=== PATIENT | male | born 1990 | race Caucasian/White ===

== ENCOUNTER 2020-09-05 02:09 | Emergency (ER) | payer MEDICAID, SELFPAY ==
[2020-09-05 02:15] VITALS: BP 138/67; BP 160/83; PULSE 83; PULSE 90; RESP 12; TEMP 37.3; O2SAT 97; O2SAT 99; BMI 25.9
--- NOTE | 2020-09-05 02:54 | ECG_ITS ---
Test Reason : CHEST PAIN Blood Pressure : / mmHG Vent. Rate : 054 BPM Atrial Rate : 054 BPM P-R Int : 128 ms QRS Dur : 090 ms QT Int : 438 ms P-R-T Axes : 034 070 048 degrees QTc Int : 415 ms Sinus bradycardia Nonspecific T wave abnormality Abnormal ECG When compared with ECG of 31-JUL-2020 13:34, Vent. rate has decreased BY 30 BPM Nonspecific T wave abnormality now evident in Lateral leads Referred By: Sonia Ozuna Electronically Signed By:SEBLE RENNER MD
[2020-09-05 03:18] LABS: Basophils Percent Auto 0.3 % (0-2); Eosinophils Absolute Auto 0.2 X10*3/uL (0.0-0.4); Eosinophils Percent Auto 2.4 % (0-4); Hematocrit 35.8 % (42-52); Imm Gran Abs Auto 0.01 X10*3/uL (0.00-0.03); Imm Gran Pct Auto 0.2 % (0.0-0.4); Lymphocytes Absolute Auto 2.7 X10*3/uL (1.2-4.9); Mean Corpuscular HGB Conc 33.5 g/dl (31.0-36.0); Mean Corpuscular Hemoglobin 30.2 pg (27.0-33.0); Mean Corpuscular Volume 90.2 fL (80-98); Mean Platelet Volume 9.4 fL (9.4-12.4); Monocytes Absolute Auto 0.7 X10*3/uL (0.1-1.2); Monocytes Percent Auto 11.2 % (2-11); Neutrophils Absolute Auto 2.8 X10*3/uL (2.0-8.3); Neutrophils Percent Auto 43.9 % (45-73); Platelet Count 251 X10*3/uL (160-400); Red Blood Count 3.97 X10*6/uL (4.60-5.80); Red Cell Distribution Width 12.4 % (11.0-16.0); White Blood Count 6.3 X10*3/uL (4.8-10.8)
[2020-09-05 03:19] LABS: MANUAL DIFF FLAG NO
[2020-09-05 03:20] LABS: Amphetamine Screen Urine Not Detected (Not Detect); Barbiturates, Urine Not Detected (Not Detect); Benzodiazepines Screen Urine Not Detected (Not Detect); Cannabinoid Screen Urine POSITIVE (Not Detect); Cocaine Screen Urine POSITIVE (Not Detect); Opiate Screen Urine POSITIVE (Not Detect); Phencyclidine Screen Urine Not Detected (Not Detect)
[2020-09-05 03:26] VITALS: BP 150/63; PULSE 66; RESP 12; TEMP 37.1; O2SAT 97
[2020-09-05 03:52] LABS: Alanine Aminotransferase 44 U/L (0-40); Alkaline Phosphatase 79 U/L (39-117); Anion Gap 11 (12-20); Aspartate Amino Transferase 43 U/L (5-37); Bilirubin Total 0.4 mg/dL (0.0-1.0); Blood Urea Nitrogen 15 mg/dL (9-16); Calcium 8.7 mg/dL (8.4-10.2); Carbon Dioxide 30 mmol/L (22-29); Chloride 102 mmol/L (96-108); Creatinine Clr Calc Pharmacy 98.1; Estimated Glomerular Filt Rate > 60; Glucose Random 118 mg/dL (60-115); Potassium 3.9 mmol/l (3.3-5.1); Sodium 139 mmol/L (135-145); Total Protein 7.4 g/dL (6.5-8.0)
--- NOTE | 2020-09-05 04:00 | ED_ITS ---
HPI - Overdose General Chief Complaint: Overdose Stated Complaint: Drug Use Time Seen by Provider: 09/05/20 02:53 Source: patient Mode of arrival: EMS Limitations: no limitations History of Present Illness HPI Narrative: This is a 29-year-old male who presents via EMS after he called them when he began experiencing chest pain after using heroin and cocaine. He describes the pain as being in the middle the chest and states that is sharp and nonradiating does not worsened with deep inspiration or movement. He denies any fevers, chills, nausea, vomiting, diarrhea or abdominal pain, and denies any urinary pain/ burning /frequency. EMS does not report requiring any Narcan. Related Data Home Medications Medication Instructions Recorded Confirmed No Known Home Meds 09/05/20 09/05/20 Allergies Allergy/AdvReac Type Severity Reaction Status Date / Time quetiapine [From SEROQUEL] Allergy Unknown UNK Verified 09/05/20 02:13 trazodone [TRAZODONE] Allergy Unknown UNK Verified 09/05/20 02:13 Review of Systems Review of Systems: Pertinent positives and negatives as stated in HPI 10 point review of systems is otherwise negative. PMFSH Past Medical History Source: nursing notes reviewed Medical History Anxiety Depression IV drug user Substance abuse Social History Social History Alcohol intake: current Alcohol intake frequency: a few times a month Alcohol type: beer Smoking Status: Current every day smoker Use of substances other than those prescribed or required for medical reasons: Yes Substance Use Type: Crack/Cocaine, Heroin and IV Drugs Substance Use Frequency: Daily Last Used Substance: Just Prior to Admission Advance Directives: No Advance Directives Information Provided: No Physical Exam Vital Signs: Vital Signs: Vital Signs Temp Pulse Resp BP Pulse Ox 09/05/20 05:30 98.9 F 58 10 L 140/53 H 97 09/05/20 03:26 98.7 F 66 12 150/63 H 97 09/05/20 02:15 99.2 F 83 12 138/67 99 Body Mass Index 25.9 VITAL SIGNS: Reviewed. GENERAL: Well developed, well nourished, in no acute distress. HEAD: Normocephalic/atraumatic, EYES: PERRLA, EOMI intact without pain, no nystagmus/pallor/icterus noted EARS: Ext canals without abnormality, TMs non-bulging and non-erythematous NOSE: Nares patent bilateral OROPHARYNX: no oral lesions noted, posterior pharynx clear and non-erythematous without noted tonsillar enlargement/erythema/exudates NECK: Supple, no adenopathy LUNGS: Normal breath sounds. No adventitious sounds or accessory muscle use. SpO2<99> CARDIOVASCULAR: Regular rate and rhythm without noted murmurs, no JVD or lower extremity edema. ABDOMEN: Soft, non-tender, non-distended with bowel sounds. No rigidity. No guarding. No palpable masses or hernias noted MUSCULOSKELETAL: No tenderness, deformities, or effusions noted on gross inspection. EXTREMITIES: No cyanosis, clubbing or edema. SKIN: Inspection of the skin reveals no rashes, ulcerations, jaundice, pallor, or petechiae , multiple sites of healing injection sites along neck bilateral arms. NEUROLOGIC: drowsy and oriented x 4. Strength and sensation to light touch were grossly intact x 4. Course Course Course Narrative: This is a 29-year-old male with history and clinical presentation consistent with chest pain likely associated with use of cocaine and heroin. Review of EKG is not significant for acute ischemic changes and on review of lab work there is no evidence of infection. On review of EKG there are no acute findings and review of all investigations otherwise are negative for acute infection, electrolyte abnormality. chest x-ray is negative for any acute findings and high sensitivity troponin is negative as well. Patient is discharged in stable condition. MDM - Overdose Lab Data Result diagrams: 09/05/20 03:14 09/05/20 03:14 Labs: Lab Results 09/05/20 09/05/20 09/05/20 Range/Units 02:37 03:14 03:14 WBC 6.3 (4.8-10.8) X10*3/uL RBC 3.97 L (4.60-5.80) X10*6/uL Hgb 12.0 L (14.0-18.0) g/dl Hct 35.8 L (42-52) % MCV 90.2 (80-98) fL MCH 30.2 (27.0-33.0) pg MCHC 33.5 (31.0-36.0) g/dl RDW 12.4 (11.0-16.0) % Plt Count 251 (160-400) X10*3/uL MPV 9.4 (9.4-12.4) fL Immature Gran % (Auto) 0.2 (0.0-0.4) % Neut % (Auto) 43.9 L (45-73) % Lymph % (Auto) 42.0 H (20-40) % Armstrong % (Auto) 11.2 H (2-11) % Eos % (Auto) 2.4 (0-4) % Baso % (Auto) 0.3 (0-2) % Lymph # (Auto) 2.7 (1.2-4.9) X10*3/uL Armstrong # (Auto) 0.7 (0.1-1.2) X10*3/uL Eos # (Auto) 0.2 (0.0-0.4) X10*3/uL Baso # (Auto) 0.0 (0.0-0.2) X10*3/uL Abs Immat Gran (auto) 0.01 (0.00-0.03) X10*3/uL Absolute Neuts (auto) 2.8 (2.0-8.3) X10*3/uL Absolute Nucleated RBC 0.000 (0.0-0.012) X10*3/uL Nucleated RBC % (auto) 0.0 (0.0-0.2) /100WBC Sodium 139 (135-145) mmol/L Potassium 3.9 (3.3-5.1) mmol/l Chloride 102 (96-108) mmol/L Carbon Dioxide 30 H (22-29) mmol/L Anion Gap 11 L (12-20) BUN 15 (9-16) mg/dL Creatinine 1.11 (0.5-1.4) mg/dL Estim Creat Clear Calc 98.1 Estimated GFR > 60 Random Glucose 118 H (60-115) mg/dL Calcium 8.7 (8.4-10.2) mg/dL Total Bilirubin 0.4 (0.0-1.0) mg/dL AST 43 H (5-37) U/L ALT 44 H (0-40) U/L Alkaline Phosphatase 79 (39-117) U/L Troponin I High Sens (<3.5-35.0) ng/L Total Protein 7.4 (6.5-8.0) g/dL Albumin 4.0 (3.5-5.0) g/dL Urine Opiates Screen POSITIVE H (Not Detect) Ur Barbiturates Screen Not Detected (Not Detect) Ur Phencyclidine Scrn Not Detected (Not Detect) Ur Amphetamines Screen Not Detected (Not Detect) U Benzodiazepines Scrn Not Detected (Not Detect) Urine Cocaine Screen POSITIVE H (Not Detect) U Marijuana (THC) Screen POSITIVE H (Not Detect) 09/05/20 Range/Units 03:14 WBC (4.8-10.8) X10*3/uL RBC (4.60-5.80) X10*6/uL Hgb (14.0-18.0) g/dl Hct (42-52) % MCV (80-98) fL MCH (27.0-33.0) pg MCHC (31.0-36.0) g/dl RDW (11.0-16.0) % Plt Count (160-400) X10*3/uL MPV (9.4-12.4) fL Immature Gran % (Auto) (0.0-0.4) % Neut % (Auto) (45-73) % Lymph % (Auto) (20-40) % Armstrong % (Auto) (2-11) % Eos % (Auto) (0-4) % Baso % (Auto) (0-2) % Lymph # (Auto) (1.2-4.9) X10*3/uL Armstrong # (Auto) (0.1-1.2) X10*3/uL Eos # (Auto) (0.0-0.4) X10*3/uL Baso # (Auto) (0.0-0.2) X10*3/uL Abs Immat Gran (auto) (0.00-0.03) X10*3/uL Absolute Neuts (auto) (2.0-8.3) X10*3/uL Absolute Nucleated RBC (0.0-0.012) X10*3/uL Nucleated RBC % (auto) (0.0-0.2) /100WBC Sodium (135-145) mmol/L Potassium (3.3-5.1) mmol/l Chloride (96-108) mmol/L Carbon Dioxide (22-29) mmol/L Anion Gap (12-20) BUN (9-16) mg/dL Creatinine (0.5-1.4) mg/dL Estim Creat Clear Calc Estimated GFR Random Glucose (60-115) mg/dL Calcium (8.4-10.2) mg/dL Total Bilirubin (0.0-1.0) mg/dL AST (5-37) U/L ALT (0-40) U/L Alkaline Phosphatase (39-117) U/L Troponin I High Sens < 3.5 (<3.5-35.0) ng/L Total Protein (6.5-8.0) g/dL Albumin (3.5-5.0) g/dL Urine Opiates Screen (Not Detect) Ur Barbiturates Screen (Not Detect) Ur Phencyclidine Scrn (Not Detect) Ur Amphetamines Screen (Not Detect) U Benzodiazepines Scrn (Not Detect) Urine Cocaine Screen (Not Detect) U Marijuana (THC) Screen (Not Detect) ECG Data Attestation: I personally reviewed and interpreted this ECG as follows: Prior ECG tracings: available for review ( 07/31/2020 no acute changes on comparison) Interpretation: normal sinus rhythm, HR -54, no acute evidence of ischemia, SC/QRS/ QTC are within normal limits. Discharge Plan Discharge Clinical Impression: Substance abuse, Atypical chest pain Patient Disposition: Home, Self-Care Instructions: Chest Pain (ED), Polysubstance Abuse (ED) Additional Instructions: The patient and/or family acknowledge understanding of results (as applicable), diagnosis, treatment plan, need for follow up, and symptoms that should prompt a return to the emergency room. Prescriptions: No Action No Known Home Meds RF: 0 Referrals: Physician,Unknown [Primary Care Provider] - 2 days ( polysubstance abuse)
--- NOTE | 2020-09-05 04:53 | XR_ITS ---
EXAMINATION: CHEST 1 VIEW CLINICAL INFORMATION: Chest discomfort. COMPARISON: 07/31/2020. TECHNIQUE: An AP view of the chest is provided. FINDINGS: The cardiac silhouette is not enlarged. The mediastinal and hilar contours are unremarkable. There are neither pleural effusions nor pneumothoraces. There are no consolidations. The osseous structures are unremarkable. XR/XR chest 1V IMPRESSION: No evidence for acute disease.
[2020-09-05 05:29] LABS: Troponin-I High Sensitivity < 3.5 ng/L (<3.5-35.0)
[2020-09-05 05:30] VITALS: BP 140/53; PULSE 58; RESP 10; TEMP 37.2; O2SAT 97
== END 2020-09-05 07:08 | disposition home or self-care (01) ==
PROVIDERS: Emergency Provider Student in an Organized Health Care Education/Training Program
DX: T40.1X1A Poisoning by heroin, accidental (unintentional), initial encounter (principal); Y92.9 Unspecified place or not applicable; R07.89 Other chest pain; F14.10 Cocaine abuse, uncomplicated; F17.200 Nicotine dependence, unspecified, uncomplicated; Z71.6 Tobacco abuse counseling
CPT/HCPCS: 36415; 71045; 80053; 80305; 80307; 84484; 85025; 93005; 99212; 99283; 99285

== ENCOUNTER 2020-10-06 15:01 | Outpatient (REF) | payer MEDICAID, SELFPAY ==
[2020-10-10 10:28] LABS: Buprenorphine Negative; Norbuprenorphine Negative
== END 2020-10-06 15:02 | disposition home or self-care (01) ==
LOC: HO.LNP 15:01
PROVIDERS: Visit Provider Internal Medicine
DX: F11.10 Opioid abuse, uncomplicated (principal)
CPT/HCPCS: 80305; 80348; 99211

== ENCOUNTER 2020-10-07 03:35 | Emergency (ER) | payer MEDICAID, SELFPAY ==
[2020-10-07 03:38] VITALS: BP 162/80; PULSE 74; RESP 24; TEMP 36.7; O2SAT 97; BMI 25.1
--- NOTE | 2020-10-07 03:51 | PC.NURSE ---
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 2 BAGS OF HEROIN AND UNK AMT OF COCAINE. PT SLOW TO REACTION WITH EYES CLOSE AND UNABLE TO UNDERSTAND. IN ROOM FOR EVAL.
--- NOTE | 2020-10-07 04:01 | ED.AMS ---
HPI - Altered Mental Status General Chief Complaint: ETOH/Substance Use Stated Complaint: DRUG USE/DIZZY Time Seen by Provider: 10/07/20 04:00 Source: patient and EMS Mode of arrival: EMS Limitations: no limitations History of Present Illness HPI narrative: patient with history of substance abuse used 2 bags of heroin and cocaine at 03:00 o'clock just prior to arrival now she feeling dizzy and sleepy states this time it feels different patient is awake falling sleep after arrival saturating 97% at room air complaint: intoxication Onset (ago): year(s) Related Data Previous Rx's Medication Instructions Recorded buprenorphine 8 mg-naloxone 2 mg 2 film SUBLINGUAL DAILY 1 Days #2 10/06/20 sublingual film ea Allergies Allergy/AdvReac Type Severity Reaction Status Date / Time quetiapine [From SEROQUEL] Allergy Unknown UNK Verified 09/05/20 02:13 trazodone [TRAZODONE] Allergy Unknown UNK Verified 09/05/20 02:13 Review of Systems Review of Systems: REVIEW OF SYSTEMS: Pertinent positives and negatives are stated above in the history. GEN: no fevers, chills, fatigue HEENT: no nasal congestion, sore throat, ear pain NEURO: no headache, , focal weakness PULM: no cough, shortness of breath CV: no chest pain, palpitations, LE edema ABD: no abdominal pain, nausea, vomiting, diarrhea : no dysuria, urgency, frequency SKIN: no rash ROS otherwise negative x 10 PMFSH Past Medical History Medical History Anxiety Cocaine use disorder Depression IV drug user Nausea Opioid abuse Opioid use disorder Substance abuse Social History Social History Alcohol intake: current Alcohol intake frequency: a few times a month Alcohol type: beer Smoking Status: Current every day smoker Substance Use Type: Crack/Cocaine, Heroin and IV Drugs Advance Directives: No Advance Directives Information Provided: No Physical Exam Vital Signs: Vital Signs: Last Vital Signs Temp 98.1 F 10/07/20 03:38 Pulse 76 10/07/20 05:43 Resp 16 10/07/20 05:43 BP 124/55 L 10/07/20 05:43 Pulse Ox 96 10/07/20 05:43 Body Mass Index 25.1 Appearance: Alert. Oriented X3. sleepy and lethargic but easily arousable saturating 98% at room air No acute distress. IV track jhaveri Eyes: Pupils equal, round and reactive to light. ENT: Pharynx normal. Neck: Normal inspection. Neck supple. CVS: Normal heart rate and rhythm. Pulses normal. Respiratory: No respiratory distress. Breath sounds normal. Abdomen: Soft and nontender. Skin: Skin warm and dry. Normal skin color. Normal skin turgor. Extremities: No lower extremity edema. Good range of movement Neuro: Oriented X 3. No motor deficit. No sensory deficit. MDM - Altered Mental Status MDM Narrative Medical decision making narrative: page patient with opiate and cocaine abuse alert oriented x3 saturating 98% room air refused to go to detox will discharge him home Discharge Plan Discharge Clinical Impression: Opioid use disorder, Cocaine use disorder Patient Disposition: Home, Self-Care Instructions: Opioid Use Disorder (ED) Additional Instructions: abusing cocaine and opiates Follow-up with detox Prescriptions: No Action ondansetron 4 mg tablet,disintegrating 4 mg PO TID PRN (Reason: nausea) Qty: 1 RF: 0 buprenorphine-naloxone [Suboxone] 8-2 mg film 2 film sublingual DAILY 1 Days Qty: 2 RF: 0 Interventions: ED Discharge Assessment Last Done: 10/07/20 06:37 Discharge Date/Time: 10/07/20 06:38
[2020-10-07 04:02] VITALS: BP 116/76; PULSE 88; RESP 16; O2SAT 97
[2020-10-07 04:05] VITALS: BP 122/76; PULSE 60; RESP 16; O2SAT 97
--- NOTE | 2020-10-07 04:08 | PC.NURSE ---
PT CHG INTO GOWN.
[2020-10-07 05:43] VITALS: BP 124/55; PULSE 76; RESP 16; O2SAT 96
== END 2020-10-07 06:38 | disposition home or self-care (01) ==
PROVIDERS: Emergency Provider Internal Medicine
DX: F11.10 Opioid abuse, uncomplicated (principal); F14.10 Cocaine abuse, uncomplicated; F17.200 Nicotine dependence, unspecified, uncomplicated
CPT/HCPCS: 99284

== ENCOUNTER → 2020-10-09 15:09 | Outpatient (BNVA) | payer MEDICAID, SELFPAY | PROVIDERS: Visit Provider Internal Medicine | DX: F11.99 Opioid use, unspecified with unspecified opioid-induced disorder (principal); Z51.81 Encounter for therapeutic drug level monitoring; Z79.01 Long term (current) use of anticoagulants | CPT/HCPCS: 80305; 99211 ==

== ENCOUNTER → 2020-10-13 15:20 | Outpatient (BNVA) | payer MEDICAID, SELFPAY | PROVIDERS: Visit Provider Internal Medicine | DX: F11.99 Opioid use, unspecified with unspecified opioid-induced disorder (principal) | CPT/HCPCS: 80305; 99211 ==

== ENCOUNTER 2020-10-19 19:50 | Emergency (ER) | payer MEDICAID, SELFPAY ==
--- NOTE | 2020-10-19 08:42 | ECG_ITS ---
Test Reason : CHEST PAIN Blood Pressure : / mmHG Vent. Rate : 053 BPM Atrial Rate : 053 BPM P-R Int : 140 ms QRS Dur : 090 ms QT Int : 412 ms P-R-T Axes : 077 068 049 degrees QTc Int : 386 ms Sinus bradycardia Otherwise normal ECG When compared with ECG of 05-SEP-2020 03:21, Nonspecific T wave abnormality no longer evident in Lateral leads Referred By: Lorna Johnson Electronically Signed By:Hector Shukla
[2020-10-19 20:16] VITALS: BP 128/55; PULSE 51; RESP 20; TEMP 37.4; O2SAT 99
--- NOTE | 2020-10-19 20:27 | ED_ITS ---
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 Mode of arrival: ambulatory Limitations: no limitations History of Present Illness MD elicited complaint: abdominal pain and other (n/v/d) Pertinent past history: none Onset (ago): hour(s) (12) Pain Consistency: constant Location: diffuse Severity: moderate Quality: cramping Radiation: none Migration to: no migration Exacerbating factors: nothing Relieving factors: nothing Associated symptoms: nausea, vomiting and diarrhea Related Data Previous Rx's Medication Instructions Recorded clonidine HCl 0.1 mg tablet 0.1 mg PO Q4-6H PRN 3 Days #18 tab 10/09/20 MDD 6 tablets buprenorphine 8 mg-naloxone 2 mg 2 film SUBLINGUAL DAILY 7 Days #14 10/13/20 sublingual film ea ondansetron 4 mg PO Q8H PRN #20 tab 10/19/20 polyethylene glycol 3350 [Miralax] 17 g PO DAILY PRN #119 g 10/19/20 sennosides [senna] 8.6 mg PO BEDTIME PRN #30 tab 10/19/20 Allergies Allergy/AdvReac Type Severity Reaction Status Date / Time quetiapine [From SEROQUEL] Allergy Unknown UNK Verified 09/05/20 02:13 trazodone [TRAZODONE] Allergy Unknown UNK Verified 09/05/20 02:13 Review of Systems Review of Systems Constitutional : No Weight loss, No Fever, No Chills ENT/Mouth : No sore throat, No Rhinorrhea Eyes: No Swelling, No Redness Cardiovascular : No Chest Pain, No SOB, NoEdema Respiratory : No Cough, No Sputum, No Wheezing Gastrointestinal : Positive Nausea, Positive Vomiting, positive Diarrhea, positive abdominal Pain, No Hematochezia, No Melena Genitourinary : No Dysuria, No Urinary Frequency, No Hematuria, No Urgency Musculoskeletal : No joint pain, No Myalgias, No Joint Swelling Skin : No Skin Lesions, No rash Neuro : No Weakness, No Numbness, No Dizziness, No Headache Psych : No Anxiety/Panic, No Depression Heme/Lymph: No Bruising, No Lymphadenopathy Endocrine : No Polyuria, No Polydipsia All other systems reviewed and are negative. Physical Exam Vital Signs: Vital Signs: Last Vital Signs Temp 97.8 F 10/19/20 22:00 Pulse 55 10/19/20 22:00 Resp 12 10/19/20 22:00 BP 106/51 L 10/19/20 22:00 Pulse Ox 100 10/19/20 22:00 Body Mass Index 24.3 Appearance: Alert. Oriented X3. No acute distress. Eyes: Pupils equal, round and reactive to light. ENT: Pharynx normal. Neck: Normal inspection. Neck supple. CVS: Normal heart rate and rhythm. Pulses normal. Respiratory: No respiratory distress. Breath sounds normal. Abdomen: Soft and moderate lower abdominal tenderness. Skin: Skin warm and dry. Normal skin color. Normal skin turgor. Extremities: No lower extremity edema. No calf ttp Neuro: Oriented X 3. No motor deficit. No sensory deficit. Course Course Course Narrative: negative workup, tolerating PO stable for DC at this time MDM - Abdominal Pain MDM Narrative Medical decision making narrative: 30 yo male with opiate use disorder who comes in with c/o vomiting/diarrhea/abdominal pain and wants a COVID test - he is somewhat unreliable he is tender in lower abdomen will obtain labs, CT scan for appendicitis, COVID swab and CXR, dispo per results and improvement Lab Data Result diagrams: 10/19/20 20:42 10/19/20 20:41 Labs: Lab Results 10/19/20 10/19/20 10/19/20 Range/Units 20:41 20:41 20:41 WBC (4.8-10.8) X10*3/uL RBC (4.60-5.80) X10*6/uL Hgb (14.0-18.0) g/dl Hct (42-52) % MCV (80-98) fL MCH (27.0-33.0) pg MCHC (31.0-36.0) g/dl RDW (11.0-16.0) % Plt Count (160-400) X10*3/uL MPV (9.4-12.4) fL Immature Gran % (Auto) (0.0-0.4) % Neut % (Auto) (45-73) % Lymph % (Auto) (20-40) % [place] % (Auto) (2-11) % Eos % (Auto) (0-4) % Baso % (Auto) (0-2) % Lymph # (Auto) (1.2-4.9) X10*3/uL [place] # (Auto) (0.1-1.2) X10*3/uL Eos # (Auto) (0.0-0.4) X10*3/uL Baso # (Auto) (0.0-0.2) X10*3/uL Abs Immat Gran (auto) (0.00-0.03) X10*3/uL Absolute Neuts (auto) (2.0-8.3) X10*3/uL Absolute Nucleated RBC (0.0-0.012) X10*3/uL Nucleated RBC % (auto) (0.0-0.2) /100WBC Hold Blue Top SEE NOTE Sodium 136 (135-145) mmol/L Potassium 4.1 (3.3-5.1) mmol/l Chloride 100 (96-108) mmol/L Carbon Dioxide 30 H (22-29) mmol/L Anion Gap 10 L (12-20) BUN 18 H (9-16) mg/dL Creatinine 1.09 (0.5-1.4) mg/dL Estim Creat Clear Calc 99.0 Estimated GFR > 60 Random Glucose 100 (60-115) mg/dL Lactic Acid (0.5-2.0) mmol/L Calcium 9.5 D (8.4-10.2) mg/dL Magnesium 1.9 (1.6-2.6) mg/dL Total Bilirubin 0.4 (0.0-1.0) mg/dL Direct Bilirubin 0.2 (0.0-0.5) mg/dL AST 76 H (5-37) U/L ALT 86 H (0-40) U/L Alkaline Phosphatase 81 (39-117) U/L Total Protein 7.5 (6.5-8.0) g/dL Albumin 4.0 (3.5-5.0) g/dL Lipase 6 L (8-78) U/L Urine Color Urine Appearance Urine pH (5.0-8.0) Ur Specific [place] (1.005-1.025) Urine Protein (NEG-TRACE) MG/DL Urine Glucose (UA) (NEG) MG/DL Urine Ketones (NEG) MG/DL Urine Blood (NEG) Urine Nitrite (NEG) Ur Leukocyte Esterase (NEG) Urine Opiates Screen (Not Detect) Ur Barbiturates Screen (Not Detect) Ur Phencyclidine Scrn (Not Detect) Ur Amphetamines Screen (Not Detect) U Benzodiazepines Scrn (Not Detect) Urine Cocaine Screen (Not Detect) U Marijuana (THC) Screen (Not Detect) Coronavirus (PCR) (Negative) Influenza Type A (PCR) (Negative) Influenza Type B (PCR) (Negative) RSV RNA Qual (PCR) (Negative) 10/19/20 10/19/20 10/19/20 Range/Units 20:41 20:42 20:43 WBC 10.1 (4.8-10.8) X10*3/uL RBC 3.86 L (4.60-5.80) X10*6/uL Hgb 11.5 L (14.0-18.0) g/dl Hct 34.4 L (42-52) % MCV 89.1 (80-98) fL MCH 29.8 (27.0-33.0) pg MCHC 33.4 (31.0-36.0) g/dl RDW 12.7 (11.0-16.0) % Plt Count 213 (160-400) X10*3/uL MPV 9.7 (9.4-12.4) fL Immature Gran % (Auto) 0.3 (0.0-0.4) % Neut % (Auto) 66.7 (45-73) % Lymph % (Auto) 26.9 (20-40) % [place] % (Auto) 5.6 (2-11) % Eos % (Auto) 0.4 (0-4) % Baso % (Auto) 0.1 (0-2) % Lymph # (Auto) 2.7 (1.2-4.9) X10*3/uL [place] # (Auto) 0.6 (0.1-1.2) X10*3/uL Eos # (Auto) 0.0 (0.0-0.4) X10*3/uL Baso # (Auto) 0.0 (0.0-0.2) X10*3/uL Abs Immat Gran (auto) 0.03 (0.00-0.03) X10*3/uL Absolute Neuts (auto) 6.8 (2.0-8.3) X10*3/uL Absolute Nucleated RBC 0.000 (0.0-0.012) X10*3/uL Nucleated RBC % (auto) 0.0 (0.0-0.2) /100WBC Hold Blue Top Sodium (135-145) mmol/L Potassium (3.3-5.1) mmol/l Chloride (96-108) mmol/L Carbon Dioxide (22-29) mmol/L Anion Gap (12-20) BUN (9-16) mg/dL Creatinine (0.5-1.4) mg/dL Estim Creat Clear Calc Estimated GFR Random Glucose (60-115) mg/dL Lactic Acid 0.5 (0.5-2.0) mmol/L Calcium (8.4-10.2) mg/dL Magnesium (1.6-2.6) mg/dL Total Bilirubin (0.0-1.0) mg/dL Direct Bilirubin (0.0-0.5) mg/dL AST (5-37) U/L ALT (0-40) U/L Alkaline Phosphatase (39-117) U/L Total Protein (6.5-8.0) g/dL Albumin (3.5-5.0) g/dL Lipase (8-78) U/L Urine Color Urine Appearance Urine pH (5.0-8.0) Ur Specific [place] (1.005-1.025) Urine Protein (NEG-TRACE) MG/DL Urine Glucose (UA) (NEG) MG/DL Urine Ketones (NEG) MG/DL Urine Blood (NEG) Urine Nitrite (NEG) Ur Leukocyte Esterase (NEG) Urine Opiates Screen (Not Detect) Ur Barbiturates Screen (Not Detect) Ur Phencyclidine Scrn (Not Detect) Ur Amphetamines Screen (Not Detect) U Benzodiazepines Scrn (Not Detect) Urine Cocaine Screen (Not Detect) U Marijuana (THC) Screen (Not Detect) Coronavirus (PCR) NEGATIVE (Negative) Influenza Type A (PCR) NEGATIVE (Negative) Influenza Type B (PCR) NEGATIVE (Negative) RSV RNA Qual (PCR) NEGATIVE (Negative) 10/19/20 10/19/20 Range/Units 21:44 21:44 WBC (4.8-10.8) X10*3/uL RBC (4.60-5.80) X10*6/uL Hgb (14.0-18.0) g/dl Hct (42-52) % MCV (80-98) fL MCH (27.0-33.0) pg MCHC (31.0-36.0) g/dl RDW (11.0-16.0) % Plt Count (160-400) X10*3/uL MPV (9.4-12.4) fL Immature Gran % (Auto) (0.0-0.4) % Neut % (Auto) (45-73) % Lymph % (Auto) (20-40) % [place] % (Auto) (2-11) % Eos % (Auto) (0-4) % Baso % (Auto) (0-2) % Lymph # (Auto) (1.2-4.9) X10*3/uL [place] # (Auto) (0.1-1.2) X10*3/uL Eos # (Auto) (0.0-0.4) X10*3/uL Baso # (Auto) (0.0-0.2) X10*3/uL Abs Immat Gran (auto) (0.00-0.03) X10*3/uL Absolute Neuts (auto) (2.0-8.3) X10*3/uL Absolute Nucleated RBC (0.0-0.012) X10*3/uL Nucleated RBC % (auto) (0.0-0.2) /100WBC Hold Blue Top Sodium (135-145) mmol/L Potassium (3.3-5.1) mmol/l Chloride (96-108) mmol/L Carbon Dioxide (22-29) mmol/L Anion Gap (12-20) BUN (9-16) mg/dL Creatinine (0.5-1.4) mg/dL Estim Creat Clear Calc Estimated GFR Random Glucose (60-115) mg/dL Lactic Acid (0.5-2.0) mmol/L Calcium (8.4-10.2) mg/dL Magnesium (1.6-2.6) mg/dL Total Bilirubin (0.0-1.0) mg/dL Direct Bilirubin (0.0-0.5) mg/dL AST (5-37) U/L ALT (0-40) U/L Alkaline Phosphatase (39-117) U/L Total Protein (6.5-8.0) g/dL Albumin (3.5-5.0) g/dL Lipase (8-78) U/L Urine Color YELLOW Urine Appearance CLEAR Urine pH 6.0 (5.0-8.0) Ur Specific [place] 1.025 (1.005-1.025) Urine Protein NEG (NEG-TRACE) MG/DL Urine Glucose (UA) NEG (NEG) MG/DL Urine Ketones NEG (NEG) MG/DL Urine Blood NEG (NEG) Urine Nitrite NEG (NEG) Ur Leukocyte Esterase NEG (NEG) Urine Opiates Screen POSITIVE H (Not Detect) Ur Barbiturates Screen Not Detected (Not Detect) Ur Phencyclidine Scrn Not Detected (Not Detect) Ur Amphetamines Screen Not Detected (Not Detect) U Benzodiazepines Scrn Not Detected (Not Detect) Urine Cocaine Screen POSITIVE H (Not Detect) U Marijuana (THC) Screen POSITIVE H (Not Detect) Coronavirus (PCR) (Negative) Influenza Type A (PCR) (Negative) Influenza Type B (PCR) (Negative) RSV RNA Qual (PCR) (Negative) ECG Data Attestation: I personally reviewed and interpreted this ECG as follows: ECG interpretation date: 10/19/20 ECG interpretation time: 20:29 Interpretation: Rate: 53 Rhythm: sinus bradycardia Jerome: normal Normal P waves. Normal KRIS. Normal QRS complex. ST T wave : normal no LIZ qTC: normal prior studies: no acute ischemia The study has been interpreted contemporaneously by me. . Discharge Plan Discharge Clinical Impression: Vomiting Qualifiers: Vomiting type: unspecified Vomiting Intractability: non-intractable Nausea presence: with nausea Qualified Code(s): R11.2 - Nausea with vomiting, unspecified Constipation Qualifiers: Constipation type: unspecified constipation type Qualified Code(s): K59.00 - Constipation, unspecified Patient Disposition: Home, Self-Care Instructions: Constipation (ED), Acute Nausea and Vomiting (ED) Additional Instructions: return to ED for any worsening symptoms or concerns Prescriptions: New ondansetron 4 mg tablet,disintegrating 4 mg PO Q8H PRN (Reason: nausea and vomiting) Qty: 20 RF: 0 sennosides [senna] 8.6 mg tablet 8.6 mg PO BEDTIME PRN (Reason: constipation) Qty: 30 RF: 0 polyethylene glycol 3350 [Miralax] 17 gram/dose powder 17 g PO DAILY PRN (Reason: constipation) Qty: 119 RF: 0 No Action ondansetron 4 mg tablet,disintegrating 4 mg PO TID PRN (Reason: nausea) Qty: 1 RF: 0 clonidine HCl 0.1 mg tablet 0.1 mg PO Q4-6H MDD 6 tablets PRN (Reason: opiate withdrawal) 3 Days Qty: 18 RF: 0 buprenorphine-naloxone [Suboxone] 8-2 mg film 2 film sublingual DAILY 7 Days Qty: 14 RF: 0 Referrals: Physician,Unknown [Primary Care Provider] - 2 days (if not better) Interventions: ED Discharge Assessment Last Done: 10/19/20 22:17 Discharge Date/Time: 10/19/20 22:17 [facility] Past Medical History Medical History Anxiety Cocaine use disorder Depression IV drug user Nausea Opioid abuse Opioid use disorder Substance abuse Social History Social History Alcohol intake: former Smoking Status: Current every day smoker Use of substances other than those prescribed or required for medical reasons: No Substance Use Type: Crack/Cocaine and Heroin Substance Use Frequency: Daily Last Used Substance: Hours (ago) Any prior treatment program specific to substance use: Yes Advance Directives: No
--- NOTE | 2020-10-19 20:27 | CT_ITS ---
EXAMINATION: CT ABDOMEN AND PELVIS WITH CONTRAST CLINICAL INFORMATION: Lower abdominal pain and vomiting COMPARISON: CT abdomen 11/06/2016 TECHNIQUE: Multidetector volumetric images were obtained from the superior aspect of the liver through the pubic symphysis following administration 85 mL of Omnipaque 350 intravenous contrast. Sagittal and coronal reformatted images were obtained on the technologist's workstation. Oral contrast: No This CT examination was performed using dose optimization techniques as appropriate, variously including the following: *Automated exposure control *Adjustment of mA and/or kV according to patient size (this includes techniques or standardized protocols for targeted exams where dose is matched to indication/reason for exam; i.e. extremities or head) *Use of iterative reconstruction technique DLP: 417 mGy-cm FINDINGS: LUNG BASES: The visualized lung bases are unremarkable. LIVER, GALLBLADDER, AND BILIARY TREE: The liver is normal in size, shape, and attenuation. No focal hepatic lesion or biliary ductal dilatation is present. The gallbladder is unremarkable with no evidence of radiopaque gallstones, gallbladder wall thickening, or obvious pericholecystic inflammatory changes. PANCREAS: Unremarkable. SPLEEN: Unremarkable. ADRENAL GLANDS: Unremarkable. KIDNEYS AND URETERS: The kidneys are normal in size, shape, and attenuation. No hydronephrosis, hydroureter, or calculi seen. No perinephric stranding. BLADDER: Unremarkable. GASTROINTESTINAL TRACT: Is large amount of stool seen throughout the colon without distention. The small bowel loops are normal caliber. ABDOMINAL WALL: No significant hernia is appreciated. LYMPH NODES: Normal. VASCULAR: Unremarkable. PELVIC VISCERA: There is no free air or free fluid. OSSEOUS STRUCTURES: No lytic or sclerotic process seen. There is some endplate Schmorl's node L5, L3 and L2 vertebra. CT/CT abdomen pelvis w con IMPRESSION: Significant constipation without obstruction. Otherwise no acute process seen
[2020-10-19 20:28] VITALS: BP 102/59; PULSE 54; RESP 18; TEMP 37.4; O2SAT 96; BMI 24.3
--- NOTE | 2020-10-19 20:28 | XR_ITS ---
EXAMINATION: XR CHEST CLINICAL INFORMATION: fevers, cough COMPARISON: 09/05/2020 TECHNIQUE: Frontal view of the chest was obtained. FINDINGS: EKG leads over the chest. Lungs are clear. Cardiac and mediastinal contours are normal. No consolidation, pneumothorax, or pleural effusion. No acute osseous findings. XR/XR chest 1V IMPRESSION: No acute pulmonary findings.
[2020-10-19 20:54] LABS: MANUAL DIFF FLAG NO
[2020-10-19 20:55] LABS: Basophils Percent Auto 0.1 % (0-2); Eosinophils Percent Auto 0.4 % (0-4); Hematocrit 34.4 % (42-52); Hemoglobin 11.5 g/dl (14.0-18.0); Imm Gran Abs Auto 0.03 X10*3/uL (0.00-0.03); Imm Gran Pct Auto 0.3 % (0.0-0.4); Lymphocytes Absolute Auto 2.7 X10*3/uL (1.2-4.9); Lymphocytes Percent Auto 26.9 % (20-40); Mean Corpuscular HGB Conc 33.4 g/dl (31.0-36.0); Mean Corpuscular Hemoglobin 29.8 pg (27.0-33.0); Mean Corpuscular Volume 89.1 fL (80-98); Mean Platelet Volume 9.7 fL (9.4-12.4); Monocytes Absolute Auto 0.6 X10*3/uL (0.1-1.2); Monocytes Percent Auto 5.6 % (2-11); Neutrophils Absolute Auto 6.8 X10*3/uL (2.0-8.3); Neutrophils Percent Auto 66.7 % (45-73); Platelet Count 213 X10*3/uL (160-400); Red Blood Count 3.86 X10*6/uL (4.60-5.80); Red Cell Distribution Width 12.7 % (11.0-16.0); White Blood Count 10.1 X10*3/uL (4.8-10.8)
[2020-10-19 21:11] LABS: Lactic Acid 0.5 mmol/L (0.5-2.0)
[2020-10-19 21:14] LABS: Anion Gap 10 (12-20); Blood Urea Nitrogen 18 mg/dL (9-16); Calcium 9.5 mg/dL (8.4-10.2); Carbon Dioxide 30 mmol/L (22-29); Chloride 100 mmol/L (96-108); Estimated Glomerular Filt Rate > 60; Glucose Random 100 mg/dL (60-115); Potassium 4.1 mmol/l (3.3-5.1); Sodium 136 mmol/L (135-145)
[2020-10-19 21:16] LABS: Alanine Aminotransferase 86 U/L (0-40); Alkaline Phosphatase 81 U/L (39-117); Aspartate Amino Transferase 76 U/L (5-37); Bilirubin Direct 0.2 mg/dL (0.0-0.5); Bilirubin Total 0.4 mg/dL (0.0-1.0); Lipase 6 U/L (8-78); Magnesium 1.9 mg/dL (1.6-2.6); Total Protein 7.5 g/dL (6.5-8.0)
[2020-10-19] MEDS: 0.9 % Sodium Chloride 1,000 ML 999 ML IVCONT (21:18)
[2020-10-19] MEDS: Ketorolac Tromethamine 30 MG/ML VIAL IVPUSH (21:19)
[2020-10-19] MEDS: ondansetron HCL 4 MG/2 ML VIAL IVPUSH (21:19)
[2020-10-19 21:30] LABS: Influenza A PCR NEGATIVE (Negative); Influenza B PCR NEGATIVE (Negative); Resp Syncy Virus RNA Qual PCR NEGATIVE (Negative); SARS COV2 PCR INHOUSE NEGATIVE (Negative)
[2020-10-19] MEDS: iohexoL 350 MG/ML 100 ML INFUS..BTL IV (21:39)
--- NOTE | 2020-10-19 21:48 | PC.NURSE ---
Pt returned from rad. pt is sitting up in bed drawning, talking in full sentences hr sb 47 no ectopy noted. sat 98% on room air with mask on.
[2020-10-19 21:53] LABS: Glucose Urine UA NEG (NEG); Leukocyte Esterase Urine NEG (NEG); Nitrite Urine NEG (NEG); Specific Gravity - Urine 1.025 (1.005-1.025); Urine Blood NEG (NEG); Urine Ketones NEG (NEG); Urine Protein NEG (NEG-TRACE)
[2020-10-19 21:55] LABS: Appearance Urine CLEAR; Color Urine YELLOW
[2020-10-19 22:00] VITALS: BP 106/51; PULSE 55; RESP 12; TEMP 36.6; O2SAT 100
[2020-10-19 22:20] LABS: Amphetamine Screen Urine Not Detected (Not Detect); Barbiturates, Urine Not Detected (Not Detect); Benzodiazepines Screen Urine Not Detected (Not Detect); Cannabinoid Screen Urine POSITIVE (Not Detect); Cocaine Screen Urine POSITIVE (Not Detect); Opiate Screen Urine POSITIVE (Not Detect); Phencyclidine Screen Urine Not Detected (Not Detect)
== END 2020-10-19 22:17 | disposition home or self-care (01) ==
PROVIDERS: Emergency Provider Emergency Medicine
DX: K59.00 Constipation, unspecified (principal); R10.9 Unspecified abdominal pain; R11.2 Nausea with vomiting, unspecified; R19.7 Diarrhea, unspecified; F14.90 Cocaine use, unspecified, uncomplicated; F11.90 Opioid use, unspecified, uncomplicated; Z20.828 Contact with and (suspected) exposure to other viral communicable diseases; Z79.899 Other long term (current) drug therapy; F17.200 Nicotine dependence, unspecified, uncomplicated; Z71.6 Tobacco abuse counseling
CPT/HCPCS: 0241U; 36415; 71045; 74177; 80048; 80076; 80307; 81003; 83605; 83690; 83735; 85025; 87040; 93005; 96361; 96374; 96375; 99284; J1885; J2405; Q9967

== ENCOUNTER 2020-11-03 03:56 | Emergency (ER) | payer MEDICAID, SELFPAY ==
[2020-11-03 04:00] VITALS: BP 139/59; PULSE 75; RESP 12; TEMP 36.9; O2SAT 96; BMI 22.0
--- NOTE | 2020-11-03 04:25 | ED.GENADULT ---
HPI - General Adult General Chief complaint: General Medical Stated complaint: Drug use Time Seen by Provider: 11/03/20 04:25 Source: patient Mode of arrival: ambulatory Limitations: no limitations History of Present Illness HPI narrative: Patient feeling dizzy with blurred vision after using cocaine and heroin IV saturating 95% at room air intoxicated on arrival. Patient been here with similar complaints in the past no head injury no loss of conscious no fall Related Data Previous Rx's Medication Instructions Recorded clonidine HCl 0.1 mg tablet 0.1 mg PO Q4-6H PRN 3 Days #18 tab 10/09/20 MDD 6 tablets buprenorphine 8 mg-naloxone 2 mg 2 film SUBLINGUAL DAILY 7 Days #14 10/13/20 sublingual film ea ondansetron 4 mg PO Q8H PRN #20 tab 10/19/20 polyethylene glycol 3350 [Miralax] 17 g PO DAILY PRN #119 g 10/19/20 sennosides [senna] 8.6 mg PO BEDTIME PRN #30 tab 10/19/20 Allergies Allergy/AdvReac Type Severity Reaction Status Date / Time quetiapine [From SEROQUEL] Allergy Unknown UNK Verified 11/03/20 04:24 trazodone [TRAZODONE] Allergy Unknown UNK Verified 11/03/20 04:24 Review of Systems Review of Systems: Yes Unobtainable due to mental status (Intoxicated) [facility] Past Medical History Medical History Anxiety Cocaine use disorder Depression IV drug user Nausea Opioid abuse Opioid use disorder Substance abuse Social History Social History Alcohol intake: current Alcohol intake frequency: 3 or more drinks per day Alcohol type: beer Smoking Status: Unknown if ever smoked Use of substances other than those prescribed or required for medical reasons: Yes Substance Use Type: Crack/Cocaine and Heroin Substance Use Frequency: Chronic Longstanding Last Used Substance: Just Prior to Admission Any prior treatment program specific to substance use: No Advance Directives: No Physical Exam Vital Signs: Vital Signs: Last Vital Signs Temp 98.5 F 11/03/20 04:00 Pulse 75 11/03/20 04:00 Resp 12 11/03/20 04:00 BP 139/59 L 11/03/20 04:00 Pulse Ox 96 11/03/20 04:00 Body Mass Index 22.0 Appearance: Alert. Oriented X2. No acute distress. Intoxicated Eyes: Pupils equal, round and reactive to light. ENT: Pharynx normal. Neck: Normal inspection. Neck supple. CVS: Normal heart rate and rhythm. Pulses normal. Respiratory: No respiratory distress. Breath sounds normal. Abdomen: Soft and nontender. Bowel sounds are present, no mass palpable, Skin: Skin warm and dry. Normal skin color. Normal skin turgor. Extremities: No lower extremity edema. IVDA jhaveri+ Neuro: Oriented X 2. No motor deficit. No sensory deficit. Discharge Plan Discharge Prescriptions: No Action ondansetron 4 mg tablet,disintegrating 4 mg PO Q8H PRN (Reason: nausea and vomiting) Qty: 20 RF: 0 sennosides [senna] 8.6 mg tablet 8.6 mg PO BEDTIME PRN (Reason: constipation) Qty: 30 RF: 0 polyethylene glycol 3350 [Miralax] 17 gram/dose powder 17 g PO DAILY PRN (Reason: constipation) Qty: 119 RF: 0 ondansetron 4 mg tablet,disintegrating 4 mg PO TID PRN (Reason: nausea) Qty: 1 RF: 0 clonidine HCl 0.1 mg tablet 0.1 mg PO Q4-6H MDD 6 tablets PRN (Reason: opiate withdrawal) 3 Days Qty: 18 RF: 0 buprenorphine-naloxone [Suboxone] 8-2 mg film 2 film sublingual DAILY 7 Days Qty: 14 RF: 0
== END 2020-11-03 05:49 | disposition home or self-care (01) ==
PROVIDERS: Emergency Provider Internal Medicine
DX: F11.120 Opioid abuse with intoxication, uncomplicated (principal); F14.120 Cocaine abuse with intoxication, uncomplicated; R42 Dizziness and giddiness
CPT/HCPCS: 99284

== ENCOUNTER 2020-11-07 23:33 | Emergency (ER) | payer MEDICAID, SELFPAY ==
--- NOTE | 2020-11-07 | ECG_ITS ---
Test Reason : CP Blood Pressure : / mmHG Vent. Rate : 067 BPM Atrial Rate : 067 BPM P-R Int : 126 ms QRS Dur : 088 ms QT Int : 392 ms P-R-T Axes : 044 078 060 degrees QTc Int : 414 ms Normal sinus rhythm Nonspecific T wave abnormality Abnormal ECG When compared with ECG of 19-OCT-2020 19:59, Nonspecific T wave abnormality now evident in Lateral leads Referred By: Peg Mc Electronically Signed By:Hector Shukla
[2020-11-07 23:36] VITALS: BP 144/80; PULSE 86; RESP 18; TEMP 37.3; O2SAT 98; BMI 25.8
--- NOTE | 2020-11-07 23:51 | ED.GENADULT ---
HPI - General Adult General Chief complaint: General Medical Stated complaint: CHEST PAIN/COVID Time Seen by Provider: 11/07/20 23:36 Source: patient Mode of arrival: ambulatory Limitations: no limitations History of Present Illness HPI narrative: Patient comes to the emergency room complaining of feeling nauseous, vomiting, cough, fever and chills. His symptoms have been present for a week. Patient states he also has chest pain which started after using cocaine. MD complaint: Flu-like symptoms Onset (ago): day(s) Related Data Previous Rx's Medication Instructions Recorded clonidine HCl 0.1 mg tablet 0.1 mg PO Q4-6H PRN 3 Days #18 tab 10/09/20 MDD 6 tablets buprenorphine 8 mg-naloxone 2 mg 2 film SUBLINGUAL DAILY 7 Days #14 10/13/20 sublingual film ea ondansetron 4 mg PO Q8H PRN #20 tab 10/19/20 polyethylene glycol 3350 [Miralax] 17 g PO DAILY PRN #119 g 10/19/20 sennosides [senna] 8.6 mg PO BEDTIME PRN #30 tab 10/19/20 Allergies Allergy/AdvReac Type Severity Reaction Status Date / Time quetiapine [From SEROQUEL] Allergy Unknown UNK Verified 11/03/20 04:24 trazodone [TRAZODONE] Allergy Unknown UNK Verified 11/03/20 04:24 Review of Systems Review of Systems: Constitutional : Complaining of fever and chills, generalized malaise ENT/Mouth : No Hearing loss, No Ear Pain, No Nasal Congestion, No Sinus Pain, No Hoarseness, No sore throat, No Rhinorrhea, No Swallowing Difficulty Eyes: No Eye Pain, No Swelling, No Redness, No Foreign Body, No Discharge, No Vision Changes Cardiovascular : Complaining of chest pain after using cocaine, No SOB, No Dyspnea on Exertion, No Orthopnea, No Edema, No Palpitations Respiratory : Complaining of dry Cough, No Sputum, No Wheezing, No Smoke Exposure, No Dyspnea Gastrointestinal : Complaining of nausea and vomiting, No Diarrhea, No Constipation, No abdominal Pain, No Hematochezia, No Melena Genitourinary : no irregular bleeding, No Dysuria, No Urinary Frequency, No Hematuria, No Urinary Incontinence, No Urgency, No Flank Pain, No Urinary Flow Changes, No Hesitancy Musculoskeletal : No joint pain, No Myalgias, No Joint Swelling Skin : No Skin Lesions, No rash Neuro : No Weakness, No Numbness, No Paresthesias, No Loss of Consciousness, No Dizziness, No Headache Psych : No Anxiety/Panic, No Depression, No SI/HI/AH/VH, No Social Issues, Heme/Lymph: No Bruising, No Bleeding,No Lymphadenopathy Endocrine : No Polyuria, No Polydipsia, No Temperature Intolerance [facility] Past Medical History Medical History Anxiety Cocaine use disorder Depression IV drug user Nausea Opioid abuse Opioid use disorder Substance abuse Social History Social History Alcohol intake: current Alcohol intake frequency: 3 or more drinks per day Alcohol type: beer Smoking Status: Unknown if ever smoked Substance Use Type: Crack/Cocaine and Heroin Advance Directives: No Physical Exam Vital Signs: Vital Signs: Last Vital Signs Temp 99.1 F 11/07/20 23:36 Pulse 56 11/08/20 02:00 Resp 14 11/08/20 02:00 BP 118/58 L 11/08/20 02:00 Pulse Ox 99 11/08/20 02:00 Body Mass Index 25.8 Appearance: Alert. Oriented X3. No acute distress. Seems anxious Eyes: Pupils equal, round and reactive to light. ENT: Pharynx normal. Neck: Normal inspection. Neck supple. No lymph nodes noted. No crepitus CVS: Normal heart rate and rhythm. Pulses normal. Normal S1 and S2 Respiratory: No respiratory distress. Breath sounds normal. No Wheezing. No rales Abdomen: Soft and nontender. No rigidity. No distention. good BS x4 Skin: Skin warm and dry. Multiple abrasions in both arms, multiple needle track jhaveri in both arms as well Extremities: Multiple small self-inflicted superficial lacerations in both hands Neuro: Oriented X 3. No motor deficit. No sensory deficit. Moving all extermities. No slurred speech. Course Course Course Narrative: Patient states that he has no chest pain any more. However, it was noted in his labs that his sodium is bit low at 130, is the 1st time that the patient's sodium levels reach this number. Patient is being given IV fluids, after IV hydration, the chemistry will be repeated, likely to be discharged afterwards. Patient's initial chest pain likely secondary to cocaine use, no EKG changes, troponin normal, as mentioned above, at this time patient has no chest pain. Sign-out given to Dr. Ozuna Medical Decision Making Lab Data Result diagrams: 11/08/20 00:18 11/08/20 00:18 Labs: Lab Results 11/08/20 11/08/20 11/08/20 Range/Units 00:18 00:18 00:18 WBC 8.0 (4.8-10.8) X10*3/uL RBC 4.20 L (4.60-5.80) X10*6/uL Hgb 12.4 L (14.0-18.0) g/dl Hct 37.0 L (42-52) % MCV 88.1 (80-98) fL MCH 29.5 (27.0-33.0) pg MCHC 33.5 (31.0-36.0) g/dl RDW 12.6 (11.0-16.0) % Plt Count 222 (160-400) X10*3/uL MPV 9.7 (9.4-12.4) fL Immature Gran % (Auto) 0.3 (0.0-0.4) % Neut % (Auto) 55.5 (45-73) % Lymph % (Auto) 33.1 (20-40) % Cedar % (Auto) 9.6 (2-11) % Eos % (Auto) 1.4 (0-4) % Baso % (Auto) 0.1 (0-2) % Lymph # (Auto) 2.6 (1.2-4.9) X10*3/uL Cedar # (Auto) 0.8 (0.1-1.2) X10*3/uL Eos # (Auto) 0.1 (0.0-0.4) X10*3/uL Baso # (Auto) 0.0 (0.0-0.2) X10*3/uL Abs Immat Gran (auto) 0.02 (0.00-0.03) X10*3/uL Absolute Neuts (auto) 4.4 (2.0-8.3) X10*3/uL Absolute Nucleated RBC 0.000 (0.0-0.012) X10*3/uL Nucleated RBC % (auto) 0.0 (0.0-0.2) /100WBC Sodium 130 L (135-145) mmol/L Potassium 3.9 (3.3-5.1) mmol/l Chloride 95 L (96-108) mmol/L Carbon Dioxide 28 (22-29) mmol/L Anion Gap 11 L (12-20) BUN 15 (9-16) mg/dL Creatinine 1.09 (0.5-1.4) mg/dL Estim Creat Clear Calc 95.8 Estimated GFR > 60 Random Glucose 114 (60-115) mg/dL Calcium 9.6 (8.4-10.2) mg/dL Troponin I High Sens < 3.5 (<3.5-35.0) ng/L Coronavirus (PCR) (Negative) Influenza Type A (PCR) (Negative) Influenza Type B (PCR) (Negative) RSV RNA Qual (PCR) (Negative) 11/08/20 Range/Units 00:18 WBC (4.8-10.8) X10*3/uL RBC (4.60-5.80) X10*6/uL Hgb (14.0-18.0) g/dl Hct (42-52) % MCV (80-98) fL MCH (27.0-33.0) pg MCHC (31.0-36.0) g/dl RDW (11.0-16.0) % Plt Count (160-400) X10*3/uL MPV (9.4-12.4) fL Immature Gran % (Auto) (0.0-0.4) % Neut % (Auto) (45-73) % Lymph % (Auto) (20-40) % Cedar % (Auto) (2-11) % Eos % (Auto) (0-4) % Baso % (Auto) (0-2) % Lymph # (Auto) (1.2-4.9) X10*3/uL Cedar # (Auto) (0.1-1.2) X10*3/uL Eos # (Auto) (0.0-0.4) X10*3/uL Baso # (Auto) (0.0-0.2) X10*3/uL Abs Immat Gran (auto) (0.00-0.03) X10*3/uL Absolute Neuts (auto) (2.0-8.3) X10*3/uL Absolute Nucleated RBC (0.0-0.012) X10*3/uL Nucleated RBC % (auto) (0.0-0.2) /100WBC Sodium (135-145) mmol/L Potassium (3.3-5.1) mmol/l Chloride (96-108) mmol/L Carbon Dioxide (22-29) mmol/L Anion Gap (12-20) BUN (9-16) mg/dL Creatinine (0.5-1.4) mg/dL Estim Creat Clear Calc Estimated GFR Random Glucose (60-115) mg/dL Calcium (8.4-10.2) mg/dL Troponin I High Sens (<3.5-35.0) ng/L Coronavirus (PCR) NEGATIVE (Negative) Influenza Type A (PCR) NEGATIVE (Negative) Influenza Type B (PCR) NEGATIVE (Negative) RSV RNA Qual (PCR) NEGATIVE (Negative) Imaging Data Chest x-ray: Attestation: I personally reviewed and interpreted this imaging study as follows: (Sinus rhythm, heart rate 67, QTC 414, nonspecific to wave abnormality in lead V3, no T-wave inversions) Radiologist's impression: No significant abnormality is noted involving the heart, lungs, mediastinum, bony thorax or soft tissues. XR/XR chest 1V IMPRESSION: Unremarkable examination. Scores Heart Score History: -0- slightly suspicious ECG: -0- normal Age: -0- < or = 45 Risk factory: -0- no risk factors known Troponin: -0- < or = normal limit Score: 0 Risk: 1.7% Discharge Plan Discharge Clinical Impression: Chest pain, Cocaine abuse, Acute hyponatremia Patient Disposition: Home, Self-Care Instructions: Cocaine Abuse (ED), Chest Pain (ED) Additional Instructions: Please follow-up with your primary care physician tomorrow. If you have any worsening or new symptoms, please return to the emergency room or call 911 Prescriptions: No Action ondansetron 4 mg tablet,disintegrating 4 mg PO Q8H PRN (Reason: nausea and vomiting) Qty: 20 RF: 0 sennosides [senna] 8.6 mg tablet 8.6 mg PO BEDTIME PRN (Reason: constipation) Qty: 30 RF: 0 polyethylene glycol 3350 [Miralax] 17 gram/dose powder 17 g PO DAILY PRN (Reason: constipation) Qty: 119 RF: 0 ondansetron 4 mg tablet,disintegrating 4 mg PO TID PRN (Reason: nausea) Qty: 1 RF: 0 clonidine HCl 0.1 mg tablet 0.1 mg PO Q4-6H MDD 6 tablets PRN (Reason: opiate withdrawal) 3 Days Qty: 18 RF: 0 buprenorphine-naloxone [Suboxone] 8-2 mg film 2 film sublingual DAILY 7 Days Qty: 14 RF: 0
[2020-11-08] VITALS: RESP 16
--- NOTE | 2020-11-08 | XR_ITS ---
EXAMINATION: XR CHEST CLINICAL INFORMATION: Cough COMPARISON: 10/19/2020 TECHNIQUE: Frontal view of the chest was obtained. FINDINGS: No significant abnormality is noted involving the heart, lungs, mediastinum, bony thorax or soft tissues. XR/XR chest 1V IMPRESSION: Unremarkable examination.
[2020-11-08 00:26] LABS: Basophils Percent Auto 0.1 % (0-2); Eosinophils Absolute Auto 0.1 X10*3/uL (0.0-0.4); Eosinophils Percent Auto 1.4 % (0-4); Hemoglobin 12.4 g/dl (14.0-18.0); Imm Gran Abs Auto 0.02 X10*3/uL (0.00-0.03); Imm Gran Pct Auto 0.3 % (0.0-0.4); Lymphocytes Absolute Auto 2.6 X10*3/uL (1.2-4.9); Lymphocytes Percent Auto 33.1 % (20-40); MANUAL DIFF FLAG NO; Mean Corpuscular HGB Conc 33.5 g/dl (31.0-36.0); Mean Corpuscular Hemoglobin 29.5 pg (27.0-33.0); Mean Corpuscular Volume 88.1 fL (80-98); Mean Platelet Volume 9.7 fL (9.4-12.4); Monocytes Absolute Auto 0.8 X10*3/uL (0.1-1.2); Monocytes Percent Auto 9.6 % (2-11); Neutrophils Absolute Auto 4.4 X10*3/uL (2.0-8.3); Neutrophils Percent Auto 55.5 % (45-73); Platelet Count 222 X10*3/uL (160-400); Red Cell Distribution Width 12.6 % (11.0-16.0)
[2020-11-08 00:52] LABS: Anion Gap 11 (12-20); Blood Urea Nitrogen 15 mg/dL (9-16); Calcium 9.6 mg/dL (8.4-10.2); Carbon Dioxide 28 mmol/L (22-29); Chloride 95 mmol/L (96-108); Creatinine Clr Calc Pharmacy 95.8; Estimated Glomerular Filt Rate > 60; Glucose Random 114 mg/dL (60-115); Potassium 3.9 mmol/l (3.3-5.1); Sodium 130 mmol/L (135-145)
[2020-11-08 00:57] LABS: Troponin-I High Sensitivity < 3.5 ng/L (<3.5-35.0)
[2020-11-08 01:10] LABS: Influenza A PCR NEGATIVE (Negative); Influenza B PCR NEGATIVE (Negative); Resp Syncy Virus RNA Qual PCR NEGATIVE (Negative); SARS COV2 PCR INHOUSE NEGATIVE (Negative)
--- NOTE | 2020-11-08 01:43 | PC.NURSE ---
pt up to ambulate to bathroom
[2020-11-08] MEDS: Aspirin Enteric Coated 325 MG TABLET.DR PO (01:54)
[2020-11-08] MEDS: 0.9 % Sodium Chloride 1,000 ML 999 ML IVCONT (01:56)
[2020-11-08 02:00] VITALS: BP 118/58; PULSE 56; RESP 14; O2SAT 99
[2020-11-08 02:29] LABS: Glucose Urine UA NEG (NEG); Leukocyte Esterase Urine NEG (NEG); Nitrite Urine NEG (NEG); PH 5.5 (5.0-8.0); Specific Gravity - Urine 1.025 (1.005-1.025); Urine Blood NEG (NEG); Urine Ketones NEG (NEG); Urine Protein NEG (NEG-TRACE)
[2020-11-08 02:31] LABS: Appearance Urine CLEAR; Color Urine YELLOW
--- NOTE | 2020-11-08 02:47 | PC.NURSE ---
mom called on main ed line. call transferred to portable phone. pt rousable to voice.
[2020-11-08 03:00] LABS: Amphetamine Screen Urine Not Detected (Not Detect); Barbiturates, Urine Not Detected (Not Detect); Benzodiazepines Screen Urine Not Detected (Not Detect); Cannabinoid Screen Urine POSITIVE (Not Detect); Cocaine Screen Urine POSITIVE (Not Detect); Opiate Screen Urine POSITIVE (Not Detect); Phencyclidine Screen Urine Not Detected (Not Detect)
[2020-11-08 03:51] VITALS: BP 130/70; PULSE 61; RESP 18; O2SAT 98
== END 2020-11-08 04:30 | disposition home or self-care (01) ==
PROVIDERS: Emergency Provider Emergency Medicine
DX: R07.9 Chest pain, unspecified (principal); F14.10 Cocaine abuse, uncomplicated; F11.10 Opioid abuse, uncomplicated; E87.1 Hypo-osmolality and hyponatremia; Z20.828 Contact with and (suspected) exposure to other viral communicable diseases
CPT/HCPCS: 0241U; 36415; 71045; 80048; 80307; 81003; 84484; 85025; 93005; 96360; 99284

== ENCOUNTER 2020-11-08 16:32 | Emergency (ER) | payer MEDICAID, SELFPAY ==
--- NOTE | 2020-11-08 16:47 | ECG_ITS ---
Test Reason : CHEST PAIN Blood Pressure : / mmHG Vent. Rate : 083 BPM Atrial Rate : 083 BPM P-R Int : 134 ms QRS Dur : 084 ms QT Int : 372 ms P-R-T Axes : 078 069 032 degrees QTc Int : 437 ms Normal sinus rhythm Nonspecific T wave abnormality Abnormal ECG When compared to the previous EKG of No significant changes seen Referred By: Generic ED Physician Electronically Signed By:Hector Shukla
== END 2020-11-08 23:33 | disposition left against medical advice (07) ==
PROVIDERS: Emergency Provider Emergency Medicine
DX: R07.9 Chest pain, unspecified (principal)
CPT/HCPCS: 93005; 99283

== ENCOUNTER → 2020-11-09 13:04 | Outpatient (BNVA) | payer MEDICAID, SELFPAY | PROVIDERS: Visit Provider Nurse Practitioner Psychiatric/Mental Health | DX: F11.99 Opioid use, unspecified with unspecified opioid-induced disorder (principal); F14.10 Cocaine abuse, uncomplicated | CPT/HCPCS: 80305; 99212 ==

== ENCOUNTER → 2020-11-16 13:57 | Outpatient (BNVA) | payer MEDICAID, SELFPAY | PROVIDERS: Visit Provider Nurse Practitioner Psychiatric/Mental Health | DX: F11.99 Opioid use, unspecified with unspecified opioid-induced disorder (principal) | CPT/HCPCS: 80305; 99212 ==

== ENCOUNTER 2020-11-16 14:46 | Outpatient (REF) | payer MEDICAID, SELFPAY | END 2020-11-16 14:47 | disposition home or self-care (01) | LOC: HO.LAB 14:46 | PROVIDERS: Visit Provider Internal Medicine | DX: Z20.822 Contact with and (suspected) exposure to COVID-19 (principal) | CPT/HCPCS: 36415; C9803; U0003 ==

== ENCOUNTER 2020-11-18 07:14 | Emergency (ER) | payer MEDICAID, SELFPAY ==
[2020-11-18 07:24] VITALS: BP 124/61; BP 137/68; PULSE 82; PULSE 90; RESP 16; TEMP 36.9; O2SAT 95; O2SAT 98; BMI 18.4
--- NOTE | 2020-11-18 07:35 | ED_ITS ---
HPI - Skin/Abscess/Foreign Bdy General Chief complaint: Skin/Abscess/Foreign Body Stated complaint: PIECE OF PORK STUCK IN NOSE ALL NIGHT Time Seen by Provider: 11/18/20 07:35 History of Present Illness HPI narrative: Patient is a 30-year-old male presented today with having potentially a foreign body in his right nostril. Patient claims he ate some pork subsequently feels a foreign body in his nose. Patient denies any change in voice or taste. Was able to smoke marijuana afterwards. Patient denies any difficulty breathing. Is able to blow his nose on the affected side. It feels like there is something stuck there. Patient has a history of using cocaine. Related Data Previous Rx's Medication Instructions Recorded polyethylene glycol 3350 [Miralax] 17 g PO DAILY PRN #119 g 10/19/20 sennosides [senna] 8.6 mg PO BEDTIME PRN #30 tab 10/19/20 clonidine HCl 0.1 mg tablet 0.1 mg PO Q4-6H PRN 3 Days #18 tab 11/09/20 MDD 6 tablets ondansetron 4 mg disintegrating 4 mg PO Q8H PRN #20 tab 11/09/20 tablet buprenorphine 12 mg-naloxone 3 mg 1 film BUCCAL BID #14 ea 11/16/20 sublingual film Allergies Allergy/AdvReac Type Severity Reaction Status Date / Time quetiapine [From SEROQUEL] Allergy Unknown UNK Verified 11/03/20 04:24 trazodone [TRAZODONE] Allergy Unknown UNK Verified 11/03/20 04:24 Review of Systems Review of Systems: Constitutional: No Weight loss, No Fever, No Chills, No Night Sweats, No Fatigue, No Malaise ENT/Mouth: No Hearing loss, No Ear Pain, No Nasal Congestion, No Sinus Pain, No Hoarseness, No sore throat, No Rhinorrhea, No Swallowing Difficulty. Bilateral nostrils patent. There is no foreign object that is visible. Attempted to have the patient blow his nose. Recheck his nose again. There is no foreign object noted in bilateral nostril again. Posterior pharynx is normal. There is no erythema noted. Eyes: No Eye Pain, No Swelling, No Redness, No Foreign Body, No Discharge, No Vision Changes Cardiovascular: No Chest Pain, No SOB, No Dyspnea on Exertion, No Orthopnea, No Edema, No Palpitations Respiratory: No Cough, No Sputum, No Wheezing, No Smoke Exposure, No Dyspnea Gastrointestinal: No Nausea, No Vomiting, No Diarrhea, No Constipation, No abdominal Pain, No Hematochezia, No Melena Genitourinary: no irregular bleeding, No Dysuria, No Urinary Frequency, No Hematuria, No Urinary Incontinence, No Urgency, No Flank Pain, No Urinary Flow Changes, No Hesitancy Musculoskeletal: No joint pain, No Myalgias, No Joint Swelling Skin: No Skin Lesions, No rash Neuro: No Weakness, No Numbness, No Paresthesias, No Loss of Consciousness, No Dizziness, No Headache Psych: No Anxiety/Panic, No Depression, No SI/HI/AH/VH, No Social Issues, Heme/Lymph: No Bruising, No Bleeding,No Lymphadenopathy Endocrine: No Polyuria, No Polydipsia, No Temperature Intolerance PMFSH Past Medical History Attestation statement: The following information was validated with the patient. Medical History Anxiety Cocaine use disorder Depression IV drug user Nausea Opioid abuse Opioid use disorder Substance abuse Social History Social History Alcohol intake: current Alcohol intake frequency: a few times a week Alcohol type: beer Smoking Status: Current every day smoker Substance Use Type: Crack/Cocaine, Heroin and Marijuana Advance Directives: No Advance Directives Information Provided: No Physical Exam Vital Signs: Vital Signs: Last Vital Signs Temp 98.5 F 11/18/20 07:24 Pulse 82 11/18/20 07:24 Resp 16 11/18/20 07:24 BP 124/61 11/18/20 07:24 Pulse Ox 95 11/18/20 07:24 Body Mass Index 18.4 MDM - Skin/Abscess/Foreign Bdy MDM Narrative Medical decision making narrative: Well-appearing no distress. Tolerate p.o. no change in voice. No foreign object noted. Positive history of recreational drug use. Will suggest patient follow-up with ENT for further investigation of the foreign object. Currently in stable condition. Discharge Plan Discharge Clinical Impression: Cocaine use disorder, Foreign body accidentally entering other orifice Patient Disposition: Home, Self-Care Instructions: Foreign Body in Pharynx (ED) Prescriptions: No Action sennosides [senna] 8.6 mg tablet 8.6 mg PO BEDTIME PRN (Reason: constipation) Qty: 30 RF: 0 polyethylene glycol 3350 [Miralax] 17 gram/dose powder 17 g PO DAILY PRN (Reason: constipation) Qty: 119 RF: 0 ondansetron 4 mg tablet,disintegrating 4 mg PO TID PRN (Reason: nausea) Qty: 1 RF: 0 clonidine HCl 0.1 mg tablet 0.1 mg PO Q4-6H MDD 6 tablets PRN (Reason: opiate withdrawal) 3 Days Qty: 18 RF: 0 ondansetron 4 mg tablet,disintegrating 4 mg PO Q8H PRN (Reason: nausea and vomiting) Qty: 20 RF: 0 buprenorphine-naloxone [Suboxone] 12-3 mg film 1 film buccal BID Qty: 14 RF: 0 Referrals: Raul Fitzgerald [Physician] - 2 days Print Language: Sudanese
== END 2020-11-18 09:01 | disposition home or self-care (01) ==
PROVIDERS: Emergency Provider Emergency Medicine Emergency Medical Services
DX: T17.1XXA Foreign body in nostril, initial encounter (principal); F14.90 Cocaine use, unspecified, uncomplicated; F11.90 Opioid use, unspecified, uncomplicated; F12.90 Cannabis use, unspecified, uncomplicated; X58.XXXA Exposure to other specified factors, initial encounter; Y93.9 Activity, unspecified; Y92.009 Unspecified place in unspecified non-institutional (private) residence as the place of occurrence of the external cause; Y99.9 Unspecified external cause status; Z79.899 Other long term (current) drug therapy; F17.200 Nicotine dependence, unspecified, uncomplicated; Z71.6 Tobacco abuse counseling
CPT/HCPCS: 99283

== ENCOUNTER → 2020-11-23 14:22 | Outpatient (BNVA) | payer MEDICAID, SELFPAY | PROVIDERS: Visit Provider Nurse Practitioner Psychiatric/Mental Health | DX: F11.99 Opioid use, unspecified with unspecified opioid-induced disorder (principal) | CPT/HCPCS: 80305; 99212 ==

== ENCOUNTER 2020-12-02 11:40 | Emergency (ER) | payer MEDICAID, SELFPAY ==
--- NOTE | 2020-12-02 | ECG_ITS ---
Test Reason : SOB Blood Pressure : / mmHG Vent. Rate : 060 BPM Atrial Rate : 060 BPM P-R Int : 132 ms QRS Dur : 092 ms QT Int : 410 ms P-R-T Axes : 079 073 045 degrees QTc Int : 410 ms Normal sinus rhythm Nonspecific T wave abnormality Abnormal ECG When compared with ECG of 08-NOV-2020 16:41, No significant change was found Referred By: Generic ED Physician Electronically Signed By:Hector Shukla
[2020-12-02 12:00] VITALS: BP 164/86; BP 167/72; PULSE 102; PULSE 92; RESP 12; TEMP 36.8; O2SAT 94; O2SAT 98; BMI 28.0
--- NOTE | 2020-12-02 13:20 | XR_ITS ---
EXAMINATION: XR CHEST CLINICAL INFORMATION: chest discomfort wants detox COMPARISON: 11/08/2020 TECHNIQUE: PA and lateral views of the chest were obtained. FINDINGS: Lungs are clear. No consolidation, pneumothorax, or pleural effusion. Cardiac and mediastinal contours are normal. Pulmonary vasculature is unremarkable. Trachea is midline. Osseous structures are unremarkable. XR/XR chest 2V IMPRESSION: Normal chest radiographs.
--- NOTE | 2020-12-02 13:31 | ED_ITS ---
HPI - General Adult General Chief complaint: ETOH/Substance Use Stated complaint: FEELS OFF AFTER USING COCAINE & HEROIN Time Seen by Provider: 12/02/20 13:19 Source: patient Mode of arrival: ambulatory Limitations: other (Intoxicated and poor historian) History of Present Illness HPI narrative: 30yoM c PMHx of IV drug user of cocaine and heroin, depression, anxiety, hypertension, GERD and TMJ syndrome presenting to the ED with complaints of wanting detox. Reports a few hours ago he felt dizzy and some chest discomfort with associated palpitations although it has resolved at this time. Reports that he last used heroin and cocaine early this morning. Reports that he uses 1 bundle a day of heroin and cocaine. Reports that he smokes cigarettes and marijuana daily. Denies any alcohol usage. Reports he is not homeless. Denies any SI/HI/auditory or visual hallucinations or thoughts of self injury. Patient admits to having a cough. Denies any fevers, chills, headaches, neck pain/stiffness, shortness of breath, dyspnea on exertion, orthopnea, paresthesias, any symptoms or any other symptoms complaints or concerns at this time. Related Data Previous Rx's Medication Instructions Recorded polyethylene glycol 3350 [Miralax] 17 g PO DAILY PRN #119 g 10/19/20 sennosides [senna] 8.6 mg PO BEDTIME PRN #30 tab 10/19/20 ondansetron 4 mg disintegrating 4 mg PO Q8H PRN #20 tab 11/09/20 tablet buprenorphine 12 mg-naloxone 3 mg 1 film BUCCAL BID #14 ea 11/23/20 sublingual film clonidine HCl 0.1 mg tablet 0.1 mg PO BID PRN #30 tab 11/23/20 Allergies Allergy/AdvReac Type Severity Reaction Status Date / Time quetiapine [From SEROQUEL] Allergy Unknown UNK Verified 11/23/20 14:26 trazodone [TRAZODONE] Allergy Unknown UNK Verified 11/23/20 14:26 Review of Systems Review of Systems: Constitutional : No Fever, No Chills ENT/Mouth : No Ear Pain, No Nasal Congestion, No sore throat Eyes: No Eye Pain, No Swelling, No Redness Cardiovascular : + Chest Pain resolved, + palpitations resolved, No SOB Respiratory : + Cough, No Sputum, No Dyspnea Gastrointestinal : No ingestions, No Nausea, No Vomiting, No Diarrhea, No Hematochezia, No Melena Genitourinary : No Dysuria, No Urinary Frequency, No Hematuria Musculoskeletal : No Myalgias Skin : No Skin Lesions, No rash Neuro : + Dizziness resolved, No Weakness, No Numbness, No Paresthesias, No Headache Psych : No Anxiety, No Depression, No SI/HI, No AVH, No thoughts of self injury Heme/Lymph: No Lymphadenopathy Endocrine : No Polyuria, No Polydipsia Yes all other systems are reviewed and are negative [facility] Past Medical History Attestation statement: The following information was validated with the patient. Medical History Anxiety Cocaine use disorder Depression IV drug user Opioid abuse Opioid use disorder Substance abuse Social History Social History Alcohol intake: never Smoking Status: Current every day smoker Use of substances other than those prescribed or required for medical reasons: Yes Substance Use Type: Crack/Cocaine, Heroin and Marijuana Last Used Substance: Hours (ago) Advance Directives: No Advance Directives Information Provided: Yes Physical Exam Vital Signs: Vital Signs: Last Vital Signs Temp 97.8 F 12/02/20 18:00 Pulse 72 12/02/20 18:00 Resp 18 12/02/20 18:00 BP 114/66 12/02/20 18:00 Pulse Ox 97 12/02/20 18:00 Body Mass Index 28.0 vital signs have been reviewed as normal and appeared to be correct. Blood pressure hypertensive. Heart rate tachycardic. Respiration rate normal. Temperature normal. Oxygen saturation normal. Appearance: Intoxicated and somnolent although easily arousable. Oriented X3. No acute distress. Head: Normal external exam. Normocephalic. Atraumatic. No Mcdonough signs noted. No raccoon eyes noted Eyes: PERRLA. EOMI. Conjunctiva and sclera normal. Eyelids normal. ENT: EAC normal. TM's Normal. Pharynx normal. Uvula midline. Moist mucous membranes. No trismus noted. No drooling noted. No muffled voice noted. Neck: Normal inspection. Neck supple. FROM. No adenopathy. Trachea midline. Thyroid Normal. No meningeal signs. No neck mass noted. CVS: Normal heart rate and rhythm. Heart sound normal. No murmurs noted. Pulses normal throughout. No gallops noted. Respiratory: No respiratory distress. Painless inspiration. Breath sounds normal. No wheezes/rales/rhonchi noted. Chest nontender. No accessory muscle usage noted or decreased air movement noted. Abdomen: Soft and nontender. Bowel sounds normal in all 4 quadrants. No distention noted. No organomegaly noted. No visible injury noted. Back: No CVA tenderness. Full range of motion noted. Skin: Skin warm and dry. Normal skin color. Normal skin turgor. Multiple IV drug use track jhaveri to bilateral arms although no signs of infection. No fluctuance/streaking noted. No rashes/lesions/lacerations noted. Extremities: No lower extremity edema. No calf tenderness noted. Extremities exhibit normal range of motion. Extremities nontender. Neuro: Oriented X 3. No motor deficit. No sensory deficit. Reflexes normal. Psych: Appearance grossly normal, well-kept, mental status normal, speech and movement normal, speech clear, patient appears very sad and anxious along with the press. Is cooperative. Normal thought process. Normal thought content. Normal good insight. Judgment good. Course Course Course Narrative: 30yoM c PMHx of IV drug user of cocaine and heroin, depression, anxiety, hypertension, GERD and TMJ syndrome presenting to the ED with complaints of wanting detox for heroin and cocaine. Also reports resolved dizziness, palpitations and chest pain. Admits to a dry cough. - on exam patient is somnolent and intoxicated although easily arousable and otherwise oriented x3. Not in any acute distress. - Plan: Labs, CXR, EKG, Drug urine screen, care team consult then re-evaluate. Reevaluation(s) Reevaluation #1: - Labs WNL. ETOH level negative. - CXR WNL - EKG NSR with ventricular rate of 83 with nonspecific T-wave abnormalities no acute ischemic changes noted. Compared to prior EKG on 11/08/2020. - COVID/RSV/flu negative. - awaiting for drugs of abuse screen although otherwise patient medically cleared at this time. Care Team consult placed at this time for detox. Will continue to monitor. Time: 15:05 Reevaluation #2: - care team obtain and there are no detox bed at this time although they gave him multiple resources and patient is requesting to be discharged at this time. He denies any SI/HI/auditory visual hallucinations at this time. Reports that he is not homeless. Reports that he feels safe at home. Denies any other symptoms complaints or concerns at this time. Patient is clinically sober. Will DC with instructions to return if any new or worsening symptoms and to use a detox referrals patient understands agrees the plan. Time: 19:29 Medical Decision Making Medical Records Medical records reviewed: Yes I reviewed the patient's medical records. Lab Data Lab results reviewed: Yes I reviewed the patient's lab results. Result diagrams: 12/02/20 13:48 12/02/20 13:48 Labs: Lab Results 12/02/20 12/02/20 12/02/20 Range/Units 13:48 13:48 13:48 WBC 6.8 (4.8-10.8) X10*3/uL RBC 3.95 L (4.60-5.80) X10*6/uL Hgb 11.6 L (14.0-18.0) g/dl Hct 34.9 L (42-52) % MCV 88.4 (80-98) fL MCH 29.4 (27.0-33.0) pg MCHC 33.2 (31.0-36.0) g/dl RDW 12.9 (11.0-16.0) % Plt Count 223 (160-400) X10*3/uL MPV 9.7 (9.4-12.4) fL Immature Gran % (Auto) 0.1 (0.0-0.4) % Neut % (Auto) 64.8 (45-73) % Lymph % (Auto) 22.2 (20-40) % [place] % (Auto) 11.0 (2-11) % Eos % (Auto) 1.6 (0-4) % Baso % (Auto) 0.3 (0-2) % Lymph # (Auto) 1.5 (1.2-4.9) X10*3/uL [place] # (Auto) 0.7 (0.1-1.2) X10*3/uL Eos # (Auto) 0.1 (0.0-0.4) X10*3/uL Baso # (Auto) 0.0 (0.0-0.2) X10*3/uL Abs Immat Gran (auto) 0.01 (0.00-0.03) X10*3/uL Absolute Neuts (auto) 4.4 (2.0-8.3) X10*3/uL Absolute Nucleated RBC 0.000 (0.0-0.012) X10*3/uL Nucleated RBC % (auto) 0.0 (0.0-0.2) /100WBC PT 12.2 (10.8-13.0) SEC INR 1.0 (0.9-1.1) APTT 37.7 (24.1-38.0) SEC Sodium 140 (135-145) mmol/L Potassium 4.4 (3.3-5.1) mmol/L Chloride 102 (96-108) mmol/L Carbon Dioxide 30 H (22-29) mmol/L Anion Gap 12 (12-20) BUN 13 (9-16) mg/dL Creatinine 1.05 (0.5-1.4) mg/dL Estim Creat Clear Calc 111.8 Estimated GFR > 60 Random Glucose 109 (60-115) mg/dL Calcium 9.3 (8.4-10.2) mg/dL Magnesium 1.9 (1.6-2.6) mg/dL Total Bilirubin 0.4 (0.0-1.0) mg/dL Direct Bilirubin < 0.2 (0.0-0.5) mg/dL AST 57 H (5-37) U/L ALT 62 H (0-40) U/L Alkaline Phosphatase 85 (39-117) U/L Total Creatine Kinase (38-174) U/L Troponin I High Sens (<3.5-35.0) ng/L B-Natriuretic Peptide (<100) pg/mL Total Protein 7.6 (6.5-8.0) g/dL Albumin 3.9 (3.5-5.0) g/dL Urine Color Urine Appearance Urine pH (5.0-8.0) Ur Specific Jefferson (1.005-1.025) Urine Protein (NEG-TRACE) MG/DL Urine Glucose (UA) (NEG) MG/DL Urine Ketones (NEG) MG/DL Urine Blood (NEG) Urine Nitrite (NEG) Ur Leukocyte Esterase (NEG) Urine Opiates Screen (Not Detect) Ur Barbiturates Screen (Not Detect) Ur Phencyclidine Scrn (Not Detect) Ur Amphetamines Screen (Not Detect) U Benzodiazepines Scrn (Not Detect) Urine Cocaine Screen (Not Detect) U Marijuana (THC) Screen (Not Detect) Ethyl Alcohol mg/dL Coronavirus (PCR) (Negative) Influenza Type A (PCR) (Negative) Influenza Type B (PCR) (Negative) RSV RNA Qual (PCR) (Negative) 12/02/20 12/02/20 12/02/20 Range/Units 13:48 13:48 13:48 WBC (4.8-10.8) X10*3/uL RBC (4.60-5.80) X10*6/uL Hgb (14.0-18.0) g/dl Hct (42-52) % MCV (80-98) fL MCH (27.0-33.0) pg MCHC (31.0-36.0) g/dl RDW (11.0-16.0) % Plt Count (160-400) X10*3/uL MPV (9.4-12.4) fL Immature Gran % (Auto) (0.0-0.4) % Neut % (Auto) (45-73) % Lymph % (Auto) (20-40) % [place] % (Auto) (2-11) % Eos % (Auto) (0-4) % Baso % (Auto) (0-2) % Lymph # (Auto) (1.2-4.9) X10*3/uL [place] # (Auto) (0.1-1.2) X10*3/uL Eos # (Auto) (0.0-0.4) X10*3/uL Baso # (Auto) (0.0-0.2) X10*3/uL Abs Immat Gran (auto) (0.00-0.03) X10*3/uL Absolute Neuts (auto) (2.0-8.3) X10*3/uL Absolute Nucleated RBC (0.0-0.012) X10*3/uL Nucleated RBC % (auto) (0.0-0.2) /100WBC PT (10.8-13.0) SEC INR (0.9-1.1) APTT (24.1-38.0) SEC Sodium (135-145) mmol/L Potassium (3.3-5.1) mmol/L Chloride (96-108) mmol/L Carbon Dioxide (22-29) mmol/L Anion Gap (12-20) BUN (9-16) mg/dL Creatinine (0.5-1.4) mg/dL Estim Creat Clear Calc Estimated GFR Random Glucose (60-115) mg/dL Calcium (8.4-10.2) mg/dL Magnesium (1.6-2.6) mg/dL Total Bilirubin (0.0-1.0) mg/dL Direct Bilirubin (0.0-0.5) mg/dL AST (5-37) U/L ALT (0-40) U/L Alkaline Phosphatase (39-117) U/L Total Creatine Kinase (38-174) U/L Troponin I High Sens < 3.5 (<3.5-35.0) ng/L B-Natriuretic Peptide 15 (<100) pg/mL Total Protein (6.5-8.0) g/dL Albumin (3.5-5.0) g/dL Urine Color Urine Appearance Urine pH (5.0-8.0) Ur Specific Jefferson (1.005-1.025) Urine Protein (NEG-TRACE) MG/DL Urine Glucose (UA) (NEG) MG/DL Urine Ketones (NEG) MG/DL Urine Blood (NEG) Urine Nitrite (NEG) Ur Leukocyte Esterase (NEG) Urine Opiates Screen (Not Detect) Ur Barbiturates Screen (Not Detect) Ur Phencyclidine Scrn (Not Detect) Ur Amphetamines Screen (Not Detect) U Benzodiazepines Scrn (Not Detect) Urine Cocaine Screen (Not Detect) U Marijuana (THC) Screen (Not Detect) Ethyl Alcohol < 10 mg/dL Coronavirus (PCR) NEGATIVE (Negative) Influenza Type A (PCR) NEGATIVE (Negative) Influenza Type B (PCR) NEGATIVE (Negative) RSV RNA Qual (PCR) NEGATIVE (Negative) 12/02/20 12/02/20 12/02/20 Range/Units 13:48 18:11 18:11 WBC (4.8-10.8) X10*3/uL RBC (4.60-5.80) X10*6/uL Hgb (14.0-18.0) g/dl Hct (42-52) % MCV (80-98) fL MCH (27.0-33.0) pg MCHC (31.0-36.0) g/dl RDW (11.0-16.0) % Plt Count (160-400) X10*3/uL MPV (9.4-12.4) fL Immature Gran % (Auto) (0.0-0.4) % Neut % (Auto) (45-73) % Lymph % (Auto) (20-40) % [place] % (Auto) (2-11) % Eos % (Auto) (0-4) % Baso % (Auto) (0-2) % Lymph # (Auto) (1.2-4.9) X10*3/uL [place] # (Auto) (0.1-1.2) X10*3/uL Eos # (Auto) (0.0-0.4) X10*3/uL Baso # (Auto) (0.0-0.2) X10*3/uL Abs Immat Gran (auto) (0.00-0.03) X10*3/uL Absolute Neuts (auto) (2.0-8.3) X10*3/uL Absolute Nucleated RBC (0.0-0.012) X10*3/uL Nucleated RBC % (auto) (0.0-0.2) /100WBC PT (10.8-13.0) SEC INR (0.9-1.1) APTT (24.1-38.0) SEC Sodium (135-145) mmol/L Potassium (3.3-5.1) mmol/L Chloride (96-108) mmol/L Carbon Dioxide (22-29) mmol/L Anion Gap (12-20) BUN (9-16) mg/dL Creatinine (0.5-1.4) mg/dL Estim Creat Clear Calc Estimated GFR Random Glucose (60-115) mg/dL Calcium (8.4-10.2) mg/dL Magnesium (1.6-2.6) mg/dL Total Bilirubin (0.0-1.0) mg/dL Direct Bilirubin (0.0-0.5) mg/dL AST (5-37) U/L ALT (0-40) U/L Alkaline Phosphatase (39-117) U/L Total Creatine Kinase 169 (38-174) U/L Troponin I High Sens (<3.5-35.0) ng/L B-Natriuretic Peptide (<100) pg/mL Total Protein (6.5-8.0) g/dL Albumin (3.5-5.0) g/dL Urine Color YELLOW Urine Appearance CLEAR Urine pH 6.5 (5.0-8.0) Ur Specific [place] 1.015 (1.005-1.025) Urine Protein NEG (NEG-TRACE) MG/DL Urine Glucose (UA) NEG (NEG) MG/DL Urine Ketones NEG (NEG) MG/DL Urine Blood NEG (NEG) Urine Nitrite NEG (NEG) Ur Leukocyte Esterase NEG (NEG) Urine Opiates Screen POSITIVE H (Not Detect) Ur Barbiturates Screen Not Detected (Not Detect) Ur Phencyclidine Scrn Not Detected (Not Detect) Ur Amphetamines Screen Not Detected (Not Detect) U Benzodiazepines Scrn Not Detected (Not Detect) Urine Cocaine Screen POSITIVE H (Not Detect) U Marijuana (THC) Screen POSITIVE H (Not Detect) Ethyl Alcohol mg/dL Coronavirus (PCR) (Negative) Influenza Type A (PCR) (Negative) Influenza Type B (PCR) (Negative) RSV RNA Qual (PCR) (Negative) Imaging Data Chest x-ray: Attestation: I personally reviewed and interpreted this imaging study as follows: Radiologist's impression: FINDINGS: Lungs are clear. No consolidation, pneumothorax, or pleural effusion. Cardiac and mediastinal contours are normal. Pulmonary vasculature is unremarkable. Trachea is midline. Osseous structures are unremarkable. XR/XR chest 2V IMPRESSION: Normal chest radiographs. ECG Data Attestation: I personally reviewed and interpreted this ECG as follows: Interpretation: FINDINGS: Lungs are clear. No consolidation, pneumothorax, or pleural effusion. Cardiac and mediastinal contours are normal. Pulmonary vasculature is unremarkable. Trachea is midline. Osseous structures are unremarkable. XR/XR chest 2V IMPRESSION: Normal chest radiographs. Discharge Plan Discharge Clinical Impression: Substance abuse, Atypical chest pain, Dizziness, Heart palpitations, Intoxication by drug Patient Disposition: Home, Self-Care Instructions: Medical Clearance for Substance Abuse Treatment (ED) Prescriptions: No Action sennosides [senna] 8.6 mg tablet 8.6 mg PO BEDTIME PRN (Reason: constipation) Qty: 30 RF: 0 polyethylene glycol 3350 [Miralax] 17 gram/dose powder 17 g PO DAILY PRN (Reason: constipation) Qty: 119 RF: 0 ondansetron 4 mg tablet,disintegrating 4 mg PO TID PRN (Reason: nausea) Qty: 1 RF: 0 ondansetron 4 mg tablet,disintegrating 4 mg PO Q8H PRN (Reason: nausea and vomiting) Qty: 20 RF: 0 buprenorphine-naloxone [Suboxone] 12-3 mg film 1 film buccal BID Qty: 14 RF: 0 clonidine HCl 0.1 mg tablet 0.1 mg PO BID PRN (Reason: anxiety) Qty: 30 RF: 1 Referrals: [facility] [Primary Care Provider] - 2 days
[2020-12-02 13:55] LABS: Basophils Percent Auto 0.3 % (0-2); Eosinophils Absolute Auto 0.1 X10*3/uL (0.0-0.4); Eosinophils Percent Auto 1.6 % (0-4); Hematocrit 34.9 % (42-52); Hemoglobin 11.6 g/dl (14.0-18.0); Imm Gran Abs Auto 0.01 X10*3/uL (0.00-0.03); Imm Gran Pct Auto 0.1 % (0.0-0.4); Lymphocytes Absolute Auto 1.5 X10*3/uL (1.2-4.9); Lymphocytes Percent Auto 22.2 % (20-40); MANUAL DIFF FLAG NO; Mean Corpuscular HGB Conc 33.2 g/dl (31.0-36.0); Mean Corpuscular Hemoglobin 29.4 pg (27.0-33.0); Mean Corpuscular Volume 88.4 fL (80-98); Mean Platelet Volume 9.7 fL (9.4-12.4); Monocytes Absolute Auto 0.7 X10*3/uL (0.1-1.2); Neutrophils Absolute Auto 4.4 X10*3/uL (2.0-8.3); Neutrophils Percent Auto 64.8 % (45-73); Platelet Count 223 X10*3/uL (160-400); Red Blood Count 3.95 X10*6/uL (4.60-5.80); Red Cell Distribution Width 12.9 % (11.0-16.0); White Blood Count 6.8 X10*3/uL (4.8-10.8)
[2020-12-02 14:00] VITALS: BP 105/49; PULSE 53; RESP 17; TEMP 36.9; O2SAT 95
[2020-12-02 14:10] LABS: Prothrombin Time 12.2 SEC (10.8-13.0)
[2020-12-02 14:12] LABS: Partial Thromboplastin Time 37.7 SEC (24.1-38.0)
[2020-12-02 14:16] LABS: Ethanol < 10 mg/dL
[2020-12-02 14:20] LABS: Alanine Aminotransferase 62 U/L (0-40); Albumin Level 3.9 g/dL (3.5-5.0); Alkaline Phosphatase 85 U/L (39-117); Anion Gap 12 (12-20); Aspartate Amino Transferase 57 U/L (5-37); Bilirubin Direct < 0.2 mg/dL (0.0-0.5); Bilirubin Total 0.4 mg/dL (0.0-1.0); Blood Urea Nitrogen 13 mg/dL (9-16); Calcium 9.3 mg/dL (8.4-10.2); Carbon Dioxide 30 mmol/L (22-29); Chloride 102 mmol/L (96-108); Creatinine Clr Calc Pharmacy 111.8; Estimated Glomerular Filt Rate > 60; Glucose Random 109 mg/dL (60-115); Magnesium 1.9 mg/dL (1.6-2.6); Potassium 4.4 mmol/L (3.3-5.1); Sodium 140 mmol/L (135-145); Total Protein 7.6 g/dL (6.5-8.0)
[2020-12-02 14:27] LABS: B Type Natriuretic Peptide 15 pg/mL (<100); Troponin-I High Sensitivity < 3.5 ng/L (<3.5-35.0)
[2020-12-02 14:35] LABS: Influenza A PCR NEGATIVE (Negative); Influenza B PCR NEGATIVE (Negative); Resp Syncy Virus RNA Qual PCR NEGATIVE (Negative); SARS COV2 PCR INHOUSE NEGATIVE (Negative)
--- NOTE | 2020-12-02 14:52 | PC.NURSE ---
patient sleeping, wakes to verbal stimulus, vitals obtained/stable, will continue to monitor.
[2020-12-02 18:00] VITALS: BP 114/66; PULSE 72; RESP 18; TEMP 36.6; O2SAT 97
[2020-12-02 18:24] LABS: Glucose Urine UA NEG (NEG); Leukocyte Esterase Urine NEG (NEG); Nitrite Urine NEG (NEG); PH 6.5 (5.0-8.0); Specific Gravity - Urine 1.015 (1.005-1.025); Urine Blood NEG (NEG); Urine Ketones NEG (NEG); Urine Protein NEG (NEG-TRACE)
[2020-12-02 18:27] LABS: Appearance Urine CLEAR; Color Urine YELLOW
--- NOTE | 2020-12-02 18:40 | PC.NURSE ---
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
[2020-12-02 18:45] LABS: Amphetamine Screen Urine Not Detected (Not Detect); Barbiturates, Urine Not Detected (Not Detect); Benzodiazepines Screen Urine Not Detected (Not Detect); Cannabinoid Screen Urine POSITIVE (Not Detect); Cocaine Screen Urine POSITIVE (Not Detect); Opiate Screen Urine POSITIVE (Not Detect); Phencyclidine Screen Urine Not Detected (Not Detect)
--- NOTE | 2020-12-02 19:16 | MHC.RECOVSUP ---
Detox bed search o Current location: [facility] o Identified substance use concern: - Seeking ATS (detox) - Support ? Intervention: o ATS bed search started o Community resources provided o Harm reduction discussion ? Plan: o Referral to [facility] o Follow up tomorrow o Patient to follow up with [facility] after discharge and with Bridgett for placement at [facility] program ? Additional information: I was able to engage with pt and he was interested in going to detox but after being moved from bed 13 to [facility], he decided that he no longer wants detox. he is currently a pt at [facility] and was there last week. he is interested in recieving vivitrol and going to the men's treatment program in [place] ([facility]) I was able to give him resources
== END 2020-12-02 19:40 | disposition home or self-care (01) ==
PROVIDERS: Physician Assistant Medical; Emergency Provider Emergency Medicine
DX: R07.89 Other chest pain (principal); F14.120 Cocaine abuse with intoxication, uncomplicated; F11.120 Opioid abuse with intoxication, uncomplicated; R42 Dizziness and giddiness; R00.2 Palpitations; Z20.822 Contact with and (suspected) exposure to COVID-19; I10 Essential (primary) hypertension; F17.210 Nicotine dependence, cigarettes, uncomplicated; F41.9 Anxiety disorder, unspecified; F32.9 Major depressive disorder, single episode, unspecified; Z79.899 Other long term (current) drug therapy
CPT/HCPCS: 0241U; 36415; 71046; 80048; 80076; 80307; 80320; 81003; 82550; 83735; 83880; 84484; 85025; 85610; 85730; 93005; 99284

== ENCOUNTER → 2021-01-03 11:43 | Outpatient (BNVA) | payer MEDICAID, SELFPAY | PROVIDERS: Visit Provider Physician Assistant ==

== ENCOUNTER 2021-02-04 03:34 | Emergency (ER) | payer MEDICAID, SELFPAY ==
--- NOTE | ~2021-02-04 | XR_ITS ---
EXAMINATION: CHEST 2 VIEWS CLINICAL INFORMATION: Chest wall pain. COMPARISON: 12/02/2020. TECHNIQUE: PA and lateral views of the chest were obtained. FINDINGS: The cardiac silhouette is not enlarged. The mediastinal and hilar contours are unremarkable. There are neither pleural effusions nor pneumothoraces. There are no consolidations. The osseous structures are stable. XR/XR chest 2V IMPRESSION: No evidence for acute disease.
[2021-02-04 04:12] VITALS: BP 162/67; PULSE 82; RESP 18; TEMP 36.9; O2SAT 96; BMI 26.6
--- NOTE | 2021-02-04 04:19 | ECG_ITS ---
Test Reason : SUBSTANCE USE Blood Pressure : / mmHG Vent. Rate : 000 BPM Atrial Rate : 000 BPM P-R Int : 000 ms QRS Dur : 000 ms QT Int : 000 ms P-R-T Axes : 000 000 000 degrees QTc Int : 000 ms No QRS complexes found, no ECG analysis possible When compared with ECG of 02-DEC-2020 12:10, Current undetermined rhythm precludes rhythm comparison, needs review Referred By: Generic ED Physician Electronically Signed By:
[2021-02-04 05:34] LABS: Basophils Percent Auto 0.3 % (0-2); Eosinophils Absolute Auto 0.2 X10*3/uL (0.0-0.4); Eosinophils Percent Auto 2.3 % (0-4); Hematocrit 37.7 % (42-52); Hemoglobin 12.6 g/dl (14.0-18.0); Imm Gran Abs Auto 0.01 X10*3/uL (0.00-0.03); Imm Gran Pct Auto 0.1 % (0.0-0.4); Lymphocytes Absolute Auto 3.2 X10*3/uL (1.2-4.9); Lymphocytes Percent Auto 45.3 % (20-40); MANUAL DIFF FLAG NO; Mean Corpuscular HGB Conc 33.4 g/dl (31.0-36.0); Mean Corpuscular Hemoglobin 29.4 pg (27.0-33.0); Mean Corpuscular Volume 87.9 fL (80-98); Mean Platelet Volume 9.3 fL (9.4-12.4); Monocytes Absolute Auto 0.6 X10*3/uL (0.1-1.2); Monocytes Percent Auto 8.6 % (2-11); Neutrophils Percent Auto 43.4 % (45-73); Platelet Count 217 X10*3/uL (160-400); Red Blood Count 4.29 X10*6/uL (4.60-5.80); Red Cell Distribution Width 12.8 % (11.0-16.0)
[2021-02-04 06:00] LABS: Alanine Aminotransferase 57 U/L (0-40); Albumin Level 4.2 g/dL (3.5-5.0); Alkaline Phosphatase 92 U/L (39-117); Anion Gap 12 (12-20); Aspartate Amino Transferase 61 U/L (5-37); Bilirubin Total 0.2 mg/dL (0.0-1.0); Blood Urea Nitrogen 16 mg/dL (9-16); Calcium 9.5 mg/dL (8.4-10.2); Carbon Dioxide 30 mmol/L (22-29); Chloride 100 mmol/L (96-108); Creatinine Clr Calc Pharmacy 81.2; Estimated Glomerular Filt Rate > 60; Glucose Random 123 mg/dL (60-115); Potassium 3.8 mmol/L (3.3-5.1); Sodium 138 mmol/L (135-145); Total Protein 8.1 g/dL (6.5-8.0)
[2021-02-04 06:01] LABS: Troponin-I High Sensitivity < 3.5 ng/L (<3.5-35.0)
--- NOTE | 2021-02-04 06:43 | ED.GENADULT ---
HPI - General Adult General Chief complaint: General Medical Stated complaint: Chest wall pain Time Seen by Provider: 02/04/21 06:43 Source: patient and japanese interpreter Mode of arrival: ambulatory Limitations: no limitations History of Present Illness HPI narrative: 30-year-old male history of asthma presented today with bilateral chest wall pain with deep inspiration, symptoms started 2 days ago, patient declined any trauma to his chest, no recent sickness, patient declined any coughing. No known coronary artery disease in the family. Related Data Previous Rx's Medication Instructions Recorded polyethylene glycol 3350 [Miralax] 17 g PO DAILY PRN #119 g 10/19/20 sennosides [senna] 8.6 mg PO BEDTIME PRN #30 tab 10/19/20 ondansetron 4 mg disintegrating 4 mg PO Q8H PRN #20 tab 11/09/20 tablet buprenorphine 12 mg-naloxone 3 mg 1 film BUCCAL BID #14 ea 11/23/20 sublingual film clonidine HCl 0.1 mg tablet 0.1 mg PO BID PRN #30 tab 11/23/20 ibuprofen 400 mg PO Q8H PRN #30 tab 02/04/21 Allergies Allergy/AdvReac Type Severity Reaction Status Date / Time quetiapine [From SEROQUEL] Allergy Unknown UNK Verified 02/04/21 04:12 trazodone [TRAZODONE] Allergy Unknown UNK Verified 02/04/21 04:12 Review of Systems Review of Systems: All other systems are reviewed and are negative Constitutional: Reports as per HPI and Reports no additional constitutional complaints Eyes: Reports as per HPI and Reports no additional eye complaints Reports system reviewed and no additional complaints, except as documented Cardiovascular: Reports as per HPI and Reports no additional cardiovascular complaints Respiratory: Reports as per HPI and Reports no additional respiratory complaints Gastrointestinal: Reports as per HPI and Reports no additional gastrointestinal complaints Genitourinary: Reports no additional female genitourinary complaints Musculoskeletal: Reports no additional musculoskeletal complaints Skin/Breast: Reports system reviewed and no additional complaints, except as docu Psychiatric: Reports no additional psychiatric complaints Endocrine: Reports no additional endocrine complaints Hematologic/Lymphatic: Reports no additional hematologic/lymphatic complaints Allergic/Immunologic: Reports no additional allergic/immunologic complaints Reports system reviewed and no additional complaints, except as documented and Reports Abnormal speech present PMFSH Past Medical History Medical History Anxiety Cocaine use disorder Depression IV drug user Opioid abuse Opioid use disorder Substance abuse Social History Social History Household Members: Family Alcohol intake: never Smoking Status: Current every day smoker Packs Per Day: 1 Substance Use Type: Marijuana Advance Directives: No Advance Directives Information Provided: No Current occupational status: unemployed Physical Exam Vital Signs: Vital Signs: Last Vital Signs Temp 98.4 F 02/04/21 04:12 Pulse 82 02/04/21 04:12 Resp 18 02/04/21 04:12 BP 162/67 H 02/04/21 04:12 Pulse Ox 96 02/04/21 04:12 Body Mass Index 26.6 Vital signs have been reviewed as appeared to be correct. Blood pressure is elevated. Heart rate normal. Respiration rate normal. Temperature normal. Oxygen saturation normal. Appearance: Alert. Oriented X3. No acute distress. Head: Normal external exam. Normocephalic. Atraumatic. No Mcdonough signs noted. No raccoon eyes noted Eyes: PERRLA. EOMI. Conjunctiva and sclera normal. Eyelids normal. ENT: TM's Normal. Pharynx normal. Uvula midline. Moist mucous membranes. No trismus noted. No drooling noted. No muffled voice noted. Neck: Normal inspection. Neck supple. FROM. No adenopathy. Thyroid Normal. No meningeal signs. No neck mass noted. CVS: Normal heart rate and rhythm. Heart sound normal. No murmurs noted. Pulses normal throughout. Respiratory: No respiratory distress. Painless inspiration. Breath sounds normal. No wheezes/rales/rhonchi noted. Chest nontender. No accessory muscle usage noted or decreased air movement noted. Abdomen: Soft and nontender. Bowel sounds normal in all 4 quadrants. No distention noted. No organomegaly noted. No visible injury noted. Back: No CVA tenderness. Full range of motion noted. Skin: Skin warm and dry. Normal skin color. Normal skin turgor. No rashes/lesions/lacerations noted. Extremities: No lower extremity edema. Extremities exhibit normal range of motion. Extremities nontender. Neuro: Oriented X 3. No motor deficit. No sensory deficit. Reflexes normal. Course Course Course Narrative: Assessment and plan. 30-year-old male history of asthma, cocaine abuse, presented with 2 days of bilateral chest wall pain with deep breathing, patient has unremarkable chest x-ray, unremarkable EKG, troponin is negative,, HEART score is 1. As recommended to the patient to take ibuprofen p.r.n. pain. Impression pleurisy. Medical Decision Making Lab Data Lab results reviewed: Yes I reviewed the patient's lab results. Result diagrams: 02/04/21 05:28 02/04/21 05:28 Labs: Lab Results 02/04/21 02/04/21 02/04/21 Range/Units 05:28 05:28 05:28 WBC 7.0 (4.8-10.8) X10*3/uL RBC 4.29 L (4.60-5.80) X10*6/uL Hgb 12.6 L (14.0-18.0) g/dl Hct 37.7 L (42-52) % MCV 87.9 (80-98) fL MCH 29.4 (27.0-33.0) pg MCHC 33.4 (31.0-36.0) g/dl RDW 12.8 (11.0-16.0) % Plt Count 217 (160-400) X10*3/uL MPV 9.3 L (9.4-12.4) fL Immature Gran % (Auto) 0.1 (0.0-0.4) % Neut % (Auto) 43.4 L (45-73) % Lymph % (Auto) 45.3 H (20-40) % [place] % (Auto) 8.6 (2-11) % Eos % (Auto) 2.3 (0-4) % Baso % (Auto) 0.3 (0-2) % Lymph # (Auto) 3.2 (1.2-4.9) X10*3/uL [place] # (Auto) 0.6 (0.1-1.2) X10*3/uL Eos # (Auto) 0.2 (0.0-0.4) X10*3/uL Baso # (Auto) 0.0 (0.0-0.2) X10*3/uL Abs Immat Gran (auto) 0.01 (0.00-0.03) X10*3/uL Absolute Neuts (auto) 3.0 (2.0-8.3) X10*3/uL Absolute Nucleated RBC 0.000 (0.0-0.012) X10*3/uL Nucleated RBC % (auto) 0.0 (0.0-0.2) /100WBC Sodium 138 (135-145) mmol/L Potassium 3.8 (3.3-5.1) mmol/L Chloride 100 (96-108) mmol/L Carbon Dioxide 30 H (22-29) mmol/L Anion Gap 12 (12-20) BUN 16 (9-16) mg/dL Creatinine 1.33 (0.5-1.4) mg/dL Estim Creat Clear Calc 81.2 Estimated GFR > 60 Random Glucose 123 H (60-115) mg/dL Calcium 9.5 (8.4-10.2) mg/dL Total Bilirubin 0.2 (0.0-1.0) mg/dL AST 61 H (5-37) U/L ALT 57 H (0-40) U/L Alkaline Phosphatase 92 (39-117) U/L Troponin I High Sens < 3.5 (<3.5-35.0) ng/L Total Protein 8.1 H (6.5-8.0) g/dL Albumin 4.2 (3.5-5.0) g/dL Imaging Data Chest x-ray: Radiologist's impression: No acute intrathoracic pathology. ECG Data Interpretation: Normal sinus rhythm at 70 beats per minutes, normal axis deviation, normal intervals, nonspecific T-wave inversion in V4, V5, V6. Discharge Plan Discharge Clinical Impression: Pleurisy Patient Disposition: Home, Self-Care Instructions: Pleurisy (ED) Prescriptions: New ibuprofen 400 mg tablet 400 mg PO Q8H PRN (Reason: pain) Qty: 30 RF: 0 No Action sennosides [senna] 8.6 mg tablet 8.6 mg PO BEDTIME PRN (Reason: constipation) Qty: 30 RF: 0 polyethylene glycol 3350 [Miralax] 17 gram/dose powder 17 g PO DAILY PRN (Reason: constipation) Qty: 119 RF: 0 ondansetron 4 mg tablet,disintegrating 4 mg PO TID PRN (Reason: nausea) Qty: 1 RF: 0 ondansetron 4 mg tablet,disintegrating 4 mg PO Q8H PRN (Reason: nausea and vomiting) Qty: 20 RF: 0 buprenorphine-naloxone [Suboxone] 12-3 mg film 1 film buccal BID Qty: 14 RF: 0 clonidine HCl 0.1 mg tablet 0.1 mg PO BID PRN (Reason: anxiety) Qty: 30 RF: 1 Referrals: [facility] [Primary Care Provider] - 2 days
[2021-02-04 07:35] VITALS: BP 132/55; PULSE 59; TEMP 36.3; O2SAT 100
[2021-02-04 08:12] LABS: COVID-19 Test Negative (Negative)
== END 2021-02-04 07:37 | disposition home or self-care (01) ==
PROVIDERS: Emergency Provider Emergency Medicine
DX: R09.1 Pleurisy (principal); R07.89 Other chest pain; F19.10 Other psychoactive substance abuse, uncomplicated; Z20.822 Contact with and (suspected) exposure to COVID-19
CPT/HCPCS: 36415; 71046; 80053; 84484; 85025; 87635; 93005; 99284

== ENCOUNTER 2021-02-19 08:01 | Emergency (ER) | payer MEDICAID, SELFPAY ==
--- NOTE | 2021-02-19 | ECG_ITS ---
Test Reason : CHEST PAIN Blood Pressure : / mmHG Vent. Rate : 072 BPM Atrial Rate : 072 BPM P-R Int : 138 ms QRS Dur : 092 ms QT Int : 402 ms P-R-T Axes : 077 070 047 degrees QTc Int : 440 ms Normal sinus rhythm Normal ECG When compared to the previous EKG of No significant changes seen Referred By: Generic ED Physician Electronically Signed By:Hector Shukla
--- NOTE | ~2021-02-19 | XR_ITS ---
EXAMINATION: XR CHEST CLINICAL INFORMATION: Left-sided chest pain COMPARISON: Chest radiographs 02/04/2021, 12/02/2020 TECHNIQUE: 2 views of the chest were obtained. FINDINGS: The lungs are clear. There is no airspace consolidation or groundglass opacity. No pneumothorax or pleural reaction. No pneumomediastinum. The heart is normal in size. The hilar and mediastinal contours and visualized bony structures are unremarkable. XR/XR chest 2V IMPRESSION: Unremarkable examination.
[2021-02-19 08:06] VITALS: BP 153/81; PULSE 80; RESP 16; TEMP 36.7; O2SAT 99; BMI 25.1
--- NOTE | 2021-02-19 08:44 | ED.CHESTPAIN ---
HPI - Chest Pain General Chief Complaint: ETOH/Substance Use Stated Complaint: PT FEELS LIKE HEART IS RACING, HR 96 PER EMS Time Seen by Provider: 02/19/21 08:41 Source: patient, family (Mother) and black leather buffer Mode of arrival: ambulatory Limitations: no limitations History of Present Illness HPI narrative: 30-year-old male came in for evaluation of left-sided chest pain. This is a 30-year-old male with history of IV drug abuse, who couple hours ago used IV cocaine and heroin, presented with worsening of left-sided chest pain. Patient describes the pain as pleuritic left-sided chest pain, localized to the left side of the chest with no radiation, patient described as severe 10/10, nothing relieves the pain, pain is worsening when he takes a deep breath. Patient declined any recent travel, no lower extremity swelling or tenderness, no history of PE or DVT. Related Data Previous Rx's Medication Instructions Recorded polyethylene glycol 3350 [Miralax] 17 g PO DAILY PRN #119 g 10/19/20 sennosides [senna] 8.6 mg PO BEDTIME PRN #30 tab 10/19/20 ondansetron 4 mg disintegrating 4 mg PO Q8H PRN #20 tab 11/09/20 tablet buprenorphine 12 mg-naloxone 3 mg 1 film BUCCAL BID #14 ea 11/23/20 sublingual film clonidine HCl 0.1 mg tablet 0.1 mg PO BID PRN #30 tab 11/23/20 ibuprofen 400 mg PO Q8H PRN #30 tab 02/04/21 Allergies Allergy/AdvReac Type Severity Reaction Status Date / Time quetiapine [From SEROQUEL] Allergy Unknown UNK Verified 02/04/21 04:12 trazodone [TRAZODONE] Allergy Unknown UNK Verified 02/04/21 04:12 Review of Systems Review of Systems: All other systems are reviewed and are negative Constitutional: Reports as per HPI and Reports no additional constitutional complaints Eyes: Reports as per HPI and Reports no additional eye complaints Reports system reviewed and no additional complaints, except as documented Cardiovascular: Reports as per HPI and Reports no additional cardiovascular complaints Respiratory: Reports as per HPI and Reports no additional respiratory complaints Gastrointestinal: Reports as per HPI and Reports no additional gastrointestinal complaints Genitourinary: Reports no additional female genitourinary complaints Musculoskeletal: Reports no additional musculoskeletal complaints Skin/Breast: Reports system reviewed and no additional complaints, except as docu Psychiatric: Reports no additional psychiatric complaints Endocrine: Reports no additional endocrine complaints Hematologic/Lymphatic: Reports no additional hematologic/lymphatic complaints Allergic/Immunologic: Reports no additional allergic/immunologic complaints Reports system reviewed and no additional complaints, except as documented and Reports Abnormal speech present [facility] Past Medical History Medical History Anxiety Cocaine use disorder Depression IV drug user Opioid abuse Opioid use disorder Substance abuse Social History Social History Household Members: Family Alcohol intake: never Smoking Status: Current every day smoker Packs Per Day: 1 Use of substances other than those prescribed or required for medical reasons: Yes Substance Use Type: Crack/Cocaine Substance Use Frequency: Chronic Longstanding Last Used Substance: Just Prior to Admission Advance Directives: No Advance Directives Information Provided: No Current occupational status: unemployed Physical Exam Vital Signs: Vital Signs: Last Vital Signs Temp 98.0 F 02/19/21 08:06 Pulse 80 02/19/21 08:06 Resp 16 02/19/21 08:06 BP 153/81 H 02/19/21 08:06 Pulse Ox 99 02/19/21 08:06 Body Mass Index 25.1 Vital signs have been reviewed as appeared to be correct. Blood pressure normal. Heart rate normal. Respiration rate normal. Temperature normal. Oxygen saturation normal. Appearance: Alert. Oriented X3. No acute distress. Anxious Head: Normal external exam. Normocephalic. Atraumatic. No Mcdonough signs noted. No raccoon eyes noted Eyes: PERRLA. EOMI. Conjunctiva and sclera normal. Eyelids normal. ENT: TM's Normal. Pharynx normal. Uvula midline. Moist mucous membranes. No trismus noted. No drooling noted. No muffled voice noted. Neck: Normal inspection. Neck supple. FROM. No adenopathy. Thyroid Normal. No meningeal signs. No neck mass noted. CVS: Normal heart rate and rhythm. Heart sound normal. No murmurs noted. Pulses normal throughout. Respiratory: No respiratory distress. Painless inspiration. Breath sounds normal. No wheezes/rales/rhonchi noted. Chest nontender. No accessory muscle usage noted or decreased air movement noted. Abdomen: Soft and nontender. Bowel sounds normal in all 4 quadrants. No distention noted. No organomegaly noted. No visible injury noted. Back: No CVA tenderness. Full range of motion noted. Skin: Skin warm and dry. Normal skin color. Normal skin turgor. No rashes/lesions/lacerations noted. Extremities: No lower extremity edema. Extremities exhibit normal range of motion. Extremities nontender. Neuro: Oriented X 3. No motor deficit. No sensory deficit. Reflexes normal. Course Course Course Narrative: Assessment and plan. 30-year-old male history of IV drug abuse presented with pleuritic left-sided chest pain. Patient has unremarkable EKG. HEART score is 0, no risk for PE. Patient was instructed to use NSAIDs p.r.n. pain. Will discharge the patient to follow-up with java front end web developer as an outpatient. Patient was interviewed by care team in the emergency department in attempt to help patient for detox if he desires. MDM - Chest Pain Lab Data Attestation: I reviewed the patient's lab results. Result diagrams: 02/19/21 08:50 02/19/21 08:50 Labs: Lab Results 02/19/21 02/19/21 02/19/21 Range/Units 08:50 08:50 08:50 WBC 7.2 (4.8-10.8) X10*3/uL RBC 4.43 L (4.60-5.80) X10*6/uL Hgb 12.8 L (14.0-18.0) g/dl Hct 38.5 L (42-52) % MCV 86.9 (80-98) fL MCH 28.9 (27.0-33.0) pg MCHC 33.2 (31.0-36.0) g/dl RDW 12.4 (11.0-16.0) % Plt Count 219 (160-400) X10*3/uL MPV 9.3 L (9.4-12.4) fL Immature Gran % (Auto) 0.4 (0.0-0.4) % Neut % (Auto) 52.2 (45-73) % Lymph % (Auto) 32.5 (20-40) % [place] % (Auto) 13.2 H (2-11) % Eos % (Auto) 1.4 (0-4) % Baso % (Auto) 0.3 (0-2) % Lymph # (Auto) 2.3 (1.2-4.9) X10*3/uL [place] # (Auto) 1.0 (0.1-1.2) X10*3/uL Eos # (Auto) 0.1 (0.0-0.4) X10*3/uL Baso # (Auto) 0.0 (0.0-0.2) X10*3/uL Abs Immat Gran (auto) 0.03 (0.00-0.03) X10*3/uL Absolute Neuts (auto) 3.8 (2.0-8.3) X10*3/uL Absolute Nucleated RBC 0.000 (0.0-0.012) X10*3/uL Nucleated RBC % (auto) 0.0 (0.0-0.2) /100WBC Sodium 136 (135-145) mmol/L Potassium 3.9 (3.3-5.1) mmol/L Chloride 98 (96-108) mmol/L Carbon Dioxide 30 H (22-29) mmol/L Anion Gap 12 (12-20) BUN 14 (9-16) mg/dL Creatinine 1.17 (0.5-1.4) mg/dL Estim Creat Clear Calc 92.3 Estimated GFR > 60 Random Glucose 90 (60-115) mg/dL Calcium 9.6 (8.4-10.2) mg/dL Total Bilirubin 0.5 (0.0-1.0) mg/dL Direct Bilirubin 0.2 (0.0-0.5) mg/dL AST 49 H (5-37) U/L ALT 51 H (0-40) U/L Alkaline Phosphatase 93 (39-117) U/L Troponin I High Sens < 3.5 (<3.5-35.0) ng/L B-Natriuretic Peptide < 10 (<100) pg/mL Total Protein 8.1 H (6.5-8.0) g/dL Albumin 4.2 (3.5-5.0) g/dL Lipase 10 (8-78) U/L Imaging Data Chest x-ray: Radiologist's impression: Unremarkable examination. ECG Data ECG #1: Interpretation: Normal sinus rhythm at 72 beats per minutes, normal axis deviation, normal intervals. Discharge Plan Discharge Clinical Impression: Pleurisy Patient Disposition: Home, Self-Care Instructions: Pleurisy (ED) Prescriptions: No Action ibuprofen 400 mg tablet 400 mg PO Q8H PRN (Reason: pain) Qty: 30 RF: 0 sennosides [senna] 8.6 mg tablet 8.6 mg PO BEDTIME PRN (Reason: constipation) Qty: 30 RF: 0 polyethylene glycol 3350 [Miralax] 17 gram/dose powder 17 g PO DAILY PRN (Reason: constipation) Qty: 119 RF: 0 ondansetron 4 mg tablet,disintegrating 4 mg PO TID PRN (Reason: nausea) Qty: 1 RF: 0 ondansetron 4 mg tablet,disintegrating 4 mg PO Q8H PRN (Reason: nausea and vomiting) Qty: 20 RF: 0 buprenorphine-naloxone [Suboxone] 12-3 mg film 1 film buccal BID Qty: 14 RF: 0 clonidine HCl 0.1 mg tablet 0.1 mg PO BID PRN (Reason: anxiety) Qty: 30 RF: 1 Referrals: Eder Rubio MD [Physician] - 2 days
[2021-02-19] MEDS: Ibuprofen 800 MG TABLET PO (08:50)
[2021-02-19 08:54] LABS: MANUAL DIFF FLAG NO
[2021-02-19 08:56] LABS: Basophils Percent Auto 0.3 % (0-2); Eosinophils Absolute Auto 0.1 X10*3/uL (0.0-0.4); Eosinophils Percent Auto 1.4 % (0-4); Hematocrit 38.5 % (42-52); Hemoglobin 12.8 g/dl (14.0-18.0); Imm Gran Abs Auto 0.03 X10*3/uL (0.00-0.03); Imm Gran Pct Auto 0.4 % (0.0-0.4); Lymphocytes Absolute Auto 2.3 X10*3/uL (1.2-4.9); Lymphocytes Percent Auto 32.5 % (20-40); Mean Corpuscular HGB Conc 33.2 g/dl (31.0-36.0); Mean Corpuscular Hemoglobin 28.9 pg (27.0-33.0); Mean Corpuscular Volume 86.9 fL (80-98); Mean Platelet Volume 9.3 fL (9.4-12.4); Monocytes Percent Auto 13.2 % (2-11); Neutrophils Absolute Auto 3.8 X10*3/uL (2.0-8.3); Neutrophils Percent Auto 52.2 % (45-73); Platelet Count 219 X10*3/uL (160-400); Red Blood Count 4.43 X10*6/uL (4.60-5.80); Red Cell Distribution Width 12.4 % (11.0-16.0); White Blood Count 7.2 X10*3/uL (4.8-10.8)
[2021-02-19 09:28] LABS: Alanine Aminotransferase 51 U/L (0-40); Albumin Level 4.2 g/dL (3.5-5.0); Alkaline Phosphatase 93 U/L (39-117); Anion Gap 12 (12-20); Aspartate Amino Transferase 49 U/L (5-37); Bilirubin Direct 0.2 mg/dL (0.0-0.5); Bilirubin Total 0.5 mg/dL (0.0-1.0); Blood Urea Nitrogen 14 mg/dL (9-16); Calcium 9.6 mg/dL (8.4-10.2); Carbon Dioxide 30 mmol/L (22-29); Chloride 98 mmol/L (96-108); Creatinine Clr Calc Pharmacy 92.3; Estimated Glomerular Filt Rate > 60; Glucose Random 90 mg/dL (60-115); Lipase 10 U/L (8-78); Potassium 3.9 mmol/L (3.3-5.1); Sodium 136 mmol/L (135-145); Total Protein 8.1 g/dL (6.5-8.0)
[2021-02-19 09:32] LABS: B Type Natriuretic Peptide < 10 pg/mL (<100); Troponin-I High Sensitivity < 3.5 ng/L (<3.5-35.0)
--- NOTE | 2021-02-19 09:36 | MHC.RECOVSUP ---
Recovery Support note: Patient is a 30 year old Mongolian speaking male who presented to [facility] ED with his mother after using cocaine and experiencing chest pain. This freelance copywriter met with patient with an adult neuropsychologist to discuss substance use and treatment options. Patient was sleeping initially however woke briefly for consultation. Patient reports a desire to stop using substances however reports he has been having a hard time doing so. Discussed outpatient supports, including [facility] and recovery coaching, and provided patient with information on this resource. Discussed MOUD with patient. Per EMR, patient has a history of going to our Suboxone clinic however patient reported to this freelance copywriter he has never used Suboxone. This freelance copywriter discussed Suboxone with patient and how it can be helpful in early recovery. Patient acknowledged and reported interest in receiving Suboxone. This freelance copywriter provided patient with [facility] information and encouraged him to present during walk in hours or to call for an appointment. Discussed case with patient's RN and ED provider.
== END 2021-02-19 10:39 | disposition home or self-care (01) ==
PROVIDERS: Emergency Provider Emergency Medicine
DX: R09.1 Pleurisy (principal); F11.10 Opioid abuse, uncomplicated; F14.10 Cocaine abuse, uncomplicated; F17.210 Nicotine dependence, cigarettes, uncomplicated; F41.9 Anxiety disorder, unspecified; Z79.899 Other long term (current) drug therapy
CPT/HCPCS: 36415; 71046; 80048; 80076; 83690; 83880; 84484; 85025; 93005; 99283; 99285

== ENCOUNTER 2021-03-03 04:30 | Emergency (ER) | payer MEDICAID, SELFPAY ==
--- NOTE | ~2021-03-03 | XR_ITS ---
EXAMINATION: XR CHEST CLINICAL INFORMATION: Dyspnea COMPARISON: 02/19/2021 TECHNIQUE: Frontal view of the chest was obtained. FINDINGS: The lungs are well expanded. There is no focal consolidation, edema, or effusion. No pneumothorax. The cardiomediastinal silhouette is within normal limits. No acute osseous abnormality. XR/XR chest 1V IMPRESSION: Clear lungs.
[2021-03-03 04:47] VITALS: BP 148/78; PULSE 90; RESP 18; TEMP 37.1; O2SAT 95; BMI 25.1
--- NOTE | 2021-03-03 04:50 | ECG_ITS ---
Test Reason : DYSPNEA Blood Pressure : / mmHG Vent. Rate : 066 BPM Atrial Rate : 066 BPM P-R Int : 144 ms QRS Dur : 098 ms QT Int : 408 ms P-R-T Axes : 064 079 054 degrees QTc Int : 427 ms Normal sinus rhythm Normal ECG When compared with ECG of 19-FEB-2021 08:09, No significant change was found Referred By: Generic ED Physician Electronically Signed By:DARLENE GREEN MD
[2021-03-03 05:14] LABS: Basophils Percent Auto 0.3 % (0-2); Eosinophils Absolute Auto 0.1 X10*3/uL (0.0-0.4); Eosinophils Percent Auto 1.9 % (0-4); Hematocrit 35.5 % (42-52); Hemoglobin 11.8 g/dl (14.0-18.0); Imm Gran Abs Auto 0.01 X10*3/uL (0.00-0.03); Imm Gran Pct Auto 0.1 % (0.0-0.4); Lymphocytes Absolute Auto 3.3 X10*3/uL (1.2-4.9); Lymphocytes Percent Auto 44.7 % (20-40); MANUAL DIFF FLAG NO; Mean Corpuscular HGB Conc 33.2 g/dl (31.0-36.0); Mean Corpuscular Hemoglobin 29.1 pg (27.0-33.0); Mean Corpuscular Volume 87.4 fL (80-98); Mean Platelet Volume 9.4 fL (9.4-12.4); Monocytes Absolute Auto 0.8 X10*3/uL (0.1-1.2); Neutrophils Absolute Auto 3.1 X10*3/uL (2.0-8.3); Platelet Count 217 X10*3/uL (160-400); Red Blood Count 4.06 X10*6/uL (4.60-5.80); Red Cell Distribution Width 12.4 % (11.0-16.0); White Blood Count 7.3 X10*3/uL (4.8-10.8)
[2021-03-03 05:26] LABS: IDNOW Serial# 9DD0AD1C
[2021-03-03 05:27] LABS: COVID-19 Test Negative (Negative)
[2021-03-03 05:36] LABS: Alanine Aminotransferase 47 U/L (0-40); Alkaline Phosphatase 86 U/L (39-117); Anion Gap 14 (12-20); Aspartate Amino Transferase 54 U/L (5-37); Bilirubin Total 0.3 mg/dL (0.0-1.0); Blood Urea Nitrogen 16 mg/dL (9-16); Calcium 9.2 mg/dL (8.4-10.2); Carbon Dioxide 28 mmol/L (22-29); Chloride 102 mmol/L (96-108); Creatinine Clr Calc Pharmacy 98.1; Estimated Glomerular Filt Rate > 60; Glucose Random 106 mg/dL (60-115); Potassium 3.9 mmol/L (3.3-5.1); Sodium 140 mmol/L (135-145); Total Protein 7.8 g/dL (6.5-8.0)
--- NOTE | 2021-03-03 05:59 | PC.NURSE ---
WHEN PT FIRST ARRIVED, HE WAS UNABLE TO SIT STILL, ASKING SEVERAL TIMES WHEN HE WOULD SEE THE DOCTOR. FOLLOWING TRIAGE, LABS, EKG AND COVID SWAB, PT FELL ASLEEP. SPO2 REMAINS IN MID 90'S WHILE ASLEEP.
--- NOTE | 2021-03-03 07:24 | ED.GENADULT ---
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 This is a 38-year-old male with history of IV drug abuse, brought into abscesses and skin infection, patient presented with 5 days of generalized body ache, no fever or chills, coughing with sputum described as dark color, no blood in the sputum. Patient also described facial pressure and nasal discharge, and sore throat. Decline chest pain. Patient emergency department appeared tired and sleepy patient stated that he did not sleep for the last 2 days. Related Data Previous Rx's Medication Instructions Recorded polyethylene glycol 3350 [Miralax] 17 g PO DAILY PRN #119 g 10/19/20 sennosides [senna] 8.6 mg PO BEDTIME PRN #30 tab 10/19/20 ondansetron 4 mg disintegrating 4 mg PO Q8H PRN #20 tab 11/09/20 tablet buprenorphine 12 mg-naloxone 3 mg 1 film BUCCAL BID #14 ea 11/23/20 sublingual film clonidine HCl 0.1 mg tablet 0.1 mg PO BID PRN #30 tab 11/23/20 ibuprofen 400 mg PO Q8H PRN #30 tab 02/04/21 doxycycline hyclate 100 mg PO BID #14 tab 03/03/21 Allergies Allergy/AdvReac Type Severity Reaction Status Date / Time quetiapine [From SEROQUEL] Allergy Unknown UNK Verified 02/04/21 04:12 trazodone [TRAZODONE] Allergy Unknown UNK Verified 02/04/21 04:12 Review of Systems Review of Systems: All other systems are reviewed and are negative Constitutional: Reports as per HPI and Reports no additional constitutional complaints Eyes: Reports as per HPI and Reports no additional eye complaints Reports system reviewed and no additional complaints, except as documented Cardiovascular: Reports as per HPI and Reports no additional cardiovascular complaints Respiratory: Reports as per HPI and Reports no additional respiratory complaints Gastrointestinal: Reports as per HPI and Reports no additional gastrointestinal complaints Genitourinary: Reports no additional female genitourinary complaints Musculoskeletal: Reports no additional musculoskeletal complaints Skin/Breast: Reports system reviewed and no additional complaints, except as docu Psychiatric: Reports no additional psychiatric complaints Endocrine: Reports no additional endocrine complaints Hematologic/Lymphatic: Reports no additional hematologic/lymphatic complaints Allergic/Immunologic: Reports no additional allergic/immunologic complaints Reports system reviewed and no additional complaints, except as documented and Reports Abnormal speech present [facility] Past Medical History Medical History Anxiety Cocaine use disorder Depression IV drug user Opioid abuse Opioid use disorder Substance abuse Social History Social History Household Members: Family Alcohol intake: never Smoking Status: Current every day smoker Packs Per Day: 1 Substance Use Type: Crack/Cocaine Advance Directives: No Current occupational status: unemployed Physical Exam Vital Signs: Vital Signs: Last Vital Signs Temp 98.8 F 03/03/21 04:47 Pulse 90 03/03/21 04:47 Resp 18 03/03/21 04:47 BP 148/78 H 03/03/21 04:47 Pulse Ox 95 03/03/21 04:47 Body Mass Index 25.1 Vital signs have been reviewed as appeared to be correct. Blood pressure normal. Heart rate normal. Respiration rate normal. Temperature normal. Oxygen saturation normal. Appearance: Alert. Oriented X3. No acute distress. Head: Normal external exam. Normocephalic. Atraumatic. No Mcdonough signs noted. No raccoon eyes noted Eyes: PERRLA. EOMI. Conjunctiva and sclera normal. Eyelids normal. ENT: TM's Normal. Pharynx normal. Right maxillary sinus tenderness on percussion, . Nasal discharge more on the right side Uvula midline. Moist mucous membranes. No trismus noted. No drooling noted. no muffled voice noted. Neck: Normal inspection. Neck supple. FROM. No adenopathy. Thyroid Normal. No meningeal signs. No neck mass noted. CVS: Normal heart rate and rhythm. Heart sound normal. No murmurs noted. Pulses normal throughout. Respiratory: No respiratory distress. Painless inspiration. Breath sounds normal. No wheezes/rales/rhonchi noted. Chest nontender. No accessory muscle usage noted or decreased air movement noted. Abdomen: Soft and nontender. Bowel sounds normal in all 4 quadrants. No distention noted. No organomegaly noted. No visible injury noted. Back: No CVA tenderness. Full range of motion noted. Skin: Skin warm and dry. Multiple IV track jhaveri, no discrete abscesses or infection is appreciated on exam. Multiple old healing infected spots on the skin. Extremities: No lower extremity edema. Extremities exhibit normal range of motion. Extremities nontender. Neuro: Oriented X 3. No motor deficit. No sensory deficit. Reflexes normal. Course Course Course Narrative: Assessment and plan. 30-year-old male IV drug abuser came in with multiple days of generalized body ache, fever. Chest x-ray is unremarkable, patient tested negative for COVID. Physical exam is more consistent with mild maxillary sinus infection. Will start the patient on doxycycline. Medical Decision Making Lab Data Lab results reviewed: Yes I reviewed the patient's lab results. Result diagrams: 03/03/21 05:07 03/03/21 05:07 Labs: Lab Results 03/03/21 03/03/21 03/03/21 Range/Units 05:07 05:07 05:07 WBC 7.3 (4.8-10.8) X10*3/uL RBC 4.06 L (4.60-5.80) X10*6/uL Hgb 11.8 L (14.0-18.0) g/dl Hct 35.5 L (42-52) % MCV 87.4 (80-98) fL MCH 29.1 (27.0-33.0) pg MCHC 33.2 (31.0-36.0) g/dl RDW 12.4 (11.0-16.0) % Plt Count 217 (160-400) X10*3/uL MPV 9.4 (9.4-12.4) fL Immature Gran % (Auto) 0.1 (0.0-0.4) % Neut % (Auto) 42.0 L (45-73) % Lymph % (Auto) 44.7 H (20-40) % [place] % (Auto) 11.0 (2-11) % Eos % (Auto) 1.9 (0-4) % Baso % (Auto) 0.3 (0-2) % Lymph # (Auto) 3.3 (1.2-4.9) X10*3/uL [place] # (Auto) 0.8 (0.1-1.2) X10*3/uL Eos # (Auto) 0.1 (0.0-0.4) X10*3/uL Baso # (Auto) 0.0 (0.0-0.2) X10*3/uL Abs Immat Gran (auto) 0.01 (0.00-0.03) X10*3/uL Absolute Neuts (auto) 3.1 (2.0-8.3) X10*3/uL Absolute Nucleated RBC 0.000 (0.0-0.012) X10*3/uL Nucleated RBC % (auto) 0.0 (0.0-0.2) /100WBC Sodium 140 (135-145) mmol/L Potassium 3.9 (3.3-5.1) mmol/L Chloride 102 (96-108) mmol/L Carbon Dioxide 28 (22-29) mmol/L Anion Gap 14 (12-20) BUN 16 (9-16) mg/dL Creatinine 1.10 (0.5-1.4) mg/dL Estim Creat Clear Calc 98.1 Estimated GFR > 60 Random Glucose 106 (60-115) mg/dL Calcium 9.2 (8.4-10.2) mg/dL Total Bilirubin 0.3 (0.0-1.0) mg/dL AST 54 H (5-37) U/L ALT 47 H (0-40) U/L Alkaline Phosphatase 86 (39-117) U/L Total Protein 7.8 (6.5-8.0) g/dL Albumin 4.0 (3.5-5.0) g/dL COVID-19 (ALEX) Negative (Negative) COVID-19 Clin Com See Note Imaging Data Chest x-ray: Radiologist's impression: Clear lungs. Discharge Plan Discharge Clinical Impression: IV drug user Sinusitis Qualifiers: Sinusitis location: maxillary Chronicity: acute Recurrence: not specified as recurrent Qualified Code(s): J01.00 - Acute maxillary sinusitis, unspecified Patient Disposition: Home, Self-Care Instructions: Sinusitis (ED) Prescriptions: New doxycycline hyclate 100 mg tablet 100 mg PO BID Qty: 14 RF: 0 No Action ibuprofen 400 mg tablet 400 mg PO Q8H PRN (Reason: pain) Qty: 30 RF: 0 sennosides [senna] 8.6 mg tablet 8.6 mg PO BEDTIME PRN (Reason: constipation) Qty: 30 RF: 0 polyethylene glycol 3350 [Miralax] 17 gram/dose powder 17 g PO DAILY PRN (Reason: constipation) Qty: 119 RF: 0 ondansetron 4 mg tablet,disintegrating 4 mg PO TID PRN (Reason: nausea) Qty: 1 RF: 0 ondansetron 4 mg tablet,disintegrating 4 mg PO Q8H PRN (Reason: nausea and vomiting) Qty: 20 RF: 0 buprenorphine-naloxone [Suboxone] 12-3 mg film 1 film buccal BID Qty: 14 RF: 0 clonidine HCl 0.1 mg tablet 0.1 mg PO BID PRN (Reason: anxiety) Qty: 30 RF: 1 Referrals: Physician,Unknown [Primary Care Provider] - 2 days
--- NOTE | 2021-03-03 08:07 | PC.NURSE ---
called spud grader to go over discharge
== END 2021-03-03 07:50 | disposition home or self-care (01) ==
PROVIDERS: Emergency Provider Emergency Medicine
DX: J01.00 Acute maxillary sinusitis, unspecified (principal); M79.10 Myalgia, unspecified site; R05 Cough; F11.10 Opioid abuse, uncomplicated; F14.90 Cocaine use, unspecified, uncomplicated; F17.200 Nicotine dependence, unspecified, uncomplicated; Z20.822 Contact with and (suspected) exposure to COVID-19; Z71.6 Tobacco abuse counseling; Z79.899 Other long term (current) drug therapy
CPT/HCPCS: 36415; 71045; 80053; 85025; 87635; 93005; 99283

== ENCOUNTER 2021-03-20 22:01 | Emergency (ER) | payer MEDICAID, SELFPAY ==
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
[2021-03-20 22:03] VITALS: BP 169/85; PULSE 105; RESP 16; TEMP 37; O2SAT 98; BMI 24.7
--- NOTE | 2021-03-20 22:05 | PC.NURSE ---
POLICE AT BEDSIDE INTERVIEWING PT.
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
--- NOTE | 2021-03-20 22:15 | PC.NURSE ---
X-RAY IN ROOM FOR X-RAYS.
[2021-03-20] MEDS: 0.9 % Sodium Chloride 1,000 ML 999 ML IVCONT (22:20)
[2021-03-20 22:24] LABS: MANUAL DIFF FLAG NO
[2021-03-20 22:25] LABS: Basophils Percent Auto 0.3 % (0-2); Eosinophils Absolute Auto 0.1 X10*3/uL (0.0-0.4); Eosinophils Percent Auto 1.4 % (0-4); Hematocrit 40.1 % (42-52); Hemoglobin 13.4 g/dl (14.0-18.0); Imm Gran Abs Auto 0.01 X10*3/uL (0.00-0.03); Imm Gran Pct Auto 0.1 % (0.0-0.4); Lymphocytes Absolute Auto 4.1 X10*3/uL (1.2-4.9); Mean Corpuscular HGB Conc 33.4 g/dl (31.0-36.0); Mean Corpuscular Hemoglobin 29.7 pg (27.0-33.0); Mean Corpuscular Volume 88.9 fL (80-98); Mean Platelet Volume 9.7 fL (9.4-12.4); Monocytes Absolute Auto 0.8 X10*3/uL (0.1-1.2); Monocytes Percent Auto 10.4 % (2-11); Neutrophils Absolute Auto 2.8 X10*3/uL (2.0-8.3); Neutrophils Percent Auto 35.8 % (45-73); Platelet Count 263 X10*3/uL (160-400); Red Blood Count 4.51 X10*6/uL (4.60-5.80); Red Cell Distribution Width 12.9 % (11.0-16.0); White Blood Count 7.9 X10*3/uL (4.8-10.8)
[2021-03-20 22:30] LABS: INTERNATIONAL NORM RATIO 0.9 (0.9-1.1); Prothrombin Time 11.2 SEC (10.8-13.0)
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
[2021-03-20 22:41] LABS: COVID-19 Test Negative (Negative)
[2021-03-20] MEDS: Diphth,Pertus(ACell),Tet Adult 0.5 ML SYRINGE IM (22:43)
[2021-03-20] MEDS: ondansetron HCL 4 MG/2 ML VIAL IVPUSH (22:43)
[2021-03-20] MEDS: HYDROmorphone HCl 1 MG/ML SYRINGE IVPUSH (22:44)
[2021-03-20 22:48] LABS: Ethanol < 10 mg/dL
[2021-03-20 22:52] LABS: Alanine Aminotransferase 58 U/L (0-40); Albumin Level 4.6 g/dL (3.5-5.0); Alkaline Phosphatase 109 U/L (39-117); Anion Gap 16 (12-20); Aspartate Amino Transferase 61 U/L (5-37); Bilirubin Direct < 0.2 mg/dL (0.0-0.5); Bilirubin Total 0.3 mg/dL (0.0-1.0); Blood Urea Nitrogen 15 mg/dL (9-16); Calcium 9.9 mg/dL (8.4-10.2); Carbon Dioxide 27 mmol/L (22-29); Chloride 101 mmol/L (96-108); Creatinine Clr Calc Pharmacy 89.2; Estimated Glomerular Filt Rate > 60; Glucose Random 90 mg/dL (60-115); Lipase 13 U/L (8-78); Potassium 3.5 mmol/L (3.3-5.1); Sodium 140 mmol/L (135-145); Total Protein 9.2 g/dL (6.5-8.0)
[2021-03-20] MEDS: iohexoL 350 MG/ML 100 ML INFUS..BTL 80 ML IV (23:23)
[2021-03-21] MEDS: cephALEXin 500 MG CAPSULE PO (01:52)
== END 2021-03-21 03:52 | disposition home or self-care (01) ==
PROVIDERS: Emergency Provider Emergency Medicine
DX: S71.141A Puncture wound with foreign body, right thigh, initial encounter (principal); X93.XXXA Assault by handgun discharge, initial encounter; I10 Essential (primary) hypertension; F11.10 Opioid abuse, uncomplicated; F14.10 Cocaine abuse, uncomplicated; F19.90 Other psychoactive substance use, unspecified, uncomplicated; F17.210 Nicotine dependence, cigarettes, uncomplicated; Y93.9 Activity, unspecified; Y92.9 Unspecified place or not applicable; Y99.9 Unspecified external cause status
CPT/HCPCS: 36415; 71045; 73552; 73706; 80048; 80076; 80320; 83690; 85025; 85610; 85730; 87635; 90471; 90715; 96361; 96374; 96375; 99283; 99284; J1170; J2405; Q9967

== ENCOUNTER 2021-03-28 21:10 | Emergency (ER) | payer MEDICAID, SELFPAY ==
[2021-03-28 21:25] VITALS: BP 137/71; PULSE 100; RESP 20; TEMP 36.6; O2SAT 98; BMI 25.8
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
== END 2021-03-29 00:15 | disposition home or self-care (01) ==
PROVIDERS: Emergency Provider Internal Medicine
DX: K64.9 Unspecified hemorrhoids (principal); F11.10 Opioid abuse, uncomplicated; F14.90 Cocaine use, unspecified, uncomplicated; F17.210 Nicotine dependence, cigarettes, uncomplicated; Z71.6 Tobacco abuse counseling; Z79.899 Other long term (current) drug therapy; Z71.51 Drug abuse counseling and surveillance of drug abuser
CPT/HCPCS: 99283

== ENCOUNTER 2021-04-02 12:19 | Emergency (ER) | payer MEDICAID, SELFPAY ==
[2021-04-02] VITALS (7 sets, daily range): BP systolic 108–154; BP diastolic 48–74; PULSE 45–100; RESP 8–20; TEMP 36.8–37.2; O2SAT 93–100; BMI 23.6
--- NOTE | ~2021-04-02 | CT_ITS ---
EXAMINATION: CT HEAD WITHOUT CONTRAST CT CERVICAL SPINE WITHOUT CONTRAST CLINICAL INFORMATION: Overdose. COMPARISON: CT head dated 03/16/2017. CT cervical spine dated 02/06/2013. TECHNIQUE: Contiguous axial imaging was performed from the skull base to vertex without intravenous administration of contrast. Contiguous axial CT images of the cervical spine were obtained without contrast. Sagittal and coronal reformats were provided and reviewed. This CT examination was performed using dose optimization techniques as appropriate, variously including the following: *Automated exposure control *Adjustment of mA and/or kV according to patient size (this includes techniques or standardized protocols for targeted exams where dose is matched to indication/reason for exam; i.e. extremities or head) *Use of iterative reconstruction technique DLP: 1029 mGy-cm FINDINGS: HEAD: There is no evidence of acute intracranial hemorrhage or territorial infarction. No abnormal mass effect or midline shift is seen. Mart to white matter differentiation is well preserved. No extra-axial fluid collections are identified. The ventricles are normal in size. There is no abnormal attenuation within the brain parenchyma. The osseous structures and soft tissues are normal. The mastoid air cells and visualized portions of the paranasal sinuses are well aerated. CERVICAL SPINE: Straightening of the normal cervical lordosis, which may be positional or related to muscular spasm. No acute fracture or subluxation. No loss of vertebral body height. Loss of intervertebral disc height with degenerative endplate changes and anterior endplate osteophytes at C6-C7, progressed when compared to the prior examination. Unremarkable facet joints. No lytic or blastic osseous lesion. Unremarkable prevertebral soft tissues. No abnormal soft tissue mass or fluid collection. Thyroid within normal limits. Visualized lung apices are clear. No significant central canal or neural foraminal stenosis. CT/CT cervical spine wo con IMPRESSION: HEAD: No acute intracranial hemorrhage or mass effect. CERVICAL SPINE: No acute fracture or subluxation. Straightening of the normal cervical lordosis, which may be positional or related to muscular spasm. Moderate degenerative disc disease at C6-C7, increased when compared to the prior examination.
--- NOTE | ~2021-04-02 | XR_ITS ---
EXAMINATION: XR CHEST CLINICAL INFORMATION: Chest pain. COMPARISON: None TECHNIQUE: Frontal view of the chest was obtained. FINDINGS: No significant abnormality is noted involving the heart, lungs, mediastinum, bony thorax or soft tissues. XR/XR chest 1V IMPRESSION: Unremarkable chest examination.
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
--- NOTE | 2021-04-02 13:02 | ECG_ITS ---
Test Reason : CHEST PAIN Blood Pressure : / mmHG Vent. Rate : 067 BPM Atrial Rate : 067 BPM P-R Int : 132 ms QRS Dur : 090 ms QT Int : 416 ms P-R-T Axes : 062 075 044 degrees QTc Int : 439 ms Normal sinus rhythm Nonspecific T wave abnormality Abnormal ECG When compared with ECG of 03-MAR-2021 05:15, No significant change was found Referred By: Ellis Arshad Electronically Signed By:MANUEL RILEY
--- NOTE | 2021-04-02 13:42 | PC.NURSE ---
Pt sleeping, arousable. NSR onmonitor. call mom for ride home. [phone]
--- NOTE | 2021-04-02 14:53 | PC.NURSE ---
sleeping but arousable to light touch. pupils 3-4mm
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
--- NOTE | 2021-04-02 17:17 | PC.NURSE ---
sleeping. rr around 8 when asleep but sao2 remains in high 90's, arousable to light touch. sb on monitor. slightly diaphoretic.
--- NOTE | 2021-04-02 17:50 | PC.NURSE ---
pt is sleeping but arousable to voice. follows commands. SB on monitor. skin pwd. calm when awake.
[2021-04-02] MEDS: 0.9 % Sodium Chloride 1,000 ML 999 ML IV (17:51)
[2021-04-02 18:06] LABS: MANUAL DIFF FLAG NO
[2021-04-02 18:09] LABS: Basophils Percent Auto 0.3 % (0-2); Eosinophils Absolute Auto 0.1 X10*3/uL (0.0-0.4); Eosinophils Percent Auto 1.1 % (0-4); Hematocrit 36.8 % (42-52); Hemoglobin 12.5 g/dl (14.0-18.0); Imm Gran Abs Auto 0.02 X10*3/uL (0.00-0.03); Imm Gran Pct Auto 0.3 % (0.0-0.4); Lymphocytes Absolute Auto 2.6 X10*3/uL (1.2-4.9); Mean Corpuscular Hemoglobin 29.2 pg (27.0-33.0); Mean Platelet Volume 9.5 fL (9.4-12.4); Monocytes Absolute Auto 0.7 X10*3/uL (0.1-1.2); Monocytes Percent Auto 8.5 % (2-11); Neutrophils Absolute Auto 4.6 X10*3/uL (2.0-8.3); Neutrophils Percent Auto 57.8 % (45-73); Platelet Count 277 X10*3/uL (160-400); Red Blood Count 4.28 X10*6/uL (4.60-5.80); Red Cell Distribution Width 12.7 % (11.0-16.0)
[2021-04-02 18:16] LABS: Prothrombin Time 11.9 SEC (10.8-13.0)
[2021-04-02 18:18] LABS: Partial Thromboplastin Time 37.6 SEC (24.1-38.0)
[2021-04-02 18:21] LABS: D Dimer < 200 NG/ML
[2021-04-02 18:26] LABS: COVID-19 Test Negative (Negative); IDNOW Serial# 9DD0AD1C
[2021-04-02 18:37] LABS: Ethanol < 10 mg/dL
[2021-04-02 18:40] LABS: Alanine Aminotransferase 44 U/L (0-40); Alkaline Phosphatase 99 U/L (39-117); Anion Gap 12 (12-20); Aspartate Amino Transferase 49 U/L (5-37); Bilirubin Total 0.3 mg/dL (0.0-1.0); Blood Urea Nitrogen 13 mg/dL (9-16); Calcium 9.4 mg/dL (8.4-10.2); Carbon Dioxide 28 mmol/L (22-29); Chloride 102 mmol/L (96-108); Creatinine Clr Calc Pharmacy 114.9; Estimated Glomerular Filt Rate > 60; Glucose Random 94 mg/dL (60-115); Potassium 4.3 mmol/L (3.3-5.1); Sodium 138 mmol/L (135-145)
[2021-04-02 18:47] LABS: Troponin-I High Sensitivity < 3.5 ng/L (<3.5-35.0)
--- NOTE | 2021-04-02 20:56 | MHC.CARE ---
CARE team support requested for pt who arrived to ED this afternoon secondary to an opiate overdose. Pt's mother has been encouraging pt to go to detox and pt is agreeable at this time. This sign writer letterer or painter met with pt and his mother with the use of a medical supervisor. Pt's mother will not drive out of the [facility] for treatment and is only agreeing to [place] or [place] facilities at this time. This sign writer letterer or painter has made several attempts to reach [facility] to inquire about detox bed availability without any success.To be noted: there are detox beds available in the [place] area at two different facilities.
== END 2021-04-02 21:36 | disposition home or self-care (01) ==
PROVIDERS: Physician Assistant; Emergency Provider Emergency Medicine
DX: T40.1X1A Poisoning by heroin, accidental (unintentional), initial encounter (principal); Y92.9 Unspecified place or not applicable; R51.9 Headache, unspecified; Z20.822 Contact with and (suspected) exposure to COVID-19; F17.210 Nicotine dependence, cigarettes, uncomplicated
CPT/HCPCS: 36415; 70450; 71045; 72125; 80053; 82077; 84484; 85025; 85379; 85610; 85730; 87635; 93005; 96360; 99285

== ENCOUNTER → 2021-04-25 15:49 | Outpatient (BNVA) | payer MEDICAID, SELFPAY | PROVIDERS: Referring Provider Family Medicine; Visit Provider Surgery | DX: Z09 Encounter for follow-up examination after completed treatment for conditions other than malignant neoplasm (principal); W34.00XA Accidental discharge from unspecified firearms or gun, initial encounter | CPT/HCPCS: 99202 ==

== ENCOUNTER 2021-05-16 20:14 | Emergency (ER) | payer MEDICAID, SELFPAY ==
[2021-05-16 20:17] VITALS: BP 150/89; PULSE 99; RESP 20; TEMP 36.6; O2SAT 100; BMI 26.6
[2021-05-16 21:06] VITALS: BP 131/74; PULSE 88; RESP 18; TEMP 38.3; O2SAT 98
== END 2021-05-16 21:58 | disposition left against medical advice (07) ==
PROVIDERS: Emergency Provider Student in an Organized Health Care Education/Training Program
DX: R42 Dizziness and giddiness (principal); R51.9 Headache, unspecified; F14.10 Cocaine abuse, uncomplicated
CPT/HCPCS: 99283

== ENCOUNTER 2021-06-17 15:11 | Emergency (ER) | payer MEDICAID, SELFPAY ==
--- NOTE | ~2021-06-17 | XR_ITS ---
EXAMINATION: XR CHEST CLINICAL INFORMATION: Chest pain. COMPARISON: Chest radiograph dated 04/02/2021. TECHNIQUE: 2 views of the chest were obtained. FINDINGS: The lungs are clear. The cardiomediastinal silhouette is normal in size. There is no pleural effusion or pneumothorax. No acute osseous abnormality. XR/XR chest 2V IMPRESSION: No acute cardiopulmonary findings.
[2021-06-17 15:19] VITALS: BP 139/77; PULSE 84; RESP 18; TEMP 36.7; O2SAT 100; BMI 24.2
--- NOTE | 2021-06-17 16:33 | ECG_ITS ---
Test Reason : CHEST PAIN Blood Pressure : / mmHG Vent. Rate : 076 BPM Atrial Rate : 076 BPM P-R Int : 146 ms QRS Dur : 088 ms QT Int : 390 ms P-R-T Axes : 077 073 040 degrees QTc Int : 438 ms Normal sinus rhythm Normal ECG When compared with ECG of 02-APR-2021 13:20, Nonspecific T wave abnormality no longer evident in Lateral leads Referred By: Arline Taveras Electronically Signed By:CALVIN LIPSCOMB
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
[2021-06-17 17:17] LABS: MANUAL DIFF FLAG NO
[2021-06-17 17:19] VITALS: BP 126/57; PULSE 64; RESP 17; TEMP 36.6; O2SAT 97
[2021-06-17 17:19] LABS: Basophils Percent Auto 0.2 % (0-2); Eosinophils Absolute Auto 0.2 X10*3/uL (0.0-0.4); Eosinophils Percent Auto 2.6 % (0-4); Hematocrit 32.7 % (42-52); Hemoglobin 11.3 g/dl (14.0-18.0); Imm Gran Abs Auto 0.02 X10*3/uL (0.00-0.03); Imm Gran Pct Auto 0.2 % (0.0-0.4); Lymphocytes Absolute Auto 3.5 X10*3/uL (1.2-4.9); Lymphocytes Percent Auto 40.6 % (20-40); Mean Corpuscular HGB Conc 34.6 g/dl (31.0-36.0); Mean Corpuscular Hemoglobin 30.1 pg (27.0-33.0); Mean Platelet Volume 9.5 fL (9.4-12.4); Monocytes Absolute Auto 0.9 X10*3/uL (0.1-1.2); Monocytes Percent Auto 10.1 % (2-11); Neutrophils Percent Auto 46.3 % (45-73); Platelet Count 260 X10*3/uL (160-400); Red Blood Count 3.76 X10*6/uL (4.60-5.80); Red Cell Distribution Width 12.3 % (11.0-16.0); White Blood Count 8.6 X10*3/uL (4.8-10.8)
--- NOTE | 2021-06-17 17:22 | PC.NURSE ---
iv inserted, labs drawn, ekg performed, cardiac cath technician applied- sinus quinn 60s, vss, pt admits to using cocaine/heroin this morning, will continue to monitor.
[2021-06-17 17:43] LABS: COVID-19 Test Negative (Negative); IDNOW Serial# 9DD0AD1C
[2021-06-17 17:48] LABS: Lactic Acid 1.2 mmol/L (0.5-2.0)
[2021-06-17 17:52] LABS: Alanine Aminotransferase 53 U/L (0-40); Albumin Level 3.8 g/dL (3.5-5.0); Alkaline Phosphatase 90 U/L (39-117); Anion Gap 10 (12-20); Aspartate Amino Transferase 64 U/L (5-37); Bilirubin Direct < 0.2 mg/dL (0.0-0.5); Bilirubin Total 0.3 mg/dL (0.0-1.0); Blood Urea Nitrogen 16 mg/dL (9-16); Calcium 9.7 mg/dL (8.4-10.2); Carbon Dioxide 31 mmol/L (22-29); Chloride 102 mmol/L (96-108); Creatinine Clr Calc Pharmacy 74.9; Estimated Glomerular Filt Rate > 60; Glucose Random 117 mg/dL (60-115); Potassium 3.9 mmol/L (3.3-5.1); Sodium 139 mmol/L (135-145); Total Protein 7.9 g/dL (6.5-8.0)
[2021-06-17 17:58] LABS: Troponin-I High Sensitivity < 3.5 ng/L (<3.5-35.0)
[2021-06-17 18:00] VITALS: BP 109/51; PULSE 77; RESP 18; TEMP 36.6; O2SAT 98
--- NOTE | 2021-06-17 18:06 | PC.NURSE ---
additional relative called willing to give the patient a ride home when ready- [phone]
--- NOTE | 2021-06-17 18:14 | PC.NURSE ---
patient currently sleeping, monitoring and evaluation advisor nsr 70s, vss, will continue to monitor.
[2021-06-17 20:00] VITALS: BP 107/50; PULSE 72; RESP 18; TEMP 36.8; O2SAT 98
--- NOTE | 2021-06-17 20:29 | PC.NURSE ---
patient wakes to verbal stimulus, secured entrance monitor sinus quinn, vss, pt told again we need a urine to send to lab- pt states he doesnt have to urinate at this time, will continue to monitor.
[2021-06-17 21:57] VITALS: BP 97/51; PULSE 55; RESP 16; TEMP 36.3; O2SAT 97
== END 2021-06-17 22:48 | disposition home or self-care (01) ==
PROVIDERS: Physician Assistant; Emergency Provider Emergency Medicine
DX: L73.9 Follicular disorder, unspecified (principal); F11.10 Opioid abuse, uncomplicated; I10 Essential (primary) hypertension; F33.1 Major depressive disorder, recurrent, moderate; E78.5 Hyperlipidemia, unspecified; F17.210 Nicotine dependence, cigarettes, uncomplicated; Z20.822 Contact with and (suspected) exposure to COVID-19; Z71.6 Tobacco abuse counseling; Z79.899 Other long term (current) drug therapy
CPT/HCPCS: 36415; 71046; 80048; 80076; 83605; 83735; 84484; 85025; 87040; 87635; 93005; 99283; 99285

== ENCOUNTER 2021-07-06 04:04 | Emergency (ER) | payer MEDICAID, SELFPAY ==
[2021-07-06 04:08] VITALS: BP 150/86; PULSE 86; RESP 20; TEMP 36.6; O2SAT 99; BMI 20.3
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
[2021-07-06 07:39] VITALS: BP 140/43; PULSE 69; RESP 16; O2SAT 98
--- NOTE | 2021-07-06 07:39 | PC.NURSE ---
Pt awake, vitals stable. steady on feet. Mother to come and picker tender helper pt.
--- NOTE | 2021-07-06 07:57 | ECG_ITS ---
Test Reason : CHEST PAIN Blood Pressure : / mmHG Vent. Rate : 070 BPM Atrial Rate : 070 BPM P-R Int : 130 ms QRS Dur : 088 ms QT Int : 398 ms P-R-T Axes : 075 076 051 degrees QTc Int : 429 ms Normal sinus rhythm Nonspecific T wave abnormality Abnormal ECG When compared with ECG of 17-JUN-2021 15:15, Nonspecific T wave abnormality now evident in Anterior leads Referred By: Jarad Dinh Electronically Signed By:CALVIN LIPSCOMB
== END 2021-07-06 07:40 | disposition home or self-care (01) ==
PROVIDERS: Emergency Provider Emergency Medicine
DX: F41.9 Anxiety disorder, unspecified (principal); F19.10 Other psychoactive substance abuse, uncomplicated; I10 Essential (primary) hypertension; F11.10 Opioid abuse, uncomplicated; F14.10 Cocaine abuse, uncomplicated; F17.210 Nicotine dependence, cigarettes, uncomplicated
CPT/HCPCS: 93005; 99283; 99284

== ENCOUNTER 2021-12-26 10:46 | Outpatient (REF) | payer MEDICAID, SELFPAY ==
[2021-12-26 17:26] LABS: Fentanyl, urine POSITIVE (Not Detect)
== END 2021-12-26 10:47 | disposition home or self-care (01) ==
LOC: HO.LNP 10:46
PROVIDERS: Visit Provider Internal Medicine
DX: F11.20 Opioid dependence, uncomplicated (principal); F14.10 Cocaine abuse, uncomplicated
CPT/HCPCS: 80305; 80307; 99202; 99212

== ENCOUNTER → 2022-01-02 14:20 | Outpatient (BNVA) | payer MEDICAID, SELFPAY | PROVIDERS: Visit Provider Internal Medicine | DX: Z51.81 Encounter for therapeutic drug level monitoring (principal) | CPT/HCPCS: 80305 ==

== ENCOUNTER → 2022-01-09 11:27 | Outpatient (BNVA) | payer MEDICAID, SELFPAY | PROVIDERS: Visit Provider Internal Medicine | DX: F11.20 Opioid dependence, uncomplicated (principal) | CPT/HCPCS: 80305 ==

== ENCOUNTER 2022-01-30 08:53 | Emergency (ER) | payer MEDICAID, SELFPAY ==
--- NOTE | ~2022-01-30 | XR_ITS ---
EXAMINATION: XR CHEST CLINICAL INFORMATION: Hazy opacity in the left upper lobe, follow-up. COMPARISON: AP view of the chest from earlier today. TECHNIQUE: Lateral views of the chest were obtained. FINDINGS: No significant abnormality is noted involving the heart, lungs, mediastinum, bony thorax or soft tissues. XR/XR chest 1V IMPRESSION: No definitive infiltrate in the lateral projection. No pleural effusions. If symptoms persist or worsen, short-term repeat radiographic is recommended as clinically indicated to assess for change.
--- NOTE | ~2022-01-30 | XR_ITS ---
EXAMINATION: XR CHEST CLINICAL INFORMATION: Left-sided chest pain. COMPARISON: 02/15/2021 chest radiographs. TECHNIQUE: Frontal view of the chest was obtained. FINDINGS: Subtle hazy opacification is seen in the left upper lobe. The right lung is clear. The heart and mediastinal structures are unremarkable. XR/XR chest 1V IMPRESSION: Subtle hazy opacification left upper lobe may be projectional representing summation artifact or skin fold. An infiltrate cannot be completely excluded. PA and lateral views of the chest are recommended.
[2022-01-30 09:04] VITALS: BP 128/90; PULSE 79; RESP 18; TEMP 36.6; O2SAT 100; BMI 23.6
[2022-01-30] MEDS: diphenhydrAMINE HCL 50 MG/ML VIAL 25 MG IVPUSH (10:19)
[2022-01-30] MEDS: Metoclopramide HCl 10 MG/2 ML VIAL IVPUSH (10:21)
[2022-01-30] MEDS: LORazepam 2 MG/ML VIAL IVPUSH (10:21)
--- NOTE | 2022-01-30 10:24 | ECG_ITS ---
Test Reason : ABDOMINAL PAIN Blood Pressure : / mmHG Vent. Rate : 059 BPM Atrial Rate : 059 BPM P-R Int : 132 ms QRS Dur : 088 ms QT Int : 428 ms P-R-T Axes : 051 074 046 degrees QTc Int : 423 ms Sinus bradycardia Otherwise normal ECG When compared with ECG of 06-JUL-2021 04:18, No significant change was found Referred By: Ellis Arshad Electronically Signed By:MANUEL RILEY
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
[2022-01-30 11:09] LABS: MANUAL DIFF FLAG NO
[2022-01-30] MEDS: methADONE HCl 20 MG/2 ML ORAL.CONC PO (11:09)
[2022-01-30 11:12] LABS: Basophils Percent Auto 0.2 % (0-2); Eosinophils Percent Auto 0.6 % (0-4); Hematocrit 40.4 % (42.0-52.0); Hemoglobin 13.5 g/dl (14.0-18.0); Imm Gran Abs Auto 0.01 X10*3/uL (0.00-0.03); Imm Gran Pct Auto 0.2 % (0.0-0.4); Lymphocytes Absolute Auto 1.3 X10*3/uL (1.2-4.9); Lymphocytes Percent Auto 24.4 % (20-40); Mean Corpuscular HGB Conc 33.4 g/dl (31.0-36.0); Mean Corpuscular Hemoglobin 28.7 pg (27.0-33.0); Mean Platelet Volume 9.9 fL (9.4-12.4); Monocytes Absolute Auto 0.3 X10*3/uL (0.1-1.2); Monocytes Percent Auto 5.3 % (2-11); Neutrophils Absolute Auto 3.7 x10*3/uL (2.0-8.3); Neutrophils Percent Auto 69.3 % (45-73); Platelet Count 262 X10*3/uL (160-400); Red Cell Distribution Width 14.2 % (11.0-16.0); White Blood Count 5.3 X10*3/uL (4.8-10.8)
[2022-01-30 11:22] LABS: INTERNATIONAL NORM RATIO 1.1 (0.9-1.1); Prothrombin Time 12.3 SEC (9.9-13.0)
[2022-01-30 11:25] LABS: Alanine Aminotransferase 65 U/L (0-40); Albumin Level 4.3 g/dL (3.5-5.0); Alkaline Phosphatase 86 U/L (39-117); Anion Gap 11 (12-20); Aspartate Amino Transferase 63 U/L (5-37); Bilirubin Total 0.4 mg/dL (0.0-1.0); Blood Urea Nitrogen 10 mg/dL (9-16); Calcium 10.4 mg/dL (8.4-10.2); Carbon Dioxide 29 mmol/L (22-29); Chloride 103 mmol/L (96-108); Estimated Glomerular Filt Rate > 60; Glucose Random 108 mg/dL (60-115); Lipase 26 U/L (8-78); Partial Thromboplastin Time 37.7 SEC (24.1-38.0); Potassium 4.2 mmol/L (3.3-5.1); Sodium 139 mmol/L (135-145); Total Protein 8.9 g/dL (6.5-8.0)
[2022-01-30 11:32] LABS: Troponin-I High Sensitivity < 3.5 ng/L (<3.5-35.0)
[2022-01-30 12:33] VITALS: BP 135/76; PULSE 66; RESP 16; TEMP 36.8; O2SAT 98
[2022-01-30 15:02] LABS: Troponin-I High Sensitivity < 3.5 ng/L (<3.5-35.0)
[2022-01-30 15:52] VITALS: BP 136/85; PULSE 68; RESP 18
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
== END 2022-01-30 15:54 | disposition home or self-care (01) ==
PROVIDERS: Physician Assistant; Emergency Provider Emergency Medicine; PCP Family Medicine
DX: F11.23 Opioid dependence with withdrawal (principal); R10.12 Left upper quadrant pain; I10 Essential (primary) hypertension; F14.10 Cocaine abuse, uncomplicated; B19.20 Unspecified viral hepatitis C without hepatic coma; F41.9 Anxiety disorder, unspecified; F17.200 Nicotine dependence, unspecified, uncomplicated; Z79.899 Other long term (current) drug therapy
CPT/HCPCS: 36415; 71045; 80053; 82550; 83690; 84484; 85025; 85610; 85730; 93005; 96374; 96375; 99284; 99285; J1200; J2060; J2765

== ENCOUNTER 2022-03-22 08:06 | Inpatient (IN) | payer MEDICAID, SELFPAY ==
[2022-03-22] VITALS (8 sets, daily range): BP systolic 117–165; BP diastolic 44–100; PULSE 52–103; RESP 9–20; TEMP 36.6–37; O2SAT 95–99; BMI 23.6
--- NOTE | ~2022-03-22 | XR_ITS ---
EXAMINATION: XR HAND, LEFT CLINICAL INFORMATION: Extensive infection, rule out osteomyelitis. COMPARISON: None TECHNIQUE: PA, lateral, and oblique views of the left hand. FINDINGS: There is no acute fracture or dislocation. No cortical erosive changes are seen. The joint spaces are unremarkable. The carpal bones are normally aligned. The distal radius and ulna are intact. Corticated osseous densities are seen distal to the ulna without acute features. Tiny calcifications are seen adjacent to the volar aspect of the scaphoid bone. There is mild soft tissue swelling without radiopaque foreign body. XR/XR hand LT min 3V IMPRESSION: 1. Mild soft tissue swelling without radiopaque foreign body or acute osseous abnormality to suggest osteomyelitis. 2. Small corticated osseous densities distal to the ulna as well as small calcifications along the volar aspect of the scaphoid bone could be congenital and/or secondary to old injury. Correlate with patient history.
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
[2022-03-22] MEDS: Piperacillin Sodium/Tazobactam 4.5 GM in 0.9 % Sodium Chloride 100 ML IV (09:24)
[2022-03-22] MEDS: Morphine Sulfate 4 MG/ML CARTRIDGE IVPUSH (09:24)
[2022-03-22] MEDS: 0.9 % Sodium Chloride 2,177.25 ML 2177.25 ML IV (09:26)
[2022-03-22 09:39] LABS: MANUAL DIFF FLAG NO
[2022-03-22 09:45] LABS: Basophils Percent Auto 0.2 % (0-2); Eosinophils Absolute Auto 0.1 X10*3/uL (0.0-0.4); Eosinophils Percent Auto 0.8 % (0-4); Hematocrit 36.9 % (42.0-52.0); Hemoglobin 12.1 g/dl (14.0-18.0); Imm Gran Abs Auto 0.02 X10*3/uL (0.00-0.03); Imm Gran Pct Auto 0.2 % (0.0-0.4); Lymphocytes Absolute Auto 2.4 X10*3/uL (1.2-4.9); Lymphocytes Percent Auto 27.6 % (20-40); Mean Corpuscular HGB Conc 32.8 g/dl (31.0-36.0); Mean Corpuscular Hemoglobin 28.9 pg (27.0-33.0); Mean Corpuscular Volume 88.1 fL (80.0-98.0); Mean Platelet Volume 9.5 fL (9.4-12.4); Monocytes Absolute Auto 0.7 X10*3/uL (0.1-1.2); Monocytes Percent Auto 8.5 % (2-11); Neutrophils Absolute Auto 5.4 x10*3/uL (2.0-8.3); Neutrophils Percent Auto 62.7 % (45-73); Platelet Count 257 X10*3/uL (160-400); Red Blood Count 4.19 X10*6/uL (4.60-5.80); Red Cell Distribution Width 13.1 % (11.0-16.0); White Blood Count 8.7 X10*3/uL (4.8-10.8)
[2022-03-22 09:54] LABS: Lactic Acid 1.3 mmol/L (0.5-2.0)
[2022-03-22 09:57] LABS: COVID-19 Test Negative (Negative); IDNOW Serial# 16C4AD1C
[2022-03-22 10:00] LABS: Alanine Aminotransferase 49 U/L (0-40); Albumin Level 4.1 g/dL (3.5-5.0); Alkaline Phosphatase 93 U/L (39-117); Anion Gap 11 (12-20); Aspartate Amino Transferase 54 U/L (5-37); Bilirubin Total 0.3 mg/dL (0.0-1.0); Blood Urea Nitrogen 10 mg/dL (9-16); C Reactive Protein 0.66 mg/dL (< or = 0.50); Calcium 10.3 mg/dL (8.4-10.2); Carbon Dioxide 31 mmol/L (22-29); Chloride 100 mmol/L (96-108); Estimated Glomerular Filt Rate > 60; Glucose Random 104 mg/dL (60-115); Sodium 138 mmol/L (135-145); Total Protein 8.6 g/dL (6.5-8.0)
[2022-03-22 10:23] LABS: Erythrocyte Sedimentation Rate 45 MM/HR (0-15)
[2022-03-22] MEDS: vancomycin HCL 750 MG in 0.9 % Sodium Chloride 250 ML 265 MG IV ×2 (12:12→14:20)
--- NOTE | 2022-03-22 12:43 | PHA.MEDREC ---
patient did not give me any information except that he takes something for pain he filled suboxone films in january 2022 for a 7 days supply Pharmacy Consult ? Medication Reconciliation Pharmacy has completed the medication reconciliation.
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
--- NOTE | 2022-03-22 14:01 | PHA.PROG ---
Admission Date/Time: Indication: Skin and soft tissue Weight in k.575 kg Adjusted body weight in Kg: Lott body weight in Kg: Obesity Dosing Indication % IBW: Serum Creatinine - Last 168 Hours 03/22/22 09:26 Creatinine 1.15 Estimated CrCl and GFR - Last 168 Hours 03/22/22 09:26 Estim Creat Clear Calc 93.0 Estimated GFR > 60 Vancomycin Loading Dose: 750 mg X 2 Current Vancomycin Dosing Regimen: 1000mg Q12H Vancomycin Monitoring using AUC goal of 400 - 600 range with trough as surrogate marker: 522 mg/L Date and Time for next Vancomycin Level to be drawn: trough on 03/23 @2200 Pharmacist Comments on Vancomycin Plan: 750mg dose was given in ED, then Elma entered another 750mg dose x 1 for a total load of 1500mg. Will continue to monitor. Vancomycin dosing will take advantage of [employer] as a clinical decision support tool that uses Bayesian modeling to calculate individual patient's pharmacokinetic parameters and forecast the patient's drug concentration time course with the target goal AUC 24 range of 400 - 600 mg/L/hr.
[2022-03-22] MEDS: Enoxaparin Sodium 40 MG/0.4 ML SYRINGE SUBCUT (14:20)
[2022-03-22] MEDS: ceFAZolin Sodium/Dextrose,Iso 2 GM/50 ML PIGGYBACK IV ×2 (14:21→21:32)
[2022-03-22 14:55] LABS: Appearance Urine CLOUDY; Color Urine YELLOW; Glucose Urine UA NEG (NEG); Leukocyte Esterase Urine NEG (NEG); Nitrite Urine NEG (NEG); PH 7.5 (5.0-8.0); Specific Gravity - Urine 1.015 (1.005-1.025); Urine Blood NEG (NEG); Urine Ketones NEG (NEG); Urine Protein NEG (NEG-TRACE)
[2022-03-22 15:12] LABS: Amphetamine Screen Urine Not Detected (Not Detect); Barbiturates, Urine Not Detected (Not Detect); Benzodiazepines Screen Urine Not Detected (Not Detect); Cannabinoid Screen Urine POSITIVE (Not Detect); Cocaine Screen Urine POSITIVE (Not Detect); Fentanyl, urine POSITIVE (Not Detect); Opiate Screen Urine POSITIVE (Not Detect); Phencyclidine Screen Urine Not Detected (Not Detect)
--- NOTE | 2022-03-22 15:32 | MHC.RECOVRN ---
Met with pt in ED18 after consult placed to Addiction Medicine for substance use. Upon approach, pt asleep, easily awakes to voice. Pt semi difficult to engage in conversation due to falling asleep. Pt reports using heroin, 1/2 pack daily, IV, as well as cocaine, 3.5 grams daily, IV/INH. Last used [employer]. Pt has received both methadone and Suboxone in the past. Most recently, pt received Suboxone script from the [facility] on 01/09, a 7 day script for 16 mg daily. Pt reports going to [facility] a few months ago and receiving methadone, 30 mg daily. Pt would like to restart methadone. Pt is not currently experiencing withdrawal and was encouraged to notify staff when symptoms begin. Discussed with provider as well as Karen Baird APRN.
--- NOTE | 2022-03-22 16:45 | PC.NURSE ---
Attempted to call [facility] for report
[2022-03-22] MEDS: methADONE HCl 20 MG/2 ML ORAL.CONC PO (18:54)
[2022-03-23] MEDS: vancomycin HCL 1,000 MG in 0.9 % Sodium Chloride 250 ML 270 MG IV ×2 (00:30→13:01)
[2022-03-23] MEDS: Morphine Sulfate 4 MG/ML CARTRIDGE IVPUSH (00:37)
[2022-03-23] MEDS: ondansetron HCL 4 MG/2 ML VIAL IVPUSH ×3 (00:42→15:54)
[2022-03-23 04:00] VITALS: BP 155/77; PULSE 56; RESP 14; TEMP 36.9; O2SAT 98
[2022-03-23] MEDS: ceFAZolin Sodium/Dextrose,Iso 2 GM/50 ML PIGGYBACK IV ×3 (04:43→22:35)
[2022-03-23 06:31] LABS: Hemoglobin 12.5 g/dl (14.0-18.0); Mean Corpuscular HGB Conc 32.9 g/dl (31.0-36.0); Mean Corpuscular Hemoglobin 28.9 pg (27.0-33.0); Mean Corpuscular Volume 87.8 fL (80.0-98.0); Mean Platelet Volume 10.2 fL (9.4-12.4); Platelet Count 265 X10*3/uL (160-400); Red Blood Count 4.33 X10*6/uL (4.60-5.80); Red Cell Distribution Width 13.2 % (11.0-16.0); White Blood Count 6.8 X10*3/uL (4.8-10.8)
[2022-03-23 06:48] LABS: Anion Gap 11 (12-20); Blood Urea Nitrogen 7 mg/dL (9-16); Calcium 9.7 mg/dL (8.4-10.2); Carbon Dioxide 25 mmol/L (22-29); Chloride 104 mmol/L (96-108); Creatinine Clr Calc Pharmacy 125.9; Estimated Glomerular Filt Rate > 60; Glucose Random 102 mg/dL (60-115); Potassium 4.3 mmol/L (3.3-5.1); Sodium 136 mmol/L (135-145)
[2022-03-23 06:58] VITALS: BP 142/79; PULSE 58; RESP 18; TEMP 37.2; O2SAT 98
--- NOTE | 2022-03-23 09:42 | P.PNIM_ITS ---
Subjective Subjective Date of Service: 03/23/22 Interval History: less pain and swelling in his left hand had an episode of nausea and anxiety overnight More comfortable and sleep this morning Review of Systems No fever, chills But has not realized weakness No chest pain, palpitation No shortness of breath or coughing No abdominal pain, nausea or vomiting No urinary symptoms multiple open wounds, injection jhaveri on his scan Physical Exam Vital Signs: Vital Signs: Last Vital Signs Temp 98.9 F 03/23/22 06:58 Pulse 58 03/23/22 06:58 Resp 18 03/23/22 06:58 BP 142/79 H 03/23/22 06:58 Pulse Ox 98 03/23/22 06:58 BMI result Body Mass Index 23.6 Const: Other: Constitutional : Alert, sleepy, not in distress Neck : Normal inspection, Supple Cardiovascular : RRR, no JVP, no lower extremity edema Respiratory : fair bilateral air entry, no crackles, wheezes or rhonchi Gastrointestinal: soft, lax, Normal bowel sounds, Non tender Skin : Warm, Dry, multiple injection jhaveri and skin cuts with no bleeding, left dorsal side of the had swollen, erythema and mild tenderness. Neurological : Alert & oriented x3, No focal deficit , CN 2-12 within normal Objective Data Active Medications Acetaminophen (Acetaminophen 325 Mg Tablet) 650 mg PO Q6H PRN PRN Reason: Pain, Mild (Pain Scale 1-3) Enoxaparin Sodium (Enoxaparin Sodium 40 Mg/0.4 Ml Syringe) 40 mg SUBCUT Q24H [facility] Last Admin: 03/22/22 14:20 Dose: 40 mg Documented by: ANTHONY Cefazolin Sodium/Dextrose (Ancef) 2 gm in 50 mls @ 100 mls/hr IV Q8H [facility] Last Infusion: 03/23/22 05:21 Dose: 0 mls/hr Documented by: VALE Vancomycin HCl 1,000 mg/ (Sodium Chloride) 270 mls @ 270 mls/hr IV Q12H [facility] Last Infusion: 03/23/22 02:11 Dose: 0 mls/hr Documented by: VALE Morphine Sulfate (Morphine Sulfate 4 Mg/Ml Cartridge) 4 mg IVPUSH Q4H PRN; Protocol PRN Reason: Pain, Severe (Pain Scale 7-10) Last Admin: 03/23/22 00:37 Dose: 4 mg Documented by: VALE Ondansetron HCl (Ondansetron Hcl 4 Mg/2 Ml Vial) 4 mg IVPUSH Q8H PRN PRN Reason: Nausea and Vomiting Last Admin: 03/23/22 00:42 Dose: 4 mg Documented by: VALE Pharmacy Consult (Consult Rx Perform Med Rec) 1 each MISCELLANE ONCE PRN PRN Reason: Consult order Pharmacy Consult (Consult Rx Vancomycin Dosing) 1 each MISCELLANE DAILY PRN PRN Reason: Consult order Sodium Chloride (0.9 % Sodium Chloride Flush 3 Ml Syringe) 3 ml IVFLUSH QSHIFT JUAN Last Admin: 03/23/22 01:01 Dose: Not Given Documented by: VALE Non-Admin Reason: IV Running Labs CBC & Chem 7: 03/23/22 05:15 03/23/22 05:15 Labs: Laboratory Results - last 24 hr 03/22/22 03/22/22 03/22/22 09:26 09:26 09:26 MCV 88.1 MCH 28.9 MCHC 32.8 RDW 13.1 Plt Count 257 MPV 9.5 Immature Gran % (Auto) 0.2 Neut % (Auto) 62.7 Lymph % (Auto) 27.6 [place] % (Auto) 8.5 Eos % (Auto) 0.8 Baso % (Auto) 0.2 Lymph # (Auto) 2.4 [place] # (Auto) 0.7 Eos # (Auto) 0.1 Baso # (Auto) 0.0 Abs Immat Gran (auto) 0.02 Absolute Neuts (auto) 5.4 Absolute Nucleated RBC 0.000 Nucleated RBC % (auto) 0.0 ESR 45 H Anion Gap 11 L Estim Creat Clear Calc 93.0 Estimated GFR > 60 Random Glucose 104 Lactic Acid Calcium 10.3 H Total Bilirubin 0.3 AST 54 H ALT 49 H Alkaline Phosphatase 93 C-Reactive Protein 0.66 H Total Protein 8.6 H Albumin 4.1 Urine Color Urine Appearance Urine pH Ur Specific [place] Urine Protein Urine Glucose (UA) Urine Ketones Urine Blood Urine Nitrite Ur Leukocyte Esterase Urine Opiates Screen Urine Fentanyl Screen Ur Barbiturates Screen Ur Phencyclidine Scrn Ur Amphetamines Screen U Benzodiazepines Scrn Urine Cocaine Screen U Marijuana (THC) Screen COVID-19 (ALEX) COVID-19 Clin Com 03/22/22 03/22/22 03/22/22 09:26 09:32 14:50 MCV MCH MCHC RDW Plt Count MPV Immature Gran % (Auto) Neut % (Auto) Lymph % (Auto) [place] % (Auto) Eos % (Auto) Baso % (Auto) Lymph # (Auto) [place] # (Auto) Eos # (Auto) Baso # (Auto) Abs Immat Gran (auto) Absolute Neuts (auto) Absolute Nucleated RBC Nucleated RBC % (auto) ESR Anion Gap Estim Creat Clear Calc Estimated GFR Random Glucose Lactic Acid 1.3 Calcium Total Bilirubin AST ALT Alkaline Phosphatase C-Reactive Protein Total Protein Albumin Urine Color Urine Appearance Urine pH Ur Specific [place] Urine Protein Urine Glucose (UA) Urine Ketones Urine Blood Urine Nitrite Ur Leukocyte Esterase Urine Opiates Screen POSITIVE H Urine Fentanyl Screen POSITIVE H Ur Barbiturates Screen Not Detected Ur Phencyclidine Scrn Not Detected Ur Amphetamines Screen Not Detected U Benzodiazepines Scrn Not Detected Urine Cocaine Screen POSITIVE H U Marijuana (THC) Screen POSITIVE H COVID-19 (ALEX) Negative COVID-19 Clin Com See Note 03/22/22 03/23/22 03/23/22 14:50 05:15 05:15 MCV 87.8 MCH 28.9 MCHC 32.9 RDW 13.2 Plt Count 265 MPV 10.2 Immature Gran % (Auto) Neut % (Auto) Lymph % (Auto) [place] % (Auto) Eos % (Auto) Baso % (Auto) Lymph # (Auto) [place] # (Auto) Eos # (Auto) Baso # (Auto) Abs Immat Gran (auto) Absolute Neuts (auto) Absolute Nucleated RBC 0.000 Nucleated RBC % (auto) 0.0 ESR Anion Gap 11 L Estim Creat Clear Calc 125.9 Estimated GFR > 60 Random Glucose 102 Lactic Acid Calcium 9.7 Total Bilirubin AST ALT Alkaline Phosphatase C-Reactive Protein Total Protein Albumin Urine Color YELLOW Urine Appearance CLOUDY Urine pH 7.5 Ur Specific [place] 1.015 Urine Protein NEG Urine Glucose (UA) NEG Urine Ketones NEG Urine Blood NEG Urine Nitrite NEG Ur Leukocyte Esterase NEG Urine Opiates Screen Urine Fentanyl Screen Ur Barbiturates Screen Ur Phencyclidine Scrn Ur Amphetamines Screen U Benzodiazepines Scrn Urine Cocaine Screen U Marijuana (THC) Screen COVID-19 (ALEX) COVID-19 Clin Com Assessment and Plan (1) Cellulitis: Status: Acute (2) IV drug user: Status: Acute (3) Opioid use disorder: Status: Acute (4) Cocaine use disorder: Status: Acute Plan a 31 years old male with PMH of IVDU, depression, hepatitis-C, and anxiety among others who presents to the hospital with left upper extremity pain. LUE Cellulitis from IV drug abuse XR negative for any osteomyelitis or abscess continue vancomycin and cefazolin Morphine for pain management Pending cultures IV drug abuse continue Suboxone get addiction team evaluation Hepatitis-C Not on active treatment To follow-up as outpatient with Hepatitis Clinic DVT PPX Lovenox The patient will need overnight hospital stay pending blood cultures and improvement of the cellulitis to prevent decompensation in to sepsis. Quality Stroke Does the patient have a stroke diagnosis?: No VTE Prior VTE?: No VTE Risk Level:: Medical - moderate - high VTE Device Contraindication: Treatment Not Indicated VTE Drug Contraindication: N/A - Med Ordered
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
[2022-03-23] MEDS: methADONE HCl 20 MG/2 ML ORAL.CONC 40 MG PO (11:03)
[2022-03-23 11:06] VITALS: BP 157/88; PULSE 65; RESP 18; TEMP 37.2; O2SAT 98
[2022-03-23] MEDS: Enoxaparin Sodium 40 MG/0.4 ML SYRINGE SUBCUT (15:52)
[2022-03-23 16:00] VITALS: BP 167/72; PULSE 79; RESP 18; TEMP 37.1; O2SAT 98
--- NOTE | 2022-03-23 16:20 | MHC.CM.PN ---
CM ATTEMPTED TO MEET WITH PT WHO WAS SLEEPING AND DID NOT RESPOND TO VERBAL STIMULI CM WILL RETURN
--- NOTE | 2022-03-23 17:24 | MHC.RECOVSUP ---
Recovery Support note: This policy writer sales met with patient to discuss withdrawal symptoms. Patient was accompanied by his family and appeared well. Patient reports he is able to eat but that he is still nauseous. Patient also reports feeling week. Discussed with Karen Baird NP. This policy writer sales will follow up with patient tomorrow.
[2022-03-23] MEDS: 0.9 % Sodium Chloride Flush 3 ML SYRINGE IVFLUSH (17:44)
[2022-03-23 18:58] VITALS: BP 143/91; PULSE 52; RESP 18; TEMP 37.1; O2SAT 98
[2022-03-23 22:25] LABS: Vancomycin Trough 7.2 mcg/mL (10.0-20.0)
--- NOTE | 2022-03-23 22:39 | HE.PHANOTE ---
Changed vanco dose to 1500 mg q12h predicted trough 11.5 auc 480
[2022-03-23 23:30] VITALS: BP 141/90; PULSE 57; RESP 14; TEMP 36.8; O2SAT 99
[2022-03-24] MEDS: vancomycin HCL 1,500 MG in 0.9 % Sodium Chloride 500 ML 333.33 MG IV (00:40)
[2022-03-24 03:28] VITALS: BP 144/83; PULSE 61; RESP 16; TEMP 37.2; O2SAT 100
--- NOTE | 2022-03-24 06:41 | PM.EVENT ---
Event Note Date of Service: 03/24/22 Event Note: against medical advice discharge note: Patient mentioned that he was on the stay in the hospital and wants to leave. Explained the patient about the risks involved in interpreting the therapy which can lead to worsening current Health condition and cellulitis; may even lead to bacteremia, septic shock, . Patient verbalized that he understood the risks and is still was leave the hospital against medical advice. Signed AMA form.
--- NOTE | 2022-03-24 07:42 | PM.EVENT ---
Event Note Date of Service: 03/24/22 Event Note: discharge summary Discharge diagnosis Hand cellulitis IV drug abuser Cocaine, opioid use disorder next Lyme The patient was admitted to the hospital for treatment of cellulitis of left upper extremity and to detox from IV drug abuse. Treated with IV antibiotics with good response over the course of hospital stay as the blood cultures remain negative but still pending at the day ED decided to leave a against medical advice. I tried to contact the patient but his mother medicinal plant picker the phone. I explained to her that I Sent antibiotic orally for 1 week duration and he will need to get evaluated or come back to the hospital as soon as possible. He was evaluated by addiction team who started him on methadone with a plan to follow-up as outpatient.
== END 2022-03-24 06:50 | disposition left against medical advice (07) | DRG 383 ==
LOC: HO.ED 13:23 → HO.EDOVER 14:18 → HO.S3 15:38
PROVIDERS: Physician Assistant Medical; Admitting Provider Student in an Organized Health Care Education/Training Program; Emergency Provider Emergency Medicine Emergency Medical Services; PCP Family Medicine; Visit Provider Student in an Organized Health Care Education/Training Program
DX: L03.114 Cellulitis of left upper limb (principal); B19.20 Unspecified viral hepatitis C without hepatic coma; F17.210 Nicotine dependence, cigarettes, uncomplicated; F11.20 Opioid dependence, uncomplicated; Z71.6 Tobacco abuse counseling; Z88.8 Allergy status to other drugs, medicaments and biological substances; Z20.822 Contact with and (suspected) exposure to COVID-19
CPT/HCPCS: 36415; 73130; 80048; 80053; 80202; 80307; 81003; 83605; 85025; 85027; 85652; 86140; 87040; 87205; 87635; 96365; 96367; 96375; 99283; 99285; J0690; J1650; J2270; J2405; J2543; J3370

== ENCOUNTER 2022-03-30 22:47 | Inpatient (IN) | payer MEDICAID, SELFPAY ==
--- NOTE | ~2022-03-30 | US_ITS ---
EXAMINATION: US VENOUS ULTRASOUND WITH DOPPLER LOWER EXTREMITY, LEFT CLINICAL INFORMATION: Left lower extremity pain and swelling. Evaluate for deep vein thrombosis. COMPARISON: None TECHNIQUE: Ultrasound of the deep veins is performed from the hip to the calf with compression sonography and color and pulse Doppler assessment. Spectral analysis with color-flow imaging is performed. FINDINGS: There is normal venous compression and respiratory variation and augmented flow. The visualized common femoral vein, superficial femoral vein, profunda femoral vein, popliteal vein, and the trifurcation region shows no evidence of deep venous thrombosis. There is no significant popliteal fossa cyst. Right inguinal lymph nodes are noted with normal architecture measuring up to 2.0 x 1.6 x 0.5 cm. If the patient's symptoms persist, followup ultrasound in 5 days 7 days might be of value to exclude proximal propagation from a non-visualized calf vein. US/US venous duplex LE IMPRESSION: No DVT demonstrated in the left lower extremity.
[2022-03-30 23:39] VITALS: BP 139/72; PULSE 84; RESP 18; TEMP 37.1; O2SAT 96; BMI 25.1
[2022-03-31 00:02] LABS: MANUAL DIFF FLAG NO
[2022-03-31 00:04] LABS: Basophils Percent Auto 0.2 % (0-2); Eosinophils Absolute Auto 0.1 X10*3/uL (0.0-0.4); Eosinophils Percent Auto 1.3 % (0-4); Hematocrit 32.8 % (42.0-52.0); Hemoglobin 10.9 g/dl (14.0-18.0); Imm Gran Abs Auto 0.02 X10*3/uL (0.00-0.03); Imm Gran Pct Auto 0.2 % (0.0-0.4); Lymphocytes Absolute Auto 2.8 X10*3/uL (1.2-4.9); Lymphocytes Percent Auto 29.4 % (20-40); Mean Corpuscular HGB Conc 33.2 g/dl (31.0-36.0); Mean Corpuscular Hemoglobin 28.9 pg (27.0-33.0); Mean Platelet Volume 9.5 fL (9.4-12.4); Monocytes Absolute Auto 0.9 X10*3/uL (0.1-1.2); Monocytes Percent Auto 9.7 % (2-11); Neutrophils Absolute Auto 5.7 x10*3/uL (2.0-8.3); Neutrophils Percent Auto 59.2 % (45-73); Platelet Count 243 X10*3/uL (160-400); Red Blood Count 3.77 X10*6/uL (4.60-5.80); Red Cell Distribution Width 13.1 % (11.0-16.0); White Blood Count 9.5 X10*3/uL (4.8-10.8)
[2022-03-31 00:20] LABS: Sodium 136 mmol/L (135-145)
[2022-03-31 00:21] LABS: Alanine Aminotransferase 38 U/L (0-40); Albumin Level 3.7 g/dL (3.5-5.0); Alkaline Phosphatase 78 U/L (39-117); Anion Gap 12 (12-20); Aspartate Amino Transferase 39 U/L (5-37); Bilirubin Total 0.3 mg/dL (0.0-1.0); Blood Urea Nitrogen 15 mg/dL (9-16); Calcium 9.2 mg/dL (8.4-10.2); Carbon Dioxide 28 mmol/L (22-29); Chloride 100 mmol/L (96-108); Creatinine Clr Calc Pharmacy 108.1; Estimated Glomerular Filt Rate > 60; Glucose Random 127 mg/dL (60-115); Total Protein 7.5 g/dL (6.5-8.0)
[2022-03-31 01:43] VITALS: BP 123/66; PULSE 67; RESP 18; O2SAT 96
[2022-03-31 01:52] LABS: Ethanol < 10 mg/dL
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
[2022-03-31 02:54] LABS: C Reactive Protein 0.97 mg/dL (< or = 0.50)
[2022-03-31] MEDS: cefTRIAXone sodium 2 GM in 0.9 % Sodium Chloride 50 ML IV (02:54)
[2022-03-31] MEDS: Ketorolac Tromethamine 30 MG/ML VIAL 15 MG IVPUSH (02:54)
[2022-03-31] MEDS: 0.9 % Sodium Chloride 2,000 ML 999 ML IV (02:54)
[2022-03-31 03:10] VITALS: BP 137/90; PULSE 62; RESP 18; O2SAT 99
[2022-03-31 03:26] LABS: IDNOW Serial# 16C4AD1C; Influenza A Negative (Negative); Influenza B2 Negative (Negative)
[2022-03-31 03:27] LABS: COVID-19 Test Negative (Negative)
[2022-03-31 06:35] VITALS: BP 132/79; PULSE 66; RESP 16; O2SAT 100
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
--- NOTE | 2022-03-31 09:13 | PHA.MEDREC ---
Pharmacy Consult ? Medication Reconciliation Pharmacy has completed the medication reconciliation. Patient report no medications at home. He also stated that he is interested in starting methadone. Maine Chairez, PharmD
[2022-03-31] MEDS: ondansetron HCL 4 MG/2 ML VIAL IVPUSH (09:22)
--- NOTE | 2022-03-31 09:43 | MHC.RECOVSUP ---
Recovery Support note: Patient is a 31 year old Gambian speaking male who presented to [facility] ED due to infected wounds. Patient is known to this marketing writer from a previous admission last week. Patient reports he has been using ~50 bags of heroin daily, IV, with last use occurring yesterday evening. Patient is reporting withdrawal symptoms including nausea, vomiting and feeling hot and cold. Patient is interested in starting methadone to manage withdrawal symptoms. Discussed case with JACLYN Ashley. Plan for patient to be started on methadone.
[2022-03-31 10:19] LABS: Anion Gap 12 (12-20); Blood Urea Nitrogen 13 mg/dL (9-16); Calcium 8.9 mg/dL (8.4-10.2); Carbon Dioxide 23 mmol/L (22-29); Chloride 105 mmol/L (96-108); Creatinine Clr Calc Pharmacy 130.5; Estimated Glomerular Filt Rate > 60; Glucose Random 107 mg/dL (60-115); Potassium 4.6 mmol/L (3.3-5.1); Sodium 135 mmol/L (135-145)
[2022-03-31] MEDS: oxyCODONE HCl Immed Release 5 MG TABLET PO (10:40)
[2022-03-31] MEDS: vancomycin HCL 1,500 MG in 0.9 % Sodium Chloride 500 ML 333.33 MG IV (10:41)
--- NOTE | 2022-03-31 11:09 | PHA.PROG ---
Admission Date/Time: March 31, 2022 08:59 Indication: BACTEREMIA Weight in k.111 kg Adjusted body weight in K.3 [place] body weight in Kg: Obesity Dosing Indication % IBW: Serum Creatinine - Last 168 Hours 03/30/22 03/31/22 23:55 09:49 Creatinine 0.99 0.82 Estimated CrCl and GFR - Last 168 Hours 03/30/22 03/31/22 23:55 09:49 Estim Creat Clear Calc 108.1 130.5 Estimated GFR > 60 > 60 Vancomycin Loading Dose: 1500 MG Current Vancomycin Dosing Regimen: 1250MG Q12H Vancomycin Monitoring using AUC goal of 400 - 600 range with trough as surrogate marker: AUC 483, TROUGH 14.0 Date and Time for next Vancomycin Level to be drawn: 04/01@1999 Pharmacist Comments on Vancomycin Plan: Vancomycin dosing will take advantage of [employer] as a clinical decision support tool that uses Bayesian modeling to calculate individual patient's pharmacokinetic parameters and forecast the patient's drug concentration time course with the target goal AUC 24 range of 400 - 600 mg/L/hr.
[2022-03-31] MEDS: methADONE HCl 20 MG/2 ML ORAL.CONC 30 MG PO (12:35)
[2022-03-31 15:09] VITALS: BP 140/89; PULSE 64; RESP 18; TEMP 37.1; O2SAT 97
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
[2022-03-31] MEDS: 0.9 % Sodium Chloride Flush 3 ML SYRINGE IVFLUSH (15:13)
[2022-03-31] MEDS: methADONE HCl 20 MG/2 ML ORAL.CONC 5 MG PO (18:00)
[2022-03-31] MEDS: vancomycin HCL 1,250 MG in 0.9 % Sodium Chloride 250 ML 166.67 MG IV (21:49)
--- NOTE | 2022-03-31 23:20 | PC.NURSE ---
Patient vomited x 1 and yelled out he was in pain. However, when this science writer went in to check on him, patient was sleeping.
[2022-04-01 01:32] VITALS: BP 138/76
[2022-04-01] MEDS: oxyCODONE HCl Immed Release 5 MG TABLET PO ×2 (04:23→10:15)
[2022-04-01 05:12] LABS: Anion Gap 15 (12-20); Blood Urea Nitrogen 10 mg/dL (9-16); Calcium 9.6 mg/dL (8.4-10.2); Carbon Dioxide 24 mmol/L (22-29); Chloride 100 mmol/L (96-108); Creatinine Clr Calc Pharmacy 133.7; Estimated Glomerular Filt Rate > 60; Glucose Random 100 mg/dL (60-115); Sodium 135 mmol/L (135-145)
[2022-04-01] MEDS: Acetaminophen 325 MG TABLET 650 MG PO (08:17)
[2022-04-01] MEDS: cloNIDine HCL 0.1 MG TABLET PO (08:17)
--- NOTE | 2022-04-01 10:05 | HE.PHANOTE ---
Vancomycin Dosing ADdendum Vancomycin Trough scheduled for 04/01/22 @1999. Continue with current regimen for now.
--- NOTE | 2022-04-01 10:51 | MHC.RECOVSUP ---
Addendum entered by Armond John [facility] 04/01/22 18:04: Patient discharged prior to receiving methadone dose today. Encouraged patient to return to [facility] if he begins to feel sick and would like to be dosed. Education and information regarding [facility] [address] provided. Plan for patient to present as a walk in. Last dose letter provided and referral sent to [facility]. Discussed case with Gabi ANAYA. Original Note: Recovery Support note: This policy writer sales followed up with patient to discuss withdrawal symptoms. EMR reports patient vomited overnight. Patient reports nausea and chills and appeared to be sweating. Patient reports he is interested in continuing with methadone maintenance after discharge. Discussed case with Gabi ANAYA. Plan for patient to continue to receive methadone while in the hospital and to be referred to an [facility] prior to discharge.
--- NOTE | 2022-04-01 11:00 | PM.DS ---
DS: Providers Provider Date of Service: 04/01/22 Date of admission: 03/31/22 08:59 Primary care physician: Unknown Physician Consults: 03/31/22 09:24 Addiction Medicine Routine Consulting Provider: Karen Baird Reason for consultation: interested in Methadone Has provider been notified: No DS: Diagnosis Discharge Diagnosis (1) Cellulitis: Status: Acute (2) Polysubstance (excluding opioids) dependence, daily use: Status: Acute (3) Cellulitis: Status: Acute DS: Summary Hospital Course Hospital Course: Chief Complaint: skin lesion, pain in the left foot ?31 years old male with PMH of? IVDU, depression, hepatitis-C not treated, and anxiety? was admitted to the hospital admitted to the hosptal on 03/22 with cellulitis of the leg and ended leaving AMA on 03/24, one of 2 of blood culture from 03/22 grew bacillus species. He essentially returns to the hospital for similar thing that is pain in the left foot and has scabs all over his lower extremites. He continues to to use IV opioid. He has pain in the around the left ankle extending to the dorsum aspect of the foot that tender to touch..see pictures. He afebrile and WBC is within normal. He has a scab on his right cheek that appear infected also.? Hospital course: [facility] and also had a scab on right cheek. He was given IV Vancomcyin overnight with improvement and he wants to go home. He had a blood culture from [facility] that showed 1/2 bacilus speies, repeat blood culture is negative 24 hours later.. He is now axious to leave stating better and would sing AMA.. Given that he is improving and cultures negative after 24 hours, no stigmata of endocarditis, I did not appreciate murmur on exam.. He will be given Doxycline and will continue monitoring culture upon discharge, he is self-directing his discharge and state he would come back if anything changtes. For opioid use desroder--addiction team saw him in the hospital and initiated him and Methadone and will follow with the clinic for further medication adjustment Time Spent with Patient Time attestation: Total time spent providing and/or coordinating discharge services: Discharge coordination time: Greater than 30 minutes Quality: Safe Use of Opioids Does Pt have an Active Cancer Diagnosis on the Problem List?: No Quality: Stroke Does the patient have a stroke diagnosis?: No Physical Exam Vital Signs: Vital Signs: Last Vital Signs Temp 98.8 F 03/31/22 15:09 Pulse 64 03/31/22 15:09 Resp 18 03/31/22 15:09 BP 138/76 04/01/22 01:32 Pulse Ox 97 03/31/22 15:09 BMI result Body Mass Index 25.1 DS: Data Data Completed and Pending Labs on day of discharge: Laboratory Results - last 24 hr 04/01/22 04:15 Sodium 135 Potassium 4.0 Chloride 100 Carbon Dioxide 24 Anion Gap 15 BUN 10 Creatinine 0.80 Estim Creat Clear Calc 133.7 Estimated GFR > 60 Random Glucose 100 Calcium 9.6 D Preliminary micro results at discharge 03/30/22 23:55 Blood Culture - Preliminary Blood - Venous No growth after 24 hours. 03/30/22 23:55 Blood Culture - Preliminary Blood - Venous No growth after 24 hours. Discharge Plan Discharge Anticipated Discharge Date/Time: 04/01/22 10:54 Patient Disposition: Home, Self-Care Discharge Diagnosis: Cellulitis of the foot Referrals: Physician,Unknown J [Primary Care Provider] - 1 Week Discharge Medications: New doxycycline hyclate 100 mg tablet,delayed release (DR/EC) 100 mg PO BID 7 Days Qty: 14 0RF Discharge Orders: Discharge Order (Routine); Ordered 04/01/22 Ordered By: Linden Dallas Diet: advance to usual diet Activity on Discharge: As tolerated Stand Alone Forms: Patient Portal Discharge page Care Plan Goals: Full recovery from cellulitis and absitence from drugs Health Concerns: Opioid use desorder Plan of Treatment: Take Doxycyline as recommended an follow up with your Doctor kole week, follow up with addiction clinic for methadone Assessment: above
--- NOTE | 2022-04-01 11:19 | MHC.CM.PN ---
EMR REVIEWED, PT ADMITTED W/CELLULITIS AND BACTEREMIA (03/22 ADMIT), PT RECENTLY LEFT AMA ON 03/22, CM MET W/PT VIA PREVENTIVE MAINTENANCE ENGINEER, PT REPORTS HE HGAS HOUSING, IS INDEP W/ALL CARE, DENIES USE OF DME/HOME SERVICES, PT VERY ANXIOUS TO LEAVE AT 11AM AND REPORTED HE WAS WAITING FOR HIS DOSE AND WILL GO TO [facility] FOR [facility] IN INTAKE, PT ENCOURAGED TO WAIT AND ASK FOR LAST DOSE LETTER TO BRING TO CLINIC, PER MANAGER OF APPLICATIONS DEVELOPMENT PT LEFT BEFORE GETTING HIS METHADONE DOSE. PT VERIFIES PCP RAYMOND LOCKHART AND REPORTS HAVING [employer] AND [employer] BOOSTER, HCP ON FILE FROM PREVIOUS ADMISSION. D/C PLAN: D/C HOME SELF CARE TODAY, PT SELF ARRANGED TRANSPORT.
[2022-04-02 15:11] LABS: HCV Log PCR 6.36 Log IU/mL (NOT DETECTED); HepC Viral Load 2300000 IU/mL (NOT DETECTED)
--- NOTE | 2022-04-02 17:14 | PC.NURSE ---
Received a call from the pt's mother regarding difficulty filling his antibiotic prescription. This abstract writer called [facility] in [place] and spoke to the pharmacist. The medication is currently not in stock, but was ordered and will be in tomorrow. Updated the patient's mother and suggested she call a different [facility] location to check on availability.
== END 2022-04-01 11:20 | disposition home or self-care (01) | DRG 383 ==
LOC: HO.ED 03-31 07:50 → HO.EDOVER 03-31 09:06
PROVIDERS: Admitting Provider Internal Medicine; Emergency Provider Student in an Organized Health Care Education/Training Program; Visit Provider Internal Medicine
DX: L03.116 Cellulitis of left lower limb (principal); F11.23 Opioid dependence with withdrawal; F41.9 Anxiety disorder, unspecified; F17.210 Nicotine dependence, cigarettes, uncomplicated; F19.20 Other psychoactive substance dependence, uncomplicated; F32.A Depression, unspecified; Z71.6 Tobacco abuse counseling; Z88.8 Allergy status to other drugs, medicaments and biological substances
CPT/HCPCS: 36415; 80048; 80053; 82077; 82550; 85025; 86140; 87040; 87502; 87522; 87635; 93971; 96361; 96365; 96375; 99218; 99284; 99285; J0696; J1885; J2405; J3370

== ENCOUNTER 2022-04-21 20:03 | Emergency (ER) | payer MEDICAID, SELFPAY ==
--- NOTE | 2022-04-21 | ECG_ITS ---
Test Reason : cp Blood Pressure : / mmHG Vent. Rate : 071 BPM Atrial Rate : 071 BPM P-R Int : 128 ms QRS Dur : 090 ms QT Int : 354 ms P-R-T Axes : 071 083 014 degrees QTc Int : 384 ms Normal sinus rhythm Nonspecific T wave abnormality Abnormal ECG When compared with ECG of 30-JAN-2022 10:44, No significant change was found Referred By: Generic ED Physician Electronically Signed By:DARLENE GREEN MD
--- NOTE | ~2022-04-21 | XR_ITS ---
EXAMINATION: XR CHEST CLINICAL INFORMATION: COVID COMPARISON: 04/01/2022 TECHNIQUE: Frontal view of the chest was obtained. FINDINGS: No significant abnormality is noted involving the heart, lungs, mediastinum, bony thorax or soft tissues. XR/XR chest 1V IMPRESSION: Unremarkable examination.
[2022-04-21 20:11] VITALS: BP 123/75; PULSE 89; RESP 18; TEMP 37.2; O2SAT 93; BMI 22.8
[2022-04-21 21:12] LABS: MANUAL DIFF FLAG NO
--- NOTE | 2022-04-21 21:14 | ED_ITS ---
HPI - General Adult General Chief complaint: General Medical Stated complaint: dizzy, fever, inj? on arm Time Seen by Provider: 04/21/22 21:14 Source: patient Mode of arrival: ambulatory Limitations: no limitations History of Present Illness HPI narrative: Patient history of opiate and cocaine use comes here with multiple complaints brought by his father saying that I might have infection has multiple open wounds on the both upper extremities from using cocaine denies any cough or shortness of breath already been vaccinated against COVID. No fever on arrival Related Data Previous Rx's Medication Instructions Recorded amoxicillin 875 mg-potassium 1 tab PO BID #14 tabs 04/01/22 clavulanate 125 mg tablet doxycycline hyclate 100 mg 100 mg PO BID 7 days #14 tabs 04/01/22 tablet,delayed release Allergies Allergy/AdvReac Type Severity Reaction Status Date / Time quetiapine [From SEROQUEL] Allergy Unknown UNK Verified 03/22/22 08:26 trazodone [TRAZODONE] Allergy Unknown UNK Verified 03/22/22 08:26 Review of Systems Review of Systems: Yes all other systems are reviewed and are negative PMFSH Past Medical History Medical History Cardiac murmur Cocaine use disorder Hepatitis Hepatitis C IV drug user Opioid use disorder Polysubstance (excluding opioids) dependence, daily use Family History Family History Mother Breast cancer Maternal Grandfather Throat cancer Social History Social History Household Members: Family Housing: Apartment Do you presently have visiting nurse or other home services: No Alcohol intake: never Patient Tobacco Use Status: Current everyday Tobacco user Tobacco use type: Cigarette Cigarette Packs Per Day: 1 Second Hand Smoke Exposure: Yes Substance Use Type: Crack/Cocaine, Heroin and Marijuana Advance Directives: Yes Advance Directives on File: Yes Advance Directives Date on File: 03/22/22 service: No Current occupational status: unemployed Physical Exam ED Vital Signs: Vital Signs - 24 hr 04/21/22 20:11 04/21/22 22:08 04/21/22 23:17 Temperature 98.9 F Pulse Rate 89 79 63 Respiratory Rate 18 12 10 L Blood Pressure 123/75 108/53 L 111/56 L Pulse Oximetry 93 96 Oxygen Delivery Method Room Air Room Air BMI result Body Mass Index 22.8 Appearance: Alert. Oriented X3. No acute distress. Falling sleep very often while talking Eyes: PERRLA, No Nystagmus ENT: Pharynx normal. Oral Mucosa moist Neck: Normal inspection. Neck supple. CVS: Normal heart rate and rhythm. Pulses normal. Respiratory: No respiratory distress. Equal air entry bilateral, no wheezing/rales/rhonchi Abdomen: Soft and nontender. Bowel sounds are present, no mass palpable, no CVA tenderness Skin: Skin warm and dry. Multiple open superficial wounds both upper extremit ies and abdomen at the site of injection no signs of cellulitis or deeper infection. Extremities: No lower extremity edema. No calf tenderness Neuro: Oriented X 3. No motor deficit. No sensory deficit.No cerebellar signs , cranial nerves II-XII intact Medical Decision Making MDM Narrative Medical decision making narrative: Patient with polysubstance abuse refused to go to detox or any help. Came with multiple complaints no signs of infection WBC count normal lactic acid level normal blood culture were drawn. Incidental patient came positive with COVID although patient been vaccinated has not received a booster dose will discharge patient home advised to come back in case she gets fever or shortness of breath Lab Data Lab results reviewed: Yes I reviewed the patient's lab results. Result diagrams: 04/21/22 20:53 04/21/22 20:53 Labs: Lab Results 04/21/22 04/21/22 04/21/22 Range/Units 20:53 20:53 20:53 WBC 7.3 (4.8-10.8) X10*3/uL RBC 3.85 L (4.60-5.80) X10*6/uL Hgb 11.1 L (14.0-18.0) g/dl Hct 33.2 L (42.0-52.0) % MCV 86.2 (80.0-98.0) fL MCH 28.8 (27.0-33.0) pg MCHC 33.4 (31.0-36.0) g/dl RDW 13.0 (11.0-16.0) % Plt Count 290 (160-400) X10*3/uL MPV 9.9 (9.4-12.4) fL Immature Gran % (Auto) 0.1 (0.0-0.4) % Neut % (Auto) 51.3 (45-73) % Lymph % (Auto) 38.6 (20-40) % Crenshaw % (Auto) 8.4 (2-11) % Eos % (Auto) 1.2 (0-4) % Baso % (Auto) 0.4 (0-2) % Lymph # (Auto) 2.8 (1.2-4.9) X10*3/uL Crenshaw # (Auto) 0.6 (0.1-1.2) X10*3/uL Eos # (Auto) 0.1 (0.0-0.4) X10*3/uL Baso # (Auto) 0.0 (0.0-0.2) X10*3/uL Abs Immat Gran (auto) 0.01 (0.00-0.03) X10*3/uL Absolute Neuts (auto) 3.7 (2.0-8.3) x10*3/uL Absolute Nucleated RBC 0.000 (0.0-0.012) X10*3/uL Nucleated RBC % (auto) 0.0 (0.0-0.2) /100WBC Sodium 136 (135-145) mmol/L Potassium 4.0 (3.3-5.1) mmol/L Chloride 100 (96-108) mmol/L Carbon Dioxide 28 (22-29) mmol/L Anion Gap 12 (12-20) BUN 11 (9-16) mg/dL Creatinine 1.21 (0.5-1.4) mg/dL Estim Creat Clear Calc 87.9 Estimated GFR > 60 Random Glucose 108 (60-115) mg/dL Lactic Acid 1.0 (0.5-2.0) mmol/L Calcium 9.5 (8.4-10.2) mg/dL Total Bilirubin 0.3 (0.0-1.0) mg/dL AST 40 H (5-37) U/L ALT 30 (0-40) U/L Alkaline Phosphatase 96 D (39-117) U/L Total Protein 8.0 (6.5-8.0) g/dL Albumin 3.8 (3.5-5.0) g/dL Influenza Type A (KETAN) (Negative) Influenza Type B (KETAN) (Negative) Influenza A & B Note 04/21/22 Range/Units 20:53 WBC (4.8-10.8) X10*3/uL RBC (4.60-5.80) X10*6/uL Hgb (14.0-18.0) g/dl Hct (42.0-52.0) % MCV (80.0-98.0) fL MCH (27.0-33.0) pg MCHC (31.0-36.0) g/dl RDW (11.0-16.0) % Plt Count (160-400) X10*3/uL MPV (9.4-12.4) fL Immature Gran % (Auto) (0.0-0.4) % Neut % (Auto) (45-73) % Lymph % (Auto) (20-40) % Crenshaw % (Auto) (2-11) % Eos % (Auto) (0-4) % Baso % (Auto) (0-2) % Lymph # (Auto) (1.2-4.9) X10*3/uL Crenshaw # (Auto) (0.1-1.2) X10*3/uL Eos # (Auto) (0.0-0.4) X10*3/uL Baso # (Auto) (0.0-0.2) X10*3/uL Abs Immat Gran (auto) (0.00-0.03) X10*3/uL Absolute Neuts (auto) (2.0-8.3) x10*3/uL Absolute Nucleated RBC (0.0-0.012) X10*3/uL Nucleated RBC % (auto) (0.0-0.2) /100WBC Sodium (135-145) mmol/L Potassium (3.3-5.1) mmol/L Chloride (96-108) mmol/L Carbon Dioxide (22-29) mmol/L Anion Gap (12-20) BUN (9-16) mg/dL Creatinine (0.5-1.4) mg/dL Estim Creat Clear Calc Estimated GFR Random Glucose (60-115) mg/dL Lactic Acid (0.5-2.0) mmol/L Calcium (8.4-10.2) mg/dL Total Bilirubin (0.0-1.0) mg/dL AST (5-37) U/L ALT (0-40) U/L Alkaline Phosphatase (39-117) U/L Total Protein (6.5-8.0) g/dL Albumin (3.5-5.0) g/dL Influenza Type A (KETAN) Negative (Negative) Influenza Type B (KETAN) Positive A (Negative) Influenza A & B Note See Note Discharge Plan Discharge Clinical Impression: Substance abuse, COVID-19 Patient Disposition: Home, Self-Care Instructions: Polysubstance Abuse (ED), COVID-19 (Coronavirus Disease 2019) (ED) Additional Instructions: Social distancing as advised Stop using drugs and follow with detox Report to the ER for increased shortness of breath Prescriptions: No Action doxycycline hyclate 100 mg tablet,delayed release (DR/EC) 100 mg PO BID 7 Days Qty: 14 0RF amoxicillin-pot clavulanate 875-125 mg tablet 1 tab PO BID Qty: 14 0RF Interventions: ED Discharge Assessment Last Done: 04/22/22 00:09 Discharge Date/Time: 04/22/22 00:16
[2022-04-21 21:15] LABS: Basophils Percent Auto 0.4 % (0-2); Eosinophils Absolute Auto 0.1 X10*3/uL (0.0-0.4); Eosinophils Percent Auto 1.2 % (0-4); Hematocrit 33.2 % (42.0-52.0); Hemoglobin 11.1 g/dl (14.0-18.0); Imm Gran Abs Auto 0.01 X10*3/uL (0.00-0.03); Imm Gran Pct Auto 0.1 % (0.0-0.4); Lymphocytes Absolute Auto 2.8 X10*3/uL (1.2-4.9); Lymphocytes Percent Auto 38.6 % (20-40); Mean Corpuscular HGB Conc 33.4 g/dl (31.0-36.0); Mean Corpuscular Hemoglobin 28.8 pg (27.0-33.0); Mean Corpuscular Volume 86.2 fL (80.0-98.0); Mean Platelet Volume 9.9 fL (9.4-12.4); Monocytes Absolute Auto 0.6 X10*3/uL (0.1-1.2); Monocytes Percent Auto 8.4 % (2-11); Neutrophils Absolute Auto 3.7 x10*3/uL (2.0-8.3); Neutrophils Percent Auto 51.3 % (45-73); Platelet Count 290 X10*3/uL (160-400); Red Blood Count 3.85 X10*6/uL (4.60-5.80); White Blood Count 7.3 X10*3/uL (4.8-10.8)
[2022-04-21 21:30] LABS: Influenza A Negative (Negative); Influenza B2 Positive (Negative)
[2022-04-21 22:08] VITALS: BP 108/53; PULSE 79; RESP 12; O2SAT 96
[2022-04-21 22:19] LABS: Alanine Aminotransferase 30 U/L (0-40); Albumin Level 3.8 g/dL (3.5-5.0); Alkaline Phosphatase 96 U/L (39-117); Anion Gap 12 (12-20); Aspartate Amino Transferase 40 U/L (5-37); Bilirubin Total 0.3 mg/dL (0.0-1.0); Blood Urea Nitrogen 11 mg/dL (9-16); Calcium 9.5 mg/dL (8.4-10.2); Carbon Dioxide 28 mmol/L (22-29); Chloride 100 mmol/L (96-108); Creatinine Clr Calc Pharmacy 87.9; Estimated Glomerular Filt Rate > 60; Glucose Random 108 mg/dL (60-115); Sodium 136 mmol/L (135-145)
[2022-04-21 23:17] VITALS: BP 111/56; PULSE 63; RESP 10
== END 2022-04-22 00:16 | disposition home or self-care (01) ==
PROVIDERS: Emergency Provider Internal Medicine
DX: U07.1 COVID-19 (principal); R42 Dizziness and giddiness; R50.9 Fever, unspecified; F14.10 Cocaine abuse, uncomplicated; Z79.899 Other long term (current) drug therapy; F11.10 Opioid abuse, uncomplicated; F12.10 Cannabis abuse, uncomplicated; F17.200 Nicotine dependence, unspecified, uncomplicated; Z71.6 Tobacco abuse counseling
CPT/HCPCS: 71045; 80053; 83605; 85025; 87040; 87502; 93005; 99284

== ENCOUNTER 2022-08-22 20:52 | Emergency (ER) | payer MEDICAID, SELFPAY ==
[2022-08-22 22:00] VITALS: BP 113/58; PULSE 67; RESP 12; TEMP 36.6; O2SAT 94; BMI 28.0
[2022-08-23 00:04] VITALS: BP 113/41; PULSE 60; RESP 18; TEMP 36.9; O2SAT 98
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
[2022-08-23] MEDS: Ketorolac Tromethamine 60 MG/2 ML VIAL IM (00:31)
[2022-08-23] MEDS: Amoxicillin 500 MG CAPSULE PO (00:31)
== END 2022-08-23 00:41 | disposition home or self-care (01) ==
PROVIDERS: Emergency Provider Emergency Medicine; PCP Family Medicine
DX: H66.92 Otitis media, unspecified, left ear (principal); H92.02 Otalgia, left ear; F11.10 Opioid abuse, uncomplicated; F17.210 Nicotine dependence, cigarettes, uncomplicated; F14.10 Cocaine abuse, uncomplicated; Z79.899 Other long term (current) drug therapy; Z71.6 Tobacco abuse counseling
CPT/HCPCS: 96372; 99283; 99284; J1885

== ENCOUNTER 2023-02-07 11:39 | Emergency (ER) | payer MEDICAID, SELFPAY ==
[2023-02-07 12:11] VITALS: BP 133/80; PULSE 74; RESP 16; TEMP 36.6; O2SAT 97; BMI 25.1
--- NOTE | 2023-02-07 12:44 | MHC.EDTECH ---
Security is doing inventory on patients belongings.
--- NOTE | 2023-02-07 12:47 | MHC.EDTECH ---
Belongings are in [facility] per Security.
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
[2023-02-07 13:22] LABS: MANUAL DIFF FLAG NO
[2023-02-07 13:24] LABS: Basophils Percent Auto 0.1 % (0-2); Eosinophils Percent Auto 0.4 % (0-4); Hemoglobin 12.8 g/dl (14.0-18.0); Imm Gran Abs Auto 0.01 X10*3/uL (0.00-0.03); Imm Gran Pct Auto 0.1 % (0.0-0.4); Lymphocytes Absolute Auto 2.3 X10*3/uL (1.2-4.9); Lymphocytes Percent Auto 31.2 % (20-40); Mean Corpuscular HGB Conc 33.7 g/dl (31.0-36.0); Mean Corpuscular Hemoglobin 29.6 pg (27.0-33.0); Mean Corpuscular Volume 87.8 fL (80.0-98.0); Monocytes Absolute Auto 0.5 X10*3/uL (0.1-1.2); Monocytes Percent Auto 7.2 % (2-11); Neutrophils Absolute Auto 4.5 x10*3/uL (2.0-8.3); Platelet Count 201 X10*3/uL (160-400); Red Blood Count 4.33 X10*6/uL (4.60-5.80); Red Cell Distribution Width 12.8 % (11.0-16.0); White Blood Count 7.4 X10*3/uL (4.8-10.8)
[2023-02-07 13:37] LABS: COVID-19 Test Negative (Negative); IDNOW Serial# BCCEAD1C
[2023-02-07 13:41] LABS: Alanine Aminotransferase 81 U/L (0-40); Albumin Level 3.9 g/dL (3.5-5.0); Alkaline Phosphatase 90 U/L (39-117); Anion Gap 12 (12-20); Aspartate Amino Transferase 79 U/L (5-37); Bilirubin Direct < 0.2 mg/dL (0.0-0.5); Bilirubin Total 0.5 mg/dL (0.0-1.0); Blood Urea Nitrogen 10 mg/dL (9-16); Calcium 9.3 mg/dL (8.4-10.2); Carbon Dioxide 26 mmol/L (22-29); Chloride 103 mmol/L (96-108); Creatinine Clr Calc Pharmacy 117.7; Estimated Glomerular Filt Rate > 60; Ethanol < 10 mg/dL; Glucose Random 111 mg/dL (60-115); Magnesium 1.7 mg/dL (1.6-2.6); Potassium 4.1 mmol/L (3.3-5.1); Sodium 137 mmol/L (135-145); Total Protein 7.4 g/dL (6.5-8.0)
[2023-02-07 13:43] LABS: Amphetamine Screen Urine Not Detected (Not Detect); Barbiturates, Urine Not Detected (Not Detect); Benzodiazepines Screen Urine Not Detected (Not Detect); Cannabinoid Screen Urine POSITIVE (Not Detect); Cocaine Screen Urine POSITIVE (Not Detect); Fentanyl, urine POSITIVE (Not Detect); Opiate Screen Urine POSITIVE (Not Detect); Phencyclidine Screen Urine Not Detected (Not Detect)
[2023-02-07] MEDS: cephALEXin 500 MG CAPSULE PO (14:27)
[2023-02-07] MEDS: Doxycycline Monohydrate 100 MG CAPSULE PO (14:27)
== END 2023-02-07 14:49 | disposition home or self-care (01) ==
PROVIDERS: Physician Assistant; Emergency Provider Emergency Medicine
DX: M79.10 Myalgia, unspecified site (principal); F11.19 Opioid abuse with unspecified opioid-induced disorder; F14.19 Cocaine abuse with unspecified cocaine-induced disorder; F41.9 Anxiety disorder, unspecified; Z20.822 Contact with and (suspected) exposure to COVID-19; Z20.828 Contact with and (suspected) exposure to other viral communicable diseases; Z79.899 Other long term (current) drug therapy; Z71.51 Drug abuse counseling and surveillance of drug abuser
CPT/HCPCS: 80048; 80076; 80307; 82077; 83735; 85025; 87635; 99284

== ENCOUNTER 2023-02-13 14:38 | Emergency (ER) | payer MEDICAID, SELFPAY ==
[2023-02-13 15:00] VITALS: BP 146/80; PULSE 76; RESP 18; TEMP 36.1; O2SAT 96; BMI 25.1
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
[2023-02-13] MEDS: Ibuprofen 600 MG TABLET PO (16:09)
[2023-02-13] MEDS: Clindamycin HCL 300 MG CAPSULE PO (16:09)
== END 2023-02-13 16:13 | disposition home or self-care (01) ==
PROVIDERS: Emergency Provider Emergency Medicine
DX: K13.0 Diseases of lips (principal); F11.10 Opioid abuse, uncomplicated; F17.210 Nicotine dependence, cigarettes, uncomplicated; Z71.6 Tobacco abuse counseling; Z79.899 Other long term (current) drug therapy
CPT/HCPCS: 10060; 99283

== ENCOUNTER 2023-04-03 08:56 | Emergency (ER) | payer MEDICAID, SELFPAY ==
[2023-04-03 09:05] VITALS: BP 141/67; PULSE 88; RESP 18; TEMP 36.9; O2SAT 95; BMI 26.0
--- NOTE | 2023-04-03 09:11 | ECG_ITS ---
Test Reason : cp Blood Pressure : / mmHG Vent. Rate : 079 BPM Atrial Rate : 079 BPM P-R Int : 136 ms QRS Dur : 092 ms QT Int : 402 ms P-R-T Axes : 082 067 041 degrees QTc Int : 460 ms Normal sinus rhythm Nonspecific T wave abnormality Abnormal ECG When compared with ECG of 21-APR-2022 20:18, QT has lengthened Referred By: Generic ED Physician Electronically Signed By:DARLENE GREEN MD
--- NOTE | 2023-04-03 09:26 | MHC.EDTECH ---
this tech had to manually put in the pt's info into EKG machine, EKG was done, seen and signed by , and documented properly, however due to me manually putting in the pt's information, the EKG document is not showing on reports section, there is a physical copy in chart
[2023-04-03 10:32] LABS: MANUAL DIFF FLAG NO
[2023-04-03 10:35] LABS: Basophils Percent Auto 0.3 % (0-2); Eosinophils Absolute Auto 0.1 X10*3/uL (0.0-0.4); Eosinophils Percent Auto 0.7 % (0-4); Hematocrit 38.2 % (42.0-52.0); Hemoglobin 12.5 g/dl (14.0-18.0); Imm Gran Abs Auto 0.02 X10*3/uL (0.00-0.03); Imm Gran Pct Auto 0.2 % (0.0-0.4); Lymphocytes Absolute Auto 2.7 X10*3/uL (1.2-4.9); Lymphocytes Percent Auto 30.1 % (20-40); Mean Corpuscular HGB Conc 32.7 g/dl (31.0-36.0); Mean Corpuscular Volume 88.6 fL (80.0-98.0); Mean Platelet Volume 9.8 fL (9.4-12.4); Monocytes Absolute Auto 0.7 X10*3/uL (0.1-1.2); Monocytes Percent Auto 7.6 % (2-11); Neutrophils Absolute Auto 5.5 x10*3/uL (2.0-8.3); Neutrophils Percent Auto 61.1 % (45-73); Platelet Count 272 X10*3/uL (160-400); Red Blood Count 4.31 X10*6/uL (4.60-5.80); Red Cell Distribution Width 12.8 % (11.0-16.0)
[2023-04-03 10:55] LABS: Anion Gap 12 (12-20); Blood Urea Nitrogen 15 mg/dL (9-16); Carbon Dioxide 27 mmol/L (22-29); Chloride 101 mmol/L (96-108); Creatinine Clr Calc Pharmacy 101.9; Estimated Glomerular Filt Rate > 60; Glucose Random 122 mg/dL (60-115); Potassium 4.1 mmol/L (3.3-5.1); Sodium 136 mmol/L (135-145)
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
[2023-04-03 12:36] LABS: COVID-19 Test Negative (Negative); IDNOW Serial# BCCEAD1C
--- NOTE | 2023-04-03 13:09 | MHC.RECOVSUP ---
Met with pt in ED8 who is here fore chest pain and potential needle stuck in arm. Pt informs he is not interested in ATS at this time but would like information so he and his can reach out for ATS tomorrow. T/W provided pt with recovery resources and reviewed with pt on how to contact the facilities. Pt has no other questions or concerns at this time. provider aware.
== END 2023-04-03 12:27 | disposition home or self-care (01) ==
PROVIDERS: Physician Assistant; Emergency Provider Emergency Medicine Emergency Medical Services
DX: K08.89 Other specified disorders of teeth and supporting structures (principal); M79.10 Myalgia, unspecified site; R42 Dizziness and giddiness; R51.9 Headache, unspecified; R07.89 Other chest pain; F17.210 Nicotine dependence, cigarettes, uncomplicated; Z71.6 Tobacco abuse counseling; Z20.822 Contact with and (suspected) exposure to COVID-19; Z20.828 Contact with and (suspected) exposure to other viral communicable diseases; Z79.899 Other long term (current) drug therapy
CPT/HCPCS: 36415; 80048; 82550; 85025; 87635; 93005; 99283

== ENCOUNTER 2023-04-30 10:01 | Emergency (ER) | payer MEDICAID, SELFPAY ==
--- NOTE | ~2023-04-30 | CT_ITS ---
EXAMINATION: CT ABDOMEN AND PELVIS WITH CONTRAST CLINICAL INFORMATION: Acute lower abdominal pain. Evaluate for appendicitis. COMPARISON: 10/19/2020 TECHNIQUE: Multidetector volumetric images were obtained from the superior aspect of the liver through the pubic symphysis following administration 85 mL of Omnipaque 350 intravenous contrast. Sagittal and coronal reformatted images were obtained on the technologist's workstation. Oral contrast: No This CT examination was performed using dose optimization techniques as appropriate, variously including the following: *Automated exposure control *Adjustment of mA and/or kV according to patient size (this includes techniques or standardized protocols for targeted exams where dose is matched to indication/reason for exam; i.e. extremities or head) *Use of iterative reconstruction technique DLP: 387 mGy-cm FINDINGS: LUNG BASES: Normal. No pulmonary consolidation or pleural effusion. LIVER: Liver has normal size and contour. No evidence of hepatic steatosis, cirrhosis or mass. The observation of mild hypoattenuation around portal veins suggests presence of mild periportal edema. GALLBLADDER AND BILIARY TREE: Gallbladder is physiologically distended and without radiopaque stones, wall thickening or pericholecystic fluid. No dilated bile ducts. PANCREAS: Normal. No edema, pancreatic ductal dilatation or mass. SPLEEN: Normal. ADRENAL GLANDS: Normal. KIDNEYS: Kidneys are normal in size and enhance symmetrically. No hydronephrosis or perinephric edema. Small calyceal stone measuring up to 0.3 cm present in the lateral right interpolar region. BLADDER: Normal. No calculi or wall thickening. BOWEL AND PERITONEUM: No dilated bowel loops. No focal bowel wall thickening, mesenteric fat stranding or free fluid. No pneumoperitoneum. The appendix is grossly normal but not optimally visualized since there is a chronic paucity of mesenteric fat within the abdomen. ABDOMINAL WALL: Unremarkable. VASCULATURE: Unremarkable. LYMPH NODES: No pathologic sized lymph nodes in the abdomen or pelvis. No inguinal lymphadenopathy. PELVIC VISCERA: Prostate gland is unremarkable. MUSCULOSKELETAL: No acute osseous abnormality. There are Schmorl's nodes of superior endplates of L2, L3 and L5. Chronic L5 spondylolysis and mild grade 1 anterolisthesis of L5 on S1. CT/CT abdomen pelvis w IV con IMPRESSION: * No acute imaging abnormalities along the gastrointestinal tract. No evidence of enteritis, colitis or appendicitis. * Mild periportal edema is suspected, but the cause of the suspected abnormality is uncertain. Periportal edema can be seen in patients with hepatitis or fluid overload. Consider correlation with liver function tests. * Small nonobstructing stone is present in the mid right kidney.
[2023-04-30 10:03] VITALS: BP 149/82; BP 170/93; PULSE 102; PULSE 98; RESP 20; O2SAT 94; O2SAT 96; BMI 16.4
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
[2023-04-30 11:00] LABS: Hematocrit 37.4 % (42.0-52.0); Hemoglobin 12.6 g/dl (14.0-18.0); Mean Corpuscular HGB Conc 33.7 g/dl (31.0-36.0); Mean Corpuscular Hemoglobin 28.9 pg (27.0-33.0); Mean Corpuscular Volume 85.8 fL (80.0-98.0); Mean Platelet Volume 9.5 fL (9.4-12.4); Platelet Count 211 X10*3/uL (160-400); Red Blood Count 4.36 X10*6/uL (4.60-5.80); Red Cell Distribution Width 13.2 % (11.0-16.0); White Blood Count 6.5 X10*3/uL (4.8-10.8)
[2023-04-30] MEDS: 0.9 % Sodium Chloride 1,000 ML 999 ML IV (11:08)
[2023-04-30] MEDS: Famotidine/PF 20 MG/2 ML VIAL IVPUSH (11:10)
[2023-04-30] MEDS: ondansetron HCL 4 MG/2 ML VIAL IVPUSH (11:10)
[2023-04-30] MEDS: Ketorolac Tromethamine 15 MG/ML VIAL IVPUSH (11:10)
[2023-04-30 11:15] LABS: COVID-19 Test Negative (Negative); IDNOW Serial# BCCEAD1C
[2023-04-30 11:20] LABS: Alanine Aminotransferase 42 U/L (0-40); Albumin Level 3.7 g/dL (3.5-5.0); Alkaline Phosphatase 115 U/L (39-117); Anion Gap 12 (12-20); Aspartate Amino Transferase 52 U/L (5-37); Bilirubin Total 0.8 mg/dL (0.0-1.0); Blood Urea Nitrogen 13 mg/dL (9-16); Carbon Dioxide 25 mmol/L (22-29); Chloride 103 mmol/L (96-108); Creatinine Clr Calc Pharmacy 123.9; Estimated Glomerular Filt Rate > 60; Ethanol < 10 mg/dL; Glucose Random 104 mg/dL (60-115); Lipase 13 U/L (8-78); Potassium 4.1 mmol/L (3.3-5.1); Sodium 136 mmol/L (135-145); Total Protein 8.4 g/dL (6.5-8.0)
--- NOTE | 2023-04-30 11:29 | PC.NURSE ---
pt difficult. two unsuccessful attempts made. guided ultrasound used by PAYAM Rudd.
--- NOTE | 2023-04-30 11:39 | PC.NURSE ---
meds given via iv per ordered. pt resting quietly at this time. at bedside.
[2023-04-30 11:40] LABS: Band Neutrophils Percent 9 % (3-5); Lymphocytes Absolute Manual 0.3 X10*3/uL (1.2-4.9); Lymphocytes Percent Manual 5 % (20-40); Neutrophils Absolute Manual 6.2 X10*3/uL (2.0-8.3); Neutrophils Percent Manual 86 % (45-73)
[2023-04-30 11:41] LABS: Platelet Estimate NORMAL (NORMAL); Platelet Morphology Comment NORMAL; RBC Morphology NORMAL; Toxic Vacuolation PRESENT
[2023-04-30] MEDS: iohexoL 350 MG/ML 100 ML INFUS..BTL IV (11:47)
[2023-04-30 11:56] VITALS: BP 149/74; PULSE 83; RESP 12; O2SAT 94
[2023-04-30] MEDS: Magnesium Hydrox/Alum Hydrox 30 ML ORAL.SUSP PO (13:07)
[2023-04-30] MEDS: PHENobarb/Hyoscy/Atropine/Scop 10 ML ELIXIR PO (13:07)
[2023-04-30 14:12] VITALS: BP 116/78; PULSE 77; RESP 19; O2SAT 98
== END 2023-04-30 14:14 | disposition home or self-care (01) ==
PROVIDERS: Emergency Provider Emergency Medicine
DX: R10.30 Lower abdominal pain, unspecified (principal); F11.29 Opioid dependence with unspecified opioid-induced disorder; F17.210 Nicotine dependence, cigarettes, uncomplicated; Z20.822 Contact with and (suspected) exposure to COVID-19; Z79.899 Other long term (current) drug therapy; Z71.6 Tobacco abuse counseling; Z20.828 Contact with and (suspected) exposure to other viral communicable diseases
CPT/HCPCS: 74177; 80053; 80307; 83690; 85007; 85025; 85027; 87635; 96361; 96374; 96375; 99284; 99285; J1885; J2405; Q9967

== ENCOUNTER 2023-05-15 16:17 | Emergency (ER) | payer MEDICAID, SELFPAY ==
--- NOTE | ~2023-05-15 | XR_ITS ---
EXAMINATION: XR HAND, LEFT CLINICAL INFORMATION: Evaluate for osteomyelitis. COMPARISON: Radiograph of the left hand 03/22/2022. TECHNIQUE: PA, lateral, and oblique views of the left hand. FINDINGS: Similar degree of diffuse soft tissue thickening. No unexpected radiopaque foreign bodies. No cortical destruction or erosive changes to suspect osteomyelitis. Redemonstration of osseous fragment adjacent to the volar aspect of the scaphoid bone as well as subtle cortical irregularity along the lateral cortex of the scaphoid, suspicious for an age indeterminate fracture. Well-corticated osseous fragment adjacent to the ulnar styloid, favoring to represent a congenital variation or sequela of a chronic trauma. XR/XR hand LT min 3V IMPRESSION: 1. No radiographic evidence of osteomyelitis. However, early osteomyelitis can be radiographically occult, and if there is high clinical suspicion, consider further evaluation with MRI. 2. Osseous fragment adjacent to the volar aspect of the scaphoid bone with some cortical irregularity suspicious for a fracture, correlate with point tenderness.
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
[2023-05-15 16:50] VITALS: BP 144/78; PULSE 86; RESP 20; TEMP 36.3; BMI 23.8
[2023-05-15 17:32] LABS: Basophils Percent Auto 0.2 % (0-2); Eosinophils Absolute Auto 0.1 X10*3/uL (0.0-0.4); Eosinophils Percent Auto 0.4 % (0-4); Hematocrit 34.7 % (42.0-52.0); Hemoglobin 11.5 g/dl (14.0-18.0); Imm Gran Abs Auto 0.04 X10*3/uL (0.00-0.03); Imm Gran Pct Auto 0.3 % (0.0-0.4); Lymphocytes Absolute Auto 1.5 X10*3/uL (1.2-4.9); Lymphocytes Percent Auto 11.3 % (20-40); MANUAL DIFF FLAG NO; Mean Corpuscular HGB Conc 33.1 g/dl (31.0-36.0); Mean Corpuscular Hemoglobin 28.7 pg (27.0-33.0); Mean Corpuscular Volume 86.5 fL (80.0-98.0); Mean Platelet Volume 9.3 fL (9.4-12.4); Monocytes Percent Auto 7.6 % (2-11); Neutrophils Absolute Auto 10.8 x10*3/uL (2.0-8.3); Neutrophils Percent Auto 80.2 % (45-73); Platelet Count 315 X10*3/uL (160-400); Red Blood Count 4.01 X10*6/uL (4.60-5.80); Red Cell Distribution Width 13.6 % (11.0-16.0); White Blood Count 13.5 X10*3/uL (4.8-10.8)
[2023-05-15 17:48] LABS: Lactic Acid 1.2 mmol/L (0.5-2.0)
[2023-05-15 17:51] LABS: Anion Gap 11 (12-20); Blood Urea Nitrogen 9 mg/dL (9-16); Carbon Dioxide 26 mmol/L (22-29); Chloride 100 mmol/L (96-108); Creatinine Clr Calc Pharmacy 124.7; Estimated Glomerular Filt Rate > 60; Glucose Random 97 mg/dL (60-115); Potassium 4.4 mmol/L (3.3-5.1); Sodium 133 mmol/L (135-145)
--- NOTE | 2023-05-15 19:24 | MHC.RECOVSUP ---
? Reason for consult Recovery Support o Current location: EDw o Identified substance use concern: Heroin - Seeking ATS (detox) - Support ? Intervention: o MAT started or to be started o Community resources provided o Harm reduction discussion ? Plan o Patient awaiting crisis evaluation o Patient to follow up with [facility] after discharge ? Additional information: Patient seeking detox no beds at the moment
[2023-05-15 22:33] VITALS: BP 130/54; PULSE 68; RESP 15; TEMP 37.2; O2SAT 97
[2023-05-15] MEDS: 0.9 % Sodium Chloride 1,000 ML 999 ML IV (22:43)
[2023-05-15] MEDS: oxyCODONE HCl Immed Release 5 MG TABLET 10 MG PO (22:43)
[2023-05-15] MEDS: cefTRIAXone sodium 1 GM in 0.9 % Sodium Chloride 50 ML IV (22:43)
[2023-05-15] MEDS: Acetaminophen 325 MG TABLET 650 MG PO (22:43)
[2023-05-15 23:01] LABS: Alanine Aminotransferase 37 U/L (0-40); Albumin Level 3.8 g/dL (3.5-5.0); Alkaline Phosphatase 91 U/L (39-117); Aspartate Amino Transferase 36 U/L (5-37); Bilirubin Direct 0.2 mg/dL (0.0-0.5); Bilirubin Total 0.5 mg/dL (0.0-1.0); Total Protein 8.5 g/dL (6.5-8.0)
[2023-05-15 23:25] VITALS: BP 131/65; PULSE 68; RESP 12; TEMP 37.4; O2SAT 98
[2023-05-16] MEDS: Doxycycline Monohydrate 100 MG CAPSULE PO (00:18)
[2023-05-16] MEDS: Ketorolac Tromethamine 30 MG/ML VIAL IVPUSH (00:19)
[2023-05-16] MEDS: Nicotine 21 MG PATCH.TD24 TRANSDERMA (02:13)
[2023-05-16 04:00] VITALS: BP 111/54; PULSE 56; RESP 16; TEMP 36.7; O2SAT 97
[2023-05-16] MEDS: Naloxone HCl Nasal TAKE HOME 4 MG SPRAY 8 MG NOSTRILALT (05:22)
--- NOTE | 2023-05-16 05:28 | PC.NURSE ---
Pt came out of his room, stated he wanted to leave to smoke a cigarette. Pt still expressed interest in speaking with CARE team and family coach. Pt was given a nicotine patch and offered nicotine gum. It was explained to the pt that if he leaves, everything would start over. Pt stated he is still going to detox, but wants to be discharged. I discussed the situation with Dr Ozuna who discharged the pt. Pt was given take home narcan and discharge instructions, verbalized understanding, and his IV was removed. Signatures obtained, pt discharged A&Ox4, GCS 15, with steady gait.
== END 2023-05-16 05:33 | disposition home or self-care (01) ==
PROVIDERS: Physician Assistant; Registered Nurse Emergency; Emergency Provider Emergency Medicine
DX: L03.012 Cellulitis of left finger (principal); F11.10 Opioid abuse, uncomplicated; Z71.51 Drug abuse counseling and surveillance of drug abuser; Z79.899 Other long term (current) drug therapy
CPT/HCPCS: 36415; 73130; 80048; 80076; 83605; 85025; 87040; 87205; 96361; 96374; 96375; 99284; J0696; J1885

== ENCOUNTER 2023-07-14 23:25 | Emergency (ER) | payer MEDICAID, SELFPAY ==
[2023-07-14 23:37] VITALS: BP 136/64; PULSE 89; RESP 20; TEMP 36.7; O2SAT 98; BMI 28.8
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
[2023-07-15 00:42] LABS: Hematocrit 32.6 % (42.0-52.0); Mean Corpuscular HGB Conc 33.7 g/dl (31.0-36.0); Mean Corpuscular Hemoglobin 28.5 pg (27.0-33.0); Mean Corpuscular Volume 84.5 fL (80.0-98.0); Mean Platelet Volume 9.1 fL (9.4-12.4); Platelet Count 279 X10*3/uL (160-400); Red Blood Count 3.86 X10*6/uL (4.60-5.80); Red Cell Distribution Width 13.2 % (11.0-16.0); White Blood Count 10.5 X10*3/uL (4.8-10.8)
[2023-07-15 00:45] VITALS: BP 124/55; PULSE 73; RESP 17; TEMP 37.1; O2SAT 94
[2023-07-15 00:58] LABS: Alanine Aminotransferase 32 U/L (0-40); Albumin Level 3.5 g/dL (3.5-5.0); Alkaline Phosphatase 87 U/L (39-117); Anion Gap 15 (12-20); Aspartate Amino Transferase 33 U/L (5-37); Bilirubin Total 0.3 mg/dL (0.0-1.0); Blood Urea Nitrogen 11 mg/dL (9-16); Calcium 10.1 mg/dL (8.4-10.2); Carbon Dioxide 26 mmol/L (22-29); Chloride 102 mmol/L (96-108); Creatinine Clr Calc Pharmacy 120.3; Estimated Glomerular Filt Rate > 60; Glucose Random 112 mg/dL (60-115); Potassium 3.8 mmol/L (3.3-5.1); Sodium 139 mmol/L (135-145); Total Protein 8.2 g/dL (6.5-8.0)
[2023-07-15] MEDS: 0.9 % Sodium Chloride 1,000 ML 999 ML IV (02:03)
[2023-07-15] MEDS: Lidocaine HCl 1 % MPF 2 ML VIAL 4 ML INFILTRATI (02:03)
[2023-07-15] MEDS: Piperacillin Sodium/Tazobactam 3.375 GM in 0.9 % Sodium Chloride 50 ML IV (02:03)
[2023-07-15 02:31] LABS: Lactic Acid 2.1 mmol/L (0.5-2.0)
[2023-07-15] MEDS: vancomycin/NS 2,000 MG/500 ML PLAST..BAG 250 MG IV (02:41)
[2023-07-15] MEDS: Ketorolac Tromethamine 30 MG/ML VIAL IVPUSH (02:41)
[2023-07-15 03:30] VITALS: RESP 18
[2023-07-15 04:02] LABS: Reflex Lactate? Lactic Acid Added
== END 2023-07-15 04:31 | disposition left against medical advice (07) ==
PROVIDERS: Emergency Provider Internal Medicine
DX: L02.414 Cutaneous abscess of left upper limb (principal); I10 Essential (primary) hypertension; F17.210 Nicotine dependence, cigarettes, uncomplicated
CPT/HCPCS: 10060; 36415; 80053; 83605; 85027; 87040; 87070; 87205; 96361; 96365; 96375; 99284; J1885; J2543; J3370

== ENCOUNTER 2023-08-14 12:17 | Emergency (ER) | payer MEDICAID, SELFPAY ==
--- NOTE | ~2023-08-14 | CT_ITS ---
EXAMINATION: CT HEAD WITHOUT CONTRAST CLINICAL INFORMATION: Headache. COMPARISON: 04/02/2021 TECHNIQUE: Contiguous axial imaging was performed from the skull base to vertex without intravenous administration of contrast. This CT examination was performed using dose optimization techniques as appropriate, variously including the following: *Automated exposure control *Adjustment of mA and/or kV according to patient size (this includes techniques or standardized protocols for targeted exams where dose is matched to indication/reason for exam; i.e. extremities or head) *Use of iterative reconstruction technique DLP: 587 mGy-cm FINDINGS: There is no evidence of acute intracranial hemorrhage or territorial infarction. No mass effect or midline shift is seen. Mart to white matter differentiation is well preserved. No extra-axial fluid collections are identified. The ventricles are normal in size. The osseous structures and soft tissues are normal. The mastoid air cells and visualized portions of the paranasal sinuses are well aerated. CT/CT head/brain wo IV con IMPRESSION: No acute intracranial pathology.
[2023-08-14 12:20] VITALS: BP 150/89; PULSE 100; O2SAT 100
[2023-08-14 12:23] VITALS: BP 155/86; PULSE 76; RESP 19; TEMP 36.6; O2SAT 98; BMI 23.6
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
[2023-08-14 12:53] LABS: MANUAL DIFF FLAG NO
[2023-08-14 12:53] LABS: Appearance Urine Clear; Color Urine Yellow; Glucose Urine UA Negative (Negative); Leukocyte Esterase Urine Negative (Negative); Nitrite Urine Negative (Negative); PH 5.5 (5.0-9.0); Specific Gravity - Urine 1.015 (1.005-1.025); Urine Blood Negative (Negative); Urine Ketones Negative (Negative); Urine Protein Negative (Neg-Trace)
[2023-08-14 12:55] LABS: Basophils Percent Auto 0.1 % (0-2); Eosinophils Percent Auto 0.4 % (0-4); Hemoglobin 12.1 g/dl (14.0-18.0); Imm Gran Abs Auto 0.02 X10*3/uL (0.00-0.03); Imm Gran Pct Auto 0.3 % (0.0-0.4); Lymphocytes Absolute Auto 1.7 X10*3/uL (1.2-4.9); Lymphocytes Percent Auto 24.9 % (20-40); Mean Corpuscular HGB Conc 33.6 g/dl (31.0-36.0); Mean Corpuscular Hemoglobin 28.6 pg (27.0-33.0); Mean Corpuscular Volume 85.1 fL (80.0-98.0); Mean Platelet Volume 9.5 fL (9.4-12.4); Monocytes Absolute Auto 0.4 X10*3/uL (0.1-1.2); Monocytes Percent Auto 5.6 % (2-11); Neutrophils Absolute Auto 4.6 x10*3/uL (2.0-8.3); Neutrophils Percent Auto 68.7 % (45-73); Platelet Count 266 X10*3/uL (160-400); Red Blood Count 4.23 X10*6/uL (4.60-5.80); Red Cell Distribution Width 14.1 % (11.0-16.0); White Blood Count 6.7 X10*3/uL (4.8-10.8)
[2023-08-14 12:58] LABS: Bacteria Urine None Seen (None Seen); Hyaline Casts Urine 0-2 /LPF (0-2); RBC Urine 0-2 /HPF (0-2); Squamous Epithelial Cell Urine 0-2 /HPF (0-2); WBC Urine 0-5 /HPF (0-5)
[2023-08-14 13:02] LABS: Amphetamine Screen Urine Not Detected (Not Detect); Barbiturates, Urine Not Detected (Not Detect); Benzodiazepines Screen Urine Not Detected (Not Detect); Cannabinoid Screen Urine POSITIVE (Not Detect); Cocaine Screen Urine POSITIVE (Not Detect); Fentanyl, urine POSITIVE (Not Detect); Opiate Screen Urine POSITIVE (Not Detect); Phencyclidine Screen Urine Not Detected (Not Detect)
[2023-08-14 13:11] LABS: Lactic Acid 1.6 mmol/L (0.5-2.0)
[2023-08-14 13:16] LABS: Alanine Aminotransferase 62 U/L (0-40); Albumin Level 4.4 g/dL (3.5-5.0); Alkaline Phosphatase 102 U/L (39-117); Anion Gap 15 (12-20); Aspartate Amino Transferase 58 U/L (5-37); Bilirubin Total 0.2 mg/dL (0.0-1.0); Blood Urea Nitrogen 16 mg/dL (9-16); COVID-19 Test Negative (Negative); Calcium 10.4 mg/dL (8.4-10.2); Carbon Dioxide 25 mmol/L (22-29); Chloride 100 mmol/L (96-108); Estimated Glomerular Filt Rate > 60; Glucose Random 78 mg/dL (60-115); IDNOW Serial# 08D9AD1C; Lipase 13 U/L (8-78); Sodium 136 mmol/L (135-145)
== END 2023-08-14 17:15 | disposition left against medical advice (07) ==
LOC: HO.ED 17:02
PROVIDERS: Physician Assistant; Emergency Provider Emergency Medicine
DX: R51.9 Headache, unspecified (principal); M79.10 Myalgia, unspecified site; Z11.52 Encounter for screening for COVID-19; I10 Essential (primary) hypertension; F19.10 Other psychoactive substance abuse, uncomplicated; F11.10 Opioid abuse, uncomplicated; F17.210 Nicotine dependence, cigarettes, uncomplicated
CPT/HCPCS: 36415; 70450; 80053; 80307; 81001; 83605; 83690; 85025; 87040; 87635; 99282; 99284

== ENCOUNTER 2023-09-22 20:42 | Emergency (ER) | payer MEDICAID, SELFPAY ==
--- NOTE | ~2023-09-22 | XR_ITS ---
EXAMINATION: XR CHEST CLINICAL INFORMATION: Chest pain COMPARISON: 04/21/2022 TECHNIQUE: Frontal view of the chest was obtained. FINDINGS: No significant abnormality is noted involving the heart, lungs, mediastinum, bony thorax or soft tissues. XR/XR chest 1V IMPRESSION: Unremarkable examination.
[2023-09-22 20:55] VITALS: BP 112/60; BP 120/59; PULSE 64; PULSE 73; RESP 17; TEMP 36.7; O2SAT 97; O2SAT 98; BMI 26.6
--- NOTE | 2023-09-22 21:05 | ECG_ITS ---
Test Reason : CHEST PAIN Blood Pressure : / mmHG Vent. Rate : 055 BPM Atrial Rate : 055 BPM P-R Int : 150 ms QRS Dur : 088 ms QT Int : 446 ms P-R-T Axes : 071 053 056 degrees QTc Int : 426 ms Sinus bradycardia Nonspecific T wave abnormality Abnormal ECG When compared with ECG of 03-APR-2023 09:17, Heart rate has decreased T wave amplitude has increased in Inferior leads Referred By: Generic ED Physician Electronically Signed By:SEBLE RENNER MD
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
[2023-09-22 21:36] LABS: MANUAL DIFF FLAG NO
[2023-09-22 21:37] LABS: Basophils Percent Auto 0.3 % (0-2); Eosinophils Absolute Auto 0.1 X10*3/uL (0.0-0.4); Eosinophils Percent Auto 0.8 % (0-4); Hematocrit 33.8 % (42.0-52.0); Hemoglobin 11.1 g/dl (14.0-18.0); Imm Gran Abs Auto 0.01 X10*3/uL (0.00-0.03); Imm Gran Pct Auto 0.2 % (0.0-0.4); Lymphocytes Absolute Auto 2.5 X10*3/uL (1.2-4.9); Lymphocytes Percent Auto 37.5 % (20-40); Mean Corpuscular HGB Conc 32.8 g/dl (31.0-36.0); Mean Corpuscular Volume 85.4 fL (80.0-98.0); Mean Platelet Volume 9.5 fL (9.4-12.4); Monocytes Absolute Auto 0.6 X10*3/uL (0.1-1.2); Monocytes Percent Auto 9.4 % (2-11); Neutrophils Absolute Auto 3.4 x10*3/uL (2.0-8.3); Neutrophils Percent Auto 51.8 % (45-73); Platelet Count 237 X10*3/uL (160-400); Red Blood Count 3.96 X10*6/uL (4.60-5.80); Red Cell Distribution Width 14.6 % (11.0-16.0); White Blood Count 6.6 X10*3/uL (4.8-10.8)
[2023-09-22 21:39] LABS: Appearance Urine Clear; Color Urine Yellow; Glucose Urine UA Negative (Negative); Leukocyte Esterase Urine Negative (Negative); Nitrite Urine Negative (Negative); Urine Blood Negative (Negative); Urine Ketones Negative (Negative); Urine Protein Negative (Neg-Trace)
[2023-09-22 21:56] LABS: Alanine Aminotransferase 67 U/L (0-40); Albumin Level 3.6 g/dL (3.5-5.0); Alkaline Phosphatase 90 U/L (39-117); Anion Gap 10 (12-20); Aspartate Amino Transferase 63 U/L (5-37); Bilirubin Direct 0.1 mg/dL (0.0-0.5); Bilirubin Total 0.3 mg/dL (0.0-1.0); Blood Urea Nitrogen 11 mg/dL (9-16); Calcium 9.6 mg/dL (8.4-10.2); Carbon Dioxide 31 mmol/L (22-29); Chloride 104 mmol/L (96-108); Creatinine Clr Calc Pharmacy 119.1; Estimated Glomerular Filt Rate > 60; Glucose Random 118 mg/dL (60-115); Lipase 10 U/L (8-78); Potassium 3.9 mmol/L (3.3-5.1); Sodium 141 mmol/L (135-145); Total Protein 8.3 g/dL (6.5-8.0)
[2023-09-22 22:04] LABS: Troponin-I High Sensitivity < 2.7 ng/L (<3.5-35.0)
[2023-09-22 22:22] LABS: Amphetamine Screen Urine Not Detected (Not Detect); Barbiturates, Urine Not Detected (Not Detect); Benzodiazepines Screen Urine Not Detected (Not Detect); Cannabinoid Screen Urine POSITIVE (Not Detect); Cocaine Screen Urine POSITIVE (Not Detect); Fentanyl, urine POSITIVE (Not Detect); Opiate Screen Urine POSITIVE (Not Detect); Phencyclidine Screen Urine Not Detected (Not Detect)
[2023-09-22 23:37] VITALS: BP 90/40; PULSE 48; RESP 13; O2SAT 98
[2023-09-23 00:28] VITALS: BP 98/54; PULSE 52; RESP 12; TEMP 36.4; O2SAT 98
== END 2023-09-23 00:46 | disposition home or self-care (01) ==
PROVIDERS: Emergency Provider Emergency Medicine Emergency Medical Services
DX: R07.9 Chest pain, unspecified (principal); F19.10 Other psychoactive substance abuse, uncomplicated; B19.20 Unspecified viral hepatitis C without hepatic coma; F41.9 Anxiety disorder, unspecified; F32.A Depression, unspecified; F17.210 Nicotine dependence, cigarettes, uncomplicated; Z79.899 Other long term (current) drug therapy
CPT/HCPCS: 36415; 71045; 80048; 80076; 80307; 81003; 83690; 84484; 85025; 93005; 99284; 99285

== ENCOUNTER 2023-11-01 17:19 | Emergency (ER) | payer SELFPAY ==
--- NOTE | 2023-11-01 | ECG_ITS ---
Test Reason : CP Blood Pressure : / mmHG Vent. Rate : 076 BPM Atrial Rate : 076 BPM P-R Int : 142 ms QRS Dur : 084 ms QT Int : 382 ms P-R-T Axes : 079 053 054 degrees QTc Int : 429 ms Normal sinus rhythm Nonspecific T wave abnormality Borderline ECG When compared with ECG of 22-SEP-2023 21:15, No significant change was found Referred By: Generic ED Physician Electronically Signed By:MANUEL RILEY
--- NOTE | ~2023-11-01 | XR_ITS ---
EXAMINATION: XR CHEST 2 VIEWS CLINICAL INFORMATION: Chest pain; Covid positive. COMPARISON: Prior chest radiographs, most recently 09/22/2023. TECHNIQUE: Frontal and lateral views of the chest were obtained. FINDINGS: The heart, great vessels, pulmonary vasculature and mediastinum are normal. A small to moderate patchy infiltrate is seen in the lingula. The right lung appears clear. There is no pleural effusion or pneumothorax. There is no acute osseous abnormality. XR/XR chest 2V IMPRESSION: A small to moderate patchy infiltrate is seen in the lingula, likely infectious. Recommend short-term follow-up chest radiographs to ensure clearance and exclude the possibility of underlying obstructive process.
[2023-11-01 18:43] VITALS: BP 114/59; PULSE 73; RESP 18; TEMP 37.1; O2SAT 98; BMI 23.6
[2023-11-01 19:08] LABS: MANUAL DIFF FLAG NO
[2023-11-01 19:27] LABS: Basophils Percent Auto 0.2 % (0-2); Eosinophils Percent Auto 0.4 % (0-4); Hematocrit 36.8 % (42.0-52.0); Hemoglobin 12.1 g/dl (14.0-18.0); Imm Gran Abs Auto 0.04 X10*3/uL (0.00-0.03); Imm Gran Pct Auto 0.4 % (0.0-0.4); Lymphocytes Absolute Auto 2.4 X10*3/uL (1.2-4.9); Lymphocytes Percent Auto 22.4 % (20-40); Mean Corpuscular HGB Conc 32.9 g/dl (31.0-36.0); Mean Corpuscular Hemoglobin 28.3 pg (27.0-33.0); Mean Platelet Volume 9.7 fL (9.4-12.4); Monocytes Absolute Auto 0.8 X10*3/uL (0.1-1.2); Monocytes Percent Auto 7.6 % (2-11); Neutrophils Absolute Auto 7.4 x10*3/uL (2.0-8.3); Platelet Count 231 X10*3/uL (160-400); Red Blood Count 4.28 X10*6/uL (4.60-5.80); Red Cell Distribution Width 14.5 % (11.0-16.0); White Blood Count 10.7 X10*3/uL (4.8-10.8)
[2023-11-01 19:29] LABS: Alanine Aminotransferase 39 U/L (0-40); Alkaline Phosphatase 90 U/L (39-117); Anion Gap 12 (12-20); Aspartate Amino Transferase 43 U/L (5-37); Bilirubin Total 0.4 mg/dL (0.0-1.0); Blood Urea Nitrogen 11 mg/dL (9-16); Calcium 9.8 mg/dL (8.4-10.2); Carbon Dioxide 29 mmol/L (22-29); Chloride 100 mmol/L (96-108); Creatinine Clr Calc Pharmacy 111.7; Estimated Glomerular Filt Rate > 60; Glucose Random 91 mg/dL (60-115); Potassium 4.2 mmol/L (3.3-5.1); Sodium 137 mmol/L (135-145); Total Protein 9.2 g/dL (6.5-8.0)
[2023-11-01 19:43] LABS: Troponin-I High Sensitivity < 2.7 ng/L (<3.5-35.0)
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
[2023-11-02 05:37] VITALS: BP 107/40; PULSE 62; RESP 18; O2SAT 96; O2SAT 97
[2023-11-02] MEDS: Ibuprofen 400 MG TABLET PO (05:38)
[2023-11-02] MEDS: Acetaminophen 325 MG TABLET 975 MG PO (05:38)
== END 2023-11-02 05:44 | disposition home or self-care (01) ==
PROVIDERS: Emergency Provider Emergency Medicine Emergency Medical Services; PCP Family Medicine
DX: U07.1 COVID-19 (principal); R07.81 Pleurodynia
CPT/HCPCS: 36415; 71046; 80053; 84484; 85025; 93005; 99283; 99285

== ENCOUNTER → 2023-11-01 18:57 | Outpatient (BNV) | payer SELFPAY | PROVIDERS: Emergency Provider Emergency Medicine Emergency Medical Services; PCP Family Medicine; Visit Provider Internal Medicine | DX: R07.9 Chest pain, unspecified (principal) | CPT/HCPCS: 93010 ==

== ENCOUNTER 2023-11-19 00:53 | Emergency (ER) | payer MEDICAID, SELFPAY ==
--- NOTE | ~2023-11-19 | XR_ITS ---
EXAMINATION: XR CHEST CLINICAL INFORMATION: Fever. COMPARISON: 11/01/2023 TECHNIQUE: Frontal view of the chest was obtained. FINDINGS: No significant abnormality is noted involving the heart, lungs, mediastinum, bony thorax or soft tissues. XR/XR chest 1V IMPRESSION: Unremarkable examination.
[2023-11-19 01:04] VITALS: BP 110/68; PULSE 89; RESP 18; TEMP 37.9; O2SAT 98; BMI 25.7
[2023-11-19 01:47] LABS: IDNOW Serial# 152EDE1D; Influenza A Negative (Negative); Influenza B2 Negative (Negative)
--- NOTE | 2023-11-19 01:55 | ECG_ITS ---
Test Reason : PALPITATIONS Blood Pressure : / mmHG Vent. Rate : 071 BPM Atrial Rate : 071 BPM P-R Int : 152 ms QRS Dur : 090 ms QT Int : 374 ms P-R-T Axes : 070 053 048 degrees QTc Int : 406 ms Normal sinus rhythm Nonspecific T wave abnormality Abnormal ECG When compared with ECG of 01-NOV-2023 18:57, No significant change was found Referred By: Peg Mc Electronically Signed By:MANUEL RILEY
[2023-11-19 02:57] LABS: MANUAL DIFF FLAG NO
[2023-11-19 02:58] LABS: Basophils Percent Auto 0.3 % (0-2); Eosinophils Percent Auto 0.4 % (0-4); Hemoglobin 10.8 g/dl (14.0-18.0); Imm Gran Abs Auto 0.02 X10*3/uL (0.00-0.03); Imm Gran Pct Auto 0.3 % (0.0-0.4); Lymphocytes Absolute Auto 1.4 X10*3/uL (1.2-4.9); Mean Corpuscular HGB Conc 32.7 g/dl (31.0-36.0); Mean Corpuscular Hemoglobin 28.1 pg (27.0-33.0); Mean Corpuscular Volume 85.9 fL (80.0-98.0); Mean Platelet Volume 9.1 fL (9.4-12.4); Monocytes Absolute Auto 0.4 X10*3/uL (0.1-1.2); Monocytes Percent Auto 5.5 % (2-11); Neutrophils Absolute Auto 5.9 x10*3/uL (2.0-8.3); Neutrophils Percent Auto 75.5 % (45-73); Platelet Count 252 X10*3/uL (160-400); Red Blood Count 3.84 X10*6/uL (4.60-5.80); Red Cell Distribution Width 14.1 % (11.0-16.0); White Blood Count 7.8 X10*3/uL (4.8-10.8)
[2023-11-19 03:13] LABS: IDNOW Serial# 08D9AD1C; Strep A Nucleic Acid Negative (Negative)
[2023-11-19 03:26] LABS: Anion Gap 12 (12-20); Blood Urea Nitrogen 16 mg/dL (9-16); Calcium 9.7 mg/dL (8.4-10.2); Carbon Dioxide 29 mmol/L (22-29); Chloride 100 mmol/L (96-108); Estimated Glomerular Filt Rate > 60; Glucose Random 118 mg/dL (60-115); Potassium 3.7 mmol/L (3.3-5.1); Sodium 137 mmol/L (135-145)
[2023-11-19 03:32] LABS: Troponin-I High Sensitivity < 2.7 ng/L (<3.5-35.0)
== END 2023-11-19 06:20 | disposition left against medical advice (07) ==
PROVIDERS: Emergency Medicine; Emergency Provider Emergency Medicine; PCP Family Medicine
DX: R00.2 Palpitations (principal); F41.9 Anxiety disorder, unspecified; J02.9 Acute pharyngitis, unspecified; R51.9 Headache, unspecified
CPT/HCPCS: 36415; 71045; 80048; 84484; 85025; 87502; 87651; 93005; 99283

== ENCOUNTER → 2023-11-19 01:55 | Outpatient (BNV) | payer MEDICAID, SELFPAY | PROVIDERS: Emergency Provider Emergency Medicine; PCP Family Medicine; Visit Provider Internal Medicine | DX: R00.2 Palpitations (principal) | CPT/HCPCS: 93010 ==

== ENCOUNTER 2023-11-26 02:38 | Emergency (ER) | payer MEDICAID, SELFPAY ==
[2023-11-26] VITALS (7 sets, daily range): BP systolic 105–133; BP diastolic 43–89; PULSE 48–80; RESP 12–18; TEMP 36.5–36.8; O2SAT 95–99; BMI 27.5
--- NOTE | 2023-11-26 03:01 | ECG_ITS ---
Test Reason : OD Blood Pressure : / mmHG Vent. Rate : 079 BPM Atrial Rate : 079 BPM P-R Int : 140 ms QRS Dur : 094 ms QT Int : 376 ms P-R-T Axes : 044 053 055 degrees QTc Int : 431 ms Normal sinus rhythm Normal ECG When compared with ECG of 19-NOV-2023 02:47, No significant change was found Referred By: Sonia Ozuna Electronically Signed By:Hector Shukla
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
[2023-11-26 03:07] LABS: Basophils Percent Auto 0.3 % (0-2); Eosinophils Absolute Auto 0.2 X10*3/uL (0.0-0.4); Eosinophils Percent Auto 2.2 % (0-4); Hematocrit 35.4 % (42.0-52.0); Hemoglobin 11.7 g/dl (14.0-18.0); Imm Gran Abs Auto 0.03 X10*3/uL (0.00-0.03); Imm Gran Pct Auto 0.3 % (0.0-0.4); Lymphocytes Absolute Auto 4.8 X10*3/uL (1.2-4.9); Lymphocytes Percent Auto 44.6 % (20-40); MANUAL DIFF FLAG NO; Mean Corpuscular HGB Conc 33.1 g/dl (31.0-36.0); Mean Corpuscular Hemoglobin 27.8 pg (27.0-33.0); Mean Corpuscular Volume 84.1 fL (80.0-98.0); Mean Platelet Volume 9.5 fL (9.4-12.4); Monocytes Absolute Auto 1.3 X10*3/uL (0.1-1.2); Monocytes Percent Auto 12.1 % (2-11); Neutrophils Absolute Auto 4.3 x10*3/uL (2.0-8.3); Neutrophils Percent Auto 40.5 % (45-73); Platelet Count 263 X10*3/uL (160-400); Red Blood Count 4.21 X10*6/uL (4.60-5.80); Red Cell Distribution Width 13.6 % (11.0-16.0); White Blood Count 10.7 X10*3/uL (4.8-10.8)
[2023-11-26] MEDS: diphenhydrAMINE HCL 50 MG/ML VIAL IVPUSH (03:16)
[2023-11-26] MEDS: Famotidine/PF 20 MG/2 ML VIAL IVPUSH (03:16)
[2023-11-26] MEDS: methylPREDNISolone Sod Succ 125 MG/2 ML VIAL IVPUSH (03:16)
[2023-11-26] MEDS: EPINEPHrine 1 MG/ML VIAL 0.3 MG IM (03:22)
--- NOTE | 2023-11-26 03:25 | PC.NURSE ---
Pt medicated per JAN. Pt is calm and able to sit still on the stretcher and engage in conversation. Speaking with clear speech and able to use full sentences. Skin is warm, pink, and dry. Family is at the bedside. Pt is still reporting tongue swelling at this time.
[2023-11-26 03:28] LABS: Alanine Aminotransferase 33 U/L (0-40); Albumin Level 3.9 g/dL (3.5-5.0); Alkaline Phosphatase 88 U/L (39-117); Anion Gap 17 (12-20); Aspartate Amino Transferase 35 U/L (5-37); Bilirubin Total 0.1 mg/dL (0.0-1.0); Blood Urea Nitrogen 14 mg/dL (9-16); Calcium 9.9 mg/dL (8.4-10.2); Carbon Dioxide 27 mmol/L (22-29); Chloride 98 mmol/L (96-108); Creatinine Clr Calc Pharmacy 96.3; Estimated Glomerular Filt Rate > 60; Glucose Random 114 mg/dL (60-115); Potassium 3.5 mmol/L (3.3-5.1); Sodium 138 mmol/L (135-145); Total Protein 9.1 g/dL (6.5-8.0)
[2023-11-26 03:31] LABS: Ethanol < 10 mg/dL
--- NOTE | 2023-11-26 03:41 | PC.NURSE ---
20G IV access established right AC, flushes well without pain and no signs of infiltration. 18G IV access established left forearm, flushes well without pain and no signs of infiltration.
[2023-11-26 05:35] LABS: Amphetamine Screen Urine Not Detected (Not Detect); Barbiturates, Urine Not Detected (Not Detect); Benzodiazepines Screen Urine Not Detected (Not Detect); Cannabinoid Screen Urine POSITIVE (Not Detect); Cocaine Screen Urine POSITIVE (Not Detect); Fentanyl, urine POSITIVE (Not Detect); Opiate Screen Urine POSITIVE (Not Detect); Phencyclidine Screen Urine Not Detected (Not Detect)
--- NOTE | 2023-11-26 06:27 | PC.NURSE ---
Pt is sleeping, appears comfortable. Changes positions independently as desired. Family member at bedside. Pt is arousable with stimuli.
--- NOTE | 2023-11-26 06:33 | PC.NURSE ---
Pt is a 33 y/o male who presented just before 0330 hours for evaluation of dyspnea after injecting an unknown substance. Pt c/o difficulty breathing, tongue swelling, and heart racing. Substance was injected into left arm. No recent travel, no trauma, no recent illness/fever. No other complaints reported. Family at the bedside.
--- NOTE | 2023-11-26 09:23 | PC.NURSE ---
RECOVER TEAM AT BEDSIDE. PT/FAMILY AWARE OF PLAN OF CARE.
[2023-11-26] MEDS: methADONE HCl 20 MG/2 ML ORAL.CONC 40 MG PO (09:51)
--- NOTE | 2023-11-26 09:51 | MHC.RECOVRN ---
Met with pt in ED19, along with annual giving director, after pt presented with dyspnea after injecting an unknown substance. Pt laying in bed, appears uncomfortable, shivering. Pt reports heroin/fentanyl use, 3 bundles daily x 4 months, IV, last use yesterday. Pt reports [facility] 4 months ago, was there for approx 50 days. Discussed recovery options, pt interested in MOUD initiation and follow up with [facility]. Pt reports hot/cold flashes, nausea, weakness restlessness, tremors. Pt reports hx methadone through [facility] only. Plan for pt to initiate methadone today and present to [facility] tomorrow. Denies questions or concerns. Discussed with provider, plan for 40 mg methadone.
== END 2023-11-26 10:11 | disposition home or self-care (01) ==
PROVIDERS: Emergency Provider Student in an Organized Health Care Education/Training Program
DX: F19.10 Other psychoactive substance abuse, uncomplicated (principal); T78.3XXA Angioneurotic edema, initial encounter; Z79.899 Other long term (current) drug therapy; F17.210 Nicotine dependence, cigarettes, uncomplicated
CPT/HCPCS: 36415; 80053; 80307; 85025; 93005; 96372; 96374; 96375; 99284; 99285; J0171; J1200; J2930

== ENCOUNTER → 2023-11-26 03:01 | Outpatient (BNV) | payer MEDICAID, SELFPAY | PROVIDERS: Emergency Provider Student in an Organized Health Care Education/Training Program; Visit Provider Internal Medicine Cardiovascular Disease | DX: Z51.81 Encounter for therapeutic drug level monitoring (principal) | CPT/HCPCS: 93010 ==

== ENCOUNTER 2024-02-27 12:05 | Emergency (ER) | payer OTHER, SELFPAY ==
[2024-02-27 12:26] VITALS: BP 141/78; PULSE 80; O2SAT 97
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
[2024-02-27 12:37] VITALS: BMI 26.6
--- NOTE | 2024-02-27 12:38 | PC.NURSE ---
Patient refusing ekg, vitals, and to change into hospital attire. States he only told the police he was having chest pain so that they would no arrest him. Denies pain or discomfort. seen by provider
[2024-02-27 13:27] VITALS: BP 00/00; PULSE 0; RESP 0; TEMP -17.7; TEMP 0; O2SAT 0
== END 2024-02-27 13:30 | disposition left against medical advice (07) ==
LOC: HO.ED 12:55
PROVIDERS: Emergency Provider Emergency Medicine
DX: R07.9 Chest pain, unspecified (principal); Z53.29 Procedure and treatment not carried out because of patient's decision for other reasons; F17.210 Nicotine dependence, cigarettes, uncomplicated; I10 Essential (primary) hypertension; F41.0 Panic disorder [episodic paroxysmal anxiety]; F32.9 Major depressive disorder, single episode, unspecified; F19.20 Other psychoactive substance dependence, uncomplicated; F11.10 Opioid abuse, uncomplicated
CPT/HCPCS: 99282; 99283

== ENCOUNTER 2024-03-25 20:05 | Inpatient (IN) | payer OTHER, SELFPAY ==
--- NOTE | ~2024-03-25 | CT_ITS ---
EXAMINATION: CT FACIAL BONES WITH CONTRAST CLINICAL INFORMATION: Upper dental infection/abscess. COMPARISON: CT cervical spine 04/02/2021. TECHNIQUE: Bag Checker images were obtained. CT imaging of the face was performed after the intravenous administration of 85 mL Omnipaque 350. Data was reformatted into multiplanar images at the acquisition workstation. This CT examination was performed using dose optimization techniques as appropriate, variously including the following: *Automated exposure control *Adjustment of mA and/or kV according to patient size (this includes techniques or standardized protocols for targeted exams where dose is matched to indication/reason for exam; i.e. extremities or head) *Use of iterative reconstruction technique DLP: 327 mGy-cm FINDINGS: There is a midline subperiosteal abscess along the anterior aspect of the maxillary alveolar process best visualized on axial image 119 of 290 series 2 measuring 2.0 cm in maximal transaxial dimension. Likely source of this abscess is a carious maxillary incisor that erodes through the outer cortex of the bone. Paranasal sinuses are well aerated. No mastoid middle ear effusion. Globes and orbits are grossly symmetric. The right maxillary sinus infundibulum is narrow or occluded. The remainder of the major paranasal sinus and pathways are patent. No active paranasal sinus disease. CT/CT facial bones w IV con IMPRESSION: There is a midline facial subperiosteal abscess along the anterior aspect of the maxillary alveolar process. The apparent source of this abscess is a carious maxillary incisor that erodes through the outer cortex of the bone.
[2024-03-25 20:10] VITALS: BP 164/91; PULSE 218; RESP 22; TEMP 37.3; O2SAT 96; BMI 23.4
--- NOTE | 2024-03-25 20:12 | ECG_ITS ---
Test Reason : TACHYCARDIA Blood Pressure : / mmHG Vent. Rate : 083 BPM Atrial Rate : 083 BPM P-R Int : 120 ms QRS Dur : 090 ms QT Int : 360 ms P-R-T Axes : 082 067 045 degrees QTc Int : 423 ms Normal sinus rhythm Normal ECG When compared with ECG of 26-NOV-2023 03:07, No significant change was found Referred By: Debbie Trivedi Electronically Signed By:Hector Shukla
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
--- NOTE | 2024-03-25 20:17 | PC.NURSE ---
Pt pulled front tooth out a month ago, reports 3 days of worsening pain and swelling. 10/10 in mouth/head. HR200's. Pt active heroin user, last used 30 minutes ago. 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
[2024-03-25 20:33] VITALS: PULSE 86; RESP 15
[2024-03-25 20:36] LABS: MANUAL DIFF FLAG NO
[2024-03-25 20:40] LABS: Basophils Percent Auto 0.1 % (0-2); Eosinophils Absolute Auto 0.1 X10*3/uL (0.0-0.4); Hematocrit 32.1 % (42.0-52.0); Hemoglobin 10.6 g/dl (14.0-18.0); Imm Gran Abs Auto 0.05 X10*3/uL (0.00-0.03); Imm Gran Pct Auto 0.4 % (0.0-0.4); Lymphocytes Absolute Auto 1.7 X10*3/uL (1.2-4.9); Lymphocytes Percent Auto 12.5 % (20-40); Mean Corpuscular Hemoglobin 27.7 pg (27.0-33.0); Mean Corpuscular Volume 83.8 fL (80.0-98.0); Monocytes Absolute Auto 1.2 X10*3/uL (0.1-1.2); Neutrophils Absolute Auto 10.6 x10*3/uL (2.0-8.3); Platelet Count 321 X10*3/uL (160-400); Red Blood Count 3.83 X10*6/uL (4.60-5.80); Red Cell Distribution Width 13.6 % (11.0-16.0); White Blood Count 13.7 X10*3/uL (4.8-10.8)
[2024-03-25 20:47] LABS: Appearance Urine Clear; Color Urine Yellow; Glucose Urine UA Negative (Negative); Leukocyte Esterase Urine Negative (Negative); Nitrite Urine Negative (Negative); PH 5.5 (5.0-9.0); Specific Gravity - Urine 1.025 (1.005-1.025); UMIC TRIGGER UACC YES; Urine Blood Large (3+) (Negative); Urine Ketones Negative (Negative); Urine Protein Negative (Neg-Trace)
[2024-03-25 20:52] LABS: Bacteria Urine None Seen (None Seen); Hyaline Casts Urine 0-2 /LPF (0-2); Squamous Epithelial Cell Urine 0-2 /HPF (0-2); WBC Urine 0-5 /HPF (0-5)
[2024-03-25 20:53] LABS: Lactic Acid 1.6 mmol/L (0.5-2.0)
[2024-03-25 20:56] LABS: Alanine Aminotransferase 30 U/L (0-40); Albumin Level 3.6 g/dL (3.5-5.0); Alkaline Phosphatase 88 U/L (39-117); Anion Gap 15 (12-20); Aspartate Amino Transferase 33 U/L (5-37); Bilirubin Total 0.3 mg/dL (0.0-1.0); Blood Urea Nitrogen 14 mg/dL (9-16); Calcium 9.4 mg/dL (8.4-10.2); Carbon Dioxide 25 mmol/L (22-29); Chloride 102 mmol/L (96-108); Creatinine Clr Calc Pharmacy 128.1; Estimated Glomerular Filt Rate > 60; Glucose Random 182 mg/dL (60-115); Lipase 9 U/L (8-78); Magnesium 1.7 mg/dL (1.6-2.6); Potassium 3.8 mmol/L (3.3-5.1); Sodium 138 mmol/L (135-145); Total Protein 8.7 g/dL (6.5-8.0)
[2024-03-25 20:58] LABS: Amphetamine Screen Urine Not Detected (Not Detect); Barbiturates, Urine Not Detected (Not Detect); Benzodiazepines Screen Urine Not Detected (Not Detect); Buprenorphine Scr Not Detected (Not Detect); Cannabinoid Screen Urine POSITIVE (Not Detect); Cocaine Screen Urine POSITIVE (Not Detect); Fentanyl, urine POSITIVE (Not Detect); Methadone Screen, Urine Not Detected (Not Detect); Opiate Screen Urine POSITIVE (Not Detect); Oxycodone Screen Urine Not Detected (Not Detect); Phencyclidine Screen Urine Not Detected (Not Detect)
[2024-03-25 21:07] LABS: Troponin-I High Sensitivity < 2.7 ng/L (<3.5-35.0)
[2024-03-25] MEDS: iohexoL 350 MG/ML 100 ML INFUS..BTL 85 ML IV (21:09)
[2024-03-25 21:18] VITALS: BP 145/82; PULSE 87; RESP 14
[2024-03-25] MEDS: Piperacillin Sodium/Tazobactam 4.5 GM in 0.9 % Sodium Chloride 100 ML IV (21:45)
[2024-03-25] MEDS: 0.9 % Sodium Chloride 1,000 ML 999 ML IV (21:45)
[2024-03-25] MEDS: Acetaminophen 325 MG TABLET 650 MG PO (21:45)
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
[2024-03-25 23:05] VITALS: BP 119/59; PULSE 68; RESP 18; TEMP 36.9; O2SAT 97
[2024-03-25 23:08] VITALS: PULSE 73
--- NOTE | 2024-03-25 23:15 | PC.NURSE ---
pt comes in with swelling from pulled upper teeth 3-[address] displays midline facial abscess of maxillary alveolar process- drained in ED, general surgical consult. Pmh: IVDA, hep c, mood disorder. COWS- pt positive for fentanyl, cocaine, opiates. Will have addication medicine consult, as well as case management for homelessness. On reg diet. Treat IV antibiotics. 20 in L AC
[2024-03-25] MEDS: vancomycin HCL 1,000 MG, vancomycin HCL 750 MG in 0.9 % Sodium Chloride 500 ML 267.5 MG IV (23:37)
[2024-03-26] MEDS: Ampicillin Sodium/Sulbactam Na 3 GM in 0.9 % Sodium Chloride 100 ML IV ×4 (03:51→23:15)
[2024-03-26 03:52] VITALS: BP 132/67; PULSE 60; RESP 14; TEMP 36.6; O2SAT 97
--- NOTE | 2024-03-26 09:03 | MHC.RECOVRN ---
Spoke with ML Ricks at [facility]. Pt last dosed 03/03/24 at 0756, 80 mg. Karen Baird APRN, aware.
[2024-03-26 09:06] VITALS: BP 131/74; PULSE 60; RESP 11; TEMP 36.9; O2SAT 98
[2024-03-26] MEDS: 0.9 % Sodium Chloride Flush 3 ML SYRINGE IVFLUSH ×2 (09:18→16:07)
[2024-03-26 09:23] LABS: MANUAL DIFF FLAG NO
[2024-03-26 09:25] LABS: Basophils Percent Auto 0.2 % (0-2); Eosinophils Absolute Auto 0.1 X10*3/uL (0.0-0.4); Eosinophils Percent Auto 0.4 % (0-4); Hemoglobin 10.6 g/dl (14.0-18.0); Imm Gran Abs Auto 0.05 X10*3/uL (0.00-0.03); Imm Gran Pct Auto 0.4 % (0.0-0.4); Lymphocytes Absolute Auto 1.5 X10*3/uL (1.2-4.9); Lymphocytes Percent Auto 11.9 % (20-40); Mean Corpuscular HGB Conc 33.1 g/dl (31.0-36.0); Mean Corpuscular Hemoglobin 27.9 pg (27.0-33.0); Mean Corpuscular Volume 84.2 fL (80.0-98.0); Mean Platelet Volume 9.1 fL (9.4-12.4); Monocytes Absolute Auto 0.9 X10*3/uL (0.1-1.2); Monocytes Percent Auto 6.9 % (2-11); Neutrophils Percent Auto 80.2 % (45-73); Platelet Count 289 X10*3/uL (160-400); Red Cell Distribution Width 13.7 % (11.0-16.0); White Blood Count 12.5 X10*3/uL (4.8-10.8)
[2024-03-26 09:42] LABS: Anion Gap 10 (12-20); Blood Urea Nitrogen 10 mg/dL (9-16); Carbon Dioxide 29 mmol/L (22-29); Chloride 101 mmol/L (96-108); Creatinine Clr Calc Pharmacy 126.5; Estimated Glomerular Filt Rate > 60; Glucose Random 149 mg/dL (60-115); Iron 20 mcg/dL (45-160); Percent Iron Saturation 8 % (15-50); Potassium 3.9 mmol/L (3.3-5.1); Sodium 136 mmol/L (135-145); Total Iron Binding Capacity 242 mcg/dL (228-428); Unsaturated Iron Binding 222 ug/dL
--- NOTE | 2024-03-26 10:00 | PHA.MEDREC ---
Pharmacy Consult ? Medication Reconciliation Pharmacy has completed the medication reconciliation. No at home prescribed medications. According to patient anything he was taking before today was from the streets .
--- NOTE | 2024-03-26 10:22 | PHA.PROG ---
Admission Date/Time: March 25, 2024 22:58 Indication: Sepsis Weight in k.9 kg Adjusted body weight in Kg: [place] body weight in Kg: Obesity Dosing Indication % IBW: Serum Creatinine - Last 168 Hours 03/25/24 03/26/24 20:31 09:16 Creatinine 0.82 0.83 Estimated CrCl and GFR - Last 168 Hours 03/25/24 03/26/24 20:31 09:16 Estim Creat Clear Calc 128.1 126.5 Estimated GFR > 60 > 60 Vancomycin Loading Dose: 1750mg x 1 Current Vancomycin Dosing Regimen: 1250mg Q12H Vancomycin Monitoring using AUC goal of 400 - 600 range with trough as surrogate marker: 524mg/L Date and Time for next Vancomycin Level to be drawn: 03/27 @0900 Pharmacist Comments on Vancomycin Plan: predicted trough of 15.3mg/L, will continue to monitor and adjust accordingly Vancomycin dosing will take advantage of [employer] as a clinical decision support tool that uses Bayesian modeling to calculate individual patient's pharmacokinetic parameters and forecast the patient's drug concentration time course with the target goal AUC 24 range of 400 - 600 mg/L/hr.
[2024-03-26] MEDS: methADONE HCl 20 MG/2 ML ORAL.CONC PO (10:31)
[2024-03-26 11:32] LABS: Folate 12.4 ng/mL (> or = 4.0); Vitamin B12 622 pg/mL (200-900)
[2024-03-26] MEDS: vancomycin HCL 1,250 MG in 0.9 % Sodium Chloride 250 ML 166.67 MG IV (12:11)
--- NOTE | 2024-03-26 12:27 | PC.NURSE ---
Assumed care of this patient at 1100, patient resting quietly, intermittently sleeping, switched to hospital bed, requesting snack, snack given at this time.
--- NOTE | 2024-03-26 14:19 | P.PNIM_ITS ---
Subjective Subjective Date of Service: 03/26/24 Interval History: Seen and examined this morning Follow-up for dental infection Sleepy but easily arousable to verbal stimuli Review of Systems Review of Systems: Yes all other systems are reviewed and are negative Constitutional Constitutional: Denies chills and Denies fever(s) Cardiovascular Cardiovascular: Denies chest pain and Denies dyspnea Respiratory Respiratory: Denies dyspnea Gastrointestinal Gastrointestinal: Denies abdominal pain Physical Exam 2 Vital Signs: Vital Signs: Last Vital Signs Temp 98.4 F 03/26/24 09:06 Pulse 60 03/26/24 09:06 Resp 11 L 03/26/24 09:06 BP 131/74 03/26/24 09:06 Pulse Ox 98 03/26/24 09:06 O2 Del Method Room Air 03/26/24 09:06 BMI result Body Mass Index 23.4 Const: Other: Constitutional-sleepy but easy arousable to verbal stimuli Pulmonary-lungs clear to auscultation bilaterally no wheezes rhonchi or rales, no respiratory distress GI abdomen soft, nontender, nondistended Neuro-able to move all 4 extremities spontaneously no focal neurological deficits noted HEENT: Teeth and gingiva: poor dentition Skin: Other: Swelling to upper lip Objective Data Active Medications Acetaminophen (Acetaminophen 325 Mg Tablet) 650 mg PO Q6H PRN PRN Reason: Pain, Mild (Pain Scale 1-3) Enoxaparin Sodium (Enoxaparin Sodium 40 Mg/0.4 Ml Syringe) 40 mg SUBCUT BEDTIME [facility] Last Admin: 03/25/24 23:37 Dose: Not Given Documented By: GALE Non-Admin Reason: Patient Refused Ampicillin Sodium/Sulbactam (Sodium 3 gm/ Sodium Chloride) 100 mls @ 200 mls/hr IV Q6H [facility] Last Infusion: 03/26/24 12:14 Dose: Infused Documented By: HILL Vancomycin HCl 1,250 mg/ (Sodium Chloride) 250 mls @ 166.667 mls/hr IV Q12H [facility] Last Infusion: 03/26/24 13:50 Dose: Infused Documented By: HILL Melatonin (Melatonin 3 Mg Tablet) 6 mg PO BEDTIME PRN PRN Reason: Insomnia Ondansetron HCl (Ondansetron Hcl 4 Mg/2 Ml Vial) 4 mg IVPUSH Q8H PRN PRN Reason: Nausea and Vomiting Pharmacy Consult (Consult Rx Vancomycin Dosing) 1 each MISCELLANE DAILY PRN PRN Reason: Consult order Sodium Chloride (0.9 % Sodium Chloride Flush 3 Ml Syringe) 3 ml IVFLUSH QSHIFT [facility] Last Admin: 03/26/24 09:18 Dose: 3 ml Documented By: LIZZY Labs 03/26/24 09:16 03/26/24 09:16 Labs: Laboratory Results - last 24 hr 03/25/24 03/25/24 03/26/24 20:31 20:39 09:16 MCV 83.8 84.2 MCH 27.7 27.9 MCHC 33.0 33.1 RDW 13.6 13.7 Plt Count 321 289 MPV 9.0 L 9.1 L Immature Gran % (Auto) 0.4 0.4 Neut % (Auto) 77.0 H 80.2 H Lymph % (Auto) 12.5 L 11.9 L [place] % (Auto) 9.0 6.9 Eos % (Auto) 1.0 0.4 Baso % (Auto) 0.1 0.2 Lymph # (Auto) 1.7 1.5 [place] # (Auto) 1.2 0.9 Eos # (Auto) 0.1 0.1 Baso # (Auto) 0.0 0.0 Abs Immat Gran (auto) 0.05 H 0.05 H Absolute Neuts (auto) 10.6 H 10.0 H Absolute Nucleated RBC 0.000 0.000 Nucleated RBC % (auto) 0.0 0.0 Anion Gap 15 10 L Estim Creat Clear Calc 128.1 126.5 Estimated GFR > 60 > 60 Random Glucose 182 H 149 H Lactic Acid 1.6 Calcium 9.4 9.0 Magnesium 1.7 Iron 20 L TIBC 242 % Saturation 8 L Unsat Iron Binding 222 Total Bilirubin 0.3 AST 33 ALT 30 Alkaline Phosphatase 88 Troponin I High Sens < 2.7 Total Protein 8.7 H Albumin 3.6 Lipase 9 Vitamin B12 622 Folate 12.4 Urine Color Yellow Urine Appearance Clear Urine pH 5.5 Ur Specific [place] 1.025 Urine Protein Negative Urine Glucose (UA) Negative Urine Ketones Negative Urine Blood Large (3+) H Urine Nitrite Negative Ur Leukocyte Esterase Negative Urine RBC 6-10 H Urine WBC 0-5 Ur Squamous Epith Cells 0-2 Urine Bacteria None Seen Hyaline Casts 0-2 Urine Opiates Screen POSITIVE H Ur Buprenorphine Scrn Not Detected Ur Oxycodone Screen Not Detected Urine Methadone Screen Not Detected Urine Fentanyl Screen POSITIVE H Ur Barbiturates Screen Not Detected Ur Phencyclidine Scrn Not Detected Ur Amphetamines Screen Not Detected U Benzodiazepines Scrn Not Detected Urine Cocaine Screen POSITIVE H U Marijuana (THC) Screen POSITIVE H Assessment and Plan (1) Dental abscess: Status: Acute Plan This is a 33-year-old male with pertinent history of IV polysubstance use disorder, mood disorder, hepatitis-C who has not on prescription home medications who presents to the emergency department for evaluation of swelling of upper lip and gums. #. Sepsis due to odontogenic soft tissue infection with abscess: Imaging with subperiosteal abscess along maxillary alveolar process Abscess drained in emergency department Continue Unasyn, vancomycin Follow blood culture results #. Polysubstance use disorder: UDS positive for opiates, fentanyl, cocaine. COWS Q shift and monitor for withdrawal. Addiction med Team following Check hepatitis profile, HIV per ID recommendation #. Normocytic anemia: Obtaining B12, folate, iron to rule out nutritional deficiency #. Mood disorder: Not have any prescribed medications, frequently takes medication off the street DVT prophylaxis: Lovenox Full code Admit as inpatient and will require two night minimum hospital stay for IV antibiotics (as above), which is not possible in a lesser acute setting. Quality Stroke Does the patient have a stroke diagnosis?: No VTE Prior VTE?: No VTE Risk Level:: Medical - moderate - high VTE Device Contraindication: Treatment Not Indicated VTE Drug Contraindication: N/A - Med Ordered
[2024-03-26 14:26] VITALS: BP 131/82; PULSE 72; RESP 13; TEMP 37.1; O2SAT 99
[2024-03-26 15:37] VITALS: BP 134/86; PULSE 73; RESP 16; TEMP 37.2; O2SAT 97
--- NOTE | 2024-03-26 15:41 | MHC.CM.PN ---
PT REPORTS HE LIVES ALONE AND IS INDEPENDENT WITH CARE HE HAS NO DME AND NO HOME SERVICES PT DECLINES HCP HE HAS NO PCP, LIST PROVIDED DCP: HOME NO SERVICES VS WITH RECOVERY TEAM INTERVENTION PT WILL NEED ASSISTANCE WITH TRANSPORTATION, SHUTTLE VS LYFT
[2024-03-26 19:56] VITALS: BP 132/75; PULSE 75; RESP 16; TEMP 37.3; O2SAT 99
--- NOTE | 2024-03-26 19:56 | PC.NURSE ---
AFEBRILE VSS. PT TOP LIP SWOLLEN HOWEVER AIRWAY PATENT. PT TOLERATING PO INTAKE, PREFERRING SOFT FOODS. PUDDING GIVEN PER PT REQUEST. CALL MIRELES WITHIN REACH.
--- NOTE | 2024-03-26 21:39 | PM.EVENT ---
Event Note Date of Service: 03/26/24 Event Note: Addiction consult placed for patient with OUD currently medically admitted with dental abcess Seen by this scenario writer and glue clamp operator this morning Patient very sleepy, but stating he wishes to resume methadone stating he is using approx 5 bundles daily, glue clamp operator verified patient had previously been engaged with treatment at [facility] last dose 80mg on 03/03/24 Plan: -20mg x1 -10mg daily prn -30mg in AM -can increase dose by 10mg daily as tolerated by patient Time Spent With Patient Time: Total time managing care of this patient today ____ minutes.
[2024-03-26 22:35] VITALS: BP 144/84; PULSE 69; RESP 18; TEMP 37.3; O2SAT 98
--- NOTE | 2024-03-26 22:36 | MHC.EDTECH ---
patient up to bathroom, when he got back to the room he vomited a moderate amount. VSS
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
[2024-03-27] MEDS: vancomycin HCL 1,250 MG in 0.9 % Sodium Chloride 250 ML 166.67 MG IV (00:10)
--- NOTE | 2024-03-27 00:40 | PC.NURSE ---
2245 - pt had episode of n/v. ambulated to bathroom and back to bed with steady gait. patient refused prn zofran. resting comfortably in bed. call andrews within reach.
--- NOTE | 2024-03-27 00:44 | PC.NURSE ---
dr. page aware of pt pain level.
[2024-03-27 01:05] VITALS: BP 153/73; PULSE 98; RESP 14; TEMP 37.4; O2SAT 96
[2024-03-27] MEDS: Ampicillin Sodium/Sulbactam Na 3 GM in 0.9 % Sodium Chloride 100 ML IV ×2 (04:40→09:40)
[2024-03-27 04:58] LABS: HBS Num1 > 1000.00 mIU/mL (0-7.99); HBc Num1 0.16 S/CO (0.00-0.79); HBsAGNum1 0.25 S/CO (0.00-0.99); HIV AB/AG Nonreactive (Nonreactive); HIV Num 1 0.07 S/CO (0.00-0.99); Hepatitis B Core Antibody Nonreactive (Nonreactive); Hepatitis B Surface Antigen Negative (Negative); ~HepC Num1 17.14 S/CO (0.00-0.79); ~Hepatitis B Surface Antibody REACTIVE (Nonreactive); ~Hepatitis C Antibody Reactive (Nonreactive)
[2024-03-27] MEDS: ondansetron HCL 4 MG/2 ML VIAL IVPUSH (05:15)
[2024-03-27 05:17] VITALS: PULSE 92
--- NOTE | 2024-03-27 05:18 | PC.NURSE ---
pt educated in order to give prn methadone pt needs to be able to tolerate po intake. pt had vomiting episode and diarrhea. cows 6. prn zofran given. pt resting comfortably.
[2024-03-27 05:43] VITALS: BP 140/70; PULSE 69; RESP 16; TEMP 37.2; O2SAT 98
[2024-03-27] MEDS: methADONE HCl 20 MG/2 ML ORAL.CONC 10 MG PO (05:52)
[2024-03-27 07:44] VITALS: BP 153/85; PULSE 64; RESP 18; TEMP 36.7; O2SAT 96
[2024-03-27] MEDS: methADONE HCl 20 MG/2 ML ORAL.CONC 30 MG PO (09:33)
[2024-03-27] MEDS: 0.9 % Sodium Chloride Flush 3 ML SYRINGE IVFLUSH (09:40)
[2024-03-27 09:43] LABS: Creatinine Clr Calc Pharmacy 129.7; Estimated Glomerular Filt Rate > 60
[2024-03-27 09:44] LABS: Vancomycin Trough 8.9 mcg/mL (10.0-20.0)
--- NOTE | 2024-03-27 09:48 | HO.PM.IMPN ---
Subjective Subjective Date of Service: 03/27/24 Interval History: Seen and examined this morning Follow-up for dental infection still with pain and swelling Review of Systems Review of Systems: Yes all other systems are reviewed and are negative Constitutional Constitutional: Denies chills and Denies fever(s) Cardiovascular Cardiovascular: Denies chest pain and Denies dyspnea Respiratory Respiratory: Denies dyspnea Gastrointestinal Gastrointestinal: Denies abdominal pain Physical Exam Vital Signs: Vital Signs: Last Vital Signs Temp 98.1 F 03/27/24 07:44 Pulse 64 03/27/24 07:44 Resp 18 03/27/24 07:44 BP 153/85 H 03/27/24 07:44 Pulse Ox 96 03/27/24 07:44 O2 Del Method Room Air 03/27/24 07:44 BMI result Body Mass Index 23.4 Appearing in no acute distress lung sounds are clear to auscultation heart regular rate rhythm, clear S1, S2 positive bowel sounds, abdomen is soft, nontender neuro patient is alert x3, no focal deficits Objective Data Active Medications Acetaminophen (Acetaminophen 325 Mg Tablet) 650 mg PO Q6H PRN PRN Reason: Pain, Mild (Pain Scale 1-3) Enoxaparin Sodium (Enoxaparin Sodium 40 Mg/0.4 Ml Syringe) 40 mg SUBCUT BEDTIME [facility] Last Admin: 03/26/24 20:13 Dose: Not Given Documented By: ANGIE Non-Admin Reason: Patient Refused Ampicillin Sodium/Sulbactam (Sodium 3 gm/ Sodium Chloride) 100 mls @ 200 mls/hr IV Q6H [facility] Last Admin: 03/27/24 09:40 Dose: 200 mls/hr Documented By: ZO Vancomycin HCl 1,250 mg/ (Sodium Chloride) 250 mls @ 166.667 mls/hr IV Q12H [facility] Last Infusion: 03/27/24 02:17 Dose: Infused Documented By: ANGIE Melatonin (Melatonin 3 Mg Tablet) 6 mg PO BEDTIME PRN PRN Reason: Insomnia Methadone HCl (Methadone Hcl 20 Mg/2 Ml Oral.Conc) 10 mg PO DAILY PRN PRN Reason: Opiate Withdrawal Last Admin: 03/27/24 05:52 Dose: 10 mg Documented By: ANGIE Methadone HCl (Methadone Hcl 20 Mg/2 Ml Oral.Conc) 30 mg PO DAILY [facility] Last Admin: 03/27/24 09:33 Dose: 30 mg Documented By: ZO Ondansetron HCl (Ondansetron Hcl 4 Mg/2 Ml Vial) 4 mg IVPUSH Q8H PRN PRN Reason: Nausea and Vomiting Last Admin: 03/27/24 05:15 Dose: 4 mg Documented By: ANGIE Pharmacy Consult (Consult Rx Vancomycin Dosing) 1 each MISCELLANE DAILY PRN PRN Reason: Consult order Sodium Chloride (0.9 % Sodium Chloride Flush 3 Ml Syringe) 3 ml IVFLUSH QSHIFT [facility] Last Admin: 03/27/24 09:40 Dose: 3 ml Documented By: ZO Labs 03/26/24 09:16 03/27/24 09:02 Labs: Laboratory Results - last 24 hr 03/26/24 03/26/24 03/27/24 09:16 14:52 09:02 Hold Purple Top SEE NOTE Estim Creat Clear Calc 129.7 Estimated GFR > 60 Vitamin B12 622 Folate 12.4 Vancomycin Trough 8.9 L Hep Bs Antigen Negative Hep Bs Antibody REACTIVE Hep B Core Total Ab Nonreactive Hepatitis C Ab (EIA) Reactive H HIV 1&2 Ab/P24 Ag 4thGn Nonreactive Microbiology Microbiology Results: Microbiology 03/25/24 20:40 Blood Culture - Preliminary Blood - Venous No growth after 24 hours. 03/25/24 20:31 Blood Culture - Preliminary Blood - Venous No growth after 24 hours. Assessment and Plan (1) Dental abscess: Status: Acute Plan This is a 33-year-old male with pertinent history of IV polysubstance use disorder, mood disorder, hepatitis-C who has not on prescription home medications who presents to the emergency department for evaluation of swelling of upper lip and gums. Sepsis due to odontogenic soft tissue infection with abscess Imaging with subperiosteal abscess along maxillary alveolar process Abscess drained in emergency department but still present Continue Unasyn, vancomycin Follow blood culture results Polysubstance use disorder UDS positive for opiates, fentanyl, cocaine. COWS Q shift and monitor for withdrawal. Addiction med Team following Check hepatitis profile, HIV per ID recommendation Normocytic anemia Obtaining B12, folate iron to rule out nutritional deficiency Mood disorder Not have any prescribed medications, frequently takes medication off the street DVT prophylaxis: Lovenox Attending Dr. [place] Full code continue hospital stay for IV antibiotics (as above), which is not possible in a lesser acute setting. Quality Stroke Does the patient have a stroke diagnosis?: No VTE Prior VTE?: No VTE Risk Level:: Medical - moderate - high VTE Device Contraindication: Treatment Not Indicated VTE Drug Contraindication: N/A - Med Ordered
--- NOTE | 2024-03-27 10:42 | PC.NURSE ---
Patient told SAND CUTTER that he was going home. SAND CUTTER told this nurse, who went in to talk with patient. He said that he was going home and that his mother was picking him up. [place] text was sent to Aydee Smiley regarding patient going ama. Pt signed AMA paperwork. This nurse took peripheral IV out and walked with patient to get his belongings in [facility]. Aydee Smiley N.P. tried one more time to convince pt to stay, but pt stated I want to go home and do drugs . Nurse practitioner requested to pt that he go to [facility] where he can have an oral surgeon see him for his oral abscess. This nurse walked with pt to [facility], where he got his belongings and waited outside for his mother.
--- NOTE | 2024-03-27 10:47 | MHC.RECOVRN ---
Attempted to meet with pt to follow up regarding methadone titration, pt had been dc.
--- NOTE | 2024-03-27 10:49 | PM.DS ---
DS: Providers Provider Date of Service: 03/27/24 Date of admission: 03/25/24 22:58 Primary care physician: Unknown Physician Consults: 03/25/24 23:01 Addiction Medicine Routine Consulting Provider: Addiction Covering Reason for consultation: IV polysusbstance use disorder Consult to General Surgery Routine Consulting Provider: [facility] Reason for consultation: odontogenic abscess 03/26/24 11:04 Consult to Infectious Diseases Routine Consulting Provider: [facility] Reason for consultation: dental abscess/bone involvement Has provider been notified: No DS: Diagnosis Discharge Diagnosis (1) Dental abscess: Status: Acute DS: Summary Hospital Course Hospital Course: History and physical as per admitting provider. This is a 33-year-old male with pertinent history of IV polysubstance use disorder, mood disorder, hepatitis-C who has not on prescription home medications who presents to the emergency department for evaluation of swelling of upper lip and gums. Patient states that this has been ongoing for a week and has been progressive. His upper front teeth were pulled and since then he has been having swelling, pain. Admits to using IV drugs. Patient has no difficulty with swallowing or breathing. No change in voice. Also has been having chills with subjective fever. No chest discomfort, palpitations, abdominal pain, nausea, vomiting, changes in urinary or bowel habits. In the emergency department, imaging with midline facial subperiosteal abscess of the maxillary alveolar process. The abscess was drained in the ER by ER provider. General surgery was consulted who will evaluate the patient in a.m. 33-year-old man treated for sepsis secondary to odontogenic soft tissue infection with abscess. Treated with empiric IV antibiotics, vancomycin and ampicillin. Seen and evaluated by addiction Medicine team and started on methadone for history of substance abuse, patient reports using 5 bundles a day. Patient still with swelling and pain just below his top lip to the gum area but unfortunately The patient has decided to leave against medical advice. He has normal mental status and adequate capacity to make medical decisions. The patient refuses hospital admission and wants to be discharged. The risks have been explained to the patient including worsening illness, chronic pain, permanent disability and even . The benefits of admission have also been explained including the availability of nurses, medical providers, close monitoring, IV medications, diagnostic imaging, treatments, etc.. The patient was able to understand and state the risks and benefits of hospital admission. The patient was given opportunities to ask questions prior to leaving. Prescription for Augmentin was sent to [facility] on [facility] for total of 14 days EDIT 11:41 patient left AMA and blood cultures were called into to QB. 1/2 GPR . Patient also high risk for endocarditis due to substance abuse. Called patients cell number [phone], no answer. abx augmentin was already sent to patients pharmacy Time Attestation Discharge Coordination Time (in mins): 30 Quality: Safe Use of Opioids Does Pt have an Active Cancer Diagnosis on the Problem List?: No Quality: Stroke Does the patient have a stroke diagnosis?: No Physical Exam Vital Signs: Vital Signs: Last Vital Signs Temp 98.1 F 03/27/24 07:44 Pulse 64 03/27/24 07:44 Resp 18 03/27/24 07:44 BP 153/85 H 03/27/24 07:44 Pulse Ox 96 03/27/24 07:44 O2 Del Method Room Air 03/27/24 07:44 BMI result Body Mass Index 23.4 Declined DS: Data Data Completed and Pending Labs on day of discharge: Laboratory Results - last 24 hr 03/26/24 03/26/24 03/27/24 09:16 14:52 09:02 Hold Purple Top SEE NOTE Creatinine 0.81 Estim Creat Clear Calc 129.7 Estimated GFR > 60 Vitamin B12 622 Folate 12.4 Vancomycin Trough 8.9 L Hep Bs Antigen Negative Hep Bs Antibody REACTIVE Hep B Core Total Ab Nonreactive Hepatitis C Ab (EIA) Reactive H HIV 1&2 Ab/P24 Ag 4thGn Nonreactive Preliminary micro results at discharge 03/25/24 20:40 Blood Culture - Preliminary Blood - Venous No growth after 24 hours. 03/25/24 20:31 Blood Culture - Preliminary Blood - Venous No growth after 24 hours. Discharge Plan Discharge Anticipated Discharge Date/Time: 03/27/24 10:45 Patient Disposition: Left Against Medical Advice Discharge Diagnosis: Dental abscess Discharge Medications: New amoxicillin-pot clavulanate 875-125 mg tablet 1 tab PO BID Qty: 28 0RF No Action No Known Home Meds Discharge Orders: Discharge Order (Routine); Ordered 03/27/24 Ordered By: Aydee Ralph Diet: Advance to usual diet Activity on Discharge: As tolerated Print Language: Bruneian Care Plan Goals: Patient left against medical advice Pickup antibiotics from pharmacy to complete course for infection of the mouth Health Concerns: Sepsis Odontogenic soft tissue infection with abscess Plan of Treatment: Patient left against medical advice, he should follow-up with his primary care provider and a dentist as soon as possible Assessment: Patient treated for sepsis secondary to odontogenic soft tissue infection with abscess, abscess drained in the ER Patient treated with Unasyn and vancomycin Discharge Date/Time: 03/27/24 10:31
== END 2024-03-27 10:31 | disposition left against medical advice (07) | DRG 720 ==
LOC: HO.ED 22:53 → HO.EDOVER 23:08 → HO.S3 03-27 06:04
PROVIDERS: Physician Assistant Medical; Admitting Provider Student in an Organized Health Care Education/Training Program; Emergency Provider Emergency Medicine; Visit Provider Nurse Practitioner Acute Care
DX: A41.9 Sepsis, unspecified organism (principal); D64.9 Anemia, unspecified; K04.7 Periapical abscess without sinus; F11.10 Opioid abuse, uncomplicated; F17.210 Nicotine dependence, cigarettes, uncomplicated; L03.211 Cellulitis of face; F19.90 Other psychoactive substance use, unspecified, uncomplicated; F39 Unspecified mood [affective] disorder; Z59.02 Unsheltered homelessness; Z71.6 Tobacco abuse counseling
CPT/HCPCS: 36415; 70487; 80048; 80053; 80202; 80307; 81001; 82565; 82607; 82746; 83540; 83605; 83690; 83735; 84484; 85025; 86704; 86706; 86803; 87040; 87077; 87186; 87205; 87340; 87389; 93005; 99221; 99285; J0295; J2405; J2543; J3370; J3371; Q9967

== ENCOUNTER → 2024-03-25 20:12 | Outpatient (BNV) | payer OTHER, SELFPAY | PROVIDERS: Admitting Provider Student in an Organized Health Care Education/Training Program; Emergency Provider Emergency Medicine; Visit Provider Internal Medicine Cardiovascular Disease | DX: R00.0 Tachycardia, unspecified (principal) | CPT/HCPCS: 93010 ==

== ENCOUNTER → 2024-03-25 22:58 | Outpatient (BNV) | payer OTHER, SELFPAY | PROVIDERS: Admitting Provider Student in an Organized Health Care Education/Training Program; Emergency Provider Emergency Medicine; Visit Provider Internal Medicine | DX: K04.7 Periapical abscess without sinus (principal); L03.211 Cellulitis of face | CPT/HCPCS: 99222 ==

== ENCOUNTER → 2024-03-25 22:58 | Outpatient (BNV) | payer OTHER, SELFPAY | PROVIDERS: Admitting Provider Student in an Organized Health Care Education/Training Program; Emergency Provider Emergency Medicine; Visit Provider Student in an Organized Health Care Education/Training Program | DX: K04.7 Periapical abscess without sinus (principal) | CPT/HCPCS: 99223; 99232; 99238 ==

== ENCOUNTER 2024-06-05 01:54 | Emergency (ER) | payer OTHER, SELFPAY ==
[2024-06-05] VITALS (7 sets, daily range): BP systolic 125–145; BP diastolic 66–83; PULSE 56–84; RESP 11–20; TEMP 36.3–37; O2SAT 96–100; BMI 27.4
--- NOTE | ~2024-06-05 | XR_ITS ---
Left clavicle 2 views left shoulder 3 views HISTORY: Pain FINDINGS: No clavicular deformity. Sternoclavicular and acromioclavicular joint intervals appears satisfactory. No disruption of the glenohumeral joint. No soft tissue calcifications. Left-sided ribs appear grossly normal within the visualized segment. XR/XR clavicle LT IMPRESSION: No clavicular deformity. No disruption of the glenohumeral joint.
--- NOTE | ~2024-06-05 | XR_ITS ---
EXAMINATION: XR CHEST CLINICAL INFORMATION: Chest pain COMPARISON: 11/19/2023 TECHNIQUE: Frontal view of the chest was obtained. FINDINGS: Lung volumes are symmetric. There is asymmetric haziness in the left upper lung which appears new compared to prior and raises concern for developing consolidation. No evidence of pneumothorax, pulmonary edema, or pleural effusions. The cardiomediastinal silhouette is unremarkable. No acute osseous findings. XR/XR chest 1V IMPRESSION: Asymmetric haziness in the left upper lung, concerning for developing consolidation in the proper clinical setting. Radiographic followup after treatment/resolution of symptoms is recommended.
--- NOTE | ~2024-06-05 | XR_ITS ---
Left clavicle 2 views left shoulder 3 views HISTORY: Pain FINDINGS: No clavicular deformity. Sternoclavicular and acromioclavicular joint intervals appears satisfactory. No disruption of the glenohumeral joint. No soft tissue calcifications. Left-sided ribs appear grossly normal within the visualized segment. XR/XR shoulder LT min 2V IMPRESSION: No clavicular deformity. No disruption of the glenohumeral joint.
--- NOTE | 2024-06-05 02:02 | ECG_ITS ---
Test Reason : chest pain Blood Pressure : / mmHG Vent. Rate : 090 BPM Atrial Rate : 090 BPM P-R Int : 132 ms QRS Dur : 082 ms QT Int : 354 ms P-R-T Axes : 083 042 059 degrees QTc Int : 433 ms Poor data quality Normal sinus rhythm Normal ECG When compared with ECG of 25-MAR-2024 20:13, No significant change was found Referred By: Generic ED Physician Electronically Signed By:Hector Shukla
--- NOTE | 2024-06-05 02:15 | MHC.EDTECH ---
Patient ekg was delay ,because patient was uncooperative ,not staying still to get good reading .ekg was finally taken and was read by Provider .
[2024-06-05 02:26] LABS: MANUAL DIFF FLAG NO
[2024-06-05 02:27] LABS: Basophils Percent Auto 0.4 % (0-2); Eosinophils Absolute Auto 0.3 X10*3/uL (0.0-0.4); Eosinophils Percent Auto 2.7 % (0-4); Hematocrit 32.2 % (42.0-52.0); Hemoglobin 10.8 g/dl (14.0-18.0); Imm Gran Abs Auto 0.03 X10*3/uL (0.00-0.03); Imm Gran Pct Auto 0.3 % (0.0-0.4); Lymphocytes Absolute Auto 2.8 X10*3/uL (1.2-4.9); Lymphocytes Percent Auto 26.8 % (20-40); Mean Corpuscular HGB Conc 33.5 g/dl (31.0-36.0); Mean Corpuscular Hemoglobin 27.6 pg (27.0-33.0); Mean Corpuscular Volume 82.4 fL (80.0-98.0); Mean Platelet Volume 9.4 fL (9.4-12.4); Monocytes Absolute Auto 1.4 X10*3/uL (0.1-1.2); Monocytes Percent Auto 13.4 % (2-11); Neutrophils Absolute Auto 5.9 x10*3/uL (2.0-8.3); Neutrophils Percent Auto 56.4 % (45-73); Platelet Count 366 X10*3/uL (160-400); Red Blood Count 3.91 X10*6/uL (4.60-5.80); Red Cell Distribution Width 14.6 % (11.0-16.0); White Blood Count 10.4 X10*3/uL (4.8-10.8)
[2024-06-05 02:43] LABS: Alanine Aminotransferase 61 U/L (0-40); Albumin Level 3.8 g/dL (3.5-5.0); Alkaline Phosphatase 98 U/L (39-117); Anion Gap 13 (12-20); Aspartate Amino Transferase 69 U/L (5-37); Bilirubin Total 0.2 mg/dL (0.0-1.0); Blood Urea Nitrogen 14 mg/dL (9-16); Calcium 9.9 mg/dL (8.4-10.2); Carbon Dioxide 24 mmol/L (22-29); Chloride 100 mmol/L (96-108); Creatinine Clr Calc Pharmacy 111.7; Estimated Glomerular Filt Rate > 60; Glucose Random 115 mg/dL (60-115); Potassium 3.8 mmol/L (3.3-5.1); Sodium 133 mmol/L (135-145); Total Protein 9.1 g/dL (6.5-8.0)
--- NOTE | 2024-06-05 02:44 | PC.NURSE ---
belongings in [place]. pt requested his shirt be cut off, could not remove it d/t pain in pain/chest.
[2024-06-05 02:51] LABS: Troponin-I High Sensitivity < 2.7 ng/L (<3.5-35.0)
--- NOTE | 2024-06-05 03:53 | PC.NURSE ---
pt resting with eyes closed. breathing even and unlabored. 95% on RA. no apparent distress noted at this time
[2024-06-05 07:46] LABS: Lactic Acid 0.6 mmol/L (0.5-2.0)
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
[2024-06-05 07:59] LABS: Troponin-I High Sensitivity < 2.7 ng/L (<3.5-35.0)
[2024-06-05] MEDS: Amoxicillin/Potassium Clav 875 MG TABLET PO (08:43)
[2024-06-05] MEDS: Doxycycline Monohydrate 100 MG CAPSULE PO (08:44)
--- NOTE | 2024-06-05 13:31 | PC.NURSE ---
Pt woke up for brief period, alert and answering questions. Breathing even and unlabored. Able to eat lunch and drink fluids, encouraged to urinate but denied having urge. Pt is now sleeping again. NSR on bedside ekg monitor.
[2024-06-05] MEDS: Naloxone HCl Nasal TAKE HOME 4 MG SPRAY 8 MG NOSTRILALT (14:51)
== END 2024-06-05 15:54 | disposition home or self-care (01) ==
PROVIDERS: Physician Assistant; Emergency Provider Emergency Medicine
DX: J18.9 Pneumonia, unspecified organism (principal); R07.9 Chest pain, unspecified; F19.10 Other psychoactive substance abuse, uncomplicated; I10 Essential (primary) hypertension; F17.210 Nicotine dependence, cigarettes, uncomplicated; Z91.148 Patient's other noncompliance with medication regimen for other reason; F11.20 Opioid dependence, uncomplicated
CPT/HCPCS: 36415; 71045; 73000; 73030; 80053; 83605; 84484; 85025; 87040; 87205; 93005; 99284; 99285

== ENCOUNTER → 2024-06-05 02:02 | Outpatient (BNV) | payer OTHER, SELFPAY | PROVIDERS: Emergency Provider Emergency Medicine; Visit Provider Internal Medicine Cardiovascular Disease | DX: R07.9 Chest pain, unspecified (principal) | CPT/HCPCS: 93010 ==

== ENCOUNTER 2024-06-09 21:07 | Inpatient (IN) | payer OTHER, SELFPAY ==
--- NOTE | ~2024-06-09 | CT_ITS ---
EXAMINATION: CT CHEST WITH CONTRAST CLINICAL INFORMATION: Left sternoclavicular joint infection. Concern for abscess. COMPARISON: None available. TECHNIQUE: Multidetector volumetric CT imaging of the chest was obtained after the administration of 85 mL of Omnipaque 350 intravenous contrast without immediate adverse reactions. Axial MIP volume rendering provided. Sagittal and coronal reformatted images were obtained. This CT examination was performed using dose optimization techniques as appropriate, variously including the following: *Automated exposure control *Adjustment of mA and/or kV according to patient size (this includes techniques or standardized protocols for targeted exams where dose is matched to indication/reason for exam; i.e. extremities or head) *Use of iterative reconstruction technique DLP: 511 mGy-cm FINDINGS: STAFFING BRANCH MANAGER: Unremarkable. LUNGS: The lungs are clear with no evidence of inflammation or nodules. MEDIASTINUM: The mediastinum is normal. PLEURA: There is no pleural effusion. No pleural mass or thickening. AXILLA: No lymphadenopathy. UPPER ABDOMEN: Unremarkable OSSEOUS STRUCTURES: Soft tissues are prominent about the left sternoclavicular joint without collection. No definitive sternoclavicular bony erosive change is seen. CT/CT chest w IV con IMPRESSION: Prominent soft tissues about the left sternoclavicular joint without collection or bony erosive change. No active cardiopulmonary disease. Fleischner guidelines were followed.
[2024-06-09 21:17] VITALS: BP 127/68; BP 141/72; PULSE 101; RESP 16; TEMP 37.1; O2SAT 97; BMI 29.0
[2024-06-09 21:47] VITALS: BP 114/43; PULSE 90; RESP 16; O2SAT 97
[2024-06-09 22:00] LABS: MANUAL DIFF FLAG NO
[2024-06-09 22:13] LABS: Basophils Percent Auto 0.3 % (0-2); Eosinophils Absolute Auto 0.1 X10*3/uL (0.0-0.4); Eosinophils Percent Auto 1.2 % (0-4); Hematocrit 29.6 % (42.0-52.0); Hemoglobin 9.8 g/dl (14.0-18.0); Imm Gran Abs Auto 0.04 X10*3/uL (0.00-0.03); Imm Gran Pct Auto 0.4 % (0.0-0.4); Lymphocytes Absolute Auto 1.9 X10*3/uL (1.2-4.9); Lymphocytes Percent Auto 17.9 % (20-40); Mean Corpuscular HGB Conc 33.1 g/dl (31.0-36.0); Mean Corpuscular Hemoglobin 27.5 pg (27.0-33.0); Mean Corpuscular Volume 83.1 fL (80.0-98.0); Mean Platelet Volume 9.6 fL (9.4-12.4); Monocytes Absolute Auto 1.2 X10*3/uL (0.1-1.2); Monocytes Percent Auto 11.5 % (2-11); Neutrophils Absolute Auto 7.4 x10*3/uL (2.0-8.3); Neutrophils Percent Auto 68.7 % (45-73); Platelet Count 341 X10*3/uL (160-400); Red Blood Count 3.56 X10*6/uL (4.60-5.80); Red Cell Distribution Width 14.7 % (11.0-16.0); White Blood Count 10.8 X10*3/uL (4.8-10.8)
[2024-06-09 22:14] VITALS: BP 122/62; PULSE 86; RESP 14; TEMP 37.8; O2SAT 96
[2024-06-09 22:16] LABS: Alanine Aminotransferase 61 U/L (0-40); Albumin Level 3.4 g/dL (3.5-5.0); Alkaline Phosphatase 82 U/L (39-117); Anion Gap 13 (12-20); Aspartate Amino Transferase 64 U/L (5-37); Bilirubin Total 0.1 mg/dL (0.0-1.0); Blood Urea Nitrogen 12 mg/dL (9-16); C Reactive Protein 9.39 mg/dL (< or = 0.50); Calcium 8.9 mg/dL (8.4-10.2); Carbon Dioxide 27 mmol/L (22-29); Chloride 100 mmol/L (96-108); Creatinine Clr Calc Pharmacy 126.5; Estimated Glomerular Filt Rate > 60; Glucose Random 104 mg/dL (60-115); Potassium 3.6 mmol/L (3.3-5.1); Sodium 136 mmol/L (135-145); Total Protein 8.2 g/dL (6.5-8.0)
[2024-06-09 22:18] LABS: Lactic Acid 2.1 mmol/L (0.5-2.0)
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
[2024-06-09] MEDS: cefTRIAXone sodium 1 GM in 0.9 % Sodium Chloride 50 ML IV (22:43)
[2024-06-09 23:03] LABS: Erythrocyte Sedimentation Rate 86 MM/HR (0-15)
[2024-06-09] MEDS: iohexoL 350 MG/ML 100 ML INFUS..BTL 85 ML IV (23:16)
[2024-06-09 23:45] VITALS: BP 119/53; PULSE 87; RESP 16; TEMP 37.8; O2SAT 97
[2024-06-09 23:57] LABS: Reflex Lactate? Lactic Acid Added
[2024-06-10] VITALS (9 sets, daily range): BP systolic 107–142; BP diastolic 55–78; PULSE 66–84; RESP 14–18; TEMP 36.1–37.8; O2SAT 95–99; BMI 28.2
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
[2024-06-10 00:59] LABS: ~Lactic Acid-LAB USE ONLY 2.1 mmol/L (0.5-2.0)
[2024-06-10 02:35] LABS: Reflex Lactate? 2 Y
[2024-06-10 03:27] LABS: ~Lactic Acid-LAB USE ONLY 0.9 mmol/L (0.5-2.0)
[2024-06-10] MEDS: HYDROmorphone HCl 1 MG/ML SYRINGE IVPUSH (04:30)
--- NOTE | 2024-06-10 06:42 | PHA.PROG ---
Admission Date/Time: June 10, 2024 00:32 Indication: Bone and Joint Weight in k.915 kg Adjusted body weight in Kg: Rosine body weight in Kg: Obesity Dosing Indication % IBW: Serum Creatinine - Last 168 Hours 06/09/24 21:36 Creatinine 0.86 Estimated CrCl and GFR - Last 168 Hours 06/09/24 21:36 Estim Creat Clear Calc 126.5 Estimated GFR > 60 Vancomycin Loading Dose: 2000mg x 1 Current Vancomycin Dosing Regimen: 1000mg Q8H Vancomycin Monitoring using AUC goal of 400 - 600 range with trough as surrogate marker: 572mg/L Date and Time for next Vancomycin Level to be drawn: 06/10/24 @2100 Pharmacist Comments on Vancomycin Plan: Predicted trough of 18.7mg/L; getting a level @2100 due to timing of dose, didn't want to put in next order at shift change so trough will be a bit early. Vancomycin dosing will take advantage of [employer] as a clinical decision support tool that uses Bayesian modeling to calculate individual patient's pharmacokinetic parameters and forecast the patient's drug concentration time course with the target goal AUC 24 range of 400 - 600 mg/L/hr.
--- NOTE | 2024-06-10 07:00 | CA_ITS ---
Transthoracic Echocardiogram Patient (Last, First, Middle): Juventino Pride, Gender: Male Date of : 1990 Age: 33 Procedure Date: 06/10/2024 Procedure Type: Transthoracic Echocardiogram Location: S3E Height: 170.18 cm Weight: 83.92 kg BSA: 1.96 m2 Heart Rate: 62 bpm BP: 118 / 64 mmHg Clinical Manager: TO Referring MD: Vinay Bojorquez MD Psychology Department Chair: Virgil Osorio MD Symptoms: bacillus bacteremia Study Quality: Adequate ECG Rhythm: Sinus Conclusions: - 1. Mitral valve leaflet is thickened but no obvious vegetation seen with normal cardiac valvular Doppler 2. Normal LV systolic and diastolic function 3. No gross pericardial effusion Findings Left Ventricle Normal left ventricular size, thickness, and systolic function. The visually estimated ejection fraction is between 55-60%. Spectral Doppler is indicative of a normal filling pattern. Right Ventricle Normal right ventricular cavity size and systolic function. Atria Both atria are normal in size. There is no evidence of interatrial shunt. Aortic Valve Normal aortic valve structure and function. There is no aortic valve stenosis. There is no aortic valve regurgitation. Mitral Valve There is mild anterior and posterior mitral leaflet thickening. There is trace mitral valve regurgitation. There is no mitral valve stenosis. Pulmonic Valve The pulmonic valve is likely normal. Tricuspid Valve Normal tricuspid valve structure. Tricuspid regurgitation envelope is inadequate for calculation of right ventricular systolic pressure. Great Vessels All visible segments of the aorta are normal in size. The pulmonary artery was not well visualized. Venous The inferior vena cava is normal in size and collapses greater than 50% with inspiration. Pericardium/Pleural There is no evidence of pericardial effusion. Prior Study Comparison No prior study available for comparison. Recommendations, Care & Conclusions Consider a MIRTA if clinically appropriate. Measurements 2D Linear Measurements IVSd: 0.69 0.6-0.9/0.6-1.0 cm LVIDd: 5.45 3.9-5.3/4.2-5.9 cm LVIDd Index: 2.78 2.4-3.2/2.2-3.1 cm/m2 LVIDs: 3.64 2.0-3.6 cm LVPWd: 0.72 0.7-1.1 cm LV Mass: 168.42 67-162/88-224 g LV Mass Index: 85.93 43-95/49-115 g/m2 LVOT Diam: 2.20 3.0+(-)1.3 cm 2D Systolic Function EF 4C: 58.10 >55% EF 2C: 58.00 >55% EF BiP: 57.70 >55% Mitral Valve MV Pk E: 0.63 MV PK A: 0.38 MV Decel Time: 160.00 E/A: 1.70 E'Lateral: 13.40 E'Medial: 10.10 E/E' Med: 6.30 E/E' Lat: 4.70 PHT: 47.00 MVA PHT: 4.68 Decel Moca: 3.98 Aortic Valve AoV Pk Jeremy: 1.42 AoV Mn Jeremy: 0.91 AoV VTI: 0.29 AoV Pk Grad: 8.00 Aov Mn Grad: 4.00 MELL Cont.VTI: 2.75 LVOT LVOT Pk Jeremy: 1.10 LVOT Mn Jeremy: 0.76 LVOT VTI: 0.21 LVOT Pk Grad: 5.00 LVOT Mn Grad: 3.00 LVOT Diam: 2.20 LVOT Area: 3.80 Diastolic Function MV Pk E: 0.63 MV Pk A: 0.38 E/A: 1.70 E'Medial: 10.10 E/E' Med: 6.30 E' Laterial: 13.40 E/E' Lat: 4.70 Right Ventricle TAPSE (mm): 20.00 TVS' Jeremy: 17.40 Tricuspid Valve RA Press: 8.00 Great Vessels Aorta Sinus of Valsalva: 3.08 2.0-3.5 cm Ao Asc: 3.10 2.1-3.4 cm Updated in Other Vendor System with Status of Final Virgil Osorio MD electronically signed on 06/10/2024 3:48:14 PM with status of Final
--- NOTE | 2024-06-10 07:46 | PC.NURSE ---
This RN reached out to MD Contreras about getting diet order placed at this time
[2024-06-10] MEDS: vancomycin HCL 1,000 MG in 0.9 % Sodium Chloride 250 ML 270 MG IV ×2 (07:47→15:09)
[2024-06-10] MEDS: 0.9 % Sodium Chloride Flush 3 ML SYRINGE IVFLUSH ×3 (07:52→21:53)
[2024-06-10 08:10] LABS: Creatinine Clr Calc Pharmacy 151.1; Estimated Glomerular Filt Rate > 60
--- NOTE | 2024-06-10 09:20 | PC.NURSE ---
Pt mother Makayla [phone]
--- NOTE | 2024-06-10 09:44 | PC.NURSE ---
Pt belongings in [place]
--- NOTE | 2024-06-10 11:30 | PHA.MEDREC ---
Addendum entered by Sabino Choi RPh 06/10/24 12:19: Med Rec checked by [facility] Original Note: Pharmacy Consult ? Medication Reconciliation Pharmacy has completed the medication reconciliation. Called [facility] pharmacy and confirmed he picked up Amoxicillin- Pot Clavulanate 875-125 1 tab BID and Doxycycline Hyclate 100mg BID on 06/08. I went to confirm with patient if he got them and when. He states he got them recently but when I asked when he last took the meds he answered its been a long time , I tried elaborating what he meant but he was too confused. I also saw in claims that he picked up Suboxone 8-2 on 05/19 for 10 days and after I asked about the antibiotics I asked if the patient was on anything else and he states he was only taking antibiotics and nothing else and started dosing off to sleep.
--- NOTE | 2024-06-10 15:44 | PM.EVENT ---
Event Note Date of Service: 06/10/24 Event Note: Chief Complaint: left shoulder pain 33M IVDA, HCV presented with left shoulder pain. History obtained from ER physician and chart as patient was not willing to answer my questions. Patient complaining of about 1 week left shoulder pain. Patient is homeless and uses IV drugs. He did inject into his left arm. Reports swelling. Blood culture from ED visit 06/05/2024 grew bacillus species similar to 03/22/2024 when patient left against medical advice. Lab significant for elevated ESR, CT chest showed prominent soft tissue about the left sternoclavicular joint without collection or bony erosive changes, no active cardiopulmonary disease noted. 33M IVDA, HCV presented with left shoulder pain. Left shoulder pain Persistent shoulder pain X-ray shoulder showed no clavicular deformity, no disruption of glenohumeral joint Echocardiogram showed no valvular disease Blood culture 06/05 positive for bacillus bacteremia. Follow-up repeat blood cultures, Case discussed with ID she recommend daptomycin 4 weeks if repeat blood cultures positive, and if blood cultures negative and doxycycline by mouth b.i.d. times 28 days Polysubstance dependence Addiction team eval HCV Outpatient follow-up DVT prophylaxis with Lovenox Full Code Patient will need continued inpatient hospitalization for IV antibiotics due to basal as bacteremia waiting for repeat blood cultures. Time Spent With Patient Time: Total time managing care of this patient today ____ minutes.
[2024-06-10] MEDS: methADONE HCl 20 MG/2 ML ORAL.CONC PO (16:23)
--- NOTE | 2024-06-10 16:24 | HO.ADDICTPRO ---
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 Asleep, but wakes to voice. Yawning noted during brief visit and appeared to have chills as his teeth were chattering. Also shifting around in bed (restless) He reported feeling withdrawal and was agreeable to methadone Reports using about a pack of heroin/fentanyl daily Review of Systems Constitutional: Reports as per HPI Mental Status Exam Mental Status Exam Level of Consciousness: Drowsy Diagnostics Vital Signs (24Hr): Vital Signs - 24 hr 06/09/24 21:17 06/09/24 21:47 06/09/24 22:14 Temperature 98.7 F 100.1 F Pulse Rate 101 H 90 86 Respiratory Rate 16 16 14 Blood Pressure 127/68 114/43 L 122/62 Pulse Oximetry 97 97 96 Oxygen Delivery Method Room Air Room Air Room Air 06/09/24 23:45 06/10/24 00:00 06/10/24 01:05 Temperature 100.0 F 100.0 F 100.0 F Pulse Rate 87 82 81 Respiratory Rate 16 18 18 Blood Pressure 119/53 L 128/58 L 118/55 L Pulse Oximetry 97 97 98 Oxygen Delivery Method Room Air Room Air Room Air 06/10/24 02:11 06/10/24 06:18 06/10/24 07:53 Temperature 99.5 F 99.6 F Pulse Rate 76 84 79 Respiratory Rate 14 18 18 Blood Pressure 109/67 118/64 107/62 Pulse Oximetry 97 98 Oxygen Delivery Method Room Air Room Air 06/10/24 11:12 06/10/24 15:17 Temperature 97.0 F 97.6 F Pulse Rate 71 66 Respiratory Rate 14 18 Blood Pressure 142/78 H 136/75 Pulse Oximetry 96 99 Oxygen Delivery Method Room Air Room Air BMI result Body Mass Index 28.2 Labs 06/09/24 21:36 06/10/24 07:51 Labs: Laboratory Results - last 48 hr 06/09/24 06/10/24 06/10/24 21:36 00:33 02:50 WBC 10.8 RBC 3.56 L Hgb 9.8 L Hct 29.6 L MCV 83.1 MCH 27.5 MCHC 33.1 RDW 14.7 Plt Count 341 MPV 9.6 Immature Gran % (Auto) 0.4 Neut % (Auto) 68.7 Lymph % (Auto) 17.9 L [place] % (Auto) 11.5 H Eos % (Auto) 1.2 Baso % (Auto) 0.3 Lymph # (Auto) 1.9 [place] # (Auto) 1.2 Eos # (Auto) 0.1 Baso # (Auto) 0.0 Abs Immat Gran (auto) 0.04 H Absolute Neuts (auto) 7.4 Absolute Nucleated RBC 0.000 Nucleated RBC % (auto) 0.0 ESR 86 H Sodium 136 Potassium 3.6 Chloride 100 Carbon Dioxide 27 Anion Gap 13 BUN 12 Creatinine 0.86 Estim Creat Clear Calc 126.5 Estimated GFR > 60 Random Glucose 104 Lactic Acid 2.1 H* Lactic Acid F/U @ 2Hr 2.1 H* Lactic Acid F/U @ 4Hr 0.9 Calcium 8.9 D Total Bilirubin 0.1 AST 64 H ALT 61 H Alkaline Phosphatase 82 C-Reactive Protein 9.39 H Total Protein 8.2 H Albumin 3.4 L 06/10/24 07:51 WBC RBC Hgb Hct MCV MCH MCHC RDW Plt Count MPV Immature Gran % (Auto) Neut % (Auto) Lymph % (Auto) [place] % (Auto) Eos % (Auto) Baso % (Auto) Lymph # (Auto) [place] # (Auto) Eos # (Auto) Baso # (Auto) Abs Immat Gran (auto) Absolute Neuts (auto) Absolute Nucleated RBC Nucleated RBC % (auto) ESR Sodium Potassium Chloride Carbon Dioxide Anion Gap BUN Creatinine 0.72 Estim Creat Clear Calc 151.1 Estimated GFR > 60 Random Glucose Lactic Acid Lactic Acid F/U @ 2Hr Lactic Acid F/U @ 4Hr Calcium Total Bilirubin AST ALT Alkaline Phosphatase C-Reactive Protein Total Protein Albumin Imaging Radiology Impressions: ITS Impressions Chest CT 06/09/24 23:18 IMPRESSION: Prominent soft tissues about the left sternoclavicular joint without collection or bony erosive change. No active cardiopulmonary disease. Fleischner guidelines were followed. Medications Medications Current Medications Acetaminophen (Acetaminophen 325 Mg Tablet) 650 mg PO Q6H PRN PRN Reason: Pain, Mild (Pain Scale 1-3), fever or headache Calcium Carbonate (Calcium Carbonate 750 Mg Tab.Chew) 750 mg PO Q4H PRN PRN Reason: Heartburn Enoxaparin Sodium (Enoxaparin Sodium 40 Mg/0.4 Ml Syringe) 40 mg SUBCUT Q24H [facility] Last Admin: 06/10/24 09:19 Dose: Not Given Hydromorphone HCl (Hydromorphone Hcl 1 Mg/Ml Syringe) 1 mg IVPUSH Q3H PRN; Protocol PRN Reason: Pain, Severe (Pain Scale 7-10) Last Admin: 06/10/24 04:30 Dose: 1 mg Vancomycin HCl 1,000 mg/ (Sodium Chloride) 270 mls @ 270 mls/hr IV Q8H [facility] Last Infusion: 06/10/24 16:15 Dose: Infused Magnesium Hydroxide (Milk Of Magnesia 30 Ml Oral.Susp) 30 ml PO DAILY PRN PRN Reason: Constipation Melatonin (Melatonin 3 Mg Tablet) 6 mg PO BEDTIME PRN PRN Reason: Insomnia Pharmacy Consult (Consult Rx Vancomycin Dosing) 1 each MISCELLANE DAILY PRN PRN Reason: Consult order Sodium Chloride (0.9 % Sodium Chloride Flush 3 Ml Syringe) 3 ml IVFLUSH QSHIFT [facility] Last Admin: 06/10/24 15:09 Dose: 3 ml Allergies Allergies Allergy/AdvReac Type Severity Reaction Status Date / Time quetiapine [From SEROQUEL] Allergy Unknown UNK Verified 06/09/24 21:18 trazodone [TRAZODONE] Allergy Unknown UNK Verified 06/09/24 21:18 Assessment & Plan Assessment & Plan (1) Opioid use disorder: Status: Acute Code(s): F11.99 - Opioid use, unspecified with unspecified opioid-induced disorder Assessment and Plan: methadone 20mg x1 will add 10mg q3H PRN to address withdrawal overnight will follow up in AM and titrate dose as appropriate Total time managing care of this patient today __20__ minutes.
--- NOTE | 2024-06-10 20:59 | PC.NURSE ---
Addendum entered by Jami Salazar RN 06/11/24 04:48: Patient initially refused scheduled 04:00 vitals, later agreeable at 04:47 after waking for discussion/education on importance by mortgage underwriter. DIVYA. Pt does not report any pain or nausea at this time and is observed resting in bed appearing comfortable. Aspiration precautions in place. Breathing remains even and unlabored without distress on RA. Addendum entered by Jami Salazar RN 06/11/24 00:39: Patient with an episode of vomiting after eating requested ice cream. Prn zofran already given and not yet due. Covering Dr. Bojorquez notified, discussed pt not yet due for zofran or prn methadone for opiate withdrawal; MD orders to give prn dilaudid. Original Note: Assumed care of patient at 19:00. Pt c/o 10/10 pain and is requesting methadone prn (COWS score is a 5 on evening assessment); however, pt is c/o nausea. Covering Dr. Bojorquez notified and prn antiemetic requested to treat nausea complaint first. Discussed with patient who is agreeable to plan. Awaiting orders. Bed alarm and in-room camera continue.
[2024-06-10 21:49] LABS: Vancomycin Random 10.3 mcg/mL (15-20)
[2024-06-10] MEDS: ondansetron HCL 4 MG/2 ML VIAL IVPUSH (21:52)
[2024-06-10] MEDS: methADONE HCl 20 MG/2 ML ORAL.CONC 10 MG PO (21:53)
--- NOTE | 2024-06-10 22:10 | HE.PHANOTE ---
RE: VANCO DOSING Trough came back as 10.3. Dose is increased to 1500 mg q8h, next random is scheduled for 06/11/24 @2100.
[2024-06-10] MEDS: vancomycin HCL 1,500 MG in 0.9 % Sodium Chloride 500 ML 333.33 MG IV (23:38)
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
[2024-06-11 00:26] VITALS: RESP 16
[2024-06-11] MEDS: HYDROmorphone HCl 1 MG/ML SYRINGE IVPUSH ×3 (00:47→12:27)
[2024-06-11 01:17] VITALS: RESP 16
[2024-06-11 04:47] VITALS: BP 135/86; PULSE 62; RESP 16; TEMP 36.6; O2SAT 97
[2024-06-11 06:08] LABS: Creatinine Clr Calc Pharmacy 139.5; Estimated Glomerular Filt Rate > 60
[2024-06-11] MEDS: vancomycin HCL 1,500 MG in 0.9 % Sodium Chloride 500 ML 333.33 MG IV (06:17)
[2024-06-11 06:58] VITALS: BP 150/87; PULSE 72; RESP 15; TEMP 36.7; O2SAT 100
[2024-06-11 08:00] VITALS: PULSE 72
[2024-06-11] MEDS: methADONE HCl 20 MG/2 ML ORAL.CONC 10 MG PO ×2 (08:11→11:17)
[2024-06-11] MEDS: ondansetron HCL 4 MG/2 ML VIAL IVPUSH (08:11)
[2024-06-11] MEDS: Enoxaparin Sodium 40 MG/0.4 ML SYRINGE SUBCUT (08:11)
[2024-06-11 12:00] VITALS: PULSE 71
--- NOTE | 2024-06-11 12:23 | P.PNADD_ITS ---
Subjective Subjective Date of Service: 06/11/24 Reason For Visit: left shoulder infection Interim History: Patient seen in follow up Awake, alert, watching TV Reporting no withdrawal sx--but having discomfort left shoulder Ate breakfast Discussed methadone dosing, states he wants to continue methadone Review of Systems Constitutional: Reports as per HPI and Reports no additional constitutional complaints Mental Status Exam Mental Status Exam Patient Appearance: Appropriate Level of Consciousness: Awake, Appropriate and Alert Patient Behavior: Appropriate and Cooperative Diagnostics Vital Signs (24Hr): Vital Signs - 24 hr 06/10/24 15:17 06/10/24 19:13 06/11/24 00:26 Temperature 97.6 F 97.5 F Pulse Rate 66 73 Respiratory Rate 18 18 16 Blood Pressure 136/75 138/78 Pulse Oximetry 99 95 Oxygen Delivery Method Room Air Room Air 06/11/24 01:17 06/11/24 04:47 06/11/24 06:58 Temperature 97.8 F 98.1 F Pulse Rate 62 72 Respiratory Rate 16 16 15 Blood Pressure 135/86 150/87 H Pulse Oximetry 97 100 Oxygen Delivery Method Room Air Room Air BMI result Body Mass Index 28.2 Labs 06/09/24 21:36 06/11/24 05:10 Labs: Laboratory Results - last 48 hr 06/09/24 06/10/24 06/10/24 21:36 00:33 02:50 WBC 10.8 RBC 3.56 L Hgb 9.8 L Hct 29.6 L MCV 83.1 MCH 27.5 MCHC 33.1 RDW 14.7 Plt Count 341 MPV 9.6 Immature Gran % (Auto) 0.4 Neut % (Auto) 68.7 Lymph % (Auto) 17.9 L [place] % (Auto) 11.5 H Eos % (Auto) 1.2 Baso % (Auto) 0.3 Lymph # (Auto) 1.9 [place] # (Auto) 1.2 Eos # (Auto) 0.1 Baso # (Auto) 0.0 Abs Immat Gran (auto) 0.04 H Absolute Neuts (auto) 7.4 Absolute Nucleated RBC 0.000 Nucleated RBC % (auto) 0.0 ESR 86 H Sodium 136 Potassium 3.6 Chloride 100 Carbon Dioxide 27 Anion Gap 13 BUN 12 Creatinine 0.86 Estim Creat Clear Calc 126.5 Estimated GFR > 60 Random Glucose 104 Lactic Acid 2.1 H* Lactic Acid F/U @ 2Hr 2.1 H* Lactic Acid F/U @ 4Hr 0.9 Calcium 8.9 D Total Bilirubin 0.1 AST 64 H ALT 61 H Alkaline Phosphatase 82 C-Reactive Protein 9.39 H Total Protein 8.2 H Albumin 3.4 L Random Vancomycin 06/10/24 06/10/24 06/11/24 07:51 21:02 05:10 WBC RBC Hgb Hct MCV MCH MCHC RDW Plt Count MPV Immature Gran % (Auto) Neut % (Auto) Lymph % (Auto) [place] % (Auto) Eos % (Auto) Baso % (Auto) Lymph # (Auto) [place] # (Auto) Eos # (Auto) Baso # (Auto) Abs Immat Gran (auto) Absolute Neuts (auto) Absolute Nucleated RBC Nucleated RBC % (auto) ESR Sodium Potassium Chloride Carbon Dioxide Anion Gap BUN Creatinine 0.72 0.77 Estim Creat Clear Calc 151.1 139.5 Estimated GFR > 60 > 60 Random Glucose Lactic Acid Lactic Acid F/U @ 2Hr Lactic Acid F/U @ 4Hr Calcium Total Bilirubin AST ALT Alkaline Phosphatase C-Reactive Protein Total Protein Albumin Random Vancomycin 10.3 L Imaging Radiology Impressions: ITS Impressions Chest CT 06/09/24 23:18 IMPRESSION: Prominent soft tissues about the left sternoclavicular joint without collection or bony erosive change. No active cardiopulmonary disease. Fleischner guidelines were followed. Medications Medications Current Medications Acetaminophen (Acetaminophen 325 Mg Tablet) 650 mg PO Q6H PRN PRN Reason: Pain, Mild (Pain Scale 1-3), fever or headache Calcium Carbonate (Calcium Carbonate 750 Mg Tab.Chew) 750 mg PO Q4H PRN PRN Reason: Heartburn Enoxaparin Sodium (Enoxaparin Sodium 40 Mg/0.4 Ml Syringe) 40 mg SUBCUT Q24H [facility] Last Admin: 06/11/24 08:11 Dose: 40 mg Hydromorphone HCl (Hydromorphone Hcl 1 Mg/Ml Syringe) 1 mg IVPUSH Q3H PRN; Protocol PRN Reason: Pain, Severe (Pain Scale 7-10) Last Admin: 06/11/24 09:03 Dose: 1 mg Vancomycin HCl 1,500 mg/ (Sodium Chloride) 500 mls @ 333.333 mls/hr IV Q8H [facility] Last Infusion: 06/11/24 08:05 Dose: Infused Magnesium Hydroxide (Milk Of Magnesia 30 Ml Oral.Susp) 30 ml PO DAILY PRN PRN Reason: Constipation Melatonin (Melatonin 3 Mg Tablet) 6 mg PO BEDTIME PRN PRN Reason: Insomnia Methadone HCl (Methadone Hcl 20 Mg/2 Ml Oral.Conc) 10 mg PO Q3H PRN PRN Reason: Opiate Withdrawal Last Admin: 06/11/24 11:17 Dose: 10 mg Ondansetron HCl (Ondansetron Hcl 4 Mg/2 Ml Vial) 4 mg IVPUSH Q6H PRN PRN Reason: Nausea Last Admin: 06/11/24 08:11 Dose: 4 mg Pharmacy Consult (Consult Rx Vancomycin Dosing) 1 each MISCELLANE DAILY PRN PRN Reason: Consult order Sodium Chloride (0.9 % Sodium Chloride Flush 3 Ml Syringe) [facility] Last Admin: 06/11/24 08:04 Dose: Not Given Allergies Allergies Allergy/AdvReac Type Severity Reaction Status Date / Time quetiapine [From SEROQUEL] Allergy Unknown UNK Verified 06/09/24 21:18 trazodone [TRAZODONE] Allergy Unknown UNK Verified 06/09/24 21:18 Assessment & Plan Assessment & Plan (1) Opioid use disorder: Status: Acute Code(s): F11.99 - Opioid use, unspecified with unspecified opioid-induced disorder Assessment and Plan: * methadone 40mg in AM * methadone 10mg daily PRN for withdrawal * contract manager to follow up over the wkend Total time managing care of this patient today _15___ minutes.
--- NOTE | 2024-06-11 13:22 | PM.DS ---
DS: Providers Provider Date of Service: 06/11/24 Date of admission: 06/10/24 00:32 Primary care physician: Unknown Physician Consults: 06/10/24 00:31 Addiction Medicine Routine Consulting Provider: Addiction Covering Reason for consultation: ivda opiates Consult to Infectious Diseases Routine Consulting Provider: [facility] Reason for consultation: ivda, ?left shoulder septic joint DS: Diagnosis Discharge Diagnosis (1) Opioid use disorder: Status: Acute DS: Summary Hospital Course Hospital Course: Date of Service: 06/10/24 Chief Complaint: left shoulder pain 33M IVDA, HCV presented with left shoulder pain. History obtained from ER physician and chart as patient was not willing to answer my questions. Patient complaining of about 1 week left shoulder pain. Patient is homeless and uses IV drugs. He did inject into his left arm. Reports swelling. Blood culture from ED visit 06/05/2024 grew bacillus species similar to 03/22/2024 when patient left against medical advice. Lab significant for elevated ESR, CT chest was done but results are pending. Hospital course: Patient seen and examined with the help of freelance interpreter/translator in the presence of patient's nurse. 33-year-old male with history of intravenous drug use, hepatitis-C presented with left anterior chest wall pain at site of left sternoclavicular joint, due to history of basal is bacteremia diagnosed on 2023, patient was placed on IV vancomycin and admitted to medical floor with concern for osteomyelitis/endocarditis, patient continued to have left anterior chest wall discomfort he had no fevers WBC remained normal in echocardiogram was obtained that showed no valvular disease, chest x-ray showed no clavicular deformity, no disruption of glenohumeral joint, CT scan of chest showed prominent soft tissue about the left sternoclavicular joint without collection or bony erosive changes, no cardiopulmonary disease noted patient evaluated by Infectious Disease she recommended 4 weeks of IV antibiotic if repeat blood cultures remained positive, and by mouth doxycycline 1 tab blood twice daily for 28 days if noted to have negative bacteremia however patient adamant to leave the hospital against medical advice he has been made aware of persistent bacteremia with risk of endocarditis/septic emboli/severe sepsis and poor outcome, patient showed understanding but adamant to leave the hospital against medical advice. Prescription for Four weeks of by mouth doxycycline given patient informed that this is a suboptimal treatment if have persistent bacteremia. In regard to polysubstance dependence patient was evaluated by Addiction Team and was treated with methadone. For hepatitis-C virus infection recommended outpatient follow-up with primary care physician and GI Time Attestation Discharge Coordination Time (in mins): 36 Quality: Safe Use of Opioids Does Pt have an Active Cancer Diagnosis on the Problem List?: No Quality: Stroke Does the patient have a stroke diagnosis?: No Physical Exam Vital Signs: Vital Signs: Last Vital Signs Temp 98.1 F 06/11/24 06:58 Pulse 72 06/11/24 06:58 Resp 15 06/11/24 06:58 BP 150/87 H 06/11/24 06:58 Pulse Ox 100 06/11/24 06:58 O2 Del Method Room Air 06/11/24 06:58 BMI result Body Mass Index 28.2 Const: Other: General awake alert x3, in no acute distress. Neck no JVD. CVS regular rate rhythm, Swelling at left sternoclavicular joint, tenderness to palpation, no induration, no fluctuation. Respiratory lungs clear to auscultation, no respiratory distress, no wheeze, no rhonchi. Gastrointestinal abdomen soft, non tender, bowel sounds audible. Extremities no edema. Neuro non focal Psych appropriate affect DS: Data Data Completed and Pending Completed studies during hospitalization [Text1]: Procedures Drainage of [place], Percutaneous Approach (03/25/24) Labs on day of discharge: Laboratory Results - last 24 hr 06/10/24 06/11/24 21:02 05:10 Creatinine 0.77 Estim Creat Clear Calc 139.5 Estimated GFR > 60 Random Vancomycin 10.3 L Preliminary micro results at discharge 06/09/24 21:38 Blood Culture - Preliminary Blood - Venous No growth after 24 hours. 06/09/24 21:38 Blood Culture - Preliminary Blood - Venous No growth after 24 hours. Discharge Plan Discharge Anticipated Discharge Date/Time: 06/11/24 13:16 Patient Disposition: Left Against Medical Advice Discharge Diagnosis: Bacteremia Referrals: Physician,Unknown J [Primary Care Provider] - 1 Week Discharge Medications: New doxycycline monohydrate 100 mg capsule 100 mg PO BID Qty: 56 0RF Discontinued doxycycline hyclate 100 mg tablet 100 mg PO BID 7 Days Qty: 14 0RF amoxicillin-pot clavulanate 875-125 mg tablet 1 tab PO BID 7 Days Qty: 14 0RF Discharge Orders: Discharge Order (Routine); Ordered 06/11/24 Ordered By: Velasquez Contreras Diet: Advance to usual diet Activity on Discharge: As tolerated Print Language: Togolese Care Plan Goals: Bacteremia Strongly recommend to abstain from illicit drug use Discharging home on by mouth doxycycline 100 mg 1 tablet twice daily for 28 days patient aware this is a suboptimal treatment if bacteremia persists Return to hospital with worsening pain, swelling of chest wall, fever chills Health Concerns: Substance abuse disorder Plan of Treatment: Outpatient follow-up with primary care physician call for appointment Assessment: As above
--- NOTE | 2024-06-11 13:27 | MHC.CM.PN ---
CM met with patient at bedside via focuser. Patient lives in a home w/ his mother. Functionally independent. PCP Estephanie Lynne MD HCP on file and verified Per chart review, active IVDU, now receiving methadone, but no home clinic. DP: Blood cx pending, ? IV abx. Patient does not wish to wait for blood cultures to result. Requesting to leave now. Offered meeting w/ recovery nurse and patient declined. Patient leaving AMA. and RN aware.
--- NOTE | 2024-06-11 14:01 | PC.NURSE ---
Pt wants to leave ama. ID recommend- 4 weeks of IV antibiotic if repeat blood cultures remained positive, and by mouth doxycycline 1 tab blood twice daily for 28 days if noted to have negative bacteremia. Pt has been made aware By MD Contreras of persistent bacteremia and risk of endocarditis/septic emboli/severe sepsis and poor outcome. Pt states understood but adamant to leave the hospital ama. Prescription for Four weeks of by mouth doxycycline sent to [facility], and informed that this is a suboptimal treatment. This RN removed IV, signed AMA form w witness PAYAM Patrick.
--- NOTE | 2024-06-14 11:18 | PM.EVENT ---
Event Note Date of Service: 06/14/24 Event Note: 33 year old tx for bacteremia. Left AMA 06/11/24 but was sent with abx a that time for 14 days, Doxy and augmentin. Slow growing baccilli that just came back pos today. Discharging provider made aware. Message from Microbiology today Patient Juventino Pride JAVON 1990 (discharged S3 patient) has a positive blood culture with gram positive rods in one out of two sets. Please verify you got this message Spoke with patient's mother as she stated that he was sleeping, she stated that he was not on abx, encouraged to knot picker cloth medications so complete therapy, his mother stated that she would pick them up for the patient. Time Spent With Patient Time: Total time managing care of this patient today ____ minutes.
== END 2024-06-11 14:13 | disposition home or self-care (01) | DRG 344 ==
LOC: HO.ED 23:51 → HO.EDOVER 06-10 00:42 → HO.S3 06-10 09:28
PROVIDERS: Admitting Provider Internal Medicine; Emergency Provider Emergency Medicine; PCP Family Medicine; Visit Provider Hospitalist
DX: M00.812 Arthritis due to other bacteria, left shoulder (principal); R78.81 Bacteremia; F17.210 Nicotine dependence, cigarettes, uncomplicated; B19.20 Unspecified viral hepatitis C without hepatic coma; F19.20 Other psychoactive substance dependence, uncomplicated; F11.10 Opioid abuse, uncomplicated; B96.89 Other specified bacterial agents as the cause of diseases classified elsewhere; Z59.02 Unsheltered homelessness; Z71.6 Tobacco abuse counseling
CPT/HCPCS: 36415; 71260; 80053; 80202; 82565; 83605; 85025; 85652; 86140; 87040; 87205; 93306; 99285; J0696; J1170; J1650; J2405; J3370; J3371; J7120; Q9967

== ENCOUNTER → 2024-06-09 22:33 | Outpatient (BNV) | payer OTHER, SELFPAY | PROVIDERS: Emergency Provider Emergency Medicine; Visit Provider Internal Medicine | DX: F11.99 Opioid use, unspecified with unspecified opioid-induced disorder (principal) | CPT/HCPCS: 99222; 99239; 99499 ==

== ENCOUNTER 2024-06-10 00:32 | Outpatient (BNV) | payer OTHER, SELFPAY | END 2024-06-10 07:00 | PROVIDERS: Admitting Provider Internal Medicine; Emergency Provider Emergency Medicine; Visit Provider Internal Medicine Cardiovascular Disease | DX: R78.81 Bacteremia (principal) | CPT/HCPCS: 93306 ==

== ENCOUNTER → 2024-06-10 00:32 | Outpatient (BNV) | payer OTHER, SELFPAY | PROVIDERS: Admitting Provider Internal Medicine; Emergency Provider Emergency Medicine; Visit Provider Internal Medicine | DX: F11.99 Opioid use, unspecified with unspecified opioid-induced disorder (principal); L03.90 Cellulitis, unspecified; R78.81 Bacteremia | CPT/HCPCS: 99222 ==

== ENCOUNTER → 2024-06-10 00:32 | Outpatient (BNV) | payer OTHER, SELFPAY | PROVIDERS: Admitting Provider Internal Medicine; Emergency Provider Emergency Medicine; Visit Provider Nurse Practitioner Psychiatric/Mental Health | DX: F11.90 Opioid use, unspecified, uncomplicated (principal) | CPT/HCPCS: 99231; 99232 ==

== ENCOUNTER 2024-06-14 15:11 | Emergency (ER) | payer OTHER, SELFPAY ==
[2024-06-14 15:58] VITALS: BP 128/79; PULSE 88; RESP 18; TEMP 36.5; O2SAT 100; BMI 23.7
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
--- NOTE | 2024-06-14 17:15 | MHC.EDTECH ---
Patient was called 2 times with no answer .
--- NOTE | 2024-06-14 17:36 | MHC.EDTECH ---
Patient was called again with no answer .
--- NOTE | 2024-06-15 00:04 | PC.NURSE ---
Pt natalie RAYMUNDO with no answer
== END 2024-06-15 00:05 | disposition left against medical advice (07) ==
PROVIDERS: Emergency Provider Emergency Medicine; PCP Family Medicine
DX: L02.11 Cutaneous abscess of neck (principal); L02.213 Cutaneous abscess of chest wall; F17.210 Nicotine dependence, cigarettes, uncomplicated
CPT/HCPCS: 99281

== ENCOUNTER 2024-06-16 22:13 | Inpatient (IN) | payer OTHER, SELFPAY ==
--- NOTE | ~2024-06-16 | XR_ITS ---
EXAMINATION: XR CHEST CLINICAL INFORMATION: Chest pain. COMPARISON: None available. TECHNIQUE: Frontal view of the chest was obtained. FINDINGS: No significant abnormality is noted involving the heart, lungs, mediastinum, bony thorax or soft tissues. XR/XR chest 1V IMPRESSION: Unremarkable examination.
[2024-06-16 22:14] VITALS: BP 155/86; PULSE 118; RESP 20; TEMP 37.6; O2SAT 95; BMI 23.7
--- NOTE | 2024-06-16 22:30 | ECG_ITS ---
Test Reason : CHEST PAIN Blood Pressure : / mmHG Vent. Rate : 113 BPM Atrial Rate : 113 BPM P-R Int : 126 ms QRS Dur : 084 ms QT Int : 324 ms P-R-T Axes : 080 070 055 degrees QTc Int : 444 ms Sinus tachycardia Otherwise normal ECG When compared with ECG of 05-JUN-2024 02:06, Heart rate has increased Referred By: Generic ED Physician Electronically Signed By:CALVIN LIPSCOMB
[2024-06-16 22:51] LABS: MANUAL DIFF FLAG NO
[2024-06-16 22:52] LABS: Basophils Percent Auto 0.3 % (0-2); Eosinophils Absolute Auto 0.1 X10*3/uL (0.0-0.4); Eosinophils Percent Auto 0.8 % (0-4); Hematocrit 31.4 % (42.0-52.0); Hemoglobin 10.7 g/dl (14.0-18.0); Imm Gran Abs Auto 0.03 X10*3/uL (0.00-0.03); Imm Gran Pct Auto 0.3 % (0.0-0.4); Lymphocytes Absolute Auto 1.7 X10*3/uL (1.2-4.9); Lymphocytes Percent Auto 18.7 % (20-40); Mean Corpuscular HGB Conc 34.1 g/dl (31.0-36.0); Mean Corpuscular Hemoglobin 27.3 pg (27.0-33.0); Mean Corpuscular Volume 80.1 fL (80.0-98.0); Mean Platelet Volume 9.1 fL (9.4-12.4); Monocytes Percent Auto 10.8 % (2-11); Neutrophils Absolute Auto 6.2 x10*3/uL (2.0-8.3); Neutrophils Percent Auto 69.1 % (45-73); Platelet Count 415 X10*3/uL (160-400); Red Blood Count 3.92 X10*6/uL (4.60-5.80); Red Cell Distribution Width 14.3 % (11.0-16.0)
[2024-06-16 23:03] LABS: Anion Gap 12 (12-20); Blood Urea Nitrogen 16 mg/dL (9-16); Calcium 9.3 mg/dL (8.4-10.2); Carbon Dioxide 27 mmol/L (22-29); Chloride 98 mmol/L (96-108); Creatinine Clr Calc Pharmacy 116.7; Estimated Glomerular Filt Rate > 60; Glucose Random 116 mg/dL (60-115); Potassium 3.8 mmol/L (3.3-5.1); Sodium 133 mmol/L (135-145)
[2024-06-16 23:13] LABS: Troponin-I High Sensitivity < 2.7 ng/L (<3.5-35.0)
--- NOTE | 2024-06-16 23:24 | MHC.EDTECH ---
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
[2024-06-17] VITALS (7 sets, daily range): BP systolic 115–132; BP diastolic 58–68; PULSE 53–74; RESP 12–20; TEMP 36.3–36.8; O2SAT 97–100
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
--- NOTE | 2024-06-17 00:56 | MHC.EDTECH ---
blood cultures and lactic drawn and sent to lab by this tech at this time
[2024-06-17 01:10] LABS: Lactic Acid 0.5 mmol/L (0.5-2.0)
[2024-06-17] MEDS: vancomycin HCL 1,000 MG, vancomycin HCL 750 MG in 0.9 % Sodium Chloride 500 ML 267.5 MG IV (01:16)
[2024-06-17] MEDS: 0.9 % Sodium Chloride 1,000 ML 999 ML IVCONT (01:16)
[2024-06-17 05:12] LABS: MANUAL DIFF FLAG NO
[2024-06-17 05:14] LABS: Basophils Percent Auto 0.2 % (0-2); Eosinophils Absolute Auto 0.1 X10*3/uL (0.0-0.4); Eosinophils Percent Auto 1.1 % (0-4); Hematocrit 30.9 % (42.0-52.0); Hemoglobin 10.4 g/dl (14.0-18.0); Imm Gran Abs Auto 0.03 X10*3/uL (0.00-0.03); Imm Gran Pct Auto 0.3 % (0.0-0.4); Lymphocytes Absolute Auto 2.6 X10*3/uL (1.2-4.9); Lymphocytes Percent Auto 27.8 % (20-40); Mean Corpuscular HGB Conc 33.7 g/dl (31.0-36.0); Mean Corpuscular Hemoglobin 27.2 pg (27.0-33.0); Mean Corpuscular Volume 80.7 fL (80.0-98.0); Mean Platelet Volume 9.3 fL (9.4-12.4); Monocytes Absolute Auto 0.9 X10*3/uL (0.1-1.2); Monocytes Percent Auto 10.2 % (2-11); Neutrophils Absolute Auto 5.6 x10*3/uL (2.0-8.3); Neutrophils Percent Auto 60.4 % (45-73); Platelet Count 396 X10*3/uL (160-400); Red Blood Count 3.83 X10*6/uL (4.60-5.80); Red Cell Distribution Width 14.5 % (11.0-16.0); White Blood Count 9.3 X10*3/uL (4.8-10.8)
[2024-06-17 05:36] LABS: Anion Gap 10 (12-20); Blood Urea Nitrogen 12 mg/dL (9-16); Calcium 8.7 mg/dL (8.4-10.2); Carbon Dioxide 25 mmol/L (22-29); Chloride 104 mmol/L (96-108); Creatinine Clr Calc Pharmacy 138.2; Estimated Glomerular Filt Rate > 60; Glucose Random 105 mg/dL (60-115); Potassium 3.9 mmol/L (3.3-5.1); Sodium 135 mmol/L (135-145)
--- NOTE | 2024-06-17 07:43 | PHA.MEDREC ---
Pharmacy Consult ? Medication Reconciliation Pharmacy has completed the medication reconciliation. Utilized recent discharge packet from 06/10, pt left AMA. Patient did not take p.o. antibiotics after he left against medical advice on 06/10. Patient's mother picked up p.o. doxycycline from the pharmacy but patient admits that he has not been taking it. When pt was asked about Suboxone last picked up on 05/19 for 10 days he stated he takes nothing else .
--- NOTE | 2024-06-17 07:58 | PHA.PROG ---
Admission Date/Time: June 17, 2024 00:29 Indication: BACTEREMIA Weight in k.8 kg Adjusted body weight in Kg: [place] body weight in Kg: Obesity Dosing Indication % IBW: Serum Creatinine - Last 168 Hours 06/16/24 06/17/24 22:45 04:29 Creatinine 0.90 0.76 Estimated CrCl and GFR - Last 168 Hours 06/16/24 06/17/24 22:45 04:29 Estim Creat Clear Calc 116.7 138.2 Estimated GFR > 60 > 60 Vancomycin Loading Dose: 1750 MG Current Vancomycin Dosing Regimen: 1500 MG Q12H Vancomycin Monitoring using AUC goal of 400 - 600 range with trough as surrogate marker: CCB=638 TROUGH=16.5 Date and Time for next Vancomycin Level to be drawn: 06/18/2024 @1100 Pharmacist Comments on Vancomycin Plan: Vancomycin dosing will take advantage of [employer] as a clinical decision support tool that uses Bayesian modeling to calculate individual patient's pharmacokinetic parameters and forecast the patient's drug concentration time course with the target goal AUC 24 range of 400 - 600 mg/L/hr.
[2024-06-17 08:00] LABS: Troponin-I High Sensitivity < 2.7 ng/L (<3.5-35.0)
[2024-06-17] MEDS: 0.9 % Sodium Chloride Flush 3 ML SYRINGE IVFLUSH ×3 (08:53→23:35)
--- NOTE | 2024-06-17 09:56 | MHC.CM.PN ---
DC plan is TBD (? LT IVABT/? [facility] r/t Methadone in the past and IVDA history); CM has initiated and will follow for dc planning. PCP/Dr. Estephanie Lynne.
--- NOTE | 2024-06-17 10:01 | PC.NURSE ---
Pt resting comfortably on stretcher, respirations equal and unlabored. Awaiting inpatient bed assignment.
[2024-06-17] MEDS: vancomycin HCL 1,500 MG in 0.9 % Sodium Chloride 500 ML 333.33 MG IV (13:31)
--- NOTE | 2024-06-17 13:49 | PC.NURSE ---
Assumed care of this patient at 1100, patient moved into ED15 for quieter environment, patient sleeping soundly on stretcher, no complaints at this time, waiting for bed assignment. Vital signs stable.
[2024-06-17 14:05] LABS: Amphetamine Screen Urine Not Detected (Not Detect); Barbiturates, Urine Not Detected (Not Detect); Benzodiazepines Screen Urine Not Detected (Not Detect); Buprenorphine Scr Not Detected (Not Detect); Cannabinoid Screen Urine POSITIVE (Not Detect); Cocaine Screen Urine POSITIVE (Not Detect); Fentanyl, urine POSITIVE (Not Detect); Methadone Screen, Urine Not Detected (Not Detect); Opiate Screen Urine POSITIVE (Not Detect); Oxycodone Screen Urine Not Detected (Not Detect); Phencyclidine Screen Urine Not Detected (Not Detect)
--- NOTE | 2024-06-17 14:15 | PM.EVENT ---
Event Note Date of Service: 06/17/24 Event Note: Chart reviewed/patient examined. Agree with the assessment and plan as outlined. Essentially noncompliant with therapies for bacteremia. We will continue with IV vancomycin; cultures pending. Will need PICC line and ID consult. Notoriously noncompliant Time Spent With Patient Time: Total time managing care of this patient today ____ minutes.
--- NOTE | 2024-06-17 15:25 | MHC.EDTECH ---
This pct assumed care of patient at 1500 ,vitals taken ,pt sleeping ,call andrews within pt reach ,will continue to monitor .
[2024-06-17] MEDS: methADONE HCl 20 MG/2 ML ORAL.CONC 10 MG PO ×2 (18:08→23:32)
--- NOTE | 2024-06-17 19:20 | PC.NURSE ---
this rn assumed care of pt, pt a&ox4, respirations even and unlabored. pt eyes closed in stretcher, no acute distress noted. normal sinus on tel [id number], sating 98% on room air.
--- NOTE | 2024-06-17 19:30 | PC.NURSE ---
critical value received- oen of two blood culture bottles positive for anaerobic gram + cocci. Dr. Hiram zepeda.
--- NOTE | 2024-06-17 21:00 | PM.EVENT ---
Event Note Date of Service: 06/17/24 Event Note: Patient presents for readmission follow self directed discharge earlier this week At that time methadone was being titrated. Today, patient seen briefly in ED. Sleeping soundly, breakfast tray empty. VSS. Did not appear diaphoretic, restless. Plan: methadone q3H PRN withdrawal sx follow up in AM Time Spent With Patient Time: Total time managing care of this patient today ____ minutes.
[2024-06-18] MEDS: vancomycin HCL 1,500 MG in 0.9 % Sodium Chloride 500 ML 333.33 MG IV (01:59)
[2024-06-18] MEDS: ondansetron HCL 4 MG/2 ML VIAL IVPUSH (03:26)
[2024-06-18 03:36] VITALS: BP 118/81; PULSE 61; RESP 18; TEMP 36.7; O2SAT 99
[2024-06-18] MEDS: methADONE HCl 20 MG/2 ML ORAL.CONC 10 MG PO ×3 (05:37→22:44)
[2024-06-18 06:42] LABS: Creatinine Clr Calc Pharmacy 136.4; Estimated Glomerular Filt Rate > 60
[2024-06-18] MEDS: Enoxaparin Sodium 40 MG/0.4 ML SYRINGE SUBCUT (07:50)
[2024-06-18] MEDS: 0.9 % Sodium Chloride Flush 3 ML SYRINGE IVFLUSH ×3 (07:51→20:40)
[2024-06-18 08:11] VITALS: BP 138/83; PULSE 50; RESP 18; TEMP 36.4; O2SAT 100
[2024-06-18] MEDS: methADONE HCl 20 MG/2 ML ORAL.CONC 30 MG PO (08:22)
--- NOTE | 2024-06-18 10:33 | MHC.RECOVRN ---
Met with pt in 385 to follow up and provide support. Pt received total 40 mg methadone this morning. Pt laying in bed, eyes closed, wakes to voice. Pt reports continued withdrawal symptoms including feeling hot/cold, body aches, diaphoretic. Appears uncomfortable. Pt denies other concerns. Discussed with Karen Baird APRN.
[2024-06-18] MEDS: LORazepam 1 MG TABLET PO (10:40)
[2024-06-18 12:04] LABS: Vancomycin Random 10.6 mcg/mL (15-20)
--- NOTE | 2024-06-18 12:17 | HE.PHANOTE ---
RE: VANCO DOSING Random came back as 10.6. Dose increased to 1250 mg q8h, next random is scheduled for 06/19/24 @1100.
[2024-06-18] MEDS: vancomycin HCL 1,250 MG in 0.9 % Sodium Chloride 250 ML 166.67 MG IV ×2 (14:05→20:39)
[2024-06-18] MEDS: Gabapentin 100 MG CAPSULE PO ×2 (15:29→20:39)
--- NOTE | 2024-06-18 15:47 | P.PNADD_ITS ---
Subjective Subjective Date of Service: 06/18/24 Reason For Visit: Bacteremia Interim History: Patient seen in follow up Methadone 50mg today. Reports feeling more comfortable then he had been earlier in the morning Reports using approx 1-2 packs (100-200 bags) of fentanyl daily Reports that he had recently been on methadone at [facility]. ACS note from March 2024 shows that he was verified to have received methadone 80mg at [facility] He wishes to continue titrating methadone He is well groomed, bright affect, ambulating without issue. Noted to be yawning several times during assessment. Discussed comfort medications, he reports Mirtazipine has been helpful in the past with sleep. HR in 50's -will avoid clonidine Appetite improved--eating and drinking without issue Reports strong family supports Review of Systems Constitutional: Reports as per HPI Mental Status Exam Mental Status Exam Patient Appearance: Well Grooomed Level of Consciousness: Awake, Appropriate and Alert Patient Behavior: Appropriate and Talkative Mood Description: Calm Affect Description: Calm Speech Pattern: Clear Diagnostics Vital Signs (24Hr): Vital Signs - 24 hr 06/17/24 20:00 06/17/24 23:41 06/18/24 03:36 Temperature 97.3 F 97.8 F 98.1 F Pulse Rate 53 54 61 Respiratory Rate 16 18 18 Blood Pressure 115/58 L 122/65 118/81 Pulse Oximetry 98 98 99 Oxygen Delivery Method Room Air Room Air Room Air 06/18/24 08:11 Temperature 97.6 F Pulse Rate 50 Respiratory Rate 18 Blood Pressure 138/83 Pulse Oximetry 100 Oxygen Delivery Method Room Air BMI result Body Mass Index 23.7 Labs 06/17/24 04:29 06/18/24 05:28 Labs: Laboratory Results - last 48 hr 06/16/24 06/16/24 06/17/24 22:44 22:45 00:50 WBC 9.0 RBC 3.92 L Hgb 10.7 L Hct 31.4 L MCV 80.1 MCH 27.3 MCHC 34.1 RDW 14.3 Plt Count 415 H MPV 9.1 L Immature Gran % (Auto) 0.3 Neut % (Auto) 69.1 Lymph % (Auto) 18.7 L [place] % (Auto) 10.8 Eos % (Auto) 0.8 Baso % (Auto) 0.3 Lymph # (Auto) 1.7 [place] # (Auto) 1.0 Eos # (Auto) 0.1 Baso # (Auto) 0.0 Abs Immat Gran (auto) 0.03 Absolute Neuts (auto) 6.2 Absolute Nucleated RBC 0.000 Nucleated RBC % (auto) 0.0 Hold Purple Top Sodium 133 L Potassium 3.8 Chloride 98 Carbon Dioxide 27 Anion Gap 12 BUN 16 Creatinine 0.90 Estim Creat Clear Calc 116.7 Estimated GFR > 60 Random Glucose 116 H Lactic Acid 0.5 Calcium 9.3 Troponin I High Sens < 2.7 Random Vancomycin Urine Opiates Screen Ur Buprenorphine Scrn Ur Oxycodone Screen Urine Methadone Screen Urine Fentanyl Screen Ur Barbiturates Screen Ur Phencyclidine Scrn Ur Amphetamines Screen U Benzodiazepines Scrn Urine Cocaine Screen U Marijuana (THC) Screen 06/17/24 06/17/24 06/17/24 04:29 07:11 13:45 WBC 9.3 RBC 3.83 L Hgb 10.4 L Hct 30.9 L MCV 80.7 MCH 27.2 MCHC 33.7 RDW 14.5 Plt Count 396 MPV 9.3 L Immature Gran % (Auto) 0.3 Neut % (Auto) 60.4 Lymph % (Auto) 27.8 [place] % (Auto) 10.2 Eos % (Auto) 1.1 Baso % (Auto) 0.2 Lymph # (Auto) 2.6 [place] # (Auto) 0.9 Eos # (Auto) 0.1 Baso # (Auto) 0.0 Abs Immat Gran (auto) 0.03 Absolute Neuts (auto) 5.6 Absolute Nucleated RBC 0.000 Nucleated RBC % (auto) 0.0 Hold Purple Top Sodium 135 Potassium 3.9 Chloride 104 Carbon Dioxide 25 Anion Gap 10 L BUN 12 Creatinine 0.76 Estim Creat Clear Calc 138.2 Estimated GFR > 60 Random Glucose 105 Lactic Acid Calcium 8.7 D Troponin I High Sens < 2.7 Random Vancomycin Urine Opiates Screen POSITIVE H Ur Buprenorphine Scrn Not Detected Ur Oxycodone Screen Not Detected Urine Methadone Screen Not Detected Urine Fentanyl Screen POSITIVE H Ur Barbiturates Screen Not Detected Ur Phencyclidine Scrn Not Detected Ur Amphetamines Screen Not Detected U Benzodiazepines Scrn Not Detected Urine Cocaine Screen POSITIVE H U Marijuana (THC) Screen POSITIVE H 06/18/24 06/18/24 05:28 11:10 WBC RBC Hgb Hct MCV MCH MCHC RDW Plt Count MPV Immature Gran % (Auto) Neut % (Auto) Lymph % (Auto) [place] % (Auto) Eos % (Auto) Baso % (Auto) Lymph # (Auto) [place] # (Auto) Eos # (Auto) Baso # (Auto) Abs Immat Gran (auto) Absolute Neuts (auto) Absolute Nucleated RBC Nucleated RBC % (auto) Hold Purple Top SEE NOTE Sodium Potassium Chloride Carbon Dioxide Anion Gap BUN Creatinine 0.77 Estim Creat Clear Calc 136.4 Estimated GFR > 60 Random Glucose Lactic Acid Calcium Troponin I High Sens Random Vancomycin 10.6 L Urine Opiates Screen Ur Buprenorphine Scrn Ur Oxycodone Screen Urine Methadone Screen Urine Fentanyl Screen Ur Barbiturates Screen Ur Phencyclidine Scrn Ur Amphetamines Screen U Benzodiazepines Scrn Urine Cocaine Screen U Marijuana (THC) Screen Imaging Radiology Impressions: ITS Impressions Chest X-Ray 06/16/24 22:47 IMPRESSION: Unremarkable examination. Medications Medications Current Medications Acetaminophen (Acetaminophen 325 Mg Tablet) 650 mg PO Q6H PRN PRN Reason: Pain, Mild (Pain Scale 1-3), fever or headache Calcium Carbonate (Calcium Carbonate 750 Mg Tab.Chew) 750 mg PO Q4H PRN PRN Reason: Heartburn Enoxaparin Sodium (Enoxaparin Sodium 40 Mg/0.4 Ml Syringe) 40 mg SUBCUT Q24H [facility] Last Admin: 06/18/24 07:50 Dose: 40 mg Gabapentin (Gabapentin 100 Mg Capsule) 100 mg PO TID [facility] Last Admin: 06/18/24 15:29 Dose: 100 mg Vancomycin HCl 1,250 mg/ (Sodium Chloride) 250 mls @ 166.667 mls/hr IV Q8H [facility] Last Admin: 06/18/24 14:05 Dose: 166.67 mls/hr Magnesium Hydroxide (Milk Of Magnesia 30 Ml Oral.Susp) 30 ml PO DAILY PRN PRN Reason: Constipation Melatonin (Melatonin 3 Mg Tablet) 6 mg PO BEDTIME PRN PRN Reason: Insomnia Methadone HCl (Methadone Hcl 20 Mg/2 Ml Oral.Conc) 60 mg PO DAILY@0800 [facility] Mirtazapine (Mirtazapine 7.5 Mg Tablet) 7.5 mg PO BEDTIME [facility] Nicotine (Nicotine 21 Mg Patch.Td24) 21 mg TRANSDERMA DAILY [facility] Ondansetron HCl (Ondansetron Hcl 4 Mg/2 Ml Vial) 4 mg IVPUSH Q8H PRN PRN Reason: Nausea and Vomiting Last Admin: 06/18/24 03:26 Dose: 4 mg Pharmacy Consult (Consult Rx Vancomycin Dosing) 1 each MISCELLANE DAILY PRN PRN Reason: Consult order Sodium Chloride (0.9 % Sodium Chloride Flush 3 Ml Syringe) 3 ml IVFLUSH QSHIFT [facility] Last Admin: 06/18/24 14:05 Dose: 3 ml Allergies Allergies Allergy/AdvReac Type Severity Reaction Status Date / Time quetiapine [From SEROQUEL] Allergy Unknown UNK Verified 06/16/24 22:19 trazodone [TRAZODONE] Allergy Unknown UNK Verified 06/16/24 22:19 Assessment & Plan Assessment & Plan (1) Opioid use disorder: Status: Acute Code(s): F11.99 - Opioid use, unspecified with unspecified opioid-induced disorder Assessment and Plan: * methadone 60mg in AM * gabapentin 100mg TID * Mirtazipine QHS * tizanidine 4mg * will follow up over the weekend * may require PO oxycodone in addition to methadone if withdrawal sx persist while dose is being titrated Total time managing care of this patient today _35___ minutes.
--- NOTE | 2024-06-18 15:47 | HO.PM.IMPN ---
Subjective Subjective Date of Service: 06/18/24 Interval History: Being followed for bacteremia. Requesting for nicotine patch smokes 1 pack per day, requesting for higher dose of methadone, currently on methadone q.3 hours as needed for withdrawal symptoms, left anterior chest wall pain is better, denies fever, no chills. Tolerating diet no nausea, no vomiting, no abdominal pain or diarrhea. No recurrent chest pain. Review of Systems All other system reviewed and are negative. Physical Exam Vital Signs: Vital Signs: Last Vital Signs Temp 97.6 F 06/18/24 08:11 Pulse 50 06/18/24 08:11 Resp 18 06/18/24 08:11 BP 138/83 06/18/24 08:11 Pulse Ox 100 06/18/24 08:11 O2 Del Method Room Air 06/18/24 08:11 BMI result Body Mass Index 23.7 Const: Other: General awake alert x3, in no acute distress. Neck no JVD. CVS regular rate rhythm, Swelling and mild tenderness left sternoclavicular joint significantly improved since last admission, no induration, no fluctuation. Respiratory lungs clear to auscultation, no respiratory distress, no wheeze, no rhonchi. Gastrointestinal abdomen soft, non tender, bowel sounds audible. Extremities no edema. Neuro non focal Psych appropriate affect Objective Data Active Medications Acetaminophen (Acetaminophen 325 Mg Tablet) 650 mg PO Q6H PRN PRN Reason: Pain, Mild (Pain Scale 1-3), fever or headache Calcium Carbonate (Calcium Carbonate 750 Mg Tab.Chew) 750 mg PO Q4H PRN PRN Reason: Heartburn Enoxaparin Sodium (Enoxaparin Sodium 40 Mg/0.4 Ml Syringe) 40 mg SUBCUT Q24H [facility] Last Admin: 06/18/24 07:50 Dose: 40 mg Documented By: REBECA Gabapentin (Gabapentin 100 Mg Capsule) 100 mg PO TID [facility] Last Admin: 06/18/24 15:29 Dose: 100 mg Documented By: REBECA Vancomycin HCl 1,250 mg/ (Sodium Chloride) 250 mls @ 166.667 mls/hr IV Q8H [facility] Last Admin: 06/18/24 14:05 Dose: 166.67 mls/hr Documented By: REBECA Magnesium Hydroxide (Milk Of Magnesia 30 Ml Oral.Susp) 30 ml PO DAILY PRN PRN Reason: Constipation Melatonin (Melatonin 3 Mg Tablet) 6 mg PO BEDTIME PRN PRN Reason: Insomnia Methadone HCl (Methadone Hcl 20 Mg/2 Ml Oral.Conc) 60 mg PO DAILY@0800 [facility] Mirtazapine (Mirtazapine 7.5 Mg Tablet) 7.5 mg PO BEDTIME [facility] Nicotine (Nicotine 21 Mg Patch.Td24) 21 mg TRANSDERMA DAILY [facility] Ondansetron HCl (Ondansetron Hcl 4 Mg/2 Ml Vial) 4 mg IVPUSH Q8H PRN PRN Reason: Nausea and Vomiting Last Admin: 06/18/24 03:26 Dose: 4 mg Documented By: DB Pharmacy Consult (Consult Rx Vancomycin Dosing) 1 each MISCELLANE DAILY PRN PRN Reason: Consult order Sodium Chloride (0.9 % Sodium Chloride Flush 3 Ml Syringe) 3 ml IVFLUSH QSHIFT [facility] Last Admin: 06/18/24 14:05 Dose: 3 ml Documented By: REBECA Labs 06/17/24 04:29 06/18/24 05:28 Labs: Laboratory Results - last 24 hr 06/18/24 06/18/24 05:28 11:10 Hold Purple Top SEE NOTE Estim Creat Clear Calc 136.4 Estimated GFR > 60 Random Vancomycin 10.6 L Microbiology Microbiology Results: Microbiology 06/17/24 00:50 Blood Culture - Preliminary Blood - Venous Prelim: GPC Gram Stain only 06/17/24 00:51 Blood Culture - Preliminary Blood - Venous Staphylococcus aureus Assessment and Plan (1) Polysubstance abuse: Status: Acute (2) Bacteremia: Status: Acute Plan 33-year-old male with pertinent history of IV drug use disorder, hepatitis-C who presents to the emergency department evaluation of chest pain. #. Bacillus bacteremia: No fevers, normal WBC count left anterior chest wall tenderness and swelling improving Repeat blood culture 1/2 from 06/17 growing staph aureus, blood cultures 06/09 grew bacillus species Continue IV vancomycin started on 06/17. Follow final sensitivities ID consult ,Echocardiogram 06/10 without any valvular abnormalities. #. Chest pain normal troponin, EKG with no ischemic changes , no further cardiac workup, pain localized to left sternal clavicular joint. #. IV polysubstance use disorder: Seen by Addiction Team placed on methadone 60 mg daily, mirtazapine q.h.s., tizanidine and Neurontin, #. Hepatitis-C: Outpatient follow-up # tobacco use disorder will place on nicotine patch, counseling done. DVT prophylaxis: Lovenox Full code Patient will require continued inpatient hospital stay for IV antibiotics (as above), which is not possible in a lesser acute setting. Quality Stroke Does the patient have a stroke diagnosis?: No VTE Prior VTE?: No VTE Risk Level:: Medical - moderate - high VTE Device Contraindication: Treatment Not Indicated VTE Drug Contraindication: N/A - Med Ordered
[2024-06-18 15:50] VITALS: BP 128/72; PULSE 61; RESP 18; TEMP 36.4; O2SAT 99
[2024-06-18] MEDS: Nicotine Polacrilex 2 MG GUM BUCCAL (16:18)
[2024-06-18 19:16] VITALS: BP 135/81; PULSE 75; RESP 18; TEMP 36.6; O2SAT 97
[2024-06-18] MEDS: Melatonin 3 MG TABLET 6 MG PO (20:39)
[2024-06-18] MEDS: Mirtazapine 7.5 MG TABLET PO (20:39)
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
[2024-06-19 04:00] VITALS: BP 128/93; PULSE 61; RESP 18; TEMP 36.8; O2SAT 100
[2024-06-19] MEDS: vancomycin HCL 1,250 MG in 0.9 % Sodium Chloride 250 ML 166.67 MG IV (05:09)
[2024-06-19 06:20] LABS: Creatinine Clr Calc Pharmacy 132.9; Estimated Glomerular Filt Rate > 60
[2024-06-19] MEDS: Nicotine 21 MG PATCH.TD24 TRANSDERMA (07:59)
[2024-06-19] MEDS: Enoxaparin Sodium 40 MG/0.4 ML SYRINGE SUBCUT (07:59)
[2024-06-19] MEDS: Gabapentin 100 MG CAPSULE PO ×3 (07:59→20:02)
[2024-06-19] MEDS: methADONE HCl 20 MG/2 ML ORAL.CONC 60 MG PO (07:59)
[2024-06-19] MEDS: 0.9 % Sodium Chloride Flush 3 ML SYRINGE IVFLUSH ×2 (08:00→15:25)
[2024-06-19 08:42] VITALS: BP 141/77; PULSE 58; RESP 16; TEMP 36.2; O2SAT 98
[2024-06-19 11:28] LABS: Vancomycin Random 8.4 mcg/mL (15-20)
--- NOTE | 2024-06-19 12:04 | HE.PHANOTE ---
Re: Vanco Renal function slowly declining, however still in good renal function. Trough returned at 8.4, subtherapeutic from bacteremia. Dose increased to 1500 q8h. Next trough 06/20 at 1000.
[2024-06-19] MEDS: vancomycin HCL 1,500 MG in 0.9 % Sodium Chloride 500 ML 333.33 MG IV ×2 (12:09→19:25)
--- NOTE | 2024-06-19 12:43 | HO.PM.IMPN ---
Subjective Subjective Date of Service: 06/19/24 Interval History: Feeling better this morning denies pain, no withdrawal symptoms, tolerating diet, no shortness of breath, no dizziness, no lightheadedness, no headache, no fevers, no chills, no diarrhea. Review of Systems All other symptoms reviewed and are negative Physical Exam Vital Signs: Vital Signs: Last Vital Signs Temp 97.1 F 06/19/24 08:42 Pulse 58 06/19/24 08:42 Resp 16 06/19/24 08:42 BP 141/77 H 06/19/24 08:42 Pulse Ox 98 06/19/24 08:42 O2 Del Method Room Air 06/19/24 08:42 BMI result Body Mass Index 23.7 Const: Other: General awake alert x3, in no acute distress. Neck no JVD. CVS regular rate rhythm, Swelling and tenderness left sternoclavicular joint significantly improved since last admission, no induration, no fluctuation. Respiratory lungs clear to auscultation, no respiratory distress, no wheeze, no rhonchi. Gastrointestinal abdomen soft, non tender, bowel sounds audible. Extremities no edema. Neuro non focal Psych appropriate affect Objective Data Active Medications Acetaminophen (Acetaminophen 325 Mg Tablet) 650 mg PO Q6H PRN PRN Reason: Pain, Mild (Pain Scale 1-3), fever or headache Calcium Carbonate (Calcium Carbonate 750 Mg Tab.Chew) 750 mg PO Q4H PRN PRN Reason: Heartburn Enoxaparin Sodium (Enoxaparin Sodium 40 Mg/0.4 Ml Syringe) 40 mg SUBCUT Q24H [facility] Last Admin: 06/19/24 07:59 Dose: 40 mg Documented By: ANTONI Gabapentin (Gabapentin 100 Mg Capsule) 100 mg PO TID [facility] Last Admin: 06/19/24 07:59 Dose: 100 mg Documented By: ANTONI Vancomycin HCl 1,500 mg/ (Sodium Chloride) 500 mls @ 333.333 mls/hr IV Q8H [facility] Last Admin: 06/19/24 12:09 Dose: 333.33 mls/hr Documented By: ANTONI Magnesium Hydroxide (Milk Of Magnesia 30 Ml Oral.Susp) 30 ml PO DAILY PRN PRN Reason: Constipation Melatonin (Melatonin 3 Mg Tablet) 6 mg PO BEDTIME PRN PRN Reason: Insomnia Last Admin: 06/18/24 20:39 Dose: 6 mg Documented By: JACQUI Methadone HCl (Methadone Hcl 20 Mg/2 Ml Oral.Conc) 60 mg PO DAILY@0800 [facility] Last Admin: 06/19/24 07:59 Dose: 60 mg Documented By: ANTONI Co-signed By: COREEN Mirtazapine (Mirtazapine 7.5 Mg Tablet) 7.5 mg PO BEDTIME [facility] Last Admin: 06/18/24 20:39 Dose: 7.5 mg Documented By: JACQUI Nicotine (Nicotine 21 Mg Patch.Td24) 21 mg TRANSDERMA DAILY [facility] Last Admin: 06/19/24 07:59 Dose: 21 mg Documented By: ANTONI Nicotine Polacrilex (Nicotine Polacrilex 2 Mg Gum) 2 mg BUCCAL Q2H PRN PRN Reason: Nicotine Cravings Last Admin: 06/18/24 16:18 Dose: 2 mg Documented By: REBECA Ondansetron HCl (Ondansetron Hcl 4 Mg/2 Ml Vial) 4 mg IVPUSH Q8H PRN PRN Reason: Nausea and Vomiting Last Admin: 06/18/24 03:26 Dose: 4 mg Documented By: DB Pharmacy Consult (Consult Rx Vancomycin Dosing) 1 each MISCELLANE DAILY PRN PRN Reason: Consult order Sodium Chloride (0.9 % Sodium Chloride Flush 3 Ml Syringe) 3 ml IVFLUSH QSHIFT [facility] Last Admin: 06/19/24 08:00 Dose: 3 ml Documented By: ANTONI Labs 06/17/24 04:29 06/19/24 06:03 Labs: Laboratory Results - last 24 hr 06/19/24 06/19/24 06:03 10:55 Estim Creat Clear Calc 132.9 Estimated GFR > 60 Random Vancomycin 8.4 L Microbiology Microbiology Results: Microbiology 06/17/24 00:50 Blood Culture - Final Blood - Venous Methicillin Res Staph Aureus 06/17/24 00:51 Blood Culture - Final Blood - Venous Methicillin Res Staph Aureus Assessment and Plan (1) Polysubstance abuse: Status: Acute (2) Bacteremia: Status: Acute Plan 33-year-old male with pertinent history of IV drug use disorder, hepatitis-C who presents to the emergency department evaluation of chest pain. #. MRSA bacteremia: No fevers, normal WBC count left anterior chest wall tenderness and swelling improved. Repeat blood culture /2 from 06/17 grew MRSA, 06/09 grew bacillus species Continue IV vancomycin started on 06/17. Echocardiogram 06/10 without any valvular abnormalities. repeat bc x2 ,iv abx x 4 weeks,[facility] line #. Chest pain normal troponin, EKG with no ischemic changes , no further cardiac workup, pain localized to left sternal clavicular joint. #. IV polysubstance use disorder: Seen by Addiction Team placed on methadone 60 mg daily, mirtazapine q.h.s., tizanidine and Neurontin, #. Hepatitis-C: Outpatient follow-up # tobacco use disorder will place on nicotine patch, counseling done. DVT prophylaxis: Lovenox Full code Patient will require continued inpatient hospital stay for IV antibiotics (as above), which is not possible in a lesser acute setting. Quality Stroke Does the patient have a stroke diagnosis?: No VTE Prior VTE?: No VTE Risk Level:: Medical - moderate - high VTE Device Contraindication: Treatment Not Indicated VTE Drug Contraindication: N/A - Med Ordered
[2024-06-19 15:46] VITALS: BP 139/72; PULSE 65; RESP 16; TEMP 36.4; O2SAT 98
[2024-06-19 19:39] VITALS: BP 120/62; PULSE 70; RESP 18; TEMP 36.5; O2SAT 97
[2024-06-19] MEDS: Mirtazapine 7.5 MG TABLET PO (20:02)
[2024-06-19] MEDS: methADONE HCl 10 MG TABLET PO (21:04)
[2024-06-19] MEDS: Melatonin 3 MG TABLET 6 MG PO (21:07)
[2024-06-20] MEDS: 0.9 % Sodium Chloride Flush 3 ML SYRINGE IVFLUSH ×4 (00:40→21:05)
[2024-06-20] MEDS: Calcium Carbonate 750 MG TAB.CHEW PO (01:49)
[2024-06-20 03:19] VITALS: BP 141/70; PULSE 88; RESP 18; TEMP 36.6; O2SAT 97
[2024-06-20] MEDS: vancomycin HCL 1,500 MG in 0.9 % Sodium Chloride 500 ML 333.33 MG IV ×2 (04:08→15:43)
[2024-06-20 07:09] LABS: Creatinine Clr Calc Pharmacy 123.6; Estimated Glomerular Filt Rate > 60
[2024-06-20 08:00] VITALS: BP 128/75; PULSE 60; RESP 12; TEMP 36.4; O2SAT 100
[2024-06-20] MEDS: methADONE HCl 20 MG/2 ML ORAL.CONC 70 MG PO (08:16)
[2024-06-20] MEDS: Nicotine 21 MG PATCH.TD24 TRANSDERMA (08:16)
[2024-06-20] MEDS: Gabapentin 100 MG CAPSULE PO ×3 (08:16→21:04)
[2024-06-20] MEDS: Enoxaparin Sodium 40 MG/0.4 ML SYRINGE SUBCUT (08:16)
[2024-06-20 10:23] LABS: Vancomycin Random 20.5 mcg/mL (15-20)
--- NOTE | 2024-06-20 10:44 | HE.PHANOTE ---
Vancomycin addendum: Level came back at 20.5, so decreased frequency from q8 hours to q12 hours. Will recheck a level in 24 hours after 2 doses to make sure not overshooting still
--- NOTE | 2024-06-20 12:23 | HO.PM.IMPN ---
Subjective Subjective Date of Service: 06/20/24 Interval History: Complaining of mild discomfort at left sternoclavicular joint, denies fever, no chills tolerating diet, no withdrawal symptoms, no acute issues overnight. Review of Systems All other system review reviewed and are negative. Physical Exam Vital Signs: Vital Signs: Last Vital Signs Temp 97.5 F 06/20/24 08:00 Pulse 60 06/20/24 08:00 Resp 12 06/20/24 08:00 BP 128/75 06/20/24 08:00 Pulse Ox 100 06/20/24 08:00 O2 Del Method Room Air 06/20/24 08:00 BMI result Body Mass Index 23.7 Const: Other: General awake alert x3, in no acute distress. Neck no JVD. CVS regular rate rhythm, Swelling and tenderness left sternoclavicular joint significantly improved since last admission, no induration, no fluctuation, no warmth, no hyperemia. Respiratory lungs clear to auscultation, no respiratory distress, no wheeze, no rhonchi. Gastrointestinal abdomen soft, non tender, bowel sounds audible. Extremities no edema. Neuro non focal Psych appropriate affect Objective Data Active Medications Acetaminophen (Acetaminophen 325 Mg Tablet) 650 mg PO Q6H PRN PRN Reason: Pain, Mild (Pain Scale 1-3), fever or headache Calcium Carbonate (Calcium Carbonate 750 Mg Tab.Chew) 750 mg PO Q4H PRN PRN Reason: Heartburn Last Admin: 06/20/24 01:49 Dose: 750 mg Documented By: JACQUI Enoxaparin Sodium (Enoxaparin Sodium 40 Mg/0.4 Ml Syringe) 40 mg SUBCUT Q24H [facility] Last Admin: 06/20/24 08:16 Dose: 40 mg Documented By: ANTONI Gabapentin (Gabapentin 100 Mg Capsule) 100 mg PO TID [facility] Last Admin: 06/20/24 08:16 Dose: 100 mg Documented By: ANTONI Vancomycin HCl 1,500 mg/ (Sodium Chloride) 500 mls @ 333.333 mls/hr IV Q12H [facility] Magnesium Hydroxide (Milk Of Magnesia 30 Ml Oral.Susp) 30 ml PO DAILY PRN PRN Reason: Constipation Melatonin (Melatonin 3 Mg Tablet) 6 mg PO BEDTIME PRN PRN Reason: Insomnia Last Admin: 06/19/24 21:07 Dose: 6 mg Documented By: JACQUI Methadone HCl (Methadone Hcl 20 Mg/2 Ml Oral.Conc) 70 mg PO DAILY@0800 [facility] Last Admin: 06/20/24 08:16 Dose: 70 mg Documented By: ANTONI Co-signed By: COREEN Mirtazapine (Mirtazapine 7.5 Mg Tablet) 7.5 mg PO BEDTIME [facility] Last Admin: 06/19/24 20:02 Dose: 7.5 mg Documented By: JACQUI Nicotine (Nicotine 21 Mg Patch.Td24) 21 mg TRANSDERMA DAILY [facility] Last Admin: 06/20/24 08:16 Dose: 21 mg Documented By: ANTONI Nicotine Polacrilex (Nicotine Polacrilex 2 Mg Gum) 2 mg BUCCAL Q2H PRN PRN Reason: Nicotine Cravings Last Admin: 06/18/24 16:18 Dose: 2 mg Documented By: REBECA Ondansetron HCl (Ondansetron Hcl 4 Mg/2 Ml Vial) 4 mg IVPUSH Q8H PRN PRN Reason: Nausea and Vomiting Last Admin: 06/18/24 03:26 Dose: 4 mg Documented By: DB Pharmacy Consult (Consult Rx Vancomycin Dosing) 1 each MISCELLANE DAILY PRN PRN Reason: Consult order Sodium Chloride (0.9 % Sodium Chloride Flush 3 Ml Syringe) 3 ml IVFLUSH QSHIFT [facility] Last Admin: 06/20/24 08:17 Dose: 3 ml Documented By: ANTONI Labs 06/17/24 04:29 06/20/24 05:56 Labs: Laboratory Results - last 24 hr 06/20/24 06/20/24 05:56 09:58 Estim Creat Clear Calc 123.6 Estimated GFR > 60 Random Vancomycin 20.5 H Microbiology Microbiology Results: Microbiology 06/17/24 00:50 Blood Culture - Final Blood - Venous Methicillin Res Staph Aureus 06/17/24 00:51 Blood Culture - Final Blood - Venous Methicillin Res Staph Aureus Assessment and Plan (1) Polysubstance abuse: Status: Acute (2) Bacteremia: Status: Acute Plan 33-year-old male with pertinent history of IV drug use disorder, hepatitis-C who presents to the emergency department evaluation of chest pain. #. MRSA bacteremia: No fevers, normal WBC count left anterior chest wall tenderness and swelling improved. Repeat blood culture / from 06/17 grew MRSA, 06/09 grew bacillus species Continue IV vancomycin started on 06/17. Echocardiogram 06/10 without any valvular abnormalities. repeat bc x2 ,iv abx x 4 weeks,[facility] line #. Left sternoclavicular joint tenderness improving, CT chest showed prominent soft tissue without collection of bony erosive changes . #. IV polysubstance use disorder: Seen by Addiction Team placed on methadone 60 mg daily, mirtazapine q.h.s., tizanidine and Neurontin, #. Hepatitis-C: Outpatient follow-up # tobacco use disorder will place on nicotine patch, counseling done. DVT prophylaxis: Lovenox Full code Patient will require continued inpatient hospital stay for IV antibiotics (as above), which is not possible in a lesser acute setting. Quality Stroke Does the patient have a stroke diagnosis?: No VTE Prior VTE?: No VTE Risk Level:: Medical - moderate - high VTE Device Contraindication: Treatment Not Indicated VTE Drug Contraindication: N/A - Med Ordered
[2024-06-20 15:54] VITALS: BP 127/70; PULSE 62; RESP 14; TEMP 36.2; O2SAT 99
[2024-06-20 20:00] VITALS: BP 145/90; PULSE 56; RESP 16; TEMP 36; O2SAT 99
[2024-06-20] MEDS: Mirtazapine 7.5 MG TABLET PO (21:04)
[2024-06-20] MEDS: Melatonin 3 MG TABLET 6 MG PO (21:04)
[2024-06-20] MEDS: methADONE HCl 10 MG TABLET PO (21:37)
--- NOTE | 2024-06-20 21:56 | HE.PHANOTE ---
METHADONE tablets Spoke to Dr. Gandhi about methadone tablets for opiate withdrawal. Provider does not want liquid PRN order, but tablets instead.
[2024-06-20 23:32] VITALS: BP 155/81; PULSE 75; RESP 16; TEMP 36.4; O2SAT 99
[2024-06-21 02:33] VITALS: BP 128/75; PULSE 50; RESP 14; TEMP 36; O2SAT 98
[2024-06-21] MEDS: vancomycin HCL 1,500 MG in 0.9 % Sodium Chloride 500 ML 333.33 MG IV ×2 (03:51→15:57)
[2024-06-21 07:07] LABS: Creatinine Clr Calc Pharmacy 131.3; Estimated Glomerular Filt Rate > 60
[2024-06-21 07:39] VITALS: BP 134/76; PULSE 57; RESP 18; TEMP 36.5; O2SAT 100
[2024-06-21] MEDS: Nicotine 21 MG PATCH.TD24 TRANSDERMA (07:43)
[2024-06-21] MEDS: methADONE HCl 20 MG/2 ML ORAL.CONC 70 MG PO (07:43)
[2024-06-21] MEDS: Enoxaparin Sodium 40 MG/0.4 ML SYRINGE SUBCUT (07:45)
[2024-06-21] MEDS: Gabapentin 100 MG CAPSULE PO ×3 (07:45→21:07)
[2024-06-21] MEDS: 0.9 % Sodium Chloride Flush 3 ML SYRINGE IVFLUSH (07:46)
--- NOTE | 2024-06-21 10:39 | P.PNIM_ITS ---
Subjective Subjective Date of Service: 06/21/24 Interval History: Complaining of upper back discomfort, no fevers, no headaches, complaining of persistent mild discomfort left sternal clavicular joint, tolerating diet, no withdrawal symptoms. Review of Systems All other system reviewed and are negative. Physical Exam 2 Vital Signs: Vital Signs: Last Vital Signs Temp 97.7 F 06/21/24 07:39 Pulse 57 06/21/24 07:39 Resp 18 06/21/24 07:39 BP 134/76 06/21/24 07:39 Pulse Ox 100 06/21/24 07:39 O2 Del Method Room Air 06/21/24 07:39 BMI result Body Mass Index 23.7 Const: Other: General awake alert x3, in no acute distress. Neck no JVD. CVS regular rate rhythm, Swelling and tenderness left sternoclavicular joint significantly improved since last admission, no induration, no fluctuation, no warmth, no hyperemia. Respiratory lungs clear to auscultation, no respiratory distress, no wheeze, no rhonchi. Gastrointestinal abdomen soft, non tender, bowel sounds audible. Extremities no edema. Neuro non focal Psych appropriate affect Objective Data Active Medications Acetaminophen (Acetaminophen 325 Mg Tablet) 650 mg PO Q6H PRN PRN Reason: Pain, Mild (Pain Scale 1-3), fever or headache Calcium Carbonate (Calcium Carbonate 750 Mg Tab.Chew) 750 mg PO Q4H PRN PRN Reason: Heartburn Last Admin: 06/20/24 01:49 Dose: 750 mg Documented By: JACQUI Enoxaparin Sodium (Enoxaparin Sodium 40 Mg/0.4 Ml Syringe) 40 mg SUBCUT Q24H [facility] Last Admin: 06/21/24 07:45 Dose: 40 mg Documented By: ELIZABETH Gabapentin (Gabapentin 100 Mg Capsule) 100 mg PO TID [facility] Last Admin: 06/21/24 07:45 Dose: 100 mg Documented By: ELIZABETH Vancomycin HCl 1,500 mg/ (Sodium Chloride) 500 mls @ 333.333 mls/hr IV Q12H [facility] Last Infusion: 06/21/24 05:32 Dose: Infused Documented By: BAUTISTA Magnesium Hydroxide (Milk Of Magnesia 30 Ml Oral.Susp) 30 ml PO DAILY PRN PRN Reason: Constipation Melatonin (Melatonin 3 Mg Tablet) 6 mg PO BEDTIME PRN PRN Reason: Insomnia Last Admin: 06/20/24 21:04 Dose: 6 mg Documented By: BAUTISTA Methadone HCl (Methadone Hcl 20 Mg/2 Ml Oral.Conc) 70 mg PO DAILY@0800 [facility] Last Admin: 06/21/24 07:43 Dose: 70 mg Documented By: ELIZABETH Co-signed By: CELSO Methadone HCl (Methadone Hcl 10 Mg Tablet) 10 mg PO BEDTIME PRN PRN Reason: Opiate Withdrawal Last Admin: 06/20/24 21:37 Dose: 10 mg Documented By: BAUTISTA Mirtazapine (Mirtazapine 7.5 Mg Tablet) 7.5 mg PO BEDTIME [facility] Last Admin: 06/20/24 21:04 Dose: 7.5 mg Documented By: BAUTISTA Nicotine (Nicotine 21 Mg Patch.Td24) 21 mg TRANSDERMA DAILY [facility] Last Admin: 06/21/24 07:43 Dose: 21 mg Documented By: ELIZABETH Nicotine Polacrilex (Nicotine Polacrilex 2 Mg Gum) 2 mg BUCCAL Q2H PRN PRN Reason: Nicotine Cravings Last Admin: 06/18/24 16:18 Dose: 2 mg Documented By: REBECA Ondansetron HCl (Ondansetron Hcl 4 Mg/2 Ml Vial) 4 mg IVPUSH Q8H PRN PRN Reason: Nausea and Vomiting Last Admin: 06/18/24 03:26 Dose: 4 mg Documented By: DB Pharmacy Consult (Consult Rx Vancomycin Dosing) 1 each MISCELLANE DAILY PRN PRN Reason: Consult order Sodium Chloride (0.9 % Sodium Chloride Flush 3 Ml Syringe) 3 ml IVFLUSH QSHIFT [facility] Last Admin: 06/21/24 07:46 Dose: 3 ml Documented By: ELIZABETH Labs 06/17/24 04:29 06/21/24 05:29 Labs: Laboratory Results - last 24 hr 06/21/24 05:29 Estim Creat Clear Calc 131.3 Estimated GFR > 60 Assessment and Plan (1) Bacteremia: Status: Acute Plan 33-year-old male with pertinent history of IV drug use disorder, hepatitis-C who presents to the emergency department evaluation of chest pain. #. MRSA bacteremia: No fevers, normal WBC count left anterior chest wall tenderness and swelling improved. Repeat blood culture 2/ from 06/17 grew MRSA, / grew bacillus species Continue IV vancomycin started on 06/17. Echocardiogram 06/10 without any valvular abnormalities. repeat bc x2 pend.,iv abx x 4 weeks,[facility] line #. Left sternoclavicular joint tenderness improving, CT chest showed prominent soft tissue without collection of bony erosive changes . #. IV polysubstance use disorder: Seen by Addiction Team placed on methadone 60 mg daily, mirtazapine q.h.s., tizanidine and Neurontin, #. Hepatitis-C: Outpatient follow-up # tobacco use disorder will place on nicotine patch, counseling done. DVT prophylaxis: Lovenox Full code Patient will require continued inpatient hospital stay for IV antibiotics (as above), which is not possible in a lesser acute setting. Quality Stroke Does the patient have a stroke diagnosis?: No VTE Prior VTE?: No VTE Risk Level:: Medical - moderate - high VTE Device Contraindication: Treatment Not Indicated VTE Drug Contraindication: N/A - Med Ordered
--- NOTE | 2024-06-21 13:05 | MHC.RECOVRN ---
Attempted to meet with pt and check in. Pt soundly sleeping, does not wake to voice. Per CM, pt to be transferring to [facility]. Referral sent to [facility].
--- NOTE | 2024-06-21 14:03 | MHC.CM.PN ---
EMR REVIEWED AND PER MD ROUNDS, PT IS NOT YET MEDICALLY CLEARED FOR DC . PT WILL REQUIRE A SNF FOR IV ABT, [facility] IS ACCEPTING AND PT IS AGREEABLE. [facility] WILL START GUEST DOSING PROCESS WITH [facility], [facility] WILL START AUTH PROCESS IN ANTICIPATION OF DC WITHIN 48 HRS OR LESS. CM WILL CONTINUE TO FOLLOW FOR ANY CHANGE TO DC AZUL.
--- NOTE | 2024-06-21 14:42 | HE.PHANOTE ---
RE: vanco Trough on 06/21 came back at 13; increased dose back to 1500mg Q8H with predicted trough of 16.6mg/L and AUC of 569mg/L. Next level to be drawn after 3 doses on 06/22 @1400
[2024-06-21 15:56] VITALS: BP 136/66; PULSE 61; RESP 18; TEMP 36.1; O2SAT 100
[2024-06-21 16:09] VITALS: BP 122/84; PULSE 110; RESP 18; TEMP 36.6; O2SAT 97
[2024-06-21 19:31] VITALS: BP 129/80; PULSE 59; RESP 16; TEMP 36.3; O2SAT 99
[2024-06-21] MEDS: Mirtazapine 7.5 MG TABLET PO (21:08)
[2024-06-21] MEDS: methADONE HCl 10 MG TABLET PO (21:08)
[2024-06-21] MEDS: Melatonin 3 MG TABLET 6 MG PO (21:09)
[2024-06-22] MEDS: vancomycin HCL 1,500 MG in 0.9 % Sodium Chloride 500 ML 333.33 MG IV ×2 (00:16→07:22)
[2024-06-22] MEDS: 0.9 % Sodium Chloride Flush 3 ML SYRINGE IVFLUSH ×4 (00:24→20:37)
[2024-06-22 03:32] VITALS: BP 137/81; PULSE 73; RESP 18; TEMP 36.3; O2SAT 99
[2024-06-22 06:13] LABS: Creatinine Clr Calc Pharmacy 120.7; Estimated Glomerular Filt Rate > 60
[2024-06-22] MEDS: Gabapentin 100 MG CAPSULE PO ×3 (07:22→20:37)
[2024-06-22] MEDS: methADONE HCl 20 MG/2 ML ORAL.CONC 70 MG PO (07:23)
[2024-06-22 07:37] VITALS: BP 130/74; PULSE 56; RESP 16; TEMP 36.3; O2SAT 99
[2024-06-22] MEDS: Nicotine 21 MG PATCH.TD24 TRANSDERMA (08:58)
[2024-06-22 11:43] VITALS: BP 111/56; PULSE 56; O2SAT 96
--- NOTE | 2024-06-22 12:10 | HO.PM.IMPN ---
Subjective Subjective Date of Service: 06/22/24 Interval History: Complaining of persistent discomfort left sternoclavicular joint, offers no acute complaints no fevers, no chills, tolerating diet, no nausea, no vomiting, no abdominal pain, no other acute events overnight. Review of Systems All other system are reviewed and are negative. Physical Exam Vital Signs: Vital Signs: Last Vital Signs Temp 97.3 F 06/22/24 07:37 Pulse 56 06/22/24 11:43 Resp 16 06/22/24 07:37 BP 111/56 L 06/22/24 11:43 Pulse Ox 96 06/22/24 11:43 O2 Del Method Room Air 06/22/24 11:43 BMI result Body Mass Index 23.7 Const: Other: General awake alert x3, in no acute distress. Neck no JVD. CVS regular rate rhythm, Swelling left sternoclavicular joint significantly improved since last admission, no induration, no fluctuation, no warmth, no hyperemia, persistent tenderness to palpation. Respiratory lungs clear to auscultation, no respiratory distress, no wheeze, no rhonchi. Gastrointestinal abdomen soft, non tender, bowel sounds audible. Extremities no edema. Neuro non focal Psych appropriate affect Objective Data Active Medications Acetaminophen (Acetaminophen 325 Mg Tablet) 650 mg PO Q6H PRN PRN Reason: Pain, Mild (Pain Scale 1-3), fever or headache Calcium Carbonate (Calcium Carbonate 750 Mg Tab.Chew) 750 mg PO Q4H PRN PRN Reason: Heartburn Last Admin: 06/20/24 01:49 Dose: 750 mg Documented By: JACQUI Enoxaparin Sodium (Enoxaparin Sodium 40 Mg/0.4 Ml Syringe) 40 mg SUBCUT Q24H [facility] Last Admin: 06/22/24 07:48 Dose: Not Given Documented By: JONNY Non-Admin Reason: Patient Refused Gabapentin (Gabapentin 100 Mg Capsule) 100 mg PO TID [facility] Last Admin: 06/22/24 07:22 Dose: 100 mg Documented By: JONNY Vancomycin HCl 1,500 mg/ (Sodium Chloride) 500 mls @ 333.333 mls/hr IV Q8H [facility] Last Infusion: 06/22/24 08:54 Dose: Infused Documented By: JONNY Magnesium Hydroxide (Milk Of Magnesia 30 Ml Oral.Susp) 30 ml PO DAILY PRN PRN Reason: Constipation Melatonin (Melatonin 3 Mg Tablet) 6 mg PO BEDTIME PRN PRN Reason: Insomnia Last Admin: 06/21/24 21:09 Dose: 6 mg Documented By: JESSICA Methadone HCl (Methadone Hcl 20 Mg/2 Ml Oral.Conc) 70 mg PO DAILY@0800 [facility] Last Admin: 06/22/24 07:23 Dose: 70 mg Documented By: JONNY Co-signed By: COTEMA Methadone HCl (Methadone Hcl 10 Mg Tablet) 10 mg PO BEDTIME PRN PRN Reason: Opiate Withdrawal Last Admin: 06/21/24 21:08 Dose: 10 mg Documented By: JESSICA Mirtazapine (Mirtazapine 7.5 Mg Tablet) 7.5 mg PO BEDTIME [facility] Last Admin: 06/21/24 21:08 Dose: 7.5 mg Documented By: JESSICA Nicotine (Nicotine 21 Mg Patch.Td24) 21 mg TRANSDERMA DAILY [facility] Last Admin: 06/22/24 08:58 Dose: 21 mg Documented By: JONNY Nicotine Polacrilex (Nicotine Polacrilex 2 Mg Gum) 2 mg BUCCAL Q2H PRN PRN Reason: Nicotine Cravings Last Admin: 06/18/24 16:18 Dose: 2 mg Documented By: REBECA Ondansetron HCl (Ondansetron Hcl 4 Mg/2 Ml Vial) 4 mg IVPUSH Q8H PRN PRN Reason: Nausea and Vomiting Last Admin: 06/18/24 03:26 Dose: 4 mg Documented By: DB Pharmacy Consult (Consult Rx Vancomycin Dosing) 1 each MISCELLANE DAILY PRN PRN Reason: Consult order Sodium Chloride (0.9 % Sodium Chloride Flush 3 Ml Syringe) 3 ml IVFLUSH QSHIFT [facility] Last Admin: 06/22/24 07:27 Dose: 3 ml Documented By: JONNY Labs 06/17/24 04:29 06/22/24 05:44 Labs: Laboratory Results - last 24 hr 06/21/24 06/22/24 14:09 05:44 Hold Purple Top SEE NOTE Estim Creat Clear Calc 120.7 Estimated GFR > 60 Random Vancomycin 13.0 L Microbiology Microbiology Results: Microbiology 06/20/24 12:54 Blood Culture - Preliminary Blood - Venous No growth after 24 hours. 06/20/24 12:54 Blood Culture - Preliminary Blood - Venous No growth after 24 hours. Assessment and Plan (1) Polysubstance abuse: Status: Acute (2) Bacteremia: Status: Acute Plan 33-year-old male with pertinent history of IV drug use disorder, hepatitis-C who presents to the emergency department evaluation of chest pain. #. MRSA bacteremia: No fevers, normal WBC count left anterior chest wall tenderness and swelling improving. Repeat blood culture /2 from 06/17 grew MRSA, 06/09 grew bacillus species Continue IV vancomycin started on 06/17. Echocardiogram 06/10 without any valvular abnormalities. repeat bc x2 negative times 24 hours.,iv abx x 4 weeks,picc line prior to discharge #. Left sternoclavicular joint tenderness improving, CT chest showed prominent soft tissue without collection of bony erosive changes . #. IV polysubstance use disorder: Seen by Addiction Team placed on methadone 60 mg daily, mirtazapine q.h.s., tizanidine and Neurontin, #. Hepatitis-C: Outpatient follow-up # tobacco use disorder will place on nicotine patch, counseling done. DVT prophylaxis: Lovenox Full code Patient will require continued inpatient hospital stay for IV antibiotics (as above), which is not possible in a lesser acute setting. Quality Stroke Does the patient have a stroke diagnosis?: No VTE Prior VTE?: No VTE Risk Level:: Medical - moderate - high VTE Device Contraindication: Treatment Not Indicated VTE Drug Contraindication: N/A - Med Ordered
--- NOTE | 2024-06-22 14:14 | MHC.RECOVRN ---
Met with pt in 385 to follow up and provide support. Pt sitting in bed, awake, alert, easily engages in conversation. Pt reports feeling much better, however, reports feeling diaphoretic and nauseous at night. Pt requesting methadone increase. Denies other questions or concerns for t/w. Karen Baird APRN, aware.
[2024-06-22 14:26] LABS: Vancomycin Random 22.9 mcg/mL (15-20)
[2024-06-22 15:51] VITALS: BP 129/71; PULSE 56; RESP 20; TEMP 36.4; O2SAT 98
[2024-06-22] MEDS: vancomycin HCL 1,250 MG in 0.9 % Sodium Chloride 250 ML 166.67 MG IV (18:40)
[2024-06-22 19:54] VITALS: BP 133/73; PULSE 60; RESP 18; TEMP 36.6; O2SAT 100
[2024-06-22] MEDS: Melatonin 3 MG TABLET 6 MG PO (20:36)
[2024-06-22] MEDS: methADONE HCl 10 MG TABLET PO (20:36)
[2024-06-22] MEDS: Mirtazapine 7.5 MG TABLET PO (20:37)
[2024-06-23 03:41] VITALS: BP 127/57; PULSE 65; RESP 16; TEMP 36; O2SAT 99
[2024-06-23] MEDS: vancomycin HCL 1,250 MG in 0.9 % Sodium Chloride 250 ML 166.67 MG IV ×2 (03:42→10:49)
[2024-06-23 06:59] LABS: Estimated Glomerular Filt Rate > 60
--- NOTE | 2024-06-23 07:07 | PC.NURSE ---
received a critical result this morning at 0651, vanco trough 54.90 Trough was originally scheduled for today at 1500, not sure why it was drawn so early. Vanco dose infusion completed at 0500 today and this result is more likely false. Dr Contreras is aware.
[2024-06-23 07:08] LABS: Vancomycin Random 54.9 mcg/mL (15-20)
[2024-06-23 07:51] VITALS: BP 138/59; PULSE 63; RESP 16; TEMP 36.3; O2SAT 99
[2024-06-23] MEDS: Nicotine 21 MG PATCH.TD24 TRANSDERMA (07:57)
[2024-06-23] MEDS: Gabapentin 100 MG CAPSULE PO ×3 (07:57→20:50)
[2024-06-23] MEDS: methADONE HCl 20 MG/2 ML ORAL.CONC 70 MG PO (07:58)
[2024-06-23] MEDS: 0.9 % Sodium Chloride Flush 3 ML SYRINGE IVFLUSH ×3 (08:03→20:55)
--- NOTE | 2024-06-23 11:42 | MHC.CM.PN ---
Per MD patient will dc tomorrow. Vanco trough ordered for this evening. PICC line to be inserted. Patient is expected to discharge tomorrow. He has a bed @ [facility]. They are aware of the delay in discharge today. Guest dosing is set up with [facility]. Kathleen Prieto , the Recovery nurse set up the guest dosing. [facility] via BLS.
--- NOTE | 2024-06-23 12:27 | P.PNIM_ITS ---
Subjective Subjective Date of Service: 06/23/24 Interval History: Being followed for MRSA bacteremia, offers no acute complaints, no fevers, no chills, tolerating diet no acute events overnight. Review of Systems All other system are reviewed and are negative. Physical Exam 2 Vital Signs: Vital Signs: Last Vital Signs Temp 97.4 F 06/23/24 07:51 Pulse 63 06/23/24 07:51 Resp 16 06/23/24 07:51 BP 138/59 L 06/23/24 07:51 Pulse Ox 99 06/23/24 07:51 O2 Del Method Room Air 06/23/24 07:51 BMI result Body Mass Index 23.7 Const: Other: General awake alert x3, in no acute distress. Neck no JVD. CVS regular rate rhythm, Swelling left sternoclavicular joint significantly improved since last admission, no induration, no fluctuation, no warmth, no hyperemia, persistent tenderness to palpation. Respiratory lungs clear to auscultation, no respiratory distress, no wheeze, no rhonchi. Gastrointestinal abdomen soft, non tender, bowel sounds audible. Extremities no edema. Neuro non focal Psych appropriate affect Objective Data Active Medications Acetaminophen (Acetaminophen 325 Mg Tablet) 650 mg PO Q6H PRN PRN Reason: Pain, Mild (Pain Scale 1-3), fever or headache Calcium Carbonate (Calcium Carbonate 750 Mg Tab.Chew) 750 mg PO Q4H PRN PRN Reason: Heartburn Last Admin: 06/20/24 01:49 Dose: 750 mg Documented By: JACQUI Enoxaparin Sodium (Enoxaparin Sodium 40 Mg/0.4 Ml Syringe) 40 mg SUBCUT Q24H [facility] Last Admin: 06/23/24 08:04 Dose: Not Given Documented By: LIZZIE Non-Admin Reason: Patient Refused Gabapentin (Gabapentin 100 Mg Capsule) 100 mg PO TID [facility] Last Admin: 06/23/24 07:57 Dose: 100 mg Documented By: LIZZIE Vancomycin HCl 1,250 mg/ (Sodium Chloride) 250 mls @ 166.667 mls/hr IV Q8H [facility] Last Admin: 06/23/24 10:49 Dose: 166.67 mls/hr Documented By: LIZZIE Magnesium Hydroxide (Milk Of Magnesia 30 Ml Oral.Susp) 30 ml PO DAILY PRN PRN Reason: Constipation Melatonin (Melatonin 3 Mg Tablet) 6 mg PO BEDTIME PRN PRN Reason: Insomnia Last Admin: 06/22/24 20:36 Dose: 6 mg Documented By: JESSICA Methadone HCl (Methadone Hcl 20 Mg/2 Ml Oral.Conc) 70 mg PO DAILY@0800 [facility] Last Admin: 06/23/24 07:58 Dose: 70 mg Documented By: LIZZIE Co-signed By: JONNY Methadone HCl (Methadone Hcl 10 Mg Tablet) 10 mg PO BEDTIME PRN PRN Reason: Opiate Withdrawal Last Admin: 06/22/24 20:36 Dose: 10 mg Documented By: JESSICA Mirtazapine (Mirtazapine 7.5 Mg Tablet) 7.5 mg PO BEDTIME [facility] Last Admin: 06/22/24 20:37 Dose: 7.5 mg Documented By: JESSICA Nicotine (Nicotine 21 Mg Patch.Td24) 21 mg TRANSDERMA DAILY [facility] Last Admin: 06/23/24 07:57 Dose: 21 mg Documented By: LIZZIE Nicotine Polacrilex (Nicotine Polacrilex 2 Mg Gum) 2 mg BUCCAL Q2H PRN PRN Reason: Nicotine Cravings Last Admin: 06/18/24 16:18 Dose: 2 mg Documented By: REBECA Ondansetron HCl (Ondansetron Hcl 4 Mg/2 Ml Vial) 4 mg IVPUSH Q8H PRN PRN Reason: Nausea and Vomiting Last Admin: 06/18/24 03:26 Dose: 4 mg Documented By: DB Pharmacy Consult (Consult Rx Vancomycin Dosing) 1 each MISCELLANE DAILY PRN PRN Reason: Consult order Sodium Chloride (0.9 % Sodium Chloride Flush 3 Ml Syringe) 3 ml IVFLUSH QSHIFT [facility] Last Admin: 06/23/24 08:03 Dose: 3 ml Documented By: LIZZIE Labs 06/17/24 04:29 06/23/24 05:08 Labs: Laboratory Results - last 24 hr 06/22/24 06/23/24 14:00 05:08 Estim Creat Clear Calc 125.0 Estimated GFR > 60 Random Vancomycin 22.9 H 54.9 H* Microbiology Microbiology Results: Microbiology 06/20/24 12:54 Blood Culture - Preliminary Blood - Venous No growth after 48 hours. 06/20/24 12:54 Blood Culture - Preliminary Blood - Venous No growth after 48 hours. Assessment and Plan (1) Polysubstance abuse: Status: Acute (2) Bacteremia: Status: Acute Plan 33-year-old male with pertinent history of IV drug use disorder, hepatitis-C who presents to the emergency department evaluation of chest pain. #. MRSA bacteremia: No fevers, normal WBC count left anterior chest wall tenderness and swelling improving. Repeat blood culture 2/2 from 06/17 grew MRSA, 8/ grew bacillus species Continue IV vancomycin started on 06/17. Echocardiogram 06/10 without any valvular abnormalities. repeat bc x2 negative times 48 hours.,iv abx x 4 weeks,picc line prior to discharge Elevated vanco trough 54.9 likely drawn soon after vanco administration, will repeat lab at 17:00 Stable renal function #. Left sternoclavicular joint tenderness improving, CT chest showed prominent soft tissue without collection of bony erosive changes . #. IV polysubstance use disorder: Seen by Addiction Team placed on methadone , mirtazapine q.h.s., tizanidine and Neurontin, #. Hepatitis-C: Outpatient follow-up # tobacco use disorder will place on nicotine patch, counseling done. DVT prophylaxis: Lovenox Full code Patient will require continued inpatient hospital stay for IV antibiotics (as above), which is not possible in a lesser acute setting. Quality Stroke Does the patient have a stroke diagnosis?: No VTE Prior VTE?: No VTE Risk Level:: Medical - moderate - high VTE Device Contraindication: Treatment Not Indicated VTE Drug Contraindication: N/A - Med Ordered
[2024-06-23 15:12] VITALS: BP 128/59; PULSE 57; RESP 20; TEMP 36.3; O2SAT 97
--- NOTE | 2024-06-23 15:57 | P.PNADD_ITS ---
Subjective Subjective Date of Service: 06/23/24 Reason For Visit: Bacteremia Interim History: Patient seen in follow up methadone dose is at 70mg in AM and 10mg HS (total of 80mg) scheduled to discharge tomorrow to SNF to continue IV abx Reporting that he is still feeling some withdrawal sx in the evening Would like to continue titrating dose --feels much better than when he was initially admitted Appearing comfortable, talking on the phone to his mother Review of Systems Constitutional: Reports as per HPI Mental Status Exam Mental Status Exam Patient Appearance: Well Grooomed and Appropriate Level of Consciousness: Awake and Appropriate Patient Behavior: Appropriate and Talkative Mood Description: Calm and Appropriate Affect Description: Calm Speech Pattern: Clear Diagnostics Vital Signs (24Hr): Vital Signs - 24 hr 06/22/24 19:54 06/23/24 03:41 06/23/24 07:51 Temperature 97.9 F 96.8 F 97.4 F Pulse Rate 60 65 63 Respiratory Rate 18 16 16 Blood Pressure 133/73 127/57 L 138/59 L Pulse Oximetry 100 99 99 Oxygen Delivery Method Room Air Room Air Room Air 06/23/24 15:12 Temperature 97.3 F Pulse Rate 57 Respiratory Rate 20 Blood Pressure 128/59 L Pulse Oximetry 97 Oxygen Delivery Method Room Air BMI result Body Mass Index 23.7 Labs 06/17/24 04:29 06/23/24 05:08 Labs: Laboratory Results - last 48 hr 06/22/24 06/22/24 06/23/24 05:44 14:00 05:08 Hold Purple Top SEE NOTE Creatinine 0.87 0.84 Estim Creat Clear Calc 120.7 125.0 Estimated GFR > 60 > 60 Random Vancomycin 22.9 H 54.9 H* Imaging Radiology Impressions: ITS Impressions Chest X-Ray 06/16/24 22:47 IMPRESSION: Unremarkable examination. Medications Medications Current Medications Acetaminophen (Acetaminophen 325 Mg Tablet) 650 mg PO Q6H PRN PRN Reason: Pain, Mild (Pain Scale 1-3), fever or headache Calcium Carbonate (Calcium Carbonate 750 Mg Tab.Chew) 750 mg PO Q4H PRN PRN Reason: Heartburn Last Admin: 06/20/24 01:49 Dose: 750 mg Enoxaparin Sodium (Enoxaparin Sodium 40 Mg/0.4 Ml Syringe) 40 mg SUBCUT Q24H [facility] Last Admin: 06/23/24 08:04 Dose: Not Given Gabapentin (Gabapentin 100 Mg Capsule) 100 mg PO TID [facility] Last Admin: 06/23/24 15:23 Dose: 100 mg Vancomycin HCl 1,250 mg/ (Sodium Chloride) 250 mls @ 166.667 mls/hr IV Q8H [facility] Last Infusion: 06/23/24 12:27 Dose: Infused Magnesium Hydroxide (Milk Of Magnesia 30 Ml Oral.Susp) 30 ml PO DAILY PRN PRN Reason: Constipation Melatonin (Melatonin 3 Mg Tablet) 6 mg PO BEDTIME PRN PRN Reason: Insomnia Last Admin: 06/22/24 20:36 Dose: 6 mg Methadone HCl (Methadone Hcl 20 Mg/2 Ml Oral.Conc) 70 mg PO DAILY@0800 [facility] Last Admin: 06/23/24 07:58 Dose: 70 mg Methadone HCl (Methadone Hcl 10 Mg Tablet) 10 mg PO BEDTIME PRN PRN Reason: Opiate Withdrawal Last Admin: 06/22/24 20:36 Dose: 10 mg Mirtazapine (Mirtazapine 7.5 Mg Tablet) 7.5 mg PO BEDTIME [facility] Last Admin: 06/22/24 20:37 Dose: 7.5 mg Nicotine (Nicotine 21 Mg Patch.Td24) 21 mg TRANSDERMA DAILY [facility] Last Admin: 06/23/24 07:57 Dose: 21 mg Nicotine Polacrilex (Nicotine Polacrilex 2 Mg Gum) 2 mg BUCCAL Q2H PRN PRN Reason: Nicotine Cravings Last Admin: 06/18/24 16:18 Dose: 2 mg Ondansetron HCl (Ondansetron Hcl 4 Mg/2 Ml Vial) 4 mg IVPUSH Q8H PRN PRN Reason: Nausea and Vomiting Last Admin: 06/18/24 03:26 Dose: 4 mg Pharmacy Consult (Consult Rx Vancomycin Dosing) 1 each MISCELLANE DAILY PRN PRN Reason: Consult order Sodium Chloride (0.9 % Sodium Chloride Flush 3 Ml Syringe) 3 ml IVFLUSH QSHIFT [facility] Last Admin: 06/23/24 15:23 Dose: 3 ml Allergies Allergies Allergy/AdvReac Type Severity Reaction Status Date / Time quetiapine [From SEROQUEL] Allergy Unknown UNK Verified 06/16/24 22:19 trazodone [TRAZODONE] Allergy Unknown UNK Verified 06/16/24 22:19 Assessment & Plan Assessment & Plan (1) Opioid use disorder: Status: Acute Code(s): F11.99 - Opioid use, unspecified with unspecified opioid-induced disorder Assessment and Plan: * methadone increase to 90mg QD in AM 06/24 * cornel (06/23) last dose of 10mg methadone Total time managing care of this patient today _15___ minutes.
[2024-06-23 17:42] LABS: Vancomycin Random 23.7 mcg/mL (15-20)
[2024-06-23 19:22] VITALS: BP 128/77; PULSE 64; RESP 20; TEMP 36.5; O2SAT 97
[2024-06-23] MEDS: methADONE HCl 10 MG TABLET PO (20:50)
[2024-06-23] MEDS: Melatonin 3 MG TABLET 6 MG PO (20:50)
[2024-06-23] MEDS: Mirtazapine 7.5 MG TABLET PO (20:50)
[2024-06-24] MEDS: Calcium Carbonate 750 MG TAB.CHEW PO (01:30)
[2024-06-24 03:30] VITALS: BP 128/76; PULSE 63; RESP 18; TEMP 36.3; O2SAT 97
[2024-06-24] MEDS: vancomycin HCL 1,000 MG in 0.9 % Sodium Chloride 250 ML 270 MG IV ×2 (03:33→12:46)
[2024-06-24 07:41] VITALS: BP 126/61; PULSE 67; TEMP 36.7; O2SAT 97
[2024-06-24 07:46] LABS: Creatinine Clr Calc Pharmacy 122.1; Estimated Glomerular Filt Rate > 60
[2024-06-24] MEDS: Gabapentin 100 MG CAPSULE PO ×2 (08:02→14:53)
[2024-06-24] MEDS: Nicotine 21 MG PATCH.TD24 TRANSDERMA (08:02)
[2024-06-24] MEDS: 0.9 % Sodium Chloride Flush 3 ML SYRINGE IVFLUSH (08:02)
[2024-06-24] MEDS: methADONE HCl 20 MG/2 ML ORAL.CONC 90 MG PO (08:02)
--- NOTE | 2024-06-24 10:27 | MHC.CM.PN ---
Patient will discharge today to [facility]. Methadone guest dosing has been set up by the section plotter operator. Contact info for the Nurse 2 Nurse report has been provided to the RN. Transport is booked for 4pm package pick up at [facility]. PICC line info as well as DC info will be sent to the facility via [facility] once available.
--- NOTE | 2024-06-24 10:37 | PM.DS ---
DS: Providers Provider Date of Service: 06/24/24 Date of admission: 06/17/24 00:29 Date of discharge: 06/24/24 Primary care physician: Estephanie Lynne MD Consults: 06/17/24 00:29 Consult to Infectious Diseases Routine Consulting Provider: [facility] Reason for consultation: bacteremia 06/17/24 00:48 Addiction Medicine Routine Consulting Provider: Addiction Covering Reason for consultation: IV drug use disorder DS: Diagnosis Discharge Diagnosis (1) Opioid use disorder: Status: Acute DS: Summary Hospital Course Hospital Course: Date of Service: 06/17/24 Chief Complaint: Bacteremia This is a 33-year-old male with pertinent history of IV drug use disorder, hepatitis-C who presents to the emergency department evaluation of chest pain. Of note, patient was admitted on 06/10 with bacillus bacteremia and initiated on IV vancomycin. Infectious Disease was consulted who recommended 4 weeks of IV antibiotics as repeat blood cultures were positive. Patient left against medical advice on 06/11 and p.o. doxycycline was sent to patient's pharmacy and patient was made aware that this was a suboptimal treatment as bacteremia persisted. Patient did not take p.o. antibiotics after he left against medical advice. Patient's mother picked up p.o. doxycycline from the pharmacy but patient admits that he has not been taking it. Patient is concerned about his blood infection and wants to be treated. Does endorse using IV drugs in the day of presentation. No fever, chills, nausea, vomiting, palpitations, shortness of breath, abdominal pain, changes in urinary or bowel habits. In the emergency department, blood culture obtained and patient was given IV vancomycin. Hospital course: 33-year-old male with pertinent history of IV drug use disorder, hepatitis-C recently admitted to [facility] for bacillus bacteremia left against medical advice returned back for chest pain localized to left sternoclavicular joint and was admitted for bacteremia, placed on IV vancomycin patient had no fevers, normal WBC count , repeat blood culture from 06/17 grew MRSA, therefore antibiotics continued repeat blood culture obtained on 06/20 that is negative a PICC line placed and patient is being discharged to rehab facility for total 4 weeks of IV antibiotics end date , echocardiogram 06 10 showed no acute valvular abnormality recommend to follow vanco trough and renal function while on vancomycin, in regard to left sternoclavicular joint pain, CT chest showed prominent soft tissue without collection or bony erosive changes, swelling and tenderness is improving. In regard to history of IV polysubstance use disorder, patient seen by Addiction Team and placed on methadone , mirtazapine q.h.s., tizanidine and Neurontin, recommend close outpatient follow-up at methadone clinic In regard to hepatitis-C recommend outpatient follow-up with PCP and GI Tobacco use disorder on nicotine patch, counseling done. Time Attestation Discharge Coordination Time (in mins): 40 Quality: Safe Use of Opioids Does Pt have an Active Cancer Diagnosis on the Problem List?: No Quality: Stroke Does the patient have a stroke diagnosis?: No Physical Exam Vital Signs: Vital Signs: Last Vital Signs Temp 98.1 F 06/24/24 07:41 Pulse 67 06/24/24 07:41 Resp 18 06/24/24 03:30 BP 126/61 06/24/24 07:41 Pulse Ox 97 06/24/24 07:41 O2 Del Method Room Air 06/24/24 07:41 BMI result Body Mass Index 23.7 Const: Other: General awake alert x3, in no acute distress. Neck no JVD. CVS regular rate rhythm, Swelling left sternoclavicular joint significantly improved since last admission, no induration, no fluctuation, no warmth, no hyperemia, mild tenderness to palpation. Respiratory lungs clear to auscultation, no respiratory distress, no wheeze, no rhonchi. Gastrointestinal abdomen soft, non tender, bowel sounds audible. Extremities no edema. Neuro non focal Psych appropriate affect DS: Data Data Completed and Pending Completed studies during hospitalization [Text1]: Procedures Drainage of [place], Percutaneous Approach (03/25/24) Labs on day of discharge: Laboratory Results - last 24 hr 06/23/24 06/24/24 17:15 06:56 Creatinine 0.86 Estim Creat Clear Calc 122.1 Estimated GFR > 60 Random Vancomycin 23.7 H Preliminary micro results at discharge 06/20/24 12:54 Blood Culture - Preliminary Blood - Venous No growth after 48 hours. 06/20/24 12:54 Blood Culture - Preliminary Blood - Venous No growth after 48 hours. Discharge Plan Discharge Anticipated Discharge Date/Time: 06/24/24 10:29 Patient Disposition: Xfer SNF Discharge Diagnosis: MRSA bacteremia Substance use disorder Referrals: [facility] [Outside] - 1 Week Estephanie Lynne MD [Primary Care Provider] - 1 Week Discharge Medications: New nicotine 21 mg/24 hr Patch 24 Hour 21 mg transdermal DAILY Qty: 30 0RF gabapentin 100 mg Capsule 100 mg PO TID Qty: 60 0RF mirtazapine 7.5 mg Tablet 7.5 mg PO BEDTIME Qty: 30 0RF Discharge Orders: Discharge Order (Routine); Ordered 06/24/24 Ordered By: Velasquez Contreras Diet: Advance to usual diet Activity on Discharge: As tolerated Stand Alone Forms: Patient Portal Discharge page Print Language: [place] Care Plan Goals: take vanco mycin 1000mg q 8h end date 07/18 Continue methadone 90 mg daily as per Addiction Team Health Concerns: polysubstance abuse Plan of Treatment: follow up with pcp call for appointment Assessment: as above
--- NOTE | 2024-06-24 12:36 | HO.PICC ---
PICC Line Insertion NPICC Diagnosis: Bacteremia Indication: fci antibiotics Pertinent Labs: Reviewed Technique: Following informed consent including risks, benefits and alternatives and using sterile technique including cap and mask, sterile gown, glove and drape, the right arm was prepped and draped in the usual sterile fashion of full barrier technique with CHG. Following completion of [place] Protocol the skin and soft tissues were anesthetized with 1% Lidocaine plain. Using ultrasound guidance, right Basilic vein access was obtained twice by Jo Ann Cherry, but unable to pass guidewire. Right brachial vein access was obtained on first attempt by Jordy Jeong RN. Over an 0.018 wire through peel-away sheath, a 4FR single lumen PASV PICC line was positioned. Catheter length is 45 CM internal length, 1 CM external length, for a total trimmed length of 46 CM. The procedure was performed in S272. Tip verification was performed by Shawn Márquez with Sherlock 3CG. Tip located in SVC. Ultrasound was used to document vein patency and for needle entry. A formal ultrasound picture and cardiac rhythm strip was recorded. Vascular Technical Operations Vice President has released the line for use and it is currently dressed with a StatLock, Tegaderm, and CHG disc. Verification has been performed for blood return and line patency. Arm Circumference: 32 CM Equipment: GooodJobOLO Catheter Type: 4FR single lumen PASV PICC Lot #: [id number]
== END 2024-06-24 17:13 | disposition skilled nursing facility (03) | DRG 724 ==
LOC: HO.ED 06-17 00:37 → HO.EDOVER 06-17 00:47 → HO.S3 06-17 19:17
PROVIDERS: Admitting Provider Student in an Organized Health Care Education/Training Program; Emergency Provider Emergency Medicine; PCP Family Medicine; Visit Provider Hospitalist
DX: R78.81 Bacteremia (principal); B19.20 Unspecified viral hepatitis C without hepatic coma; B95.62 Methicillin resistant Staphylococcus aureus infection as the cause of diseases classified elsewhere; F11.23 Opioid dependence with withdrawal; F17.210 Nicotine dependence, cigarettes, uncomplicated; M25.59 Pain in other specified joint; F19.90 Other psychoactive substance use, unspecified, uncomplicated; T36.4X6A Underdosing of tetracyclines, initial encounter; Z71.6 Tobacco abuse counseling; Z79.899 Other long term (current) drug therapy
CPT/HCPCS: 36415; 36573; 71045; 80048; 80202; 80307; 82565; 83605; 84484; 85025; 87040; 87077; 87147; 87186; 87205; 93005; 99285; C1751; C1894; J1650; J2405; J3370; J3371

== ENCOUNTER → 2024-06-17 00:29 | Outpatient (BNV) | payer OTHER, SELFPAY | PROVIDERS: Admitting Provider Student in an Organized Health Care Education/Training Program; Emergency Provider Emergency Medicine; PCP Family Medicine; Visit Provider Student in an Organized Health Care Education/Training Program | DX: F19.10 Other psychoactive substance abuse, uncomplicated (principal); R78.81 Bacteremia | CPT/HCPCS: 99222; 99232; 99239; 99499 ==

== ENCOUNTER → 2024-06-17 00:29 | Outpatient (BNV) | payer OTHER, SELFPAY | PROVIDERS: Admitting Provider Student in an Organized Health Care Education/Training Program; Emergency Provider Emergency Medicine; PCP Family Medicine; Visit Provider Nurse Practitioner Psychiatric/Mental Health | DX: F11.90 Opioid use, unspecified, uncomplicated (principal) | CPT/HCPCS: 99231; 99232; 99499 ==

== ENCOUNTER → 2024-06-17 00:29 | Outpatient (BNV) | payer OTHER, SELFPAY | PROVIDERS: Admitting Provider Student in an Organized Health Care Education/Training Program; Emergency Provider Emergency Medicine; PCP Family Medicine; Visit Provider Internal Medicine | DX: F19.10 Other psychoactive substance abuse, uncomplicated (principal); R78.81 Bacteremia | CPT/HCPCS: 99222 ==

== ENCOUNTER 2024-06-25 15:29 | Emergency (ER) | payer OTHER, SELFPAY ==
[2024-06-25 15:39] VITALS: BP 145/77; PULSE 73; RESP 16; TEMP 35.9; O2SAT 96; BMI 25.8
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
--- NOTE | 2024-06-25 15:52 | MHC.EDTECH ---
Patient was called to obtain labs ,no answer ,rn palliative care aware .
[2024-06-25 16:14] LABS: MANUAL DIFF FLAG NO
[2024-06-25 16:17] LABS: Basophils Percent Auto 0.4 % (0-2); Eosinophils Absolute Auto 0.5 X10*3/uL (0.0-0.4); Eosinophils Percent Auto 6.8 % (0-4); Hematocrit 34.6 % (42.0-52.0); Hemoglobin 11.4 g/dl (14.0-18.0); Imm Gran Abs Auto 0.03 X10*3/uL (0.00-0.03); Imm Gran Pct Auto 0.4 % (0.0-0.4); Lymphocytes Absolute Auto 3.1 X10*3/uL (1.2-4.9); Lymphocytes Percent Auto 44.3 % (20-40); Mean Corpuscular HGB Conc 32.9 g/dl (31.0-36.0); Mean Corpuscular Hemoglobin 27.2 pg (27.0-33.0); Mean Corpuscular Volume 82.6 fL (80.0-98.0); Mean Platelet Volume 9.2 fL (9.4-12.4); Monocytes Absolute Auto 0.7 X10*3/uL (0.1-1.2); Monocytes Percent Auto 10.5 % (2-11); Neutrophils Absolute Auto 2.6 x10*3/uL (2.0-8.3); Neutrophils Percent Auto 37.6 % (45-73); Platelet Count 381 X10*3/uL (160-400); Red Blood Count 4.19 X10*6/uL (4.60-5.80); Red Cell Distribution Width 15.9 % (11.0-16.0)
[2024-06-25 16:38] LABS: Alanine Aminotransferase 159 U/L (0-40); Albumin Level 3.7 g/dL (3.5-5.0); Alkaline Phosphatase 116 U/L (39-117); Anion Gap 13 (12-20); Aspartate Amino Transferase 145 U/L (5-37); Bilirubin Total 0.1 mg/dL (0.0-1.0); Blood Urea Nitrogen 13 mg/dL (9-16); Calcium 10.1 mg/dL (8.4-10.2); Carbon Dioxide 27 mmol/L (22-29); Chloride 101 mmol/L (96-108); Creatinine Clr Calc Pharmacy 89.8; Estimated Glomerular Filt Rate > 60; Glucose Random 95 mg/dL (60-115); Potassium 4.8 mmol/L (3.3-5.1); Sodium 136 mmol/L (135-145); Total Protein 9.7 g/dL (6.5-8.0)
[2024-06-25 21:08] LABS: Vancomycin Trough 8.1 mcg/mL (10.0-20.0)
[2024-06-25] MEDS: vancomycin/NS 2,000 MG/500 ML PLAST..BAG 250 MG IV (21:15)
--- NOTE | 2024-06-25 22:47 | PC.NURSE ---
pt medicated per MAR- pt met with CM plan is for pt to be placed in STR to complete ABX therapy. pt calm and cooperative with care.
[2024-06-25 23:02] VITALS: BP 148/70; PULSE 94; RESP 17; TEMP 36.4; O2SAT 97
--- NOTE | 2024-06-25 23:15 | MHC.CM.ED ---
Addendum entered by Lucia Nielsen 06/25/24 23:41: Referrals made within 100 miles. Original Note: CM met with patient at the request of Evans ANAYA. Pt was hospitalized at [facility] form 06/17-06/24 with Bacteremia. Pt left [facility] today AMA. PICC line was removed at facility. Pt reports rats and filth at facility and refuses to return. Per infectious disease, pt needs an additional 4 weeks of IV antibiotics, as he already failed PO antibiotics. Pt is on 90 mg methadone daily. Pt has a hx of IV drug abuse, opioid use disorder and Hep C. Pt is agreeable to SNF for IV antibiotics, but will not return to [place]. CM explained that referrals will be made 50 miles, as many facilities do not administer methadone. HCP on file -Makayla Guerrero (mother) [phone]. PCP is at the [facility]. Referrals made. Pt is aware that he will remain in the ED pending placement. Will get his methadone. Denies active drug use today.
[2024-06-25 23:25] VITALS: BP 133/64; PULSE 70; RESP 16; TEMP 36.7; O2SAT 95
--- NOTE | 2024-06-25 23:27 | MHC.EDTECH ---
This pct just assumed care of patient ,vitals taken ,no apparent distress noted ,Call andrews within pt reach .
[2024-06-26 01:52] VITALS: BP 122/72; PULSE 85; RESP 16; TEMP 36.8; O2SAT 98
--- NOTE | 2024-06-26 07:23 | PC.NURSE ---
Late Entry. Pt was relocated to ED bed 21 around 0600 hours. Prior to the pt's transfer from [facility] to the main Mica from security confirmed that she searched the pt's belongings for contraband and informed this typewriter assembly and parts inspector that he was all set and belongings remain at bedside with the patient.
--- NOTE | 2024-06-26 09:33 | PC.NURSE ---
attempted to call [facility] to verify methadone , told to try again later to see if there is a nurse available.
--- NOTE | 2024-06-26 10:43 | PC.NURSE ---
methadone verified @ [facility] by PAYAM Fierro. Last dose 06/25/24 at 1200. verification form completed and faxed to pharmacy
--- NOTE | 2024-06-26 10:49 | HE.PHANOTE ---
Re: Methadone Last dose verified for Methadone 90 mg daily on 06/25/24@1200. Verified from [facility].
[2024-06-26] MEDS: methADONE HCl 20 MG/2 ML ORAL.CONC 90 MG PO (11:23)
[2024-06-26] MEDS: Calcium Carbonate 750 MG TAB.CHEW 1500 MG PO ×2 (12:55→20:32)
--- NOTE | 2024-06-26 12:57 | PHA.PROG ---
Admission Date/Time: Indication: Bacteremia Weight in k.379 kg Adjusted body weight in Kg: Massey body weight in Kg: Obesity Dosing Indication % IBW: Serum Creatinine - Last 168 Hours 06/25/24 16:07 Creatinine 1.17 Estimated CrCl and GFR - Last 168 Hours 06/25/24 16:07 Estim Creat Clear Calc 89.8 Estimated GFR > 60 Vancomycin Loading Dose: 2000mg x 1 Current Vancomycin Dosing Regimen: 750mg Q8H Vancomycin Monitoring using AUC goal of 400 - 600 range with trough as surrogate marker: 568mg/L Date and Time for next Vancomycin Level to be drawn: 06/27/24 @1100 Vancomycin Trough 8.1 mcg/mL (10.0-20.0) L 06/25/24 20:50 Pharmacist Comments on Vancomycin Plan: Patient left AMA and came back, full consult ordered by ED provider. Predicted trough of 19.6mg/L; will continue to monitor and adjust as necessary Vancomycin dosing will take advantage of [employer] as a clinical decision support tool that uses Bayesian modeling to calculate individual patient's pharmacokinetic parameters and forecast the patient's drug concentration time course with the target goal AUC 24 range of 400 - 600 mg/L/hr.
[2024-06-26 14:00] VITALS: BP 138/73; PULSE 64; RESP 18; TEMP 36.5; O2SAT 100
[2024-06-26] MEDS: vancomycin HCL 750 MG in 0.9 % Sodium Chloride 250 ML 265 MG IV ×2 (14:07→20:59)
--- NOTE | 2024-06-26 14:24 | MHC.CM.PN ---
Met w/pt to discuss d/c planning: pt requesting to return to home w/IV ATB: reminded pt of why this plan isn't feasible and informed him that 2 facilities are reviewing: [facility] and [facility]. Both request CM to contact them on Friday for bed availibility. [facility]t his c/o that the facility is dirty, in disrepair and that the food was inedible colored blobs Pt will need a PICC line for continuation of LT ATB once a facility has accepted him. ED CM to follow
--- NOTE | 2024-06-26 14:56 | PC.NURSE ---
Transferred from main ED to overflow 4. Patient ambulating safely in room. Denies pain or discomfort. Seen by case management
--- NOTE | 2024-06-26 17:31 | PC.NURSE ---
Patient stating he wishes to be a full code
--- NOTE | 2024-06-26 22:09 | MHC.EDTECH ---
This tech took over care as PCT [id number] LABS ARE OVERDUE AT 1243 PM THIS TECH IS GOING TO ATTEMPT Plan of care ongoing
[2024-06-26 22:48] LABS: Estimated Glomerular Filt Rate > 60
[2024-06-27 00:09] VITALS: BP 129/67; PULSE 68; RESP 17; TEMP 36.3; O2SAT 98
[2024-06-27] MEDS: Melatonin 3 MG TABLET 6 MG PO (00:28)
[2024-06-27] MEDS: Gabapentin 100 MG CAPSULE PO ×4 (00:28→21:19)
[2024-06-27] MEDS: Mirtazapine 7.5 MG TABLET PO ×2 (01:25→21:19)
--- NOTE | 2024-06-27 01:55 | PC.NURSE ---
Assumed care of patient. Patient requesting night time medications. Resting at present , denies pain.
[2024-06-27 07:37] VITALS: BP 149/62; PULSE 80; RESP 18; TEMP 36.4; O2SAT 100
[2024-06-27] MEDS: Nicotine 21 MG PATCH.TD24 TRANSDERMA (08:59)
[2024-06-27] MEDS: methADONE HCl 20 MG/2 ML ORAL.CONC 90 MG PO (09:22)
[2024-06-27] MEDS: vancomycin HCL 750 MG in 0.9 % Sodium Chloride 250 ML 265 MG IV ×2 (09:23→16:08)
[2024-06-27] MEDS: Calcium Carbonate 750 MG TAB.CHEW 1500 MG PO (12:06)
--- NOTE | 2024-06-27 13:17 | MHC.CM.ED ---
Review of expansive STR referrals: no new offers. Updated pt who verbalized understanding of d/c plan. Two facilities are requesting inquiries into availability on Friday. [facility] and [facility]. ED CM to follow
[2024-06-27 14:00] VITALS: BP 131/79; PULSE 57; RESP 18; O2SAT 95
--- NOTE | 2024-06-27 15:12 | PC.NURSE ---
pt calm and cooperative this shift with no acute issues
--- NOTE | 2024-06-27 19:00 | PC.NURSE ---
Report received from Kaden HARE, assume care of pt at this time
[2024-06-27 19:16] LABS: Vancomycin Random 9.6 mcg/mL (15-20)
[2024-06-27 20:00] LABS: Creatinine Clr Calc Pharmacy 86.8; Estimated Glomerular Filt Rate > 60
[2024-06-27] MEDS: vancomycin HCL 1,000 MG in 0.9 % Sodium Chloride 250 ML 270 MG IV (20:03)
[2024-06-27 21:02] VITALS: BP 121/62; PULSE 64; RESP 16; TEMP 37; O2SAT 97
--- NOTE | 2024-06-28 01:46 | PC.NURSE ---
pt up to the bathroom, and request ice cream
[2024-06-28] MEDS: Calcium Carbonate 750 MG TAB.CHEW 1500 MG PO (01:50)
--- NOTE | 2024-06-28 01:54 | PC.NURSE ---
pt states his iv was coming out, pt had it in his hand with cannula intact, dressing applied
[2024-06-28] MEDS: vancomycin HCL 1,000 MG in 0.9 % Sodium Chloride 250 ML 270 MG IV ×2 (04:18→13:11)
[2024-06-28 06:10] VITALS: BP 123/62; PULSE 78; RESP 16; TEMP 36.9; O2SAT 97
--- NOTE | 2024-06-28 06:26 | PC.NURSE ---
resting quietly, resp with ease, no s/s of acute distress, will cont plan of care
[2024-06-28] MEDS: Nicotine 21 MG PATCH.TD24 TRANSDERMA (09:01)
[2024-06-28] MEDS: Gabapentin 100 MG CAPSULE PO ×3 (09:01→21:22)
[2024-06-28] MEDS: methADONE HCl 20 MG/2 ML ORAL.CONC 90 MG PO (09:18)
--- NOTE | 2024-06-28 10:12 | MHC.CM.ED ---
Patient remains in ER overflow. Clinical updates sent to facilities still reviewing: [facility], [facility], [facility], [facility], [facility], [facility], [facility], [facility], [facility], and [facility]. Continue to monitor for d/c needs.
[2024-06-28 12:01] LABS: Creatinine Clr Calc Pharmacy 114.2; Estimated Glomerular Filt Rate > 60
[2024-06-28 14:00] VITALS: BP 135/55; PULSE 67; RESP 14; TEMP 36.6; O2SAT 96
--- NOTE | 2024-06-28 14:39 | MHC.CM.ED ---
Patient remains in ER overflow. [facility] in [place] is only facility that is willing to offer a bed. Patient accepts bed. PICC will need to be reinserted. Debbie MONACO aware. Will need [facility] PAS Level 2. Level 1 already submitted. Will need guest methadone dosing arranged at [facility] in [place]. Radha Wang RN will help facilitate this. [facility] will go for ins auth. Continue to monitor for d/c needs.
--- NOTE | 2024-06-28 14:51 | MHC.RECOVRN ---
Pts referral sent to [facility] in [place].
[2024-06-28 19:49] LABS: Vancomycin Random 13.5 mcg/mL (15-20)
--- NOTE | 2024-06-28 19:58 | HE.PHANOTE ---
RE: vanco Trough on 06/28 came back at 13.5mg/L; increased dose to 1250mg Q8H with predicted trough of 15.2mg/L, AUC of 445mg/L. Next level to be drawn 06/29 @1800
[2024-06-28 20:00] VITALS: BP 129/64; PULSE 68; RESP 18; TEMP 37; O2SAT 98
[2024-06-28] MEDS: Mirtazapine 7.5 MG TABLET PO (21:22)
[2024-06-28] MEDS: vancomycin HCL 1,250 MG in 0.9 % Sodium Chloride 250 ML 166.67 MG IV (21:22)
--- NOTE | 2024-06-28 21:24 | PC.NURSE ---
abx delayed. not available in [employer]. medicinal chemist at this time
[2024-06-29] MEDS: Melatonin 3 MG TABLET 6 MG PO ×2 (01:01→22:45)
[2024-06-29] MEDS: Calcium Carbonate 750 MG TAB.CHEW 1500 MG PO (01:01)
[2024-06-29] MEDS: vancomycin HCL 1,250 MG in 0.9 % Sodium Chloride 250 ML 166.67 MG IV (04:32)
[2024-06-29 06:00] VITALS: BP 126/72; PULSE 89; RESP 18; TEMP 36.4; O2SAT 98
--- NOTE | 2024-06-29 08:15 | PHA.MEDREC ---
Addendum entered by Sabino Choi [facility] 06/29/24 08:25: MED REC CHECKED BY [facility] Original Note: Pharmacy Consult ? Medication Reconciliation Pharmacy has completed the medication reconciliation. Patient was just here 06-10-24, 06-14-24 and 06-17-24. Utilized discharge packet to confirm me list. Note form last med rec (Utilized recent discharge packet from 06/10, pt left AMA. Patient did not take p.o. antibiotics after he left against medical advice on 06/10. Patient's mother picked up p.o. doxycycline from the pharmacy but patient admits that he has not been taking it)
[2024-06-29] MEDS: Gabapentin 100 MG CAPSULE PO ×3 (09:08→21:43)
[2024-06-29] MEDS: Nicotine 21 MG PATCH.TD24 TRANSDERMA (09:08)
[2024-06-29] MEDS: methADONE HCl 20 MG/2 ML ORAL.CONC 90 MG PO (09:09)
[2024-06-29 11:52] LABS: Creatinine Clr Calc Pharmacy 92.9; Estimated Glomerular Filt Rate > 60
[2024-06-29] MEDS: vancomycin HCL 1,250 MG in 0.9 % Sodium Chloride 250 ML 166.7 MG IV (13:39)
--- NOTE | 2024-06-29 13:46 | PC.NURSE ---
pt medicated per order
[2024-06-29 14:00] VITALS: BP 128/80; PULSE 78; RESP 18; TEMP 36.8; O2SAT 98
--- NOTE | 2024-06-29 19:30 | ECG_ITS ---
Test Reason : CP Blood Pressure : / mmHG Vent. Rate : 061 BPM Atrial Rate : 061 BPM P-R Int : 136 ms QRS Dur : 092 ms QT Int : 408 ms P-R-T Axes : 076 067 048 degrees QTc Int : 410 ms Normal sinus rhythm T wave abnormality, consider lateral ischemia Abnormal ECG When compared with ECG of 16-JUN-2024 22:32, Vent. rate has decreased BY 52 BPM Nonspecific T wave abnormality, worse in Inferior leads T wave inversion now evident in Lateral leads Referred By: Nitza Alfaro Electronically Signed By:CALVIN LIPSCOMB
[2024-06-29 20:19] LABS: MANUAL DIFF FLAG NO
[2024-06-29 20:21] LABS: Basophils Percent Auto 0.5 % (0-2); Eosinophils Absolute Auto 0.4 X10*3/uL (0.0-0.4); Eosinophils Percent Auto 5.9 % (0-4); Hematocrit 33.3 % (42.0-52.0); Hemoglobin 10.7 g/dl (14.0-18.0); Imm Gran Abs Auto 0.02 X10*3/uL (0.00-0.03); Imm Gran Pct Auto 0.3 % (0.0-0.4); Lymphocytes Absolute Auto 2.6 X10*3/uL (1.2-4.9); Lymphocytes Percent Auto 43.2 % (20-40); Mean Corpuscular HGB Conc 32.1 g/dl (31.0-36.0); Mean Corpuscular Hemoglobin 27.2 pg (27.0-33.0); Mean Corpuscular Volume 84.5 fL (80.0-98.0); Monocytes Absolute Auto 0.7 X10*3/uL (0.1-1.2); Monocytes Percent Auto 11.1 % (2-11); Neutrophils Absolute Auto 2.4 x10*3/uL (2.0-8.3); Platelet Count 255 X10*3/uL (160-400); Red Blood Count 3.94 X10*6/uL (4.60-5.80); Red Cell Distribution Width 16.1 % (11.0-16.0); White Blood Count 6.1 X10*3/uL (4.8-10.8)
[2024-06-29 20:37] LABS: Alanine Aminotransferase 177 U/L (0-40); Albumin Level 3.6 g/dL (3.5-5.0); Alkaline Phosphatase 123 U/L (39-117); Anion Gap 14 (12-20); Aspartate Amino Transferase 153 U/L (5-37); Bilirubin Total 0.1 mg/dL (0.0-1.0); Blood Urea Nitrogen 12 mg/dL (9-16); Calcium 9.8 mg/dL (8.4-10.2); Carbon Dioxide 26 mmol/L (22-29); Chloride 103 mmol/L (96-108); Estimated Glomerular Filt Rate > 60; Glucose Random 93 mg/dL (60-115); Potassium 3.9 mmol/L (3.3-5.1); Sodium 139 mmol/L (135-145); Total Protein 8.9 g/dL (6.5-8.0)
[2024-06-29 20:44] LABS: Vancomycin Random 17.9 mcg/mL (15-20)
[2024-06-29 20:46] LABS: Troponin-I High Sensitivity < 2.7 ng/L (<3.5-35.0)
--- NOTE | 2024-06-29 20:53 | HE.PHANOTE ---
RE: VANCO DOSING Random came back as 17.9 which is higher than predicted (15.7). Dose is decreased to 1000 mg q8h, next random is scheduled for 06/30/24 @1900.
[2024-06-29] MEDS: vancomycin HCL 1,000 MG in 0.9 % Sodium Chloride 250 ML 270 MG IV (21:40)
[2024-06-29 22:00] VITALS: BP 139/71; PULSE 59; RESP 20; TEMP 36.7; O2SAT 97
[2024-06-29] MEDS: Mirtazapine 7.5 MG TABLET PO (22:18)
--- NOTE | 2024-06-29 23:33 | ECG_ITS ---
Test Reason : chest pain Blood Pressure : / mmHG Vent. Rate : 057 BPM Atrial Rate : 057 BPM P-R Int : 142 ms QRS Dur : 090 ms QT Int : 418 ms P-R-T Axes : 075 059 055 degrees QTc Int : 406 ms Sinus bradycardia Nonspecific T wave abnormality Abnormal ECG When compared with ECG of 29-JUN-2024 19:38, No significant change was found Referred By: Nitza Alfaro Electronically Signed By:CALVIN LIPSCOMB
[2024-06-29] MEDS: Aspirin 81 MG TAB.CHEW 324 MG PO (23:46)
[2024-06-30 01:56] LABS: Troponin-I High Sensitivity < 2.7 ng/L (<3.5-35.0)
--- NOTE | 2024-06-30 03:11 | PC.NURSE ---
Patient c/o chest pain. Provider notified , EKG , and trops ordered. ASA ordered / administered. EKG showed T wave abnormality. Trops normal. Vital signs stable, Patient resting at present time. Not c/o pain since. Will continue to monitor.
[2024-06-30] MEDS: vancomycin HCL 1,000 MG in 0.9 % Sodium Chloride 250 ML 270 MG IV ×3 (05:25→21:24)
[2024-06-30 06:00] VITALS: BP 121/63; PULSE 80; RESP 18; TEMP 36.4; O2SAT 99
--- NOTE | 2024-06-30 08:12 | MHC.RECOVRN ---
Pts referral still under provider review at [facility]. Asked to call back at 10AM ([phone]).
[2024-06-30] MEDS: Nicotine 21 MG PATCH.TD24 TRANSDERMA (08:54)
[2024-06-30] MEDS: Gabapentin 100 MG CAPSULE PO ×3 (08:54→21:23)
[2024-06-30] MEDS: methADONE HCl 20 MG/2 ML ORAL.CONC 90 MG PO (08:55)
--- NOTE | 2024-06-30 10:28 | MHC.RECOVRN ---
Pt is all set to start dosing at [facility] in [place]. CM aware.
--- NOTE | 2024-06-30 10:31 | MHC.CM.ED ---
Addendum entered by Tonia Sanchez 06/30/24 13:05: Received message from Micheline of IR that patient is on their list for PICC insertion but they have many cases scheduled for today. Also verified with Micheline that placement has been found, insurance auth has been obtained and guest methadone dosing has been arranged. Patient needs PICC placement before he can d/c to SNF. Original Note: Patient remains in ER overflow. Guest methadone dosing has been arranged at [facility] in [place] by Radha Wang RN. Still waiting for PICC placement. Allison MONACO is trying to verify when this will be completed. Ahmet Vandana is still in the process of obtaining insurance auth. Continue to monitor for d/c needs.
[2024-06-30 10:53] LABS: Creatinine Clr Calc Pharmacy 108.3; Estimated Glomerular Filt Rate > 60
[2024-06-30 14:00] VITALS: BP 129/60; PULSE 63; RESP 18; TEMP 37; O2SAT 98
--- NOTE | 2024-06-30 16:16 | HO.PICC ---
PICC Line Insertion NPICC Insertion Diagnosis: Bacteremia Indication: Director Digital Sales Antibx Pertinent Labs: Reviewed Technique: Following informed consent including risks, benefits and alternatives and using sterile technique including cap and mask, sterile gown, glove and drape, the Left arm was prepped and draped in the usual sterile fashion of full barrier technique with G. Following completion of [place] Protocol the skin and soft tissues were anesthetized with 1% Lidocaine plain. Using ultrasound guidance, Left Brachial vein access was obtained on the first attempt. Over an 0.018 wire through peel-away sheath, a 4Fr Single Lumen PowerPicc PASV line was positioned. Catheter length is 45Cminternal length, 0CM external length, for a total trimmed length of 45CM. The procedure was performed in RM 272. Tip verification was performed by Shawn Márquez with Sherlock 3CG. Tip located in SVC. Ultrasound was used to document vein patency and for needle entry. A formal ultrasound picture and cardiac rhythm strip was recorded. [employer] has released the line for use and it is currently dressed with a StatLock, Tegaderm, and CHG disc. Verification has been performed for blood return and line patency. Arm Circumference: 34cm Equipment:[employer]Garden PowerPicc Solo Catheter with Sherlock 3 CG Catheter Type: 4FR Single Lumen PASV Lot #: [id number]
[2024-06-30] MEDS: Calcium Carbonate 750 MG TAB.CHEW 1500 MG PO (18:26)
[2024-06-30 19:13] LABS: Vancomycin Random 15.3 mcg/mL (15-20)
[2024-06-30 20:18] VITALS: BP 122/60; PULSE 60; RESP 18; TEMP 36.8; O2SAT 100
--- NOTE | 2024-06-30 20:18 | MHC.EDTECH ---
This tech took over care of patient at 1900,hourly rounds and vitals completed,patient ambulated to the bathroom with a steady gait,2 cups of ice cream given per request/and a cup of coffee,patient is watching TV at this time call andrews in reach
[2024-06-30] MEDS: Mirtazapine 7.5 MG TABLET PO (21:23)
[2024-06-30] MEDS: Melatonin 3 MG TABLET 6 MG PO (21:23)
[2024-07-01] MEDS: Calcium Carbonate 750 MG TAB.CHEW 1500 MG PO (04:51)
[2024-07-01] MEDS: vancomycin HCL 1,000 MG in 0.9 % Sodium Chloride 250 ML 270 MG IV (04:54)
[2024-07-01 06:28] VITALS: BP 122/61; PULSE 63; RESP 17; TEMP 36.7; O2SAT 93
--- NOTE | 2024-07-01 06:34 | MHC.EDTECH ---
THIS DEEP SUBMERGENCE VEHICLE CREWMEMBER CALLED JOHAN @[id number] TO VERIFY BLS TRANSPORT TO [facility], DISPATCH INFORMED ME IT WAS NEVER BOOKED. GAVE DISPATCH [facility] INFORMATION ETA 0900
[2024-07-01] MEDS: methADONE HCl 20 MG/2 ML ORAL.CONC 90 MG PO (08:41)
[2024-07-01] MEDS: Gabapentin 100 MG CAPSULE PO (08:41)
[2024-07-01] MEDS: Nicotine 21 MG PATCH.TD24 TRANSDERMA (08:41)
[2024-07-01 10:58] VITALS: BP 130/85; PULSE 75; RESP 14; TEMP 36.8
== END 2024-07-01 11:00 ==
PROVIDERS: Nurse Practitioner Family; Physician Assistant Medical; Emergency Provider Emergency Medicine Emergency Medical Services; PCP Family Medicine
DX: R78.81 Bacteremia (principal); F19.20 Other psychoactive substance dependence, uncomplicated; B19.20 Unspecified viral hepatitis C without hepatic coma; I10 Essential (primary) hypertension; F11.20 Opioid dependence, uncomplicated; F41.9 Anxiety disorder, unspecified; F17.210 Nicotine dependence, cigarettes, uncomplicated; Z79.899 Other long term (current) drug therapy; Z79.2 Long term (current) use of antibiotics
CPT/HCPCS: 36415; 36573; 80053; 80202; 82565; 83735; 84484; 85025; 93005; 96365; 96366; 99285; C1751; J3370; J3371

== ENCOUNTER 2024-12-02 12:20 | Emergency (ER) | payer MEDICAID, SELFPAY ==
--- NOTE | ~2024-12-02 | XR_ITS ---
EXAMINATION: XR WRIST, LEFT CLINICAL INFORMATION: pain, injury COMPARISON: Left hand radiograph 05/15/2023. TECHNIQUE: PA, lateral, and oblique views of the left wrist. FINDINGS: No fracture, dislocation, or suspicious bone lesion. Normal alignment. Mild negative ulnar variance. Old nonunited ulnar styloid fracture. Corticated densities in the DRUJ syndesmotic region dorsally, likely on the basis of old injury. Minimal dorsal soft tissue swelling. XR/XR wrist LT min 3V IMPRESSION: No acute fracture or dislocation. Electronically signed by: Armond Sandhu MD 12/02/2024 01:09 PM AMADO
--- NOTE | ~2024-12-02 | CT_ITS ---
EXAMINATION: CT HEAD WITHOUT CONTRAST CLINICAL INFORMATION: Head injury, pain COMPARISON: None available. TECHNIQUE: Contiguous axial imaging was performed from the skull base to vertex without intravenous administration of contrast. This CT examination was performed using dose optimization techniques as appropriate, variously including the following: *Automated exposure control *Adjustment of mA and/or kV according to patient size (this includes techniques or standardized protocols for targeted exams where dose is matched to indication/reason for exam; i.e. extremities or head) *Use of iterative reconstruction technique FINDINGS: There is no acute intra-axial, extra-axial bleed, masses or midline shift. There is no acute infarction evolution. There is no edema. The tadeo to white matter differentiation is maintained normal. The lateral ventricles is in size and configuration without enlargement. Bone windows reveal no calvarial abnormality. There is no scalp soft tissue abnormality. Paranasal sinuses and mastoid air cells are well-aerated. CT/CT head/brain wo IV con IMPRESSION: No acute intracranial process seen. Electronically signed by: Luis Zamarripa MD 12/02/2024 01:36 PM EST
--- NOTE | ~2024-12-02 | CT_ITS ---
EXAMINATION: CT CERVICAL SPINE WITHOUT CONTRAST CLINICAL INFORMATION: Injury, pain COMPARISON: None available. TECHNIQUE: Head injury, pain This CT examination was performed using dose optimization techniques as appropriate, variously including the following: *Automated exposure control *Adjustment of mA and/or kV according to patient size (this includes techniques or standardized protocols for targeted exams where dose is matched to indication/reason for exam; i.e. extremities or head) *Use of iterative reconstruction technique DLP: 1030 mGy/cm. FINDINGS: There is mild straightening of cervical lordosis with loss of C6/7 disc height. Rest the disc heights are normal. The vertebral heights and alignment is normal. The craniovertebral junction and the C1-C2 alignment is normal. There is no visible acute fracture, dislocation or subluxation seen. The prevertebral and paravertebral soft tissues are normal. The pharyngeal and tracheal airway is widely patent. Visualized thyroid lobes are symmetric and normal. CT/CT cervical spine wo IV con IMPRESSION: Unremarkable CT brain examination. Fleischner guidelines were followed. Electronically signed by: Luis Zamarripa MD 12/02/2024 01:41 PM AMADO
--- NOTE | ~2024-12-02 | XR_ITS ---
EXAMINATION: XR ELBOW, LEFT CLINICAL INFORMATION: pain, injury COMPARISON: None available. TECHNIQUE: AP, lateral, and oblique views of the left elbow. FINDINGS: No fracture, dislocation, or suspicious bone lesion. Normal alignment. Joint spaces are preserved. There is no elbow joint effusion. Normal-appearing soft tissues. XR/XR elbow LT min 3V IMPRESSION: Normal left elbow. No acute findings. Electronically signed by: Armond Sandhu MD 12/02/2024 01:20 PM AMADO
--- NOTE | ~2024-12-02 | XR_ITS ---
EXAMINATION: XR SHOULDER, LEFT CLINICAL INFORMATION: pain, injury COMPARISON: June 05, 2024. TECHNIQUE: AP and Y-view projection, of the left shoulder. FINDINGS: Unable to evaluate the humeral head and the glenoid of the scapula. There is an overlapping between the glenohumeral joint bony elements. There is a 5 mm, acromioclavicular joint space similar since prior exam. No lytic or blastic lesions. XR/XR shoulder LT min 2V IMPRESSION: Limited the evaluation of the humeral head and glenohumeral joint. No gross dislocation. Electronically signed by: Latrell Jasso MD 12/02/2024 01:11 PM EST
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
[2024-12-02 12:27] VITALS: PULSE 104; O2SAT 95
--- NOTE | 2024-12-02 12:27 | ECG_ITS ---
Test Reason : CHECK QT Blood Pressure : */* mmHG Vent. Rate : 66 BPM Atrial Rate : 66 BPM P-R Int : 142 ms QRS Dur : 86 ms QT Int : 404 ms P-R-T Axes : 74 60 61 degrees QTcB Int : 423 ms Normal sinus rhythm Normal ECG When compared with ECG of 30-Jun-2024 00:02, Nonspecific T wave abnormality no longer evident in Inferior leads T wave amplitude has increased in Anterior leads Referred By: Abida Coon Electronically Signed By: MANUEL RILEY
[2024-12-02 12:30] VITALS: BP 136/80; PULSE 83; RESP 18; TEMP 36.6; O2SAT 95; BMI 22.1
[2024-12-02 13:51] VITALS: BP 104/57; PULSE 76; RESP 18; TEMP 37.2; O2SAT 98
[2024-12-02 13:52] LABS: MANUAL DIFF FLAG NO
[2024-12-02] MEDS: oxyCODONE HCl Immed Release 5 MG TABLET 10 MG PO (13:53)
[2024-12-02] MEDS: methADONE HCl 20 MG/2 ML ORAL.CONC 40 MG PO (13:53)
[2024-12-02 13:55] LABS: Basophils Percent Auto 0.3 % (0-2); Eosinophils Percent Auto 0.4 % (0-4); Hematocrit 34.3 % (42.0-52.0); Hemoglobin 11.5 g/dl (14.0-18.0); Imm Gran Abs Auto 0.02 X10*3/uL (0.00-0.03); Imm Gran Pct Auto 0.3 % (0.0-0.4); Lymphocytes Absolute Auto 1.6 X10*3/uL (1.2-4.9); Lymphocytes Percent Auto 20.3 % (20-40); Mean Corpuscular HGB Conc 33.5 g/dl (31.0-36.0); Mean Corpuscular Hemoglobin 27.5 pg (27.0-33.0); Mean Corpuscular Volume 82.1 fL (80.0-98.0); Mean Platelet Volume 9.5 fL (9.4-12.4); Monocytes Absolute Auto 0.6 X10*3/uL (0.1-1.2); Monocytes Percent Auto 7.2 % (2-11); Neutrophils Absolute Auto 5.5 x10*3/uL (2.0-8.3); Neutrophils Percent Auto 71.5 % (45-73); Platelet Count 254 X10*3/uL (160-400); Red Blood Count 4.18 X10*6/uL (4.60-5.80); Red Cell Distribution Width 16.1 % (11.0-16.0); White Blood Count 7.7 X10*3/uL (4.8-10.8)
[2024-12-02 14:01] LABS: Prothrombin Time 12.1 SEC (10.9-12.4)
[2024-12-02 14:03] LABS: Partial Thromboplastin Time 30.7 SEC (26.0-36.8)
[2024-12-02 14:12] LABS: Alanine Aminotransferase 37 U/L (0-40); Albumin Level 3.8 g/dL (3.5-5.0); Alkaline Phosphatase 89 U/L (39-117); Anion Gap 9 (12-20); Aspartate Amino Transferase 52 U/L (5-37); Bilirubin Total 0.4 mg/dL (0.0-1.0); Blood Urea Nitrogen 11 mg/dL (9-16); Calcium 9.2 mg/dL (8.4-10.2); Carbon Dioxide 27 mmol/L (22-29); Chloride 105 mmol/L (96-108); Creatinine Clr Calc Pharmacy 131.8; Estimated Glomerular Filt Rate > 60; Glucose Random 103 mg/dL (60-115); Magnesium 2.1 mg/dL (1.6-2.6); Sodium 137 mmol/L (135-145); Total Protein 8.5 g/dL (6.5-8.0)
[2024-12-02 14:42] VITALS: BP 144/85; PULSE 78; RESP 18; TEMP 36.6; O2SAT 98
--- OUTSIDE RECORDS SUMMARY | 2024-12-02 17:43 | XMS_ITS | Encounter Summary ---
Author Organization [employer] Address [address] [place] [address] Care Team Providers Care Cork Wirer Name Role Phone Estephanie Lynne MD Primary Care Provider [phone] Encounter Details Date Type Department Care Team (Late st Contact Info) Description 08/02/2024 Telephone [facility] MEDICINE [address] [place], [place] [phone] Estephanie Lynne MD [address], [place] [phone] Social History Tobacco Use Types Packs/Day Years Used Date Smoking Tobacco: Never Assessed Depression Answer Date Recorded Patient Health Questionnaire-9 Score 19 05/27/2023 Depression Answer Date Recorded Patient Health Questionnaire-2 Score 5 05/27/2023 Sex and Gender Information Value Date Recorded Sex Assigned at Male 09/02/2022 10:21 AM EDT Legal Sex Male 10:21 AM EDT Gender Identity Male 09/02/2022 10:21 AM EDT Sexual Orientation Straight 09/02/2022 10 :21 AM EDT documented as of this encounter Plan of Treatment Not on file documented as of this encounter Visit Diagnoses Not on filedocumented in this encounter Additional Health Concerns Assessment Noted Time PHQ-9 Depression Total Score: 19 023 12:18 PM EDT documented as of this encounter Care Teams Cork Wirer Relationship Specialty Start Date End Date Estephanie Lynne MD [address], [place] [phone] PCP - General Family Medicine 08/16/20 documented as of this encounter
--- OUTSIDE RECORDS SUMMARY | 2024-12-02 17:43 | XMS_ITS | Encounter Summary ---
Author Organization [employer] Address [address] [place] [address] Care Team Providers Care Coring Machine Operator Name Role Phone Estephanie Lynne MD Primary Care Provider [phone] Encounter Details Date Type Department Care Team (Late st Contact Info) Description 08/02/2024 Orders Only [facility] MEDICINE [address] [place], [place] [phone] Estephanie Lynne MD [address] [place], [place] [phone] Social History Tobacco Use Types Packs/Day Years [...] documented as of this encounter Care Teams Coring Machine Operator Relationship Specialty Start Date End Date Estephanie Lynne MD [address] [place], [place] [phone] PCP - General Family Medicine 08/16/20 documented as of this encounter
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
== END 2024-12-02 14:44 ==
PROVIDERS: Physician Assistant Medical; Emergency Provider Emergency Medicine; PCP Family Medicine
DX: M25.512 Pain in left shoulder (principal); F11.20 Opioid dependence, uncomplicated; F19.20 Other psychoactive substance dependence, uncomplicated; I10 Essential (primary) hypertension; B19.20 Unspecified viral hepatitis C without hepatic coma; F17.210 Nicotine dependence, cigarettes, uncomplicated; Z79.899 Other long term (current) drug therapy
CPT/HCPCS: 36415; 70450; 72125; 73030; 73080; 73110; 80053; 83735; 85025; 85610; 85730; 93005; 99284

== ENCOUNTER → 2024-12-02 12:25 | Outpatient (BNV) | payer MEDICAID, SELFPAY | PROVIDERS: Emergency Provider Emergency Medicine; PCP Family Medicine; Visit Provider Radiology Diagnostic Radiology | DX: M54.2 Cervicalgia (principal); R51.9 Headache, unspecified; M25.512 Pain in left shoulder; M25.532 Pain in left wrist; M25.522 Pain in left elbow | CPT/HCPCS: 70450; 72125; 73030; 73080; 73110 ==

== ENCOUNTER → 2024-12-02 12:27 | Outpatient (BNV) | payer MEDICAID, SELFPAY | PROVIDERS: Emergency Provider Emergency Medicine; PCP Family Medicine; Visit Provider Internal Medicine | DX: Z13.6 Encounter for screening for cardiovascular disorders (principal) | CPT/HCPCS: 93010 ==

== ENCOUNTER 2025-09-30 20:26 | Emergency (ER) | payer MEDICAID, SELFPAY ==
--- NOTE | 2025-09-30 | ECG_ITS ---
Test Reason : cp Blood Pressure : */* mmHG Vent. Rate : 55 BPM Atrial Rate : 55 BPM P-R Int : 150 ms QRS Dur : 88 ms QT Int : 430 ms P-R-T Axes : 68 49 41 degrees QTcB Int : 411 ms Sinus bradycardia Nonspecific T wave abnormality Abnormal ECG When compared with ECG of 02-Dec-2024 13:32, Nonspecific T wave abnormality, worse in Anterior leads Referred By: Generic ED Physician Electronically Signed By: MANUEL RILEY
--- NOTE | ~2025-09-30 | XR_ITS ---
CLINICAL HISTORY: cp 1 view chest x-ray Comparison: CR/SR - XR CHEST 2 VIEWS - 06/16/24 22:46 EDT Findings: Infrahilar linear opacities favoring atelectasis. No consolidation, large effusion, or pneumothorax. Heart size is normal. No acute fracture. IMPRESSION: Infrahilar linear opacities favoring atelectasis. This document has been electronically signed by: Julianna Gomez MD on 09/30/2025 21:42:46
[2025-09-30 20:39] VITALS: BP 138/58; PULSE 64; RESP 10; TEMP 36.3; O2SAT 98; BMI 25.9
--- OUTSIDE RECORDS SUMMARY | 2025-09-30 20:50 | XMS_ITS ---
Author Organization [facility] Care Team Providers Care Formulation Chemist Name Role Phone Cristo Horner Unavailable Unavailable Boampong, Comfort Animah Unavailable Unavail able Allergies and adverse reactions Code CodeSystem Substance Reaction Severity StartDate Concern Status 65663 RXNORM SEROquel Unknown 06/30/2024 active 71431 RXNORM traZODone Unknown 06/30/2024 active Care Team Name Role Address Phone Organization Dates Cristo Horner PCP [address], [place], [address], [facility] (Office): : (Pager): [facility] 07/01/2024 - 07/20/2024 Comfort Animah Boampong [address], [place], [address], [place] (Office): [facility] 07/01/2024 - 07/20/2024 Immunizations Immunization Status Vaccine Details Vaccine Code CodeSystem Date Notes SARS-COV-2 (COVID-19) completed SARS-COV-2 (COVID-19) vaccine, mRNA, spike protein, LNP, preservative free, 30 mcg/0.3mL dose Mfg: Moderna Step 1 of Multi-step with next step required 208 CVX created date: 07/07/2024 administer ed date: 01/07/2022 PER MIIS (J&J) SARS-COV-2-(COV ID-19) completed SARS-COV-2 (COVID-19) vaccine, vector non-replicating, recombinant spike protein-Ad26, preservative free, 0.5 mL Mfg: Moderna 212 CVX created date: 07/07/2024 administer ed date: 06/07/2021 PER MIIS PCV 20 cancelled Pneumococcal conjugate vaccine 20-valent (PCV20), polysaccharide [id number] conjugate, adjuvant, preservative free 216 CVX created date: 07/07/2024 consent date: 07/07/2024 Educated by BOB SÁNCHEZ on 07/01/2024 Resident approached for P20 vaccines but declines despite its benefits. Influenza FLUAD Quadrivalent Vaccine Adjuvanted cancelled Influenza, adjuvanted, inactivated, quadrivalent, injectable, preservative free 205 CVX created date: 07/07/2024 consent date: 07/07/2024 Educated by Lina SÁNCHEZ on 07/01/2024 Not eligible. Admitted after flu season (PFIZER) Covid Vaccine 2022 - cancelled SARS-COV-2 (COVID-19) vaccine, mRNA, spike protein, LNP, preservative free, berry-sucrose, 30 mcg/0.3 mL dose 309 CVX created date: 07/07/2024 consent date: 07/07/2024 Educated by BOB SÁNCHEZ on 07/01/2024 Resident approached for [employer] COVID-19 vaccines, but resident refused when offered. Pt educated on its benefits. Mental Status Section Date Assessment Total Score Description 07/20/2024 BIMS 15 cognitively int act CAM 0 No delirium ind icated PHQ-9 00 07/06/2024 BIMS 07 severe cognitiv e impairment CAM 0 No delirium ind icated PHQ-9 14 moderate depres cary Insurance Providers Coverage Status Coverage Type Relationship to Subscriber Member Identifier Subscriber Identifier Group Identifier Payer Identifier and Other information 2024 Code: 51 Code System OID:[id number] .[id number]. 5 Code System Name: Source of Payment Typology ([facility]) Display: Managed Care (Private) Translation: Code: Code System: OID:[id number] .[id number]. 1336 Code System Name: Insurance Type Code ([id number]) Display Name: Health Maintenance Organization (HMO) Plan Code: SELF Code System Name: HL7 RoleCode Code System OID:[id number] .[id number] Display Name: Self [id number] Root: [id number] Payer Name: [facility] Address: [address] [place] [address] City: [place] State: [place] Country: [facility] General Specificcom: [phone] Problems Problem # Description Date of onset Resolved Date Code CodeSystem Concern Status 1 CARDIAC MURMUR, UNSPECIFIED 07/01/[address] active 2 CHRONIC VIRAL HEPATITIS C 07/01/[address] active 3 COCAINE DEPENDENCE, UNCOMPLICATED 07/01/[address] active 4 METHICILLIN RESISTANT STAPHYLOCOCCUS AUREUS INFECTION, UNSPECIFIED SITE 07/01/[address] active 5 OPIOID DEPENDENCE, UNCOMPLICATED 07/01/[address] active 6 OTHER PSYCHOACTIVE SUBSTANCE ABUSE, UNCOMPLICATED 07/01/[address] active 7 WEAKNESS 07/01/[address] active 8 ANXIETY DISORDER, UNSPECIFIED 06/30/[address] active 9 BACTEREMIA 06/30/[address] active 10 DEPRESSION, UNSPECIFIED 06/30/[address] active 11 OPIOID ABUSE WITH UNSPECIFIED OPIOID-INDUCED DISORDER 06/30/[address] active Reason for Referral No Reasons for Referral Entered Social History Social History Observation Description Start Date End Date Code Code System Current Smoking Status Tobacco smoking consumption unknown 648300111 SNOMED CT Sex Assigned At Male 1990 24703-6 LOINC Gender Identity Sexual Orientation Vital Signs Code Code System Vitals Name Values and Units Timing Information 57590-4 LOINC Pain Level Value=0.0 07/20/2024 56609-9 LOINC Weight Qagce=326.0 Units=Lbs 9279-1 LOINC Respiratory Rate Value=16.0 Units=/m in 07/19/2024 8462-4 [facility] Blood Pressure-Diastolic Value=64 Un its=mmHg 07/19/2024 8480-6 [facility] Blood Pressure-Systolic Asapx=355 Un its=mmHg 07/19/2024 8310-5 [facility] Body Temperature Value=98.0 Units= F 07/19/2024 8867-4 [facility] Heart rate Value=64.0 Units=/min 15710-1 [facility] O2 % BldC Oximetry Value=98.0 Units= % 07/19/2024 8302-2 [facility] Height Value=69.0 Units=Inches 07/02/2024
--- OUTSIDE RECORDS SUMMARY | 2025-09-30 20:50 | XMS_ITS | Encounter Summary ---
Author Organization [employer] Address [address] [place] [address] [address] [place] [address] Care Team Providers Care Magazine Writer Name Role Phone Estephanie Lynne MD Primary Care Provider [phone] Lionel Arreola RN Unavailable [phone] Viktoria Sawyer Unavailable Encounter Details Date Type Department Care Team (Late st Contact Info) Description 08/02/2024 Orders Only [facility] [address] [place], [place] [phone] Estephanie Lynne MD [address] [place], [place] [phone] Social History Tobacco Use Types Packs/Day Years [...] Noted Time PHQ-9 Depression Total Score: 19 05/27/ 023 12:18 PM EDT documented as of this encounter Care Teams Magazine Writer Relationship Specialty Start Date End Date Estephanie Lynne MD [address] [place], [place] [phone] PCP - General Family Medicine 08/16/20 Lionel Arreola RN [address] [place] [address] Registered Nurse Family Medicine 05/04/25 05/04/25 Viktoria Sawyer 05/04/25 05/04/25 documented as of this encounter
--- OUTSIDE RECORDS SUMMARY | 2025-09-30 20:50 | XMS_ITS | Encounter Summary ---
Author Organization [employer] Address [address] [place] [address] [address] [place] [address] Care Team Providers Care Personal Consultant Name Role Phone Estephanie Lynne MD Primary Care Provider Reason for Visit * Reason Onset Date Comments Hospital Follow-up 07/07/2025 Encounter Details Date Type Department Care Team ([facility] st Contact Info) Description 07/07/2025 Telephone [facility] [address] [place], [place] [phone] Estephanie Lynne MD [address] [place], [place] [phone] Hospital Follow-up Social History Tobacco Use Types Packs/Day Years [...] AM EDT documented as of this encounter Miscellaneous Notes * Telephone Encounter - Juanjo Carrion - 07/07/2025 10:48 AM EDT Noah cedeño with the [facility] office requesting a HDF appt. Hospital: [facility] Date of admission: 11/23/2024 Discharge date: 07/21/2025 *Send message to [place] Clinical Care Coordinators Kellie requested to Contact mother at [phone] documented in this encounter Plan of Treatment Not on file documented as of this encounter Visit Diagnoses Not on filedocumented in this encounter Additional Health Concerns Assessment Noted Time PHQ-9 Depression Total Score: 19 023 12:18 PM EDT documented as of this encounter Care Teams Personal Consultant Relationship Specialty Start Date End Date Estephanie Lynne MD [address] [place] [address] PCP - General Family Medicine 08/16/20 documented as of this encounter
--- OUTSIDE RECORDS SUMMARY | 2025-09-30 20:50 | XMS_ITS ---
Author Organization [facility] Care Team Providers Care Case Aide Name Role Phone Cristo Horner Unavailable Unavailable Herson Gallo Unavailable Unavailable Rhett Montero Unavailable Unavail able Allergies and adverse reactions Code CodeSystem Substance Reaction Severity StartDate Concern Status 58787 RXNORM QUEtiapine Unknown 06/24/2024 active 78083 RXNORM traZODone Unknown 06/24/2024 active Care Team Name Role Address Phone Organization Dates Cristo Horner PCP [address] [address] [address], [facility], [place], [address], [facility] (Office): [facility] 06/24/2024 - 06/25/2024 Herson Gallo [address] [place], [address], [facility] (Office): [facility] 06/24/2024 - 06/25/2024 Rhett Montero [address] [address] [address], [facility], [place], [address], [facility] (Office): [facility] 06/24/2024 - 06/25/2024 Mental Status Section Date Assessment Total Score Description 06/25/2024 CAM 0 No delirium ind icated 06/25/2024 CAM 0 No delirium ind icated Insurance Providers Coverage Status Coverage Type Relationship to Subscriber Member Identifier Subscriber Identifier Group Identifier Payer Identifier and Other information 2024 Code: 51 Code System OID:[id number] .[id number]. 5 Code System Name: Source of Payment Typology (PHDSC) Display: Managed Care (Private) Translation: Code: Code System: OID:[id number] .[id number]. 1336 Code System Name: Insurance Type Code ([id number]) Display Name: Health Maintenance Organization (HMO) Plan Code: SELF Code System Name: HL7 RoleCode Code System OID:[id number] .[id number] Display Name: Self [id number] Root: [id number] Payer Name: [facility] Address: [address] [place] [address] City: [place] State: [place] Country: [facility] [employer]: [phone] Problems Problem # Description Date of onset Resolved Date Code CodeSystem Concern Status 1 BACTEREMIA 06/24/[address] active 2 CARDIAC MURMUR, UNSPECIFIED 06/24/[address] active 3 CHRONIC VIRAL HEPATITIS C 06/24/[address] active 4 GENERALIZED ANXIETY DISORDER 06/24/[address] active 5 MAJOR DEPRESSIVE DISORDER, RECURRENT, UNSPECIFIED 06/24/[address] active 6 METHICILLIN RESISTANT STAPHYLOCOCCUS AUREUS INFECTION THE CAUSE OF DISEASES CLASSIFIED ELSEWHERE 06/24/[address] active 7 OPIOID ABUSE, UNCOMPLICATED 06/24/[address] active 8 OTHER PSYCHOACTIVE SUBSTANCE ABUSE, UNCOMPLICATED 06/24/[address] active Reason for Referral No Reasons for Referral Entered Social History Social History Observation Description Start Date End Date Code Code System Current Smoking Status Tobacco smoking consumption unknown 488468377 SNOMED CT Sex Assigned At Male 1990 33699-2 LOINC Gender Identity Sexual Orientation Vital Signs Code Code System Vitals Name Values and Units Timing Information 8302-2 LOINC Height Value=69.0 Units=Inches 06/28/2024 92264-9 LOINC Pain Level Value=2.0 06/25/2024 9279-1 [facility] Respiratory Rate Value=18.0 Units=/m in 06/25/2024 8462-4 [facility] Blood Pressure-Diastolic Value=85 Un its=mmHg 06/25/2024 8480-6 [facility] Blood Pressure-Systolic Bnqlv=176 Un its=mmHg 06/25/2024 8310-5 [facility] Body Temperature Value=97.2 Units= F 06/25/2024 8867-4 [facility] Heart rate Value=71.0 Units=/min 02893-7 [facility] O2 % BldC Oximetry Value=96.0 Units= % 06/25/2024 79323-8 [facility] Weight Sfkpu=671.8 Units=Lbs
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
--- NOTE | 2025-09-30 21:08 | PC.NURSE ---
Security at bedside for a safety check due to pts altered mental status. Pt initially not agreeable to a safety search by security, requesting to leave. at bedside convincing pt to remain in the ED for treatment due to hx of endocarditis. Safety search completed by security, contraband disposed of by security. Belongings remain at bedside but were searched by security. IV established, labs obtained. CXR at bedside at this time. Plan for IVP Narcan.
[2025-09-30 21:17] VITALS: RESP 12; O2SAT 95
[2025-09-30 21:22] VITALS: BP 113/43; PULSE 100; RESP 16; TEMP 36.6; O2SAT 100
--- NOTE | 2025-09-30 21:30 | PC.NURSE ---
Medicated with Narcan per MAR, now awake and oriented, vomiting. Medicated with Zofran. Awaiting lab results at this time.
[2025-09-30 21:31] LABS: MANUAL DIFF FLAG NO
[2025-09-30 21:33] LABS: Hematocrit 34.2 % (42.0-52.0); Hemoglobin 12.4 g/dl (14.0-18.0); Imm Gran Abs Auto 0.01 X10*3/uL (0.00-0.03); Imm Gran Pct Auto 0.1 % (0.0-0.4); Lymphocytes Absolute Auto 3.4 X10*3/uL (1.2-4.9); Mean Corpuscular HGB Conc 36.3 g/dl (31.0-36.0); Mean Corpuscular Hemoglobin 31.1 pg (27.0-33.0); Mean Corpuscular Volume 85.7 fL (80.0-98.0); NRBC Abs Auto 0.000 X10*3/uL (0.0-0.012); NRBC Pct Auto 0.0 /100WBC (0.0-0.2); Platelet Count 210 X10*3/uL (160-400); Red Blood Count 3.99 X10*6/uL (4.60-5.80); White Blood Count 7.3 X10*3/uL (4.8-10.8)
[2025-09-30 21:44] LABS: Alanine Aminotransferase 50 U/L (0-40); Albumin Level 4.1 g/dL (3.5-5.0); Alkaline Phosphatase 116 U/L (39-117); Anion Gap 14 (12-20); Aspartate Amino Transferase 53 U/L (5-37); Blood Urea Nitrogen 12 mg/dL (9-16); Calcium 9.4 mg/dL (8.4-10.2); Carbon Dioxide 27 mmol/L (22-29); Chloride 103 mmol/L (96-108); Creatinine Clr Calc Pharmacy 88.8; Estimated Glomerular Filt Rate > 60; Potassium 3.7 mmol/L (3.3-5.1); Sodium 140 mmol/L (135-145); Total Protein 8.3 g/dL (6.5-8.0)
[2025-09-30 21:53] LABS: Troponin-I High Sensitivity < 2.7 ng/L (<3.5-35.0)
[2025-09-30] MEDS: Lactated Ringers 1,000 ML 999 ML IV (21:57)
[2025-09-30 22:23] VITALS: BP 143/81; PULSE 50; RESP 11; O2SAT 96
--- NOTE | 2025-09-30 22:28 | PC.NURSE ---
Back documentation Pt medicated per MAR linens changed, Rectal bleeding noted Provider Cr aware.
--- NOTE | 2025-09-30 23:08 | PC.NURSE ---
MD at bedside, plan to MTF and likely DC home.
[2025-09-30 23:39] VITALS: BP 122/74; PULSE 45; RESP 14; O2SAT 98
--- NOTE | 2025-09-30 23:58 | PC.NURSE ---
MD at bedside for rectal exam d/t blood noted on boxers. 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 Per MD, pt is able to be discharged once steady on his feet, able to ambulate. Pt requesting to continue sleeping, will trial ambulation when able.
--- NOTE | 2025-10-01 01:40 | PC.NURSE ---
assumed care of pt, pt sleeping i stretcher. calm and cooperative.
[2025-10-01 06:23] VITALS: BP 144/91; PULSE 60; TEMP 36.7; O2SAT 95
[2025-10-01 08:37] VITALS: BP 165/70; PULSE 88; RESP 18; TEMP 36.8; O2SAT 99
--- NOTE | 2025-10-01 08:39 | PC.NURSE ---
Pt reporting he feels well enough to go home. Mom at bedside, going to be d/c with mom. Alert and oriented, ambulatory with steady gait. Belongings returned. Medicated with PO zofran on d/c for some nausea.
[2025-10-01] MEDS: Naloxone HCl Nasal TAKE HOME 4 MG SPRAY 8 MG NOSTRILALT (08:41)
[2025-10-01 08:43] VITALS: BP 165/70; PULSE 88; RESP 18; TEMP 36.8; O2SAT 99
== END 2025-10-01 08:43 | disposition home or self-care (01) ==
PROVIDERS: Emergency Provider Student in an Organized Health Care Education/Training Program; PCP Family Medicine
DX: T40.601A Poisoning by unspecified narcotics, accidental (unintentional), initial encounter (principal); R07.89 Other chest pain; R11.0 Nausea; F17.210 Nicotine dependence, cigarettes, uncomplicated; Z79.899 Other long term (current) drug therapy
CPT/HCPCS: 36415; 71045; 80053; 83605; 84484; 85025; 87040; 93005; 96361; 96374; 96375; 99285; J1200; J2312; J2405; J2765; J7120

== ENCOUNTER → 2025-09-30 20:31 | Outpatient (BNV) | payer MEDICAID, SELFPAY | PROVIDERS: Emergency Provider Student in an Organized Health Care Education/Training Program; PCP Family Medicine; Visit Provider Internal Medicine | DX: R00.1 Bradycardia, unspecified (principal) | CPT/HCPCS: 93010 ==

== ENCOUNTER → 2025-09-30 20:59 | Outpatient (BNV) | payer MEDICAID, SELFPAY | PROVIDERS: Emergency Provider Student in an Organized Health Care Education/Training Program; PCP Family Medicine; Visit Provider Radiology Diagnostic Radiology | DX: R91.8 Other nonspecific abnormal finding of lung field (principal) | CPT/HCPCS: 71045 ==